=== PATIENT | male | born 1940 | race Caucasian/White ===

== ENCOUNTER 2017-05-18 15:48 | Inpatient (IN) | payer OTHER, MEDICARE ==
[2017-05-18] VITALS (7 sets, daily range): BP systolic 126–168; BP diastolic 62–78; PULSE 85–96; RESP 16–27; TEMP 96.8–97.7; O2SAT 91–94
[~2017-05-18] VITALS: Ht 177.8 cm; Wt 116.7 kg
[~2017-05-18 15:48] MED LIST: HYDR-2768 PO; IBUP600T26 PO; METO25 PO; ZOCO40TA PO
[2017-05-18] MEDS ORDERED: IOHEXOL 350 MG/ML 10 ML VIAL (for RAD DIAG) IVCONTRAST ONE (15:49)
--- NOTE | 2017-05-18 15:58 | PD ---
Physical Exam Time Seen by Provider: 15:56 Narrative 76[facility] M [facility]. C/o left sided chest pain and SOB that stared last night and worse today. Trav yepez hx. HX of HTN. and COPD. Patient seen in triage. VS reviewed. Awaiting bed placement. Data Data Last Documented VS Vital Signs Date Time Temp Pulse Resp B/P (MAP) Pulse Ox O2 Delivery O2 Flow Rate FiO2 05/18/17 15:52 97.7 88 17 133/76 (95) 93 MDM Supervised Visit with NENO: Eli Benson May 18, 2017 15:58
[2017-05-18] MEDS ORDERED: SODIUM CHLORIDE 0.9% FLUSH 10 ML FLUSH IVF PRN (16:00)
--- NOTE | 2017-05-18 16:22 | RADRPT ---
EXAM DATE/TIME: 05/18/2017 16:10 [facility] COMPARISON: KNEE RIGHT LTD (1 OR 2 VWS), November 18, 2015, 14:08. INDICATIONS : Chest pain, anterior upper left. Denies injury MEDICAL HISTORY : Chronic obstructive pulmonary disease. Hypertension SURGICAL HISTORY : None. ENCOUNTER: Initial ACUITY: 2 days PAIN SCORE: 9/10 LOCATION: Left chest FINDINGS: The heart is normal in size. There are advanced COPD changes. There is a large emphysematous bleb in the right upper lobe. There is a 9 mm calcified granuloma the left lung base. The osseous structures demonstrate degenerative changes but are otherwise intact. CONCLUSION: 1. Advanced COPD changes. Daryl Magaña MD on May 18, 2017 at 16:20 Board Certified Radiologist. This report was verified electronically.
[2017-05-18] MEDS ORDERED: SIMV20TA PO (16:59)
[2017-05-18] MEDS ORDERED: METO25TA3 PO (16:59)
[2017-05-18] MEDS ORDERED: HYDR25TA5 PO (16:59)
[2017-05-18] MEDS ORDERED: IPRAAER INH (17:01)
[2017-05-18 17:15] LABS: AUTOMATED NEUTROPHIL # 7.3 TH/MM3 (1.8-7.7); BASOPHIL # 0.1 TH/MM3 (0-0.2); BASOPHIL % 0.9 % (0.0-2.0); EOSINOPHIL # 0.2 TH/MM3 (0-0.4); EOSINOPHIL % 1.7 % (0.0-4.0); HEMO FLAGS DIFF FINAL; LYMPH % 13.4 % (9.0-44.0); LYMPHOCYTE # 1.3 TH/MM3 (1.0-4.8); MEAN CORPUSCULAR HEMOGLOBIN 30.6 PG (27.0-34.0); MONO % 11.2 % (0.0-8.0); NEUT % 72.8 % (16.0-70.0); PLATELET COUNT 218 TH/MM3 (150-450); RED BLOOD COUNT 5.22 MIL/MM3 (4.50-5.90); RED CELL DISTRIBUTION WIDTH 15.3 % (11.6-17.2)
[2017-05-18 17:20] LABS: APTT (PATIENT) 30.2 SEC (24.3-30.1); PROTHROMBIN TIME - PATIENT 10.8 SEC (9.8-11.6)
[2017-05-18 17:28] LABS: ANION GAP 3 MEQ/L (5-15); BICARBONATE 31.1 MEQ/L (21.0-32.0); BLOOD UREA NITROGEN 14 MG/DL (7-18); CHLORIDE 103 MEQ/L (98-107); GLOMERULAR FILTRATION RATE 68 ML/MIN (>89); MAGNESIUM 2.3 MG/DL (1.5-2.5); POTASSIUM 3.9 MEQ/L (3.5-5.1); SODIUM (NA) 137 MEQ/L (136-145)
[2017-05-18] MEDS ORDERED: ASPIRIN 81 MG CHEW TAB CHEW ONE (17:30)
[2017-05-18] MEDS ORDERED: methylPREDNISolone SOD SUCC 125 MG/2 ML VIAL IV PUSH ONE (17:30)
[2017-05-18] MEDS: RESP: ALBUTEROL 2.5 MG/IPRATROPIUM 0.5 MG NEB (SCH) INH (17:42)
[2017-05-18 17:47] LABS: CREATINE KINASE 59 U/L (39-308)
--- NOTE | 2017-05-18 18:15 | PD ---
HPI Chief Complaint: Chest Pain Time Seen by Provider: 16:52 Travel History International Travel<30 days: No Contact w/Intl Traveler<30days: No Traveled to known affect area: No History of Present Illness HPI This is a 76-year-old male with a history of COPD who presents to the emergency department with 1 day of left-sided chest discomfort, intermittent, worse with deep breaths, stabbing, moderate severity. He says he has never had pain like that before. He denies a productive cough, fevers or chills. He has no history of heart problems. He is not on oxygen at home. PFSH Past Medical History Arthritis: No Asthma: No Autoimmune Disease: No Blood Disorders: No Heart Rhythm Problems: No Cancer: No Cardiovascular Problems: No High Cholesterol: Yes Chemotherapy: No Chest Pain: No Congestive Heart Failure: No COPD: Yes Cerebrovascular Accident: No Diminished Hearing: No Endocrine: No GERD: No Glaucoma: No Genitourinary: No Headaches: No Hepatitis: No Hiatal Hernia: No Hypertension: Yes Immune Disorder: No Kidney Stones: No Musculoskeletal: No Neurologic: No Psychiatric: No Reproductive: No Respiratory: Yes (COPD) Migraines: No Myocardial Infarction: No Radiation Therapy: No Renal Failure: No Seizures: No Sickle Cell Disease: No Sleep Apnea: No Ulcer: No Influenza Vaccination: No Past Surgical History Abdominal Surgery: Yes (appendicitis 1957) AICD: No Appendectomy: Yes (1957) Arteriovenous Shunt: No Cardiac Surgery: No Cholecystectomy: No Ear Surgery: No Endocrine Surgery: No Eye Surgery: No Genitourinary Surgery: No Gynecologic Surgery: No Insulin Pump: No Joint Replacement: No Oral Surgery: No Pacemaker: No Thoracic Surgery: No Other Surgery: Yes (appendicitis 1957) Social History Alcohol Use: No Tobacco Use: No Substance Use: No Allergies-Medications (Allergen,Severity, Reaction): Coded Allergies: No Known Allergies (Verified , 05/18/17) Reported Meds & Prescriptions Reported Meds & Active Scripts Active Reported Combivent Respimat Inh (Ipratropium-Albuterol Inh) 20-100 Group Home/Act Aero 2 Puff INH QID PRN Metoprolol Tartrate 25 Mg Tab 25 Mg PO HS Hydrochlorothiazide 25 Mg Tab 25 Mg PO EVERY OTHER DAY Simvastatin 20 Mg Tab 10 Mg PO HS Review of Systems Except as stated in HPI: all other systems reviewed are Neg Physical Exam Narrative GENERAL: Obese, no acute distress SKIN: Focused skin assessment warm and dry. HEAD: Atraumatic. Normocephalic. EYES: Pupils equal and round. No injection or drainage. ENT: Moist mucous membranes NECK: Trachea midline. CARDIOVASCULAR: Regular rate and rhythm. No murmur appreciated. RESPIRATORY: Diminished air movement bilaterally, tachypnea, per slit breathing , speaking full sentences GASTROINTESTINAL: Abdomen soft, non-tender, nondistended. MUSCULOSKELETAL: No obvious deformities. NEUROLOGICAL: Awake and alert. No obvious cranial nerve deficits. Moving all extremities. PSYCHIATRIC: Appropriate mood and affect; insight and judgment normal. Data Data Last Documented VS Vital Signs Date Time Temp Pulse Resp B/P (MAP) Pulse Ox O2 Delivery O2 Flow Rate FiO2 05/18/17 16:55 91 Nasal Cannula 2.00 05/18/17 16:55 87 27 168/78 (108) 05/18/17 15:52 97.7 Orders Orders Electrocardiogram (05/18/17 15:58) Basic Metabolic Panel (Bmp) (05/18/17 15:58) B-Type Natriuretic Peptide (05/18/17 15:58) Ckmb (Isoenzyme) Profile (05/18/17 15:58) Complete Blood Count With Diff (05/18/17 15:58) Magnesium (Mg) (05/18/17 15:58) Prothrombin Time / Inr (Pt) (05/18/17 15:58) Act Partial Throm Time (Ptt) (05/18/17 15:58) Troponin I (05/18/17 15:58) Chest, Single Ap (05/18/17 15:58) Ecg Monitoring (05/18/17 15:58) Iv Access Insert/Monitor (05/18/17 15:58) Oximetry (05/18/17 15:58) Oxygen Administration (05/18/17 15:58) Sodium Chloride 0.9% Flush (Ns Flush) (05/18/17 16:00) Ct Pulmonary Angiogram (05/18/17 ) Methylprednisolone So Succ Inj (Solumedr (05/18/17 17:30) Albuterol-Ipratropium Neb (Duoneb Neb) (05/18/17 17:30) Aspirin Chew (Aspirin Chew) (05/18/17 17:30) Iohexol 350 Inj (Omnipaque 350 Inj) (05/18/17 15:49) Labs Laboratory Tests Test 05/18/17 16:45 White Blood Count 10.0 TH/MM3 Red Blood Count 5.22 MIL/MM3 Hemoglobin 16.0 GM/DL Hematocrit 47.0 % Mean Corpuscular Volume 90.0 FL Mean Corpuscular Hemoglobin 30.6 PG Mean Corpuscular Hemoglobin Concent 34.0 % Red Cell Distribution Width 15.3 % Platelet Count 218 TH/MM3 Mean Platelet Volume 8.9 FL Neutrophils (%) (Auto) 72.8 % Lymphocytes (%) (Auto) 13.4 % Monocytes (%) (Auto) 11.2 % Eosinophils (%) (Auto) 1.7 % Basophils (%) (Auto) 0.9 % Neutrophils # (Auto) 7.3 TH/MM3 Lymphocytes # (Auto) 1.3 TH/MM3 Monocytes # (Auto) 1.1 TH/MM3 Eosinophils # (Auto) 0.2 TH/MM3 Basophils # (Auto) 0.1 TH/MM3 CBC Comment DIFF FINAL Differential Comment Prothrombin Time 10.8 SEC Prothromb Time International Ratio 1.0 RATIO Activated Partial Thromboplast Time 30.2 SEC Blood Urea Nitrogen 14 MG/DL Creatinine 1.06 MG/DL Random Glucose 110 MG/DL Calcium Level 9.0 MG/DL Magnesium Level 2.3 MG/DL Sodium Level 137 MEQ/L Potassium Level 3.9 MEQ/L Chloride Level 103 MEQ/L Carbon Dioxide Level 31.1 MEQ/L Anion Gap 3 MEQ/L Estimat Glomerular Filtration Rate 68 ML/MIN Total Creatine Kinase 59 U/L Troponin I LESS THAN 0.02 NG/ML B-Type Natriuretic Peptide 70 PG/ML MDM Medical Decision Making Medical Screen Exam Complete: Yes Emergency Medical Condition: Yes Interpretation(s) EKG: Atrial fibrillation No leukocytosis Electrolytes are reassuring Troponin is normal BNP is 70 Coags are normal Last 24 hours Impressions Chest X-Ray 05/18/17 1558 Signed Impressions: Service Date/Time: April 16:10 - CONCLUSION: 1. Advanced COPD changes. Daryl Magaña MD CT Angiography 05/18/17 0000 Signed Impressions: Service Date/Time: April 18:05 - CONCLUSION: 1. Examination quality is degraded by severe respiratory motion artifact. However , there are filling defects identified within the left upper lobe and right middle lobe pulmonary arteries characteristic of PE. 2. Severe emphysema with trace left pleural effusion and left lower lobe atelectasis versus consolidation. 3. There are bilateral calcified pleural plaques indicative of prior asbestos exposure. Dario Mendez MD Differential Diagnosis Pulmonary embolism, pleural effusion, pneumonia, COPD exacerbation Narrative Course This is a 76-year-old male who presents to the emergency department with left- sided chest discomfort shortness of breath. He has a history of COPD. He was placed on a monitor and an IV was established. Labs demonstrate a reassuring BMP and troponin. CT pulmonary angiogram demonstrates filling defects in the left upper lobe and right middle lobe. The left upper lobe would be consistent with the patient's symptoms. I do suspect his symptoms are related to pulmonary emboli. Patient will be admitted on anticoagulation. Diagnosis Primary Impression: Pulmonary embolism Qualified Codes: I26.99 - Other pulmonary embolism without acute cor pulmonale Admitting Information Admitting Physician Requests: Admit Annemarie Sykes MD May 18, 2017 18:15
--- NOTE | 2017-05-18 18:27 | RADRPT ---
EXAM DATE/TIME: 05/18/2017 18:05 [facility] COMPARISON: No previous studies available for comparison. INDICATIONS : Shortness of breath and left sided chest pain. IV CONTRAST: 75 cc Omnipaque 350 (iohexol) IV RADIATION DOSE: 23.25 CTDIvol (mGy) MEDICAL HISTORY : Chronic obstructive pulmonary disease. Hypertension. SURGICAL HISTORY : None. ENCOUNTER: Initial ACUITY: 1 day PAIN SCALE: 4/10 LOCATION: Left chest TECHNIQUE: Volumetric scanning of the chest was performed using a pulmonary embolism protocol MIP images were re constructed. Using automated exposure control and adjustment of the mA and/or kV according to patien t size, radiation dose was kept as low as reasonably achievable to obtain optimal diagnostic quality images. DICOM format image data is available electronically for review and comparison. Follow-up recommendations for detected pulmonary nodules are based at a minimum on nodule size and pa tient risk factors according to Fleischner Society Guidelines. FINDINGS: Examination quality is degraded by respiratory motion artifact. PULMONARY ARTERIES: There is a filling defect within the right middle lobe pulmonary artery and within a left upper lobe pulmonary artery. LUNGS: There is atelectasis at the lung bases bilaterally with mild consolidation versus atelectasis in the left lower lobe. No pneumothorax is present. There is severe centrilobular and paraseptal emphysema i n the upper lobes. There is a calcified granuloma in the left lower lobe. PLEURAE: There is a small left pleural effusion. There are calcified pleural plaques bilaterally. MEDIASTINUM: Heart and great vessels demonstrate no acute finding. There is coronary artery calcification atherosc lerotic disease of the aorta. MUSCULOSKELETAL: There are degenerative changes are present in the thoracic spine. No acute osseous abnormality is vis ualized. MISCELLANEOUS: The visualized upper abdominal organs demonstrate no acute abnormality. CONCLUSION: 1. Examination quality is degraded by severe respiratory motion artifact. However, there are filling defects identified within the left upper lobe and right middle lobe pulmonary arteries characteristic of PE. 2. Severe emphysema with trace left pleural effusion and left lower lobe atelectasis versus consolida tion. 3. There are bilateral calcified pleural plaques indicative of prior asbestos exposure. Dario Mendez MD on May 18, 2017 at 18:21 Board Certified Radiologist. This report was verified electronically.
[2017-05-18] MEDS ORDERED: ENOXAPARIN SODIUM 150 MG/ML SYRINGE SQ ONE (18:45)
[2017-05-18] MEDS ORDERED: SODIUM CHLORIDE 0.9% FLUSH 10 ML FLUSH IV FLUSH PRN (20:00)
[2017-05-18] MEDS ORDERED: NALOXONE HCL 0.4 MG/ML AMP IV PRN (20:00)
--- NOTE | 2017-05-18 20:54 | HHI.HP ---
[facility] - Dr. Ugalde Admission Diagnosis pulmonary embolism Diagnoses: (1) Pulmonary embolism Chief Complaint: Chest pain Travel History International Travel<30 Days: No Contact w/Intl Traveler <30 Da: No Traveled to Known Affected Are: No History of Present Illness Written by La Leavitt, acting as scribe for Dr. Yang on 05/18/17 at 20:48. Chest pain started yesterday accompanied by diaphoresis; [facility]. Pain worse with deep inspiration. Accompanied by shortness of breath. Extended car travel in March 22 but no more recent travel. No recent surgery. Reports using a cane for ambulation. Denies overly sedentary lifestyle. Denies fever, nausea, vomiting. He reports cough with sputum production over past few days. Denies hematochezia, hematuria, or dysuria. Had a one-time dark stool, looked black 3 days ago. He reports a history of low platelets resolved 7-9 years ago once aspirin d/c'd. Denies dizziness or syncope Has fell 6 months ago - last fall 2 - 3 weeks ago - feet got "tangled up in a rope". - Also sees Dr. Guajardo for PCP - for [employer] supplement. . Review of Systems Except as stated in HPI: all other systems reviewed are Neg Past Family Social History Past Medical History COPD Hypertension Hyperlipidemia Denies gastric ulcers, DM, CAD, CHF, irregular heart rhythms including a fib, ADELIA, not on home oxygen, liver problems, kidney problems, DVT, PE, CVA, seizures , thyroid problems, or cancers. . Past Surgical History Appendectomy . Reported Medications Reported Meds & Active Scripts Active Reported Combivent Respimat Inh (Ipratropium-Albuterol Inh) 20-100 Intermediate/Act Aero 2 Puff INH QID PRN Metoprolol Tartrate 25 Mg Tab 25 Mg PO HS Hydrochlorothiazide 25 Mg Tab 25 Mg PO EVERY OTHER DAY Simvastatin 20 Mg Tab 10 Mg PO HS . Allergies: Coded Allergies: No Known Allergies (Verified , 05/18/17) Active Ordered Medications Current Medications Sodium Chloride (NS Flush) 2 ml UNSCH PRN IVF FLUSH AFTER USING IV ACCESS; Start 05/18/17 at 16:00 Methylprednisolone Sodium Succinate (SoluMEDROL INJ) 125 mg ONCE ONCE IV PUSH Last administered on 05/18/17 17:47; Start 05/18/17 at 17:30; Stop 05/18/17 at 17:31; Status DC Albuterol/ Ipratropium (Duoneb Neb) 1 ampule Q15M INH Last administered on 05/18 17:42; Start 05/18/17 at 17:30; Stop 05/18/17 at 18:01; Status DC Aspirin (Aspirin Chew) 162 mg ONCE ONCE CHEW Last administered on 05/18/17 17 :48; Start 05/18/17 at 17:30; Stop 05/18/17 at 17:31; Status DC Iohexol (Omnipaque 350 Inj) 75 ml STK-MED ONCE IVCONTRAST Last administered on 05/18/17 15:49; Start 05/18/17 at 15:49; Stop 05/18/17 at 18:08; Status DC Enoxaparin Sodium (Lovenox Inj) 130 mg ONCE ONCE SQ Last administered on 18:44; Start 05/18/17 at 18:45; Stop 05/18/17 at 18:46; Status DC Sodium Chloride (NS Flush) 2 ml UNSCH PRN IV FLUSH FLUSH AFTER USING IV ACCESS ; Start 05/18/17 at 20:00; Status UNV Sodium Chloride (NS Flush) 2 ml BID IV FLUSH ; Start 05/18/17 at 21:00; Status UNV Naloxone HCl (Narcan Inj) 0.4 mg UNSCH PRN IV SEE LABEL COMMENTS; Start at 20:00; Status UNV Enoxaparin Sodium (Lovenox Inj) 125 mg Q12H SQ ; Start 05/19/17 at 09:00; Status UNV Albuterol/ Ipratropium (Duoneb Neb) 1 ampule Q6HR NEB NEB ; Start 05/18/17 at 22:00; Status UNV Albuterol/ Ipratropium (Duoneb Neb) 1 ampule Q2HR NEB PRN NEB wheezing; Start 05/18/17 at 20:00; Status UNV Methylprednisolone Sodium Succinate (SoluMEDROL INJ) 40 mg Q6HR IV PUSH ; Start 05/19/17 at 00:00; Status UNV Pantoprazole Sodium (Protonix) 40 mg DAILY PO ; Start 05/19/17 at 09:00; Status UNV . Family History Mother with breast cancer, lived until age 98 y/o . Social History Tobacco: quit smoking 25 years ago Alcohol: denies Illicit Drugs: denies . Physical Exam Vital Signs Vital Signs Date Time Temp Pulse Resp B/P (MAP) Pulse Ox O2 Delivery O2 Flow Rate FiO2 05/18/17 19:51 91 22 126/65 (85) 91 3.00 05/18/17 19:49 Room Air 05/18/17 19:49 Room Air 05/18/17 18:45 96 16 146/65 (92) 91 Nasal Cannula 2.50 05/18/17 16:55 91 Nasal Cannula 2.00 05/18/17 16:55 87 27 168/78 (108) 94 Nasal Cannula 2.00 05/18/17 15:52 97.7 88 17 133/76 (95) 93 Physical Exam GENERAL: This is an obese male patient, in no apparent distress. SKIN: No rashes, ecchymoses or lesions. Diaphoretic. HEAD: Atraumatic. Normocephalic. EYES: Pupils equal round and reactive. No injection or drainage. ENT: Nose without bleeding, purulent drainage. Patent airway. NECK: Trachea midline. No JVD. CARDIOVASCULAR: Regular rate and rhythm without murmurs, gallops, or rubs. RESPIRATORY: Lung sounds diminished. Breath sounds equal bilaterally. No wheezes, rales, or rhonchi. GASTROINTESTINAL: Abdomen obese, soft, non-tender, nondistended. No guarding. MUSCULOSKELETAL: Extremities without clubbing, cyanosis, or edema. No calf tenderness. NEUROLOGICAL: Awake and alert. Motor and sensory grossly within normal limits. Normal speech. . Laboratory Laboratory Tests Test 05/18/17 16:45 White Blood Count 10.0 Red Blood Count 5.22 Hemoglobin 16.0 Hematocrit 47.0 Mean Corpuscular Volume 90.0 Mean Corpuscular Hemoglobin 30.6 Mean Corpuscular Hemoglobin Concent 34.0 Red Cell Distribution Width 15.3 Platelet Count 218 Mean Platelet Volume 8.9 Neutrophils (%) (Auto) 72.8 Lymphocytes (%) (Auto) 13.4 Monocytes (%) (Auto) 11.2 Eosinophils (%) (Auto) 1.7 Basophils (%) (Auto) 0.9 Neutrophils # (Auto) 7.3 Lymphocytes # (Auto) 1.3 Monocytes # (Auto) 1.1 Eosinophils # (Auto) 0.2 Basophils # (Auto) 0.1 CBC Comment DIFF FINAL Differential Comment Prothrombin Time 10.8 Prothromb Time International Ratio 1.0 Activated Partial Thromboplast Time 30.2 Blood Urea Nitrogen 14 Creatinine 1.06 Random Glucose 110 Calcium Level 9.0 Magnesium Level 2.3 Sodium Level 137 Potassium Level 3.9 Chloride Level 103 Carbon Dioxide Level 31.1 Anion Gap 3 Estimat Glomerular Filtration Rate 68 Total Creatine Kinase 59 Troponin I LESS THAN 0.02 B-Type Natriuretic Peptide 70 Result Diagram: 05/18/17 1645 05/18/17 1645 Imaging Last Impressions Chest X-Ray 05/18/17 1558 Signed Impressions: Service Date/Time: April 16:10 - CONCLUSION: 1. Advanced COPD changes. Daryl Magaña MD CT Angiography 05/18/17 0000 Signed Impressions: Service Date/Time: April 18:05 - CONCLUSION: 1. Examination quality is degraded by severe respiratory motion artifact. However , there are filling defects identified within the left upper lobe and right middle lobe pulmonary arteries characteristic of PE. 2. Severe emphysema with trace left pleural effusion and left lower lobe atelectasis versus consolidation. 3. There are bilateral calcified pleural plaques indicative of prior asbestos exposure. Dario Mendez MD . Caprini VTE Risk Assessment Caprini VTE Risk Assessment: Mod/High Risk (score >= 2) Caprini Risk Assessment Model Point Value = 1 Point Value = 2 Point Value = 3 Point Value = 5 Age 41-60 Minor surgery BMI > 25 kg/m2 Swollen legs Varicose veins or History of unexplained or recurrent spontaneous Oral contraceptives or hormone replacement Sepsis (< 1 month) Serious lung disease, including pneumonia (< 1 month) Abnormal pulmonary function Acute myocardial infarction Congestive heart failure (< 1 month) History of inflammatory bowel disease Medical patient at bed rest Age 61-74 Arthroscopic surgery Major open surgery (> 45 min) Laparoscopic surgery (> 45 min) Malignancy Confined to bed (> 72 hours) Immobilizing plaster cast Central venous access Age >= 75 History of VTE Family history of VTE Factor V Leiden Prothrombin [id number] Lupus anticoagulant Anticardiolipin antibodies Elevated serum homocysteine Heparin-induced thrombocytopenia Other congenital or acquired thrombophilia Stroke (< 1 month) Elective arthroplasty Hip, pelvis, or leg fracture Acute spinal cord injury (< 1 month) Prophylaxis Regimen Total Risk Factor Score Risk Level Prophylaxis Regimen 0-1 Low Early ambulation 2 Moderate Order ONE of the following: *Sequential Compression Device (SCD) *Heparin 5000 units SQ BID 3-4 Higher Order ONE of the following medications: *Heparin 5000 units SQ TID *Enoxaparin/Lovenox 40 mg SQ daily (WT < 150 kg, CrCl > 30 mL/min) *Enoxaparin/Lovenox 30 mg SQ daily (WT < 150 kg, CrCl > 10-29 mL/min) *Enoxaparin/Lovenox 30 mg SQ BID (WT < 150 kg, CrCl > 30 mL/min) AND/OR *Sequential Compression Device (SCD) 5 or more Highest Order ONE of the following medications: *Heparin 5000 units SQ TID (Preferred with Epidurals) *Enoxaparin/Lovenox 40 mg SQ daily (WT < 150 kg, CrCl > 30 mL/min) *Enoxaparin/Lovenox 30 mg SQ daily (WT < 150 kg, CrCl > 10-29 mL/min) *Enoxaparin/Lovenox 30 mg SQ BID (WT < 150 kg, CrCl > 30 mL/min) AND *Sequential Compression Device (SCD) Assessment and Plan Problem List: (1) COPD (chronic obstructive pulmonary disease) ICD Code: J44.9 - Chronic obstructive pulmonary disease, unspecified (2) Pulmonary embolism ICD Code: I26.99 - Other pulmonary embolism without acute cor pulmonale Status: Acute Assessment and Plan Bilateral PE - Lovenox 125 mg subq q12h - discussed anticoagulation options with the patient - pros vs cons - supplemental oxygen titrated to maintain oxygen saturation > 92%. - will check bilateral lower extremity ultrasound to r/o DVT Severe COPD with productive cough- diaphoretic, ct showing possible consolidations- probable pneumonia - Duonebulizers q6h ATC and q2h PRN wheezing - Solumedrol 40 mg q6h IV - Levaquin 750 mg IV qday Chest Pain - serial EKG and cardiac enzymes to r/o ACS - Heart healthy diet - continuous cardiac telemetry to monitor for arrhythmias - monitor vital signs q4h History of thrombocytopenia on aspirin - platelets 218,00 on admission - recheck CBC and follow results - monitor platelet trends This note was transcribed by adolfo [La Leavitt]. I, Dr. Kelly Yang personally performed the history, physical exam, and medical decision making; and confirmed the accuracy of the information in the transcribed note. Authenticated by Dr. Kelly Yang on 05/18/17 at 20:48. Discussed Condition With ER physician, patient, respiratory therapist, and patient's . Physician Certification 2 Midnight Certification Type: Admission for Inpatient Services Order for Inpatient Services The services are ordered in accordance with Medicare regulations or non- Medicare payer requirements, as applicable. In the case of services not specified as inpatient-only, they are appropriately provided as inpatient services in accordance with the 2-midnight benchmark. Estimated LOS (days): 3 days is the estimated time the patient will need to remain in the hospital, assuming treatment plan goals are met and no additional complications. Post-Hospital Plan: Home Problem Qualifiers (1) Pulmonary embolism: Qualified Codes: I26.99 - Other pulmonary embolism without acute cor pulmonale La Leavitt May 18, 2017 20:54 Kelly Yang MD May 18, 2017 22:08
[2017-05-18] MEDS: RESP: ALBUTEROL 2.5 MG/IPRATROPIUM 0.5 MG NEB (SCH) NEB (21:27)
[2017-05-18] MEDS: SODIUM CHLORIDE 0.9% FLUSH 10 ML FLUSH IV FLUSH SCH (22:37)
[2017-05-18] MEDS: LEVOFLOXACIN 750 MG PREMIX INJ 150 ML IV SCH (22:37)
--- NOTE | 2017-05-18 23:14 | RADRPT ---
EXAM DATE/TIME: 05/18/2017 22:06 [facility] COMPARISON: No previous studies available for comparison. INDICATIONS : Bilateral leg swelling. MEDICAL HISTORY : Hypercholesterolemia. Hypertension. Right eye cataracts. COPD. Dyspnea. Wheezing. SURGICAL HISTORY : Appendectomy. ENCOUNTER: Initial ACUITY: 1 day PAIN SCORE: 4/10 LOCATION: Bilateral legs. TECHNIQUE: Venous ultrasound of the left and right leg was performed from the inguinal ligament to the proximal calf. Real-time, color Doppler and spectral tracing, compression and augmentation techniques were us ed. FINDINGS: RIGHT LEG: There is normal compressibility of the deep venous system from the inguinal region to the proximal ca lf. No echogenic clot is seen in the lumen of the common femoral, femoral, popliteal, and posterior tibial veins. There is a normal response of the venous system to proximal and distal augmentation an d respiration. LEFT LEG: There is normal compressibility of the deep venous system from the inguinal region to the proximal ca lf. No echogenic clot is seen in the lumen of the common femoral, femoral, popliteal, and posterior tibial veins. There is a normal response of the venous system to proximal and distal augmentation an d respiration. CONCLUSION: Normal examination. Willi Robison MD on May 18, 2017 at 23:12 Board Certified Radiologist. This report was verified electronically.
[2017-05-18 23:34] LABS: CREATINE KINASE 48 U/L (39-308)
[2017-05-19] VITALS (10 sets, daily range): BP systolic 119–147; BP diastolic 48–69; PULSE 81–107; RESP 18–21; TEMP 96–97; O2SAT 90–92
[2017-05-19] MEDS: methylPREDNISolone SOD SUCC 40 MG/1 ML VIAL IV PUSH SCH ×5 (00:34→23:12)
[2017-05-19] MEDS: RESP: ALBUTEROL 2.5 MG/IPRATROPIUM 0.5 MG NEB (SCH) NEB ×4 (04:47→21:45)
[2017-05-19 07:17] LABS: AUTOMATED NEUTROPHIL # 8.4 TH/MM3 (1.8-7.7); BASOPHIL % 0.2 % (0.0-2.0); HEMATOCRIT 45.9 % (39.0-51.0); HEMO FLAGS DIFF FINAL; LYMPHOCYTE # 0.8 TH/MM3 (1.0-4.8); MEAN CELL VOLUME 89.7 FL (80.0-100.0); MEAN CORPUSCULAR HEMOGLOBIN 30.8 PG (27.0-34.0); MEAN CORPUSCULAR HGB CONC 34.3 % (32.0-36.0); MONO % 1.9 % (0.0-8.0); NEUT % 89.9 % (16.0-70.0); PLATELET COUNT 216 TH/MM3 (150-450); RED BLOOD COUNT 5.12 MIL/MM3 (4.50-5.90); RED CELL DISTRIBUTION WIDTH 15.3 % (11.6-17.2); WHITE BLOOD COUNT 9.4 TH/MM3 (4.0-11.0)
[2017-05-19 07:38] LABS: ANION GAP 12 MEQ/L (5-15); AST (GOT) 11 U/L (15-37); BICARBONATE 23.5 MEQ/L (21.0-32.0); BLOOD UREA NITROGEN 15 MG/DL (7-18); CHLORIDE 101 MEQ/L (98-107); GLOMERULAR FILTRATION RATE 67 ML/MIN (>89); POTASSIUM 3.5 MEQ/L (3.5-5.1); SODIUM (NA) 136 MEQ/L (136-145)
[2017-05-19 07:43] LABS: ALKALINE PHOSPHATASE 88 U/L (45-117); ALT (GPT) 12 U/L (12-78); TOTAL BILIRUBIN ADULT 0.6 MG/DL (0.2-1.0)
[2017-05-19 07:44] LABS: CREATINE KINASE 80 U/L (39-308)
[2017-05-19] MEDS ORDERED: ENOXAPARIN SODIUM 120 MG/0.8 ML SYRINGE SQ SCH (09:00)
[2017-05-19] MEDS: SODIUM CHLORIDE 0.9% FLUSH 10 ML FLUSH IV FLUSH SCH ×2 (10:19→19:32)
[2017-05-19] MEDS: PANTOPRAZOLE SOD 40 MG DELAYED RELEASE TAB PO SCH (10:19)
--- NOTE | 2017-05-19 10:55 | HHI.PR ---
Subjective Remarks easily gets short of breath history of chronic smoking - COPD- not 02 requiring Objective Vitals Vital Signs Date Time Temp Pulse Resp B/P (MAP) Pulse Ox O2 Delivery O2 Flow Rate FiO2 05/19/17 10:11 92 Nasal Cannula 4.00 05/19/17 07:57 96.7 84 18 139/69 (92) 90 05/19/17 06:35 96.9 81 21 135/69 (91) 91 05/19/17 04:51 90 Nasal Cannula 4.00 05/19/17 00:40 96.9 85 19 132/63 (86) 92 05/18/17 22:38 85 05/18/17 22:38 92 Nasal Cannula 4.00 05/18/17 21:50 96.8 96 19 128/62 (84) 92 05/18/17 21:29 91 Nasal Cannula 3.00 05/18/17 19:51 91 22 126/65 (85) 91 3.00 05/18/17 19:49 Room Air 05/18/17 19:49 Room Air 05/18/17 18:45 96 16 146/65 (92) 91 Nasal Cannula 2.50 05/18/17 16:55 91 Nasal Cannula 2.00 05/18/17 16:55 87 27 168/78 (108) 94 Nasal Cannula 2.00 05/18/17 15:52 97.7 88 17 133/76 (95) 93 I/O 05/18/17 05/18/17 05/18/17 05/19/17 05/19/17 05/19/17 07:00 15:00 23:00 07:00 15:00 23:00 Intake Total 390 ml Balance 390 ml Intake Oral 240 ml IV Total 150 ml # Voids 1 # Bowel Movements 0 Result Diagram: 05/19/17 0642 05/19/17 0642 Imaging Last Impressions Chest X-Ray 05/18/17 1558 Signed Impressions: Service Date/Time: April 16:10 - CONCLUSION: 1. Advanced COPD changes. Daryl Magaña MD Lower Extremity Ultrasound 05/18/17 0000 Signed Impressions: Service Date/Time: April 22:06 - CONCLUSION: Normal examination. Willi Robison MD CT Angiography 05/18/17 0000 Signed Impressions: Service Date/Time: April 18:05 - CONCLUSION: 1. Examination quality is degraded by severe respiratory motion artifact. However , there are filling defects identified within the left upper lobe and right middle lobe pulmonary arteries characteristic of PE. 2. Severe emphysema with trace left pleural effusion and left lower lobe atelectasis versus consolidation. 3. There are bilateral calcified pleural plaques indicative of prior asbestos exposure. Dario Mendez MD Objective Remarks awake and alert, SOB with minimal exertion lungs- no rales or wheezes regular rhythm abdomen- globularly soft, nontender extremities no edema A/P Problem List: (1) COPD (chronic obstructive pulmonary disease) ICD Code: J44.9 - Chronic obstructive pulmonary disease, unspecified (2) Pulmonary embolism ICD Code: I26.99 - Other pulmonary embolism without acute cor pulmonale Status: Acute Assessment and Plan Bilateral PE - change to Eliquis 10 mg po bid x 7 days then 5 mg po bid- we can ask CM to assist Acute respiratory failure due to PE likely with underlying COPD Possible PNA -get PFTs - continue on MDIs, duonebs, IV steroids - get walk test- OP 02 candidate - continue on Levaquin - consult Pulmonary Chest Pain - serial EKG and cardiac enzymes to r/o ACS - Heart healthy diet - continuous cardiac telemetry to monitor for arrhythmias - monitor vital signs q4h History of thrombocytopenia on aspirin - platelets 218,00 on admission - recheck CBC and follow results - monitor platelet trends CM consult- assist with Eliquis Problem Qualifiers (1) Pulmonary embolism: Qualified Codes: I26.99 - Other pulmonary embolism without acute cor pulmonale Radha Miller MD May 19, 2017 10:55
--- NOTE | 2017-05-19 11:34 | EKG ---
Date Performed: 05/18/2017 Time Performed: 16:40:42 PTAGE: 76 years EKG: Probably Sinus rhythm with PACs NONSPECIFIC ST & T-WAVE ABNORMALITY Baseline artifact limits accuracy of the interpretatio n ABNORMAL RHYTHM ECG PREVIOUS TRACING : 03/09/2007 06.47 DOCTOR: Tera Carrasquillo Interpretating Date/Time 05/19/2017 11:33:00
--- NOTE | 2017-05-19 11:34 | EKG ---
Date Performed: 05/18/2017 Time Performed: 22:15:00 PTAGE: 76 years EKG: Probably Sinus rhythm with PACs MODERATE INTRAVENTRICULAR CONDUCTION DELAY NONSPECIFIC ST & T-WAVE ABNORMALITY Baseline ar tifact limits accuracy of the interpretation ABNORMAL RHYTHM ECG PREVIOUS TRACING : 05/18/2017 16.40 DOCTOR: Tera Carrasquillo Interpretating Date/Time 05/19/2017 11:33:48
[2017-05-19] MEDS: APIXABAN 5 MG TABLET PO SCH (19:32)
[2017-05-19] MEDS: LEVOFLOXACIN 750 MG PREMIX INJ 150 ML IV SCH (21:00)
--- NOTE | 2017-05-19 21:07 | MB ---
cc: KIRSTEN WOO DATE OF CONSULTATION 05/19/[address] Miller REASON FOR CONSULTATION Pulmonary embolism and COPD. HISTORY OF PRESENT ILLNESS Mr. Weldon is a pleasant 76-year-old male with history of COPD, hypertension. He follows at the [facility] with Dr. Viola Ugalde. He developed chest pain, pleuritic in nature and he called [facility], advised to come to the hospital. He had a CT of the chest done which shows that he has pulmonary embolism. He also has pleural plaques, severe emphysematous changes in the lung. He was initially started on Lovenox, now he is taking Eliquis. He has mild shortness of breath with exertion. No fever, __. No night sweats. PAST MEDICAL HISTORY Significant history of COPD, history of cardiac arrhythmia, hypertension. MEDICATIONS He is currently takin. Eliquis 10 milligrams twice a day. 2. Protonix 40 milligrams a day. 3. Solu-Medrol 40 milligrams q. 6 hours. 4. Albuterol/Atrovent nebulizer treatment. 5. Levaquin 750 milligrams a day. ALLERGIES NO KNOWN DRUG ALLERGIES. SOCIAL HISTORY for 36-year. He history of smoking which he quit 25 years ago. He worked for [employer]. FAMILY HISTORY He has no children. REVIEW OF SYSTEMS Normally he is up and around, active. No seizure, stroke or epilepsy. No DVT or pulmonary embolism. PHYSICAL EXAMINATION GENERAL: Reveals a well-nourished male mild short of breath, not in any acute distress. VITAL SIGNS: His blood pressure is 119/50, heart rate 92, respiration 18, temperature 96.9. HEENT: On examination pupils are equal, round and reactive to light. Oral mucosa, nasal mucosa normal. NECK: Supple. JVP not raised. CHEST: Air entry equal bilaterally. He has few rhonchi. CHEST: S1-S2 normal. ABDOMEN: Benign. EXTREMITIES: No edema. IMPRESSION 1. Pulmonary embolism. 2. COPD. 3. Hypertension. 4. Pleural plaques indicative of exposure to asbestos. PLAN Discussed with the patient. We will give him aerosol treatment, IV Solu-Medrol. Check his pulmonary function study. He is on Eliquis 10 milligrams twice a day for 1 week, then 5 milligrams twice a day. I discussed with him side effects of anticoagulation including risk of severe bleeding, intracranial bleeding and which he understands well and wants to proceed with it. He will need at least 6 months of anticoagulation. Further treatment will depend on the course in the hospital. Thank you Dr. Miller for this consultation. MD TRISH Bill/MICHI /6:12 PM /8:34 PM
[2017-05-20] VITALS (10 sets, daily range): BP systolic 124–136; BP diastolic 54–66; PULSE 83–93; RESP 16–19; TEMP 96.3–97.5; O2SAT 91–93
[2017-05-20] MEDS: RESP: ALBUTEROL 2.5 MG/IPRATROPIUM 0.5 MG NEB (SCH) NEB ×4 (04:00→21:10)
[2017-05-20] MEDS: methylPREDNISolone SOD SUCC 40 MG/1 ML VIAL IV PUSH SCH ×3 (05:14→22:29)
[2017-05-20] MEDS: PANTOPRAZOLE SOD 40 MG DELAYED RELEASE TAB PO SCH (07:21)
[2017-05-20] MEDS: SODIUM CHLORIDE 0.9% FLUSH 10 ML FLUSH IV FLUSH SCH ×2 (07:22→20:11)
[2017-05-20] MEDS: APIXABAN 5 MG TABLET PO SCH ×2 (07:22→20:09)
--- NOTE | 2017-05-20 09:35 | HHI.PR ---
Subjective Remarks no acute shortness of breath overnight encourage to up and ambulate around room- check sats Objective Vitals Vital Signs Date Time Temp Pulse Resp B/P (MAP) Pulse Ox O2 Delivery O2 Flow Rate FiO2 05/20/17 08:00 96.3 86 16 136/60 (85) 91 05/20/17 06:37 92 Nasal Cannula 4.00 05/20/17 04:00 97.0 91 19 128/63 (84) 92 05/20/17 00:00 97.2 93 18 130/62 (84) 92 05/19/17 21:45 92 Nasal Cannula 4.00 05/19/17 19:29 107 05/19/17 19:29 92 Nasal Cannula 4.00 Humidified 05/19/17 19:00 96.0 91 19 124/48 (73) 92 05/19/17 16:00 96.9 92 18 119/50 (73) 90 05/19/17 12:00 97.0 100 18 147/66 (93) 90 05/19/17 10:11 92 Nasal Cannula 4.00 I/O 05/19/17 05/19/17 05/19/17 05/20/17 05/20/17 05/20/17 07:00 15:00 23:00 07:00 15:00 23:00 Intake Total 390 ml 720 ml 630 ml 480 ml Balance 390 ml 720 ml 630 ml 480 ml Intake Oral 240 ml 720 ml 480 ml 480 ml IV Total 150 ml 150 ml # Voids 1 3 2 2 # Bowel Movements 0 0 0 0 Result Diagram: 05/19/17 0642 05/19/17 0642 Imaging Last Impressions Chest X-Ray 05/18/17 1558 Signed Impressions: Service Date/Time: April 16:10 - CONCLUSION: 1. Advanced COPD changes. Daryl Magaña MD Lower Extremity Ultrasound 05/18/17 0000 Signed Impressions: Service Date/Time: April 22:06 - CONCLUSION: Normal examination. Willi Robison MD CT Angiography 05/18/17 0000 Signed Impressions: Service Date/Time: April 18:05 - CONCLUSION: 1. Examination quality is degraded by severe respiratory motion artifact. However , there are filling defects identified within the left upper lobe and right middle lobe pulmonary arteries characteristic of PE. 2. Severe emphysema with trace left pleural effusion and left lower lobe atelectasis versus consolidation. 3. There are bilateral calcified pleural plaques indicative of prior asbestos exposure. Dario Mendez MD Objective Remarks awake and alert, no dyspnea at rest lungs- no rales or wheezes regular rhythm abdomen- globularly soft, nontender extremities no edema A/P Problem List: (1) COPD (chronic obstructive pulmonary disease) ICD Code: J44.9 - Chronic obstructive pulmonary disease, unspecified (2) Pulmonary embolism ICD Code: I26.99 - Other pulmonary embolism without acute cor pulmonale Status: Acute Assessment and Plan Bilateral PE - change to Eliquis 10 mg po bid x 7 days then 5 mg po bid- we can ask CM to assist- coupon given for 1 month trial Acute respiratory failure due to PE likely with underlying COPD- heavy smoker in the apst Possible PNA -get PFTs - continue on MDIs, duonebs, IV steroids- decrease to q8 - get walk test- OP 02 candidate - continue on Levaquin - appreciate Dr. Mclaughlin seeing patient Chest Pain- resolved- likely secondary to PE - serial EKG and cardiac enzymes - negative - Heart healthy diet - continuous cardiac telemetry to monitor for arrhythmias History of thrombocytopenia on aspirin - platelets 218,00 on admission - CBC today CM consult- assist with Eliquis- coupon given Increase acitity and monitor sats home 02 if qualifies Problem Qualifiers (1) Pulmonary embolism: Qualified Codes: I26.99 - Other pulmonary embolism without acute cor pulmonale Radha Miller MD May 20, 2017 09:34
[2017-05-20 12:49] LABS: HEMATOCRIT 45.7 % (39.0-51.0); MEAN CELL VOLUME 89.8 FL (80.0-100.0); MEAN CORPUSCULAR HEMOGLOBIN 29.8 PG (27.0-34.0); MEAN CORPUSCULAR HGB CONC 33.2 % (32.0-36.0); PLATELET COUNT 247 TH/MM3 (150-450); RED BLOOD COUNT 5.09 MIL/MM3 (4.50-5.90); RED CELL DISTRIBUTION WIDTH 15.1 % (11.6-17.2); REVIEW FLAG FINAL; WHITE BLOOD COUNT 13.9 TH/MM3 (4.0-11.0)
[2017-05-20 13:12] LABS: BICARBONATE 24.3 MEQ/L (21.0-32.0); POTASSIUM 3.3 MEQ/L (3.5-5.1)
--- NOTE | 2017-05-20 18:29 | HHI.PR ---
Subjective Remarks 76 YOWM with COPD PE Breathing better No CP Wheezing improved Objective Vital Signs Vital Signs Date Time Temp Pulse Resp B/P (MAP) Pulse Ox O2 Delivery O2 Flow Rate FiO2 05/20/17 12:00 96.6 92 17 127/58 (81) 91 05/20/17 10:05 92 Nasal Cannula 5.00 05/20/17 08:00 96.3 86 16 136/60 (85) 91 05/20/17 06:37 92 Nasal Cannula 4.00 05/20/17 04:00 97.0 91 19 128/63 (84) 92 05/20/17 00:00 97.2 93 18 130/62 (84) 92 05/19/17 21:45 92 Nasal Cannula 4.00 05/19/17 19:29 107 05/19/17 19:29 92 Nasal Cannula 4.00 Humidified 05/19/17 19:00 96.0 91 19 124/48 (73) 92 I/O 05/19/17 05/19/17 05/19/17 05/20/17 05/20/17 05/20/17 07:00 15:00 23:00 07:00 15:00 23:00 Intake Total 390 ml 720 ml 630 ml 480 ml 600 ml Output Total 600 ml Balance 390 ml 720 ml 630 ml 480 ml 0 ml Intake Oral 240 ml 720 ml 480 ml 480 ml 600 ml IV Total 150 ml 150 ml Output Urine Total 600 ml # Voids 1 3 2 2 # Bowel Movements 0 0 0 0 0 Result Diagram: 05/20/17 1152 05/20/17 1152 Objective Remarks GENERAL: WBWN WM,NAD SKIN: Warm and dry. HEAD: Normocephalic. EYES: No scleral icterus. No injection or drainage. NECK: Supple, trachea midline. No JVD or lymphadenopathy. CARDIOVASCULAR: Regular rate and rhythm without murmurs, gallops, or rubs. RESPIRATORY: Breath sounds equal bilaterally. No accessory muscle use. GASTROINTESTINAL: Abdomen soft, non-tender, nondistended. MUSCULOSKELETAL: No cyanosis, or edema. BACK: Nontender without obvious deformity. No CVA tenderness. A/P Assessment and Plan Pulm Embolism COPD HTN Pleural Plaques PLAN: Cont Eliquis Supplement 02 IV Solumedrol Aerosol nebs OOB and ambulate. Janak Mclaughlin MD May 20, 2017 18:29
--- NOTE | 2017-05-20 18:58 | EKG ---
Date Performed: 05/19/2017 Time Performed: 05:05:12 PTAGE: 76 years EKG: Sinus rhythm . Extensive ST-T changes are nonspecific Borderline ECG PREVIOUS TRACING : 05/18/2017 22.15 Compared to prior tracing no significant change DOCTOR: David Lock Interpretating Date/Time 05/20/2017 18:57:01
[2017-05-20] MEDS: LEVOFLOXACIN 750 MG PREMIX INJ 150 ML IV SCH (22:28)
[2017-05-21] VITALS (9 sets, daily range): BP systolic 121–130; BP diastolic 58–66; PULSE 73–86; RESP 16–21; TEMP 96–96.6; O2SAT 90–97
[2017-05-21] MEDS: RESP: ALBUTEROL 2.5 MG/IPRATROPIUM 0.5 MG NEB (SCH) NEB ×4 (04:00→21:03)
[2017-05-21] MEDS: methylPREDNISolone SOD SUCC 40 MG/1 ML VIAL IV PUSH SCH ×2 (05:58→18:30)
[2017-05-21] MEDS: APIXABAN 5 MG TABLET PO SCH ×2 (07:40→20:30)
[2017-05-21] MEDS: PANTOPRAZOLE SOD 40 MG DELAYED RELEASE TAB PO SCH (07:40)
[2017-05-21] MEDS: SODIUM CHLORIDE 0.9% FLUSH 10 ML FLUSH IV FLUSH SCH ×2 (07:41→20:31)
--- NOTE | 2017-05-21 09:00 | HHI.PR ---
Subjective Remarks feeling better states he was able to go and walk to the bathroom - with no shortness of breath - slow pace Objective Vitals Vital Signs Date Time Temp Pulse Resp B/P (MAP) Pulse Ox O2 Delivery O2 Flow Rate FiO2 05/21/17 04:00 96.4 73 16 128/66 (86) 97 05/21/17 00:15 Nasal Cannula 5.00 Humidified 05/21/17 00:00 96.6 86 17 130/65 (86) 92 05/20/17 21:10 92 Nasal Cannula 5.00 05/20/17 20:27 90 05/20/17 19:00 97.5 83 18 124/54 (77) 93 05/20/17 16:00 96.6 92 18 134/66 (88) 92 05/20/17 12:00 96.6 92 17 127/58 (81) 91 05/20/17 10:05 92 Nasal Cannula 5.00 I/O 05/20/17 05/20/17 05/20/17 05/21/17 05/21/17 05/21/17 07:00 15:00 23:00 07:00 15:00 23:00 Intake Total 480 ml 600 ml 480 ml 250 ml Output Total 600 ml Balance 480 ml 0 ml 480 ml 250 ml Intake Oral 480 ml 600 ml 480 ml 250 ml Output Urine Total 600 ml # Voids 2 2 1 # Bowel Movements 0 0 0 0 Result Diagram: 05/20/17 1152 05/20/17 1152 Imaging Last Impressions Chest X-Ray 05/18/17 1558 Signed Impressions: Service Date/Time: April 16:10 - CONCLUSION: 1. Advanced COPD changes. Daryl Magaña MD Lower Extremity Ultrasound 05/18/17 0000 Signed Impressions: Service Date/Time: April 22:06 - CONCLUSION: Normal examination. Willi Robison MD CT Angiography 05/18/17 0000 Signed Impressions: Service Date/Time: April 18:05 - CONCLUSION: 1. Examination quality is degraded by severe respiratory motion artifact. However , there are filling defects identified within the left upper lobe and right middle lobe pulmonary arteries characteristic of PE. 2. Severe emphysema with trace left pleural effusion and left lower lobe atelectasis versus consolidation. 3. There are bilateral calcified pleural plaques indicative of prior asbestos exposure. Dario Mendez MD Objective Remarks awake and alert, no dyspnea at rest lungs- no rales or wheezes regular rhythm abdomen- globularly soft, nontender extremities no edema A/P Problem List: (1) COPD (chronic obstructive pulmonary disease) ICD Code: J44.9 - Chronic obstructive pulmonary disease, unspecified (2) Pulmonary embolism ICD Code: I26.99 - Other pulmonary embolism without acute cor pulmonale Status: Acute Assessment and Plan Bilateral PE - changed to Eliquis 10 mg po bid x 7 days till 05/26 then 5 mg po bid- we can ask CM to assist- coupon given for 1 month trial the [facility] Acute respiratory failure due to PE likely with underlying COPD- IMproved clinically Possible PNA -get PFTs. continue 02 NC - continue on MDMartínez, oli, IV steroids- decrease to to q 12 - get walk test- OP 02 candidate. needs to be repeated prior to DC has to be done within 24 hours prior to DC . failed walk test 05/20 - continue on Levaquin- change to po - appreciate Dr. Mclaughlin seeing patient - CM will assist if needs home 02 Chest Pain- resolved- likely secondary to PE - serial EKG and cardiac enzymes - negative - Heart healthy diet - continuous cardiac telemetry to monitor for arrhythmias History of thrombocytopenia on aspirin - platelets 218,00 on admission - repeat CBC good 05/20 CM consult- assist with Eliquis- coupon given Increase activity and monitor sats home 02 if qualifies DC home if breathing continues to improve hopefully tomorrow Problem Qualifiers (1) COPD (chronic obstructive pulmonary disease): Qualified Codes: J44.9 - Chronic obstructive pulmonary disease, unspecified (2) Pulmonary embolism: Qualified Codes: I26.99 - Other pulmonary embolism without acute cor pulmonale Radha Miller MD May 21, 2017 09:00
[2017-05-21] MEDS ORDERED: OXYGENDME NAS.CANULA (09:08)
--- NOTE | 2017-05-21 15:52 | HHI.PR ---
Subjective Remarks 76 YOWM with COPD PE Breathing better No CP Wheezing improved On Supplemental 02 3 LNC Objective Vital Signs Vital Signs Date Time Temp Pulse Resp B/P (MAP) Pulse Ox O2 Delivery O2 Flow Rate FiO2 05/21/17 09:32 90 Nasal Cannula 4.00 05/21/17 08:00 96.0 73 19 127/62 (83) 92 05/21/17 04:00 96.4 73 16 128/66 (86) 97 05/21/17 00:15 Nasal Cannula 5.00 Humidified 05/21/17 00:00 96.6 86 17 130/65 (86) 92 05/20/17 21:10 92 Nasal Cannula 5.00 05/20/17 20:27 90 05/20/17 19:00 97.5 83 18 124/54 (77) 93 05/20/17 16:00 96.6 92 18 134/66 (88) 92 I/O 05/20/17 05/20/17 05/20/17 05/21/17 05/21/17 05/21/17 06:59 14:59 22:59 06:59 14:59 22:59 Intake Total 480 ml 600 ml 480 ml 250 ml Output Total 600 ml Balance 480 ml 0 ml 480 ml 250 ml Intake Oral 480 ml 600 ml 480 ml 250 ml Output Urine Total 600 ml # Voids 2 2 1 # Bowel Movements 0 0 0 0 Result Diagram: 05/20/17 1152 05/20/17 1152 Objective Remarks GENERAL: WBWN WM,NAD SKIN: Warm and dry. HEAD: Normocephalic. EYES: No scleral icterus. No injection or drainage. NECK: Supple, trachea midline. No JVD or lymphadenopathy. CARDIOVASCULAR: Regular rate and rhythm without murmurs, gallops, or rubs. RESPIRATORY: Breath sounds equal bilaterally. No accessory muscle use. GASTROINTESTINAL: Abdomen soft, non-tender, nondistended. MUSCULOSKELETAL: No cyanosis, or edema. BACK: Nontender without obvious deformity. No CVA tenderness. A/P Assessment and Plan Pulm Embolism COPD HTN Pleural Plaques PLAN: Cont Eliquis Supplement 02 IV Solumedrol Aerosol nebs OOB and ambulate. Wean 02 to keep sat >90% Janak Mclaughlin MD May 21, 2017 15:52
[2017-05-21] MEDS: LEVOFLOXACIN 750 MG TAB PO SCH (21:33)
[2017-05-22] VITALS (9 sets, daily range): BP systolic 115–140; BP diastolic 55–70; PULSE 70–81; RESP 18–20; TEMP 96.2–97.1; O2SAT 89–98
[2017-05-22] MEDS: RESP: ALBUTEROL 2.5 MG/IPRATROPIUM 0.5 MG NEB (SCH) NEB ×4 (04:02→20:18)
[2017-05-22] MEDS: methylPREDNISolone SOD SUCC 40 MG/1 ML VIAL IV PUSH SCH ×2 (09:26→21:32)
[2017-05-22] MEDS: PANTOPRAZOLE SOD 40 MG DELAYED RELEASE TAB PO SCH (09:26)
[2017-05-22] MEDS: APIXABAN 5 MG TABLET PO SCH ×2 (09:26→21:33)
[2017-05-22] MEDS: SODIUM CHLORIDE 0.9% FLUSH 10 ML FLUSH IV FLUSH SCH ×2 (09:27→21:33)
--- NOTE | 2017-05-22 14:14 | HHI.PR ---
Subjective Remarks No significant improvement in breathing. Patient is not yet ambulatory. She is remaining oxygen-dependent so far. He does not feel stable enough to return to home yet. Objective Vital Signs Date Time Temp Pulse Resp B/P (MAP) Pulse Ox O2 Delivery O2 Flow Rate FiO2 05/22/17 12:00 96.2 81 18 131/59 (83) 91 05/22/17 09:27 90 Humidified 5.00 05/22/17 09:00 89 Nasal Cannula 5.00 05/22/17 08:09 70 05/22/17 08:00 97.0 76 18 140/70 (93) 90 05/22/17 04:25 96.2 77 20 121/64 (83) 98 05/22/17 00:29 96.4 75 19 115/55 (75) 91 05/21/17 23:36 Nasal Cannula 5.00 Humidified 05/21/17 20:09 75 05/21/17 19:42 96.3 76 19 123/58 (79) 91 05/21/17 18:08 95 Nasal Cannula 5.00 05/21/17 16:00 96.2 75 19 125/62 (83) 92 I/O 05/21/17 05/21/17 05/21/17 05/22/17 05/22/17 05/22/17 07:00 15:00 23:00 07:00 15:00 23:00 Intake Total 250 ml 480 ml 480 ml 360 ml Output Total 300 ml Balance 250 ml 480 ml 480 ml 60 ml Intake Oral 250 ml 480 ml 480 ml 360 ml Output Urine Total 300 ml # Voids 1 2 4 1 # Bowel Movements 0 1 0 0 Result Diagram: 05/20/17 1152 05/20/17 1152 Objective Remarks GENERAL: NAD, A&Ox3 HEAD: Normocephalic. NECK: Supple, trachea midline. No lymphadenopathy. EYES: No scleral icterus. No injection or drainage. CARDIOVASCULAR: Regular rate and rhythm without murmurs, gallops, or rubs. RESPIRATORY: Breath sounds equal bilaterally. No accessory muscle use. GASTROINTESTINAL: Abdomen soft, non-tender, nondistended. MUSCULOSKELETAL: No cyanosis, or edema. SKIN: Warm and dry. NEURO: No focal neurological deficitis. A/P Problem List: (1) COPD (chronic obstructive pulmonary disease) ICD Code: J44.9 - Chronic obstructive pulmonary disease, unspecified (2) PE,COPD (3) Pulmonary embolism ICD Code: I26.99 - Other pulmonary embolism without acute cor pulmonale Status: Acute Assessment and Plan Assessment and Plan 76-year-old male admitted secondary to acute pulmonary embolism and hypoxia Bilateral PE Acute respiratory failure Hypoxia History of COPD Possible pneumonia Unable to wean from oxygen as far Exertional tolerance is not yet present Continue Eliquis COPD is not exacerbated Continue as needed albuterol, DuoNeb's scheduled, IV steroids. Continue Levaquin Chest Pain Secondary to PE Continue heart healthy diet Continue telemetry History of thrombocytopenia Follow CBC DVT prophylaxis Eliquis Discharge planning Plan for discharge to home once patient is functional She may need oxygen at discharge Problem Qualifiers (1) COPD (chronic obstructive pulmonary disease): Qualified Codes: J44.9 - Chronic obstructive pulmonary disease, unspecified (2) Pulmonary embolism: Qualified Codes: I26.99 - Other pulmonary embolism without acute cor pulmonale Daryl Elena MD May 22, 2017 14:14
--- NOTE | 2017-05-22 21:23 | HHI.PR ---
Subjective Remarks 76 YOWM with COPD PE Breathing better No CP Wheezing improved On Supplemental 02 3 LNC Feels weak Objective Vital Signs Vital Signs Date Time Temp Pulse Resp B/P (MAP) Pulse Ox O2 Delivery O2 Flow Rate FiO2 05/22/17 20:18 92 Nasal Cannula 5.00 05/22/17 16:00 97.1 80 18 119/59 (79) 91 05/22/17 12:00 96.2 81 18 131/59 (83) 91 05/22/17 09:27 90 Humidified 5.00 05/22/17 09:00 89 Nasal Cannula 5.00 05/22/17 08:09 70 05/22/17 08:00 97.0 76 18 140/70 (93) 90 05/22/17 04:25 96.2 77 20 121/64 (83) 98 05/22/17 00:29 96.4 75 19 115/55 (75) 91 05/21/17 23:36 Nasal Cannula 5.00 Humidified I/O 05/21/17 05/21/17 05/21/17 05/22/17 05/22/17 05/22/17 07:00 15:00 23:00 07:00 15:00 23:00 Intake Total 250 ml 480 ml 480 ml 360 ml 360 ml Output Total 300 ml Balance 250 ml 480 ml 480 ml 60 ml 360 ml Intake Oral 250 ml 480 ml 480 ml 360 ml 360 ml Output Urine Total 300 ml # Voids 1 2 4 1 2 # Bowel Movements 0 1 0 0 1 Result Diagram: 05/20/17 1152 05/20/17 1152 Objective Remarks GENERAL: WBWN WM,NAD SKIN: Warm and dry. HEAD: Normocephalic. EYES: No scleral icterus. No injection or drainage. NECK: Supple, trachea midline. No JVD or lymphadenopathy. CARDIOVASCULAR: Regular rate and rhythm without murmurs, gallops, or rubs. RESPIRATORY: Breath sounds equal bilaterally. No accessory muscle use. GASTROINTESTINAL: Abdomen soft, non-tender, nondistended. MUSCULOSKELETAL: No cyanosis, or edema. BACK: Nontender without obvious deformity. No CVA tenderness. A/P Assessment and Plan Pulm Embolism COPD HTN Pleural Plaques PLAN: Cont Eliquis Supplement 02 IV Solumedrol Aerosol nebs OOB and ambulate. Wean 02 to keep sat >90% DC Plans for home Janak Mclaughlin MD May 22, 2017 21:23
[2017-05-22] MEDS: LEVOFLOXACIN 750 MG TAB PO SCH (21:32)
[2017-05-23] VITALS (9 sets, daily range): BP systolic 113–127; BP diastolic 56–85; PULSE 63–78; RESP 18–19; TEMP 96.1–97.2; O2SAT 92–97
[2017-05-23 08:55] LABS: BASOPHIL # 0.1 TH/MM3 (0-0.2); BASOPHIL % 0.5 % (0.0-2.0); HEMATOCRIT 46.4 % (39.0-51.0); LYMPH % 8.2 % (9.0-44.0); MEAN CELL VOLUME 89.4 FL (80.0-100.0); MEAN CORPUSCULAR HEMOGLOBIN 30.5 PG (27.0-34.0); MEAN CORPUSCULAR HGB CONC 34.1 % (32.0-36.0); MONO % 8.9 % (0.0-8.0); NEUT % 82.4 % (16.0-70.0); PLATELET COUNT 260 TH/MM3 (150-450); RED BLOOD COUNT 5.19 MIL/MM3 (4.50-5.90); WHITE BLOOD COUNT 12.2 TH/MM3 (4.0-11.0)
[2017-05-23 09:06] LABS: ALT (GPT) 17 U/L (12-78); ANION GAP 8 MEQ/L (5-15); AST (GOT) 13 U/L (15-37); BICARBONATE 25.7 MEQ/L (21.0-32.0); BLOOD UREA NITROGEN 21 MG/DL (7-18); CHLORIDE 104 MEQ/L (98-107); GLOMERULAR FILTRATION RATE 80 ML/MIN (>89); POTASSIUM 4.1 MEQ/L (3.5-5.1); SODIUM (NA) 138 MEQ/L (136-145)
[2017-05-23 09:07] LABS: HEMO FLAGS AUTO DIFF
[2017-05-23 09:09] LABS: ALKALINE PHOSPHATASE 72 U/L (45-117); TOTAL BILIRUBIN ADULT 0.4 MG/DL (0.2-1.0)
[2017-05-23] MEDS: SODIUM CHLORIDE 0.9% FLUSH 10 ML FLUSH IV FLUSH SCH ×2 (09:24→21:24)
[2017-05-23] MEDS: methylPREDNISolone SOD SUCC 40 MG/1 ML VIAL IV PUSH SCH ×2 (09:25→21:24)
[2017-05-23] MEDS: PANTOPRAZOLE SOD 40 MG DELAYED RELEASE TAB PO SCH (09:25)
[2017-05-23] MEDS: APIXABAN 5 MG TABLET PO SCH ×2 (09:25→21:25)
[2017-05-23 10:41] LABS: BANDS 1 % (0-6); NEUTROPHIL # MANUAL DIFF 10.1 TH/MM3 (1.8-7.7); PLATELET ESTIMATE SMEAR NORMAL (NORMAL); PLATELET MORPHOLOGY NORMAL (NORMAL); POLYS (SEG NEUTROPHILS) 82 % (16-70); SCAN/DIFF FINAL DIFF MANUAL; WBC DIFF SAMPLE 100
--- NOTE | 2017-05-23 15:11 | HHI.PR ---
Subjective Remarks Patient is still having exertional dyspnea. At his baseline he is requiring 5 L of oxygen per minute to maintain saturations of approximately 92%. No new complaints from the patient. Objective Vital Signs Date Time Temp Pulse Resp B/P (MAP) Pulse Ox O2 Delivery O2 Flow Rate FiO2 05/23/17 12:00 96.1 73 18 113/61 (78) 92 05/23/17 11:47 92 Nasal Cannula 5.00 05/23/17 09:25 Humidified 5.00 05/23/17 08:00 96.5 64 18 115/62 (79) 93 05/23/17 04:40 97.2 72 18 127/61 (83) 94 05/23/17 00:30 96.6 75 18 116/63 (80) 95 05/22/17 21:38 95 Nasal Cannula 5.00 05/22/17 20:25 97.1 77 18 124/68 (86) 95 05/22/17 20:18 92 Nasal Cannula 5.00 05/22/17 16:00 97.1 80 18 119/59 (79) 91 I/O 05/22/17 05/22/17 05/22/17 05/23/17 05/23/17 05/23/17 07:00 15:00 23:00 07:00 15:00 23:00 Intake Total 360 ml 360 ml 240 ml 240 ml Output Total 300 ml Balance 60 ml 360 ml 240 ml 240 ml Intake Oral 360 ml 360 ml 240 ml 240 ml Output Urine Total 300 ml # Voids 1 2 2 2 # Bowel Movements 0 1 1 1 Result Diagram: 05/23/1781605/23/17 08 Objective Remarks GENERAL: NAD, A&Ox3 HEAD: Normocephalic. NECK: Supple, trachea midline. No lymphadenopathy. EYES: No scleral icterus. No injection or drainage. CARDIOVASCULAR: Regular rate and rhythm without murmurs, gallops, or rubs. RESPIRATORY: Breath sounds equal bilaterally. No accessory muscle use. GASTROINTESTINAL: Abdomen soft, non-tender, nondistended. MUSCULOSKELETAL: No cyanosis, or edema. SKIN: Warm and dry. NEURO: No focal neurological deficitis. A/P Problem List: (1) COPD (chronic obstructive pulmonary disease) ICD Code: J44.9 - Chronic obstructive pulmonary disease, unspecified (2) PE,COPD (3) Pulmonary embolism ICD Code: I26.99 - Other pulmonary embolism without acute cor pulmonale Status: Acute Assessment and Plan Assessment and Plan 76-year-old male admitted secondary to acute pulmonary embolism and hypoxia. Continue to monitor oxygen status. Patient will need improvement in oxygen saturations prior to weaning oxygen and will need a weaned an option to a lower rate prior to consideration for discharge. He may be discharged on oxygen for his return home. He will also need better exertional tolerance prior to consideration for discharge. Bilateral PE Acute respiratory failure Hypoxia History of COPD Possible pneumonia Unable to wean from oxygen as far Exertional tolerance is not yet present Continue Eliquis COPD is not exacerbated Continue as needed albuterol, DuoNeb's scheduled, IV steroids. Continue Levaquin Chest Pain Secondary to PE Continue heart healthy diet Continue telemetry History of thrombocytopenia Follow CBC DVT prophylaxis Eliquis Discharge planning Plan for discharge to home once patient is functional She may need oxygen at discharge Problem Qualifiers (1) COPD (chronic obstructive pulmonary disease): Qualified Codes: J44.9 - Chronic obstructive pulmonary disease, unspecified (2) Pulmonary embolism: Qualified Codes: I26.99 - Other pulmonary embolism without acute cor pulmonale Daryl Elena MD May 23, 2017 15:11
--- NOTE | 2017-05-23 20:13 | HHI.PR ---
Subjective Remarks 76 YOWM with COPD PE Breathing better No CP Wheezing improved On Supplemental 02 3 LNC Objective Vital Signs Vital Signs Date Time Temp Pulse Resp B/P (MAP) Pulse Ox O2 Delivery O2 Flow Rate FiO2 05/23/17 19:44 93 Nasal Cannula 5.00 05/23/17 16:00 96.1 78 18 124/85 (98) 93 05/23/17 12:00 96.1 73 18 113/61 (78) 92 05/23/17 11:47 92 Nasal Cannula 5.00 05/23/17 09:25 Humidified 5.00 05/23/17 08:00 63 05/23/17 08:00 96.5 64 18 115/62 (79) 93 05/23/17 04:40 97.2 72 18 127/61 (83) 94 05/23/17 00:30 96.6 75 18 116/63 (80) 95 05/22/17 21:38 95 Nasal Cannula 5.00 05/22/17 20:25 97.1 77 18 124/68 (86) 95 05/22/17 20:18 92 Nasal Cannula 5.00 I/O 05/22/17 05/22/17 05/22/17 05/23/17 05/23/17 05/23/17 07:00 15:00 23:00 07:00 15:00 23:00 Intake Total 360 ml 360 ml 240 ml 240 ml 960 ml Output Total 300 ml Balance 60 ml 360 ml 240 ml 240 ml 960 ml Intake Oral 360 ml 360 ml 240 ml 240 ml 960 ml Output Urine Total 300 ml # Voids 1 2 2 2 3 # Bowel Movements 0 1 1 1 0 Result Diagram: 05/23/1781605/23/17816 Objective Remarks GENERAL: WBWN WM,NAD SKIN: Warm and dry. HEAD: Normocephalic. EYES: No scleral icterus. No injection or drainage. NECK: Supple, trachea midline. No JVD or lymphadenopathy. CARDIOVASCULAR: Regular rate and rhythm without murmurs, gallops, or rubs. RESPIRATORY: Breath sounds equal bilaterally. No accessory muscle use. GASTROINTESTINAL: Abdomen soft, non-tender, nondistended. MUSCULOSKELETAL: No cyanosis, or edema. BACK: Nontender without obvious deformity. No CVA tenderness. A/P Assessment and Plan Pulm Embolism COPD HTN Pleural Plaques PLAN: Cont Eliquis Supplement 02 IV Solumedrol Aerosol nebs OOB and ambulate. Wean 02 to keep sat >90% Janak Mclaughlin MD May 23, 2017 20:13
[2017-05-23] MEDS: LEVOFLOXACIN 750 MG TAB PO SCH (21:25)
[2017-05-23] MEDS: RESP: ALBUTEROL 2.5 MG/IPRATROPIUM 0.5 MG NEB (PRN) NEB (22:13)
[2017-05-24] VITALS (8 sets, daily range): BP systolic 98–149; BP diastolic 50–70; PULSE 66–95; RESP 18–20; TEMP 95.6–97.2; O2SAT 90–95
[2017-05-24 05:05] LABS: MEAN CELL VOLUME 89.8 FL (80.0-100.0); MEAN CORPUSCULAR HEMOGLOBIN 30.4 PG (27.0-34.0); MEAN CORPUSCULAR HGB CONC 33.9 % (32.0-36.0); PLATELET COUNT 247 TH/MM3 (150-450); RED BLOOD COUNT 5.34 MIL/MM3 (4.50-5.90); RED CELL DISTRIBUTION WIDTH 15.3 % (11.6-17.2); REVIEW FLAG FINAL; WHITE BLOOD COUNT 14.5 TH/MM3 (4.0-11.0)
[2017-05-24 05:17] LABS: BICARBONATE 25.5 MEQ/L (21.0-32.0); POTASSIUM 3.9 MEQ/L (3.5-5.1)
[2017-05-24] MEDS: PANTOPRAZOLE SOD 40 MG DELAYED RELEASE TAB PO SCH (08:52)
[2017-05-24] MEDS: methylPREDNISolone SOD SUCC 40 MG/1 ML VIAL IV PUSH SCH (08:52)
[2017-05-24] MEDS: SODIUM CHLORIDE 0.9% FLUSH 10 ML FLUSH IV FLUSH SCH ×2 (08:53→21:04)
[2017-05-24] MEDS: APIXABAN 5 MG TABLET PO SCH ×2 (08:53→21:04)
--- NOTE | 2017-05-24 12:42 | HHI.PR ---
Subjective Remarks Follow up for COPD, PE. Patient is currently sitting in his chair, doing well on 5 L of O2 via NC. Denies any chest pain, fever, chills. He is able to ambulate in the room - from bed/chair to the bathroom. Objective Vitals Vital Signs Date Time Temp Pulse Resp B/P (MAP) Pulse Ox O2 Delivery O2 Flow Rate FiO2 05/24/17 08:00 95.8 66 20 119/65 (83) 92 05/24/17 03:54 96.4 71 18 149/70 (96) 93 05/24/17 00:23 96.8 74 19 116/59 (78) 92 05/23/17 22:14 92 Nasal Cannula 5.00 05/23/17 21:29 Nasal Cannula 5.00 05/23/17 19:44 93 Nasal Cannula 5.00 05/23/17 19:37 96.4 69 19 119/56 (77) 97 05/23/17 16:00 96.1 78 18 124/85 (98) 93 I/O 05/23/17 05/23/17 05/23/17 05/24/17 05/24/17 05/24/17 07:00 15:00 23:00 07:00 15:00 23:00 Intake Total 240 ml 960 ml 480 ml 480 ml Balance 240 ml 960 ml 480 ml 480 ml Intake Oral 240 ml 960 ml 480 ml 480 ml # Voids 2 3 2 1 # Bowel Movements 1 0 0 1 Result Diagram: 05/24/17 0415 05/24/17 0415 Imaging Last Impressions Chest X-Ray 05/18/17 1558 Signed Impressions: Service Date/Time: April 16:10 - CONCLUSION: 1. Advanced COPD changes. Daryl Magaña MD Lower Extremity Ultrasound 05/18/17 0000 Signed Impressions: Service Date/Time: April 22:06 - CONCLUSION: Normal examination. Willi Robison MD CT Angiography 05/18/17 0000 Signed Impressions: Service Date/Time: April 18:05 - CONCLUSION: 1. Examination quality is degraded by severe respiratory motion artifact. However , there are filling defects identified within the left upper lobe and right middle lobe pulmonary arteries characteristic of PE. 2. Severe emphysema with trace left pleural effusion and left lower lobe atelectasis versus consolidation. 3. There are bilateral calcified pleural plaques indicative of prior asbestos exposure. Dario Mendez MD Objective Remarks GENERAL: Alert, NAD. SKIN: Warm and dry. HEAD: Normocephalic. EYES: No scleral icterus. No injection or drainage. NECK: Supple, trachea midline. No JVD or lymphadenopathy. CARDIOVASCULAR: Regular rate and rhythm without murmurs, gallops, or rubs. RESPIRATORY: Moderate air entry. No appreciable wheezing, crackles noted. GASTROINTESTINAL: Abdomen soft, non-tender, nondistended. MUSCULOSKELETAL: No cyanosis, or edema. BACK: Nontender without obvious deformity. No CVA tenderness. Procedures None. A/P Problem List: (1) COPD (chronic obstructive pulmonary disease) ICD Code: J44.9 - Chronic obstructive pulmonary disease, unspecified (2) Pulmonary embolism ICD Code: I26.99 - Other pulmonary embolism without acute cor pulmonale Status: Acute Assessment and Plan 76-year-old male admitted secondary to acute pulmonary embolism and hypoxia. [facility]. His pain was worse with deep inspiration. Work up indicated bilateral PE. Bilateral PE Acute respiratory failure Hypoxia COPD Probable Left lower lobe pneumonia Discussed with RN - we will try to wean O2 down to 2-3 L. Currently on 5L. Continue Apixaban 10mg BID X 7 days then 5mg BID. Continue as needed albuterol, DuoNeb's scheduled. D/C IV steroids, start Prednisone 20mg BID X 3 days. Continue Levaquin 750mg Qday. Start Incentive spirometry. GERD Continue Protonix 40mg Qday. Full code. Apixaban. Problem Qualifiers (1) COPD (chronic obstructive pulmonary disease): Qualified Codes: J44.9 - Chronic obstructive pulmonary disease, unspecified (2) Pulmonary embolism: Qualified Codes: I26.99 - Other pulmonary embolism without acute cor pulmonale Fernando Krause DO May 24, 2017 12:42
--- NOTE | 2017-05-24 19:31 | HHI.PR ---
Subjective Remarks 76 YOWM with COPD PE Breathing better No CP Wheezing improved On Supplemental 02 3 LNC Up in chair, feels comfortable Objective Vital Signs Vital Signs Date Time Temp Pulse Resp B/P (MAP) Pulse Ox O2 Delivery O2 Flow Rate FiO2 05/24/17 16:00 96.6 79 20 120/69 (86) 92 05/24/17 12:00 96.6 78 20 98/50 (66) 91 05/24/17 08:00 95.8 66 20 119/65 (83) 92 05/24/17 03:54 96.4 71 18 149/70 (96) 93 05/24/17 00:23 96.8 74 19 116/59 (78) 92 05/23/17 22:14 92 Nasal Cannula 5.00 05/23/17 21:29 Nasal Cannula 5.00 05/23/17 19:44 93 Nasal Cannula 5.00 05/23/17 19:37 96.4 69 19 119/56 (77) 97 I/O 05/23/17 05/23/17 05/23/17 05/24/17 05/24/17 05/24/17 07:00 15:00 23:00 07:00 15:00 23:00 Intake Total 240 ml 960 ml 480 ml 480 ml 960 ml Balance 240 ml 960 ml 480 ml 480 ml 960 ml Intake Oral 240 ml 960 ml 480 ml 480 ml 960 ml # Voids 2 3 2 1 2 # Bowel Movements 1 0 0 1 0 Result Diagram: 05/24/17 0415 05/24/17 0415 Objective Remarks GENERAL: WBWN WM,NAD SKIN: Warm and dry. HEAD: Normocephalic. EYES: No scleral icterus. No injection or drainage. NECK: Supple, trachea midline. No JVD or lymphadenopathy. CARDIOVASCULAR: Regular rate and rhythm without murmurs, gallops, or rubs. RESPIRATORY: Breath sounds equal bilaterally. No accessory muscle use. GASTROINTESTINAL: Abdomen soft, non-tender, nondistended. MUSCULOSKELETAL: No cyanosis, or edema. BACK: Nontender without obvious deformity. No CVA tenderness. A/P Assessment and Plan Pulm Embolism COPD HTN Pleural Plaques PLAN: Cont Eliquis Supplement 02 PO steroids Aerosol nebs OOB and ambulate. Wean 02 to keep sat >90% DW pt and his Janak Mclaughlin MD May 24, 2017 19:31
[2017-05-24] MEDS ORDERED: predniSONE 20 MG TAB PO SCH (21:00)
[2017-05-24] MEDS: LEVOFLOXACIN 750 MG TAB PO SCH (21:04)
[2017-05-24] MEDS: predniSONE 10 MG TAB PO SCH (21:04)
[2017-05-24] MEDS ORDERED: BISACODYL EC 5 MG TABEC PO ONE (21:45)
[2017-05-24] MEDS: RESP: ALBUTEROL 2.5 MG/IPRATROPIUM 0.5 MG NEB (PRN) NEB (23:30)
[2017-05-25] VITALS (7 sets, daily range): BP systolic 130–149; BP diastolic 61–73; PULSE 93–108; RESP 16–30; TEMP 96.4–98.4; O2SAT 91–94
[2017-05-25] MEDS: SODIUM CHLORIDE 0.9% FLUSH 10 ML FLUSH IV FLUSH SCH ×2 (09:00→21:16)
--- NOTE | 2017-05-25 09:10 | RSPPFT ---
DATE OF PROCEDURE: 05/24/17 COMMENTS: Spirometry shows FVC of 2.3 at 59% of predicted, FEV1 of 1.3 at 42%, FEV1/FVC ratio is decreased. Flow is decreased at FEF 25, FEF 50, FEF 75 and FEF 25-75. There is no response after bronchodilator treatment. Flow volume loop indicates an obstructive pattern. IMPRESSION: 1. Moderately severe obstructive lung disease. 2. No response after bronchodilator treatment.
[2017-05-25] MEDS: APIXABAN 5 MG TABLET PO SCH ×2 (09:23→21:12)
[2017-05-25] MEDS: predniSONE 10 MG TAB PO SCH ×2 (09:23→21:12)
[2017-05-25] MEDS: PANTOPRAZOLE SOD 40 MG DELAYED RELEASE TAB PO SCH (09:23)
[2017-05-25] MEDS ORDERED: BISACODYL 10 MG SUPP RECTAL PRN (10:30)
[2017-05-25] MEDS ORDERED: LACTULOSE SYRUP 20 GM/30 ML CUP PO PRN (10:30)
[2017-05-25] MEDS ORDERED: NALOXONE HCL 0.4 MG/ML AMP IV PRN (10:30)
[2017-05-25] MEDS ORDERED: SENNOSIDES 8.6 MG TAB PO PRN (10:30)
[2017-05-25] MEDS ORDERED: MAGNESIUM HYDROXIDE SUSP 30 ML CUP PO PRN (10:30)
--- NOTE | 2017-05-25 11:53 | RADRPT ---
EXAM DATE/TIME: 05/25/2017 11:14 [facility] COMPARISON: No previous studies available for comparison. INDICATIONS : Abdomen pain, constipation. MEDICAL HISTORY : Hypertension. Chronic obstructive pulmonary disease. SURGICAL HISTORY : Appendectomy. ENCOUNTER: Subsequent ACUITY: 1 week PAIN SCORE: 8/10 LOCATION: Bilateral abdomen FINDINGS: Multiple supine views of the abdomen show a gas distended colon without gross dilatation. Gas is seen to the level of the sigmoid colon. No dilated loops of large or small bowel. Stomach is partially ga s filled. Elevation right hemidiaphragm. Lung bases are otherwise clear with exception of a calcified granuloma on the left. No organomegaly. 2 degenerative lumbar spine. CONCLUSION: Mildly gas distended colon. Otherwise, unremarkable exam. Anirudh Em Jr., MD on May 25, 2017 at 11:46 Board Certified Radiologist. This report was verified electronically.
--- NOTE | 2017-05-25 13:43 | HHI.PR ---
Subjective Remarks Follow up for COPD, PE. Patient feels bloated today. Reports some abdominal pain. He is not passing gas and has not had any good bowel movement. No fever or chills. Objective Vitals Vital Signs Date Time Temp Pulse Resp B/P (MAP) Pulse Ox O2 Delivery O2 Flow Rate FiO2 05/25/17 12:35 92 Nasal Cannula 5.00 05/25/17 12:00 96.6 102 25 145/69 (94) 93 05/25/17 08:00 96.6 93 25 132/66 (88) 94 05/25/17 03:25 96.4 99 20 134/66 (88) 91 05/24/17 23:35 92 Nasal Cannula 5.00 05/24/17 23:09 97.2 95 20 141/61 (87) 90 05/24/17 21:12 Nasal Cannula 3.00 05/24/17 20:05 95.6 69 19 138/68 (91) 95 05/24/17 16:00 96.6 79 20 120/69 (86) 92 I/O 05/24/17 05/24/17 05/24/17 05/25/17 05/25/17 05/25/17 07:00 15:00 23:00 07:00 15:00 23:00 Intake Total 480 ml 960 ml 720 ml 720 ml Balance 480 ml 960 ml 720 ml 720 ml Intake Oral 480 ml 960 ml 720 ml 720 ml # Voids 1 2 3 3 # Bowel Movements 1 0 0 0 Result Diagram: 05/24/17 0415 05/24/17 0415 Imaging Last Impressions Abdomen X-Ray 05/25/17 0000 Signed Impressions: Service Date/Time: April 11:14 - CONCLUSION: Mildly gas distended colon. Otherwise, unremarkable exam. Anirudh Em Jr., MD Chest X-Ray 05/18/17 5248 Signed Impressions: Service Date/Time: April 16:10 - CONCLUSION: 1. Advanced COPD changes. Daryl Magaña MD Lower Extremity Ultrasound 05/18/17 0000 Signed Impressions: Service Date/Time: April 22:06 - CONCLUSION: Normal examination. Willi Robison MD CT Angiography 05/18/17 0000 Signed Impressions: Service Date/Time: April 18:05 - CONCLUSION: 1. Examination quality is degraded by severe respiratory motion artifact. However , there are filling defects identified within the left upper lobe and right middle lobe pulmonary arteries characteristic of PE. 2. Severe emphysema with trace left pleural effusion and left lower lobe atelectasis versus consolidation. 3. There are bilateral calcified pleural plaques indicative of prior asbestos exposure. Dario Mendez MD Objective Remarks GENERAL: Alert, NAD. SKIN: Warm and dry. HEAD: Normocephalic. EYES: No scleral icterus. No injection or drainage. NECK: Supple, trachea midline. No JVD or lymphadenopathy. CARDIOVASCULAR: Regular rate and rhythm without murmurs, gallops, or rubs. RESPIRATORY: Moderate air entry. No appreciable wheezing, crackles noted. GASTROINTESTINAL: Abdomen somewhat distended, hypoactive bowel sound. MUSCULOSKELETAL: No cyanosis, or edema. BACK: Nontender without obvious deformity. No CVA tenderness. Procedures None. A/P Problem List: (1) COPD (chronic obstructive pulmonary disease) ICD Code: J44.9 - Chronic obstructive pulmonary disease, unspecified (2) Pulmonary embolism ICD Code: I26.99 - Other pulmonary embolism without acute cor pulmonale Status: Acute Assessment and Plan 76-year-old male admitted secondary to acute pulmonary embolism and hypoxia. [facility]. His pain was worse with deep inspiration. Work up indicated bilateral PE. Bilateral PE Acute respiratory failure Hypoxia COPD Probable Left lower lobe pneumonia Discussed with RN - we will try to wean O2 down to 2-3 L. Currently on 5L. Continue Apixaban 10mg BID X 7 days then 5mg BID. Continue as needed albuterol, DuoNeb's scheduled. D/C IV steroids, start Prednisone 20mg BID X 3 days. Continue Levaquin 750mg Qday. Continue Incentive spirometry. GERD Continue Protonix 40mg Qday. Constipation - Discussed with RN. We'll provide various laxatives for bowel movement. - Bowel movement will likely help with patient's respiratory status as well. Full code. Apixaban. Problem Qualifiers (1) COPD (chronic obstructive pulmonary disease): Qualified Codes: J44.9 - Chronic obstructive pulmonary disease, unspecified (2) Pulmonary embolism: Qualified Codes: I26.99 - Other pulmonary embolism without acute cor pulmonale Fernando Krause DO May 25, 2017 13:43
--- NOTE | 2017-05-25 18:55 | HHI.PR ---
Subjective Remarks 76 YOWM with COPD PE Breathing better No CP Wheezing improved On Supplemental 02 3 LNC Has constipation, abd discomfort Objective Vital Signs Vital Signs Date Time Temp Pulse Resp B/P (MAP) Pulse Ox O2 Delivery O2 Flow Rate FiO2 05/25/17 16:00 97.1 108 30 130/61 (84) 92 05/25/17 12:35 92 Nasal Cannula 5.00 05/25/17 12:00 96.6 102 25 145/69 (94) 93 05/25/17 08:00 96.6 93 25 132/66 (88) 94 05/25/17 03:25 96.4 99 20 134/66 (88) 91 05/24/17 23:35 92 Nasal Cannula 5.00 05/24/17 23:09 97.2 95 20 141/61 (87) 90 05/24/17 21:12 Nasal Cannula 3.00 05/24/17 20:05 95.6 69 19 138/68 (91) 95 I/O 05/24/17 05/24/17 05/24/17 05/25/17 05/25/17 05/25/17 06:59 14:59 22:59 06:59 14:59 22:59 Intake Total 480 ml 960 ml 720 ml 720 ml 650 ml Balance 480 ml 960 ml 720 ml 720 ml 650 ml Intake Oral 480 ml 960 ml 720 ml 720 ml 650 ml # Voids 1 2 3 3 2 # Bowel Movements 1 0 0 0 0 Result Diagram: 05/24/175 05/24/17414 Objective Remarks GENERAL: WBWN WM,NAD SKIN: Warm and dry. HEAD: Normocephalic. EYES: No scleral icterus. No injection or drainage. NECK: Supple, trachea midline. No JVD or lymphadenopathy. CARDIOVASCULAR: Regular rate and rhythm without murmurs, gallops, or rubs. RESPIRATORY: Breath sounds equal bilaterally. No accessory muscle use. GASTROINTESTINAL: Abdomen soft, non-tender, nondistended. MUSCULOSKELETAL: No cyanosis, or edema. BACK: Nontender without obvious deformity. No CVA tenderness. A/P Assessment and Plan Pulm Embolism COPD HTN Pleural Plaques PLAN: Cont Eliquis Supplement 02 PO steroids Aerosol nebs Wean 02 to keep sat >90% DW pt and his LissetteJanak Rosas MD May 25, 2017 18:55
[2017-05-25] MEDS: LEVOFLOXACIN 750 MG TAB PO SCH (21:12)
[2017-05-25] MEDS: DOCUSATE SODIUM 50 MG/SENNA 8.6 MG TAB PO SCH (21:12)
[2017-05-25] MEDS: RESP: ALBUTEROL 2.5 MG/IPRATROPIUM 0.5 MG NEB (PRN) NEB (21:16)
[2017-05-26] VITALS (7 sets, daily range): BP systolic 116–155; BP diastolic 67–93; PULSE 82–101; RESP 16–18; TEMP 96.6–97.8; O2SAT 90–91
[2017-05-26] MEDS: predniSONE 10 MG TAB PO SCH ×2 (08:30→21:28)
[2017-05-26] MEDS: DOCUSATE SODIUM 50 MG/SENNA 8.6 MG TAB PO SCH ×2 (08:30→21:00)
[2017-05-26] MEDS: APIXABAN 5 MG TABLET PO SCH ×2 (08:30→21:29)
[2017-05-26] MEDS: PANTOPRAZOLE SOD 40 MG DELAYED RELEASE TAB PO SCH (08:30)
--- NOTE | 2017-05-26 12:10 | HHI.PR ---
Subjective Remarks Written by Bruna Hale, acting as scribe for Dr. Mead on 05/26/17 at 12:10. Objective Vitals Vital Signs Date Time Temp Pulse Resp B/P (MAP) Pulse Ox O2 Delivery O2 Flow Rate FiO2 05/26/17 08:00 96.7 82 18 116/73 (87) 90 05/26/17 07:15 Nasal Cannula 6.00 05/26/17 04:00 97.5 87 16 132/68 (89) 91 05/26/17 00:00 97.8 101 17 155/88 (110) 91 05/25/17 21:20 Nasal Cannula 6.00 Humidified 05/25/17 21:18 91 Nasal Cannula 6.00 05/25/17 20:00 98.4 100 16 149/73 (98) 91 05/25/17 16:00 97.1 108 30 130/61 (84) 92 05/25/17 12:35 92 Nasal Cannula 5.00 I/O 05/25/17 05/25/17 05/25/17 05/26/17 05/26/17 05/26/17 06:59 14:59 22:59 06:59 14:59 22:59 Intake Total 720 ml 650 ml 600 ml 480 ml Balance 720 ml 650 ml 600 ml 480 ml Intake Oral 720 ml 650 ml 600 ml 480 ml # Voids 3 2 1 1 # Bowel Movements 0 0 Result Diagram: 05/24/1741405/24/17414 Procedures None. A/P Problem List: (1) COPD (chronic obstructive pulmonary disease) ICD Code: J44.9 - Chronic obstructive pulmonary disease, unspecified (2) Pulmonary embolism ICD Code: I26.99 - Other pulmonary embolism without acute cor pulmonale Status: Acute Problem Qualifiers (1) COPD (chronic obstructive pulmonary disease): Qualified Codes: J44.9 - Chronic obstructive pulmonary disease, unspecified (2) Pulmonary embolism: Qualified Codes: I26.99 - Other pulmonary embolism without acute cor pulmonale Bruna Hale May 26, 2017 12:10
[2017-05-26] MEDS ORDERED: SOD PHOSPHATE/SOD BIPHOSPHATE (ADULT) ENEMA 133ML RECTAL ONE (12:15)
--- NOTE | 2017-05-26 12:37 | HHI.PR ---
Subjective Remarks Patient resting in bed, stated he hasn't had any bowel movement since 2 days, no gas, he is on 6 L of nasal cannula oxygen with oxygenation of 90 Patient have an episode of nausea and vomiting, I discussed with the nurse. No fever or chills, no significant chest pain Objective Vitals Vital Signs Date Time Temp Pulse Resp B/P (MAP) Pulse Ox O2 Delivery O2 Flow Rate FiO2 05/26/17 08:00 96.7 82 18 116/73 (87) 90 05/26/17 07:15 Nasal Cannula 6.00 05/26/17 04:00 97.5 87 16 132/68 (89) 91 05/26/17 00:00 97.8 101 17 155/88 (110) 91 05/25/17 21:20 Nasal Cannula 6.00 Humidified 05/25/17 21:18 91 Nasal Cannula 6.00 05/25/17 20:00 98.4 100 16 149/73 (98) 91 05/25/17 16:00 97.1 108 30 130/61 (84) 92 05/25/17 12:35 92 Nasal Cannula 5.00 I/O 05/25/17 05/25/17 05/25/17 05/26/17 05/26/17 05/26/17 07:00 15:00 23:00 07:00 15:00 23:00 Intake Total 720 ml 650 ml 600 ml 480 ml Balance 720 ml 650 ml 600 ml 480 ml Intake Oral 720 ml 650 ml 600 ml 480 ml # Voids 3 2 1 1 # Bowel Movements 0 0 Result Diagram: 05/24/17 0415 05/24/17 0415 Objective Remarks - GENERAL: This is a well-nourished, well-developed patient, in no apparent distress. SKIN: No rashes, warm and dry HEAD: Atraumatic. Normocephalic. EYES: Pupils equal round and reactive. Extraocular motions intact. No scleral icterus. ENT: Nose without bleeding, or drainage, Airway patent. NECK: Trachea midline. Supple CARDIOVASCULAR: Regular rate and rhythm without murmurs, gallops, or rubs. RESPIRATORY: Bibasilar crackles. GASTROINTESTINAL: Abdomen soft, slightly tender and distended. Positive bowel sounds, tympanic to percussion MUSCULOSKELETAL: Extremities without clubbing, cyanosis, or edema. Pedal pulses appreciated NEUROLOGICAL: Awake and alert. Moves all extremity. Normal speech.no focal neurological deficit Procedures None. A/P Problem List: (1) COPD (chronic obstructive pulmonary disease) ICD Code: J44.9 - Chronic obstructive pulmonary disease, unspecified (2) Pulmonary embolism ICD Code: I26.99 - Other pulmonary embolism without acute cor pulmonale Status: Acute Assessment and Plan 76-year-old male admitted secondary to acute pulmonary embolism and hypoxia. [facility]. His pain was worse with deep inspiration. Work up indicated bilateral PE. Bilateral PE, Acute hypoxic respiratory failure still on 6 L nasal cannula, possibly worsening due to abdominal distention COPD Probable Left lower lobe pneumonia Still on 6 L nasal cannula Apixaban 10mg BID X 7 days then 5mg BID. as needed albuterol, DuoNeb's scheduled. D/C IV steroids, start Prednisone tapering Continue Levaquin 750mg Qday. Continue Incentive spirometry. Severe constipation with abdominal distention, Abdominal x-ray showing multiple gas distention bowel Concern diaphragm positive pressure in the chest, will do CT abdomen rule out ileus versus bowel obstruction, if positive will insert NG tube We'll give lactulose and GoLYTELY GERD Continue Protonix 40mg Qday. D/W our [employer] who discussed with Dr. martínez, he think this is related to the abdominal distention, will follow closely Problem Qualifiers (1) COPD (chronic obstructive pulmonary disease): Qualified Codes: J44.9 - Chronic obstructive pulmonary disease, unspecified (2) Pulmonary embolism: Qualified Codes: I26.99 - Other pulmonary embolism without acute cor pulmonale Nilda Mead MD May 26, 2017 12:37
[2017-05-26] MEDS ORDERED: DIATRIZOATE MEGLUM/DIATRIZOATE SOD 9 ML CUP PO ONE (13:00)
[2017-05-26] MEDS ORDERED: LACTULOSE SYRUP 20 GM/30 ML CUP PO ONE (13:00)
--- NOTE | 2017-05-26 17:42 | RADRPT ---
EXAM DATE/TIME: 05/26/2017 17:15 [facility] COMPARISON: CT PULMONARY ANGIOGRAM, May 18, 2017, 18:05. INDICATIONS : Evaluate for ileus, abdominal distention. ORAL CONTRAST: No oral contrast ingested. RADIATION DOSE: 21.92 CTDIvol (mGy) MEDICAL HISTORY : Cardiovascular disease. Hypertension. SURGICAL HISTORY : Appendectomy. ENCOUNTER: Initial ACUITY: 2 days PAIN SCALE: 4/10 LOCATION: abdomen TECHNIQUE: Volumetric scanning of the abdomen and pelvis was performed. Using automated exposure control and ad justment of the mA and/or kV according to patient size, radiation dose was kept as low as reasonably achievable to obtain optimal diagnostic quality images. DICOM format image data is available electro nically for review and comparison. FINDINGS: Minimal parenchymal changes are present in the right base. Small pleural calcification is evident. There is trace ascites and free intraperitoneal air scattered throughout the abdomen more prominent i n the upper abdomen in the lower abdomen. I do not see diverticular disease in the pelvis. I do not see air in the pelvis. The liver and spleen are unremarkable Pancreas, adrenals and kidneys are unremarkable Pelvic contents are unremarkable Review of bone windows reveals only degenerative changes. CONCLUSION: Free intraperitoneal air probably from an upper abdominal source. Generalized ileus. Bryson Magaña MD FACR on May 26, 2017 at 17:37 Board Certified Radiologist. This report was verified electronically.
[2017-05-26] MEDS: LACTULOSE SYRUP 20 GM/30 ML CUP PO SCH ×2 (18:00→21:29)
--- NOTE | 2017-05-26 18:14 | HHI.PR ---
Subjective Remarks 76 YOWM with COPD PE Breathing better No CP Wheezing improved On Supplemental 02 3 LNC Has constipation, abd discomfort Breathing better Objective Vital Signs Vital Signs Date Time Temp Pulse Resp B/P (MAP) Pulse Ox O2 Delivery O2 Flow Rate FiO2 05/26/17 12:30 91 Nasal Cannula 6.00 05/26/17 12:00 96.6 91 18 124/67 (86) 90 05/26/17 08:00 96.7 82 18 116/73 (87) 90 05/26/17 07:15 Nasal Cannula 6.00 05/26/17 04:00 97.5 87 16 132/68 (89) 91 05/26/17 00:00 97.8 101 17 155/88 (110) 91 05/25/17 21:20 Nasal Cannula 6.00 Humidified 05/25/17 21:18 91 Nasal Cannula 6.00 05/25/17 20:00 98.4 100 16 149/73 (98) 91 I/O 05/25/17 05/25/17 05/25/17 05/26/17 05/26/17 05/26/17 07:00 15:00 23:00 07:00 15:00 23:00 Intake Total 720 ml 650 ml 600 ml 480 ml Balance 720 ml 650 ml 600 ml 480 ml Intake Oral 720 ml 650 ml 600 ml 480 ml # Voids 3 2 1 1 # Bowel Movements 0 0 Result Diagram: 05/24/1741405/24/17414 Objective Remarks GENERAL: WBWN WM,NAD SKIN: Warm and dry. HEAD: Normocephalic. EYES: No scleral icterus. No injection or drainage. NECK: Supple, trachea midline. No JVD or lymphadenopathy. CARDIOVASCULAR: Regular rate and rhythm without murmurs, gallops, or rubs. RESPIRATORY: Breath sounds equal bilaterally. No accessory muscle use. GASTROINTESTINAL: Abdomen soft, non-tender, nondistended. MUSCULOSKELETAL: No cyanosis, or edema. BACK: Nontender without obvious deformity. No CVA tenderness. A/P Assessment and Plan Pulm Embolism COPD HTN Pleural Plaques PLAN: Cont Eliquis Supplement 02 PO steroids Aerosol nebs Wean 02 to keep sat >90% DW pt and his Fleet enema Available prn over weekend. Janak Mclaughlin MD May 26, 2017 18:14
[2017-05-26] MEDS: SODIUM CHLORIDE 0.9% FLUSH 10 ML FLUSH IV FLUSH SCH (21:00)
[2017-05-26] MEDS: LEVOFLOXACIN 750 MG TAB PO SCH (21:28)
[2017-05-27] VITALS (9 sets, daily range): BP systolic 92–144; BP diastolic 64–90; PULSE 91–144; RESP 16–22; TEMP 96–97.9; O2SAT 90–95
[2017-05-27 07:24] LABS: AUTOMATED NEUTROPHIL # 18.2 TH/MM3 (1.8-7.7); BASOPHIL # 0.1 TH/MM3 (0-0.2); BASOPHIL % 0.6 % (0.0-2.0); EOSINOPHIL % 0.1 % (0.0-4.0); HEMATOCRIT 53.6 % (39.0-51.0); LYMPHOCYTE # 0.8 TH/MM3 (1.0-4.8); MEAN CELL VOLUME 90.5 FL (80.0-100.0); MEAN CORPUSCULAR HEMOGLOBIN 29.7 PG (27.0-34.0); MEAN CORPUSCULAR HGB CONC 32.8 % (32.0-36.0); MONO % 5.9 % (0.0-8.0); NEUT % 89.4 % (16.0-70.0); PLATELET COUNT 302 TH/MM3 (150-450); RED BLOOD COUNT 5.92 MIL/MM3 (4.50-5.90); RED CELL DISTRIBUTION WIDTH 15.2 % (11.6-17.2); WHITE BLOOD COUNT 20.4 TH/MM3 (4.0-11.0)
[2017-05-27 07:29] LABS: HEMO FLAGS AUTO DIFF
[2017-05-27 07:51] LABS: BICARBONATE 24.6 MEQ/L (21.0-32.0); POTASSIUM 4.2 MEQ/L (3.5-5.1)
[2017-05-27] MEDS: DOCUSATE SODIUM 50 MG/SENNA 8.6 MG TAB PO SCH ×2 (09:00→10:00)
[2017-05-27] MEDS: LACTULOSE SYRUP 20 GM/30 ML CUP PO SCH ×2 (09:00→10:01)
[2017-05-27 09:18] LABS: BANDS 11 % (0-6); METAMYELOCYTES 1 % (0-1); NEUTROPHIL # MANUAL DIFF 18.2 TH/MM3 (1.8-7.7); PLATELET ESTIMATE SMEAR NORMAL (NORMAL); PLATELET MORPHOLOGY NORMAL (NORMAL); POLYS (SEG NEUTROPHILS) 77 % (16-70); SCAN/DIFF FINAL DIFF MANUAL; WBC DIFF SAMPLE 100
[2017-05-27] MEDS: APIXABAN 5 MG TABLET PO SCH ×2 (09:58→10:01)
[2017-05-27] MEDS: predniSONE 10 MG TAB PO SCH ×2 (09:58→10:00)
[2017-05-27] MEDS: SODIUM CHLORIDE 0.9% FLUSH 10 ML FLUSH IV FLUSH SCH ×2 (10:00→20:57)
[2017-05-27] MEDS: PANTOPRAZOLE SOD 40 MG DELAYED RELEASE TAB PO SCH (10:01)
--- NOTE | 2017-05-27 10:53 | HHI.PR ---
Subjective Remarks Patient feeling very uncomfortable, no flatus or stool NG tube placed last night with profuse suctioning dark material No fever or chills however he has a leukocytosis of 20 K I ordered stat lactic acid LDH and cold stat consult for surgery and discussed with Dr. Pemberton Objective Vitals Vital Signs Date Time Temp Pulse Resp B/P (MAP) Pulse Ox O2 Delivery O2 Flow Rate FiO2 05/27/17 08:00 96.0 120 19 133/90 (104) 91 05/27/17 06:03 92 Nasal Cannula 6.00 05/27/17 04:00 97.8 91 16 144/67 (92) 91 05/27/17 00:00 97.9 101 20 109/70 (83) 90 05/26/17 20:00 97.3 100 16 138/93 (108) 90 05/26/17 16:00 97.1 94 18 139/79 (99) 90 05/26/17 12:30 91 Nasal Cannula 6.00 05/26/17 12:00 96.6 91 18 124/67 (86) 90 I/O 05/26/17 05/26/17 05/26/17 05/27/17 05/27/17 05/27/17 07:00 15:00 23:00 07:00 15:00 23:00 Intake Total 480 ml 1320 ml 0 ml Output Total 1350 ml Balance 480 ml 1320 ml -1350 ml Intake Oral 480 ml 1320 ml 0 ml Gastric Drainage Total 1350 ml # Voids 1 3 1 # Bowel Movements 0 Result Diagram: 05/27/1762105/27/17621 Objective Remarks - GENERAL: This is a well-nourished, well-developed patient, in no apparent distress. SKIN: No rashes, warm and dry HEAD: Atraumatic. Normocephalic. EYES: Pupils equal round and reactive. Extraocular motions intact. No scleral icterus. ENT: Nose without bleeding, or drainage, Airway patent. NECK: Trachea midline. Supple CARDIOVASCULAR: Regular rate and rhythm without murmurs, gallops, or rubs. RESPIRATORY: Bibasilar crackles. GASTROINTESTINAL: Abdomen soft, slightly tender and significantly distended. Very faint bowel sounds, tympanic to percussion MUSCULOSKELETAL: Extremities without clubbing, cyanosis, or edema. Pedal pulses appreciated NEUROLOGICAL: Awake and alert. Moves all extremity. Normal speech.no focal neurological deficit Procedures None. A/P Problem List: (1) COPD (chronic obstructive pulmonary disease) ICD Code: J44.9 - Chronic obstructive pulmonary disease, unspecified (2) Pulmonary embolism ICD Code: I26.99 - Other pulmonary embolism without acute cor pulmonale Status: Acute Assessment and Plan 05/27: Came to see the patient, CT abdomen from yesterday showed free air in the abdomen with ileus, resolved has been being called in, discussed with the nurse , I examined the patient is awake alert,heisuncomfortable denied any gas or stool passage from the rectum, NG tube has been placed yesterday with suctioning dark material, I urgently place stat call for surgery and I talked to Dr. Pemberton, explained the case, he thought it could be due to COPD as it 's mentioned in literature, however we still have the ileus. Will keep patient totally nothing by mouth, no enema, will check lactic acid, LDH, CBC showed leukocytosis of 20,000, will transfer patient to ICU 76-year-old male admitted secondary to acute pulmonary embolism and hypoxia. [facility]. His pain was worse with deep inspiration. Work up indicated bilateral PE. Bilateral PE, Acute hypoxic respiratory failure still on 6 L nasal cannula, possibly worsening due to abdominal distention COPD Probable Left lower lobe pneumonia Still on 6 L nasal cannula Apixaban 10mg BID X 7 days then 5mg BID. as needed albuterol, DuoNeb's scheduled. D/C IV steroids, start Prednisone tapering Continue Levaquin 750mg Qday. Continue Incentive spirometry. Severe constipation with abdominal distention, Abdominal x-ray showing multiple gas distention bowel Concern diaphragm positive pressure in the chest, will do CT abdomen rule out ileus versus bowel obstruction, if positive will insert NG tube We'll give lactulose and GoLYTELY GERD Continue Protonix 40mg Qday. D/W our THERAPY SITE COORDINATOR who discussed with Dr. martínez, he think this is related to the abdominal distention, will follow closely Problem Qualifiers (1) COPD (chronic obstructive pulmonary disease): Qualified Codes: J44.9 - Chronic obstructive pulmonary disease, unspecified (2) Pulmonary embolism: Qualified Codes: I26.99 - Other pulmonary embolism without acute cor pulmonale Nilda Mead MD May 27, 2017 10:52
[2017-05-27] MEDS ORDERED: PROPOFOL 200 MG/20 ML AMP IV ONE (12:00)
[2017-05-27] MEDS ORDERED: ePHEDrine/NS 25 MG/5 ML SYR IV ONE (12:00)
[2017-05-27] MEDS ORDERED: LACTATED RINGER S IV ONE (12:00)
[2017-05-27] MEDS ORDERED: PHENYLEPH/NS 1000 MCG/10 ML SYR IV ONE (12:00)
[2017-05-27 13:10] LABS: APTT (PATIENT) 41.5 SEC (24.3-30.1); INTERNATIONAL NORMALIZED RATIO 1.3 RATIO; PROTHROMBIN TIME - PATIENT 14.3 SEC (9.8-11.6)
[2017-05-27] MEDS ORDERED: THROMBIN (TOPICAL) 5,000 UNIT VIAL ONE (13:23)
[2017-05-27] MEDS ORDERED: BUPIVACAINE/EPINEPHRINE 0.5% 50 ML VIAL ONE (13:23)
[2017-05-27] MEDS ORDERED: GELFOAM SIZE 100 ONE (13:23)
[2017-05-27] MEDS ORDERED: HEPARIN SODIUM - IV 10,000 UNITS/10 ML VIAL ONE (13:24)
[2017-05-27] MEDS ORDERED: SODIUM CHLORID 0.9% 500 ML IV PRN (13:45)
[2017-05-27] MEDS ORDERED: LACTATED RINGER'S 1000 ML IV PRN (13:45)
[2017-05-27] MEDS ORDERED: INSULIN HUMAN REGULAR 1,000 UNITS/10 ML VIAL SQ PRN (13:45)
[2017-05-27] MEDS ORDERED: POVIDONE IODINE 5% (ANTISEPSIS KIT) 4 APPLICATIONS EACH NARE PRN (13:45)
[2017-05-27] MEDS ORDERED: CHLORHEXIDINE GLUCONATE 2 % 1 PACK (2 CLOTHS) TOPICAL PRN (13:45)
[2017-05-27] MEDS ORDERED: METOPROLOL TARTRATE 25 MG TAB PO PRN (13:45)
--- NOTE | 2017-05-27 13:51 | PD.CONS ---
[facility] Service Critical Care Medicine Consult Requested By General Surgery Reason for Consult Critical Care Management Primary Care Physician [facility] History of Present Illness 76 y/o man with severe emphysema and non-exacerbated COPD has developed right side abdominal pain and free peritoneal air following several days of constipation. His abdomen is distended and tender with few bowel sounds. Work of breathing is markedly increased and CT chest demonstrates severe bullous emphysema including hyperexpansion RUL with compression RML and RLL. By history patient can only climb 4 steps without resting. Not on home O2. Very short of breath after walking flat for over 30 feet. I will discuss postoperative pulmonary management with Dr. Mclaughlin. Review of Systems Endocrine: DENIES: Heat/cold intolerance, Polydipsia, Polyuria, Polyphagia Eyes: DENIES: Blurred vision, Diplopia, Eye inflammation, Eye pain, Vision loss , Photosensitivity, Double Vision Cardiovascular: COMPLAINS OF: Dyspnea on Exertion, Lower Extremity Edema, Orthopnea Gastrointestinal: COMPLAINS OF: Abdominal pain, Constipation Past Family Social History Allergies: Uncoded Allergies: CHICKEN (Adverse Reaction, Severe, Nausea/Vomiting, 05/27/17) Past Medical History Past Medical History COPD Hypertension Hyperlipidemia Denies gastric ulcers, DM, CAD, CHF, irregular heart rhythms including a fib, ADELIA, not on home oxygen, liver problems, kidney problems, DVT, PE, CVA, seizures , thyroid problems, or cancers. . Past Surgical History Appendectomy . Reported Medications Reported Meds & Active Scripts Active Reported Combivent Respimat Inh (Ipratropium-Albuterol Inh) 20-100 Senior Care/Act Aero 2 Puff INH QID PRN Metoprolol Tartrate 25 Mg Tab 25 Mg PO HS Hydrochlorothiazide 25 Mg Tab 25 Mg PO EVERY OTHER DAY Simvastatin 20 Mg Tab 10 Mg PO HS . Allergies: Coded Allergies: No Known Allergies (Verified , 05/18/17) Active Ordered Medications Current Medications Sodium Chloride (NS Flush) 2 ml UNSCH PRN IVF FLUSH AFTER USING IV ACCESS; Start 05/18/17 at 16:00 Methylprednisolone Sodium Succinate (SoluMEDROL INJ) 125 mg ONCE ONCE IV PUSH Last administered on 05/18/17t 17:47; Start 05/18/17 at 17:30; Stop 05/18/17 at 17:31; Status DC Albuterol/ Ipratropium (Duoneb Neb) 1 ampule Q15M INH Last administered on 05/18 17:42; Start 05/18/17 at 17:30; Stop 05/18/17 at 18:01; Status DC Aspirin (Aspirin Chew) 162 mg ONCE ONCE CHEW Last administered on 05/18/17 17 :48; Start 05/18/17 at 17:30; Stop 05/18/17 at 17:31; Status DC Iohexol (Omnipaque 350 Inj) 75 ml STK-MED ONCE IVCONTRAST Last administered on 05/18/17 15:49; Start 05/18/17 at 15:49; Stop 05/18/17 at 18:08; Status DC Enoxaparin Sodium (Lovenox Inj) 130 mg ONCE ONCE SQ Last administered on 18:44; Start 05/18/17 at 18:45; Stop 05/18/17 at 18:46; Status DC Sodium Chloride (NS Flush) 2 ml UNSCH PRN IV FLUSH FLUSH AFTER USING IV ACCESS ; Start 05/18/17 at 20:00; Status UNV Sodium Chloride (NS Flush) 2 ml BID IV FLUSH ; Start 05/18/17 at 21:00; Status UNV Naloxone HCl (Narcan Inj) 0.4 mg UNSCH PRN IV SEE LABEL COMMENTS; Start at 20:00; Status UNV Enoxaparin Sodium (Lovenox Inj) 125 mg Q12H SQ ; Start 05/19/17 at 09:00; Status UNV Albuterol/ Ipratropium (Duoneb Neb) 1 ampule Q6HR NEB NEB ; Start 05/18/17 at 22:00; Status UNV Albuterol/ Ipratropium (Duoneb Neb) 1 ampule Q2HR NEB PRN NEB wheezing; Start 05/18/17 at 20:00; Status UNV Methylprednisolone Sodium Succinate (SoluMEDROL INJ) 40 mg Q6HR IV PUSH ; Start 05/19/17 at 00:00; Status UNV Pantoprazole Sodium (Protonix) 40 mg DAILY PO ; Start 05/19/17 at 09:00; Status UNV Physical Exam Vital Signs Vital Signs Date Time Temp Pulse Resp B/P (MAP) Pulse Ox O2 Delivery O2 Flow Rate FiO2 05/27/17 10:31 Nasal Cannula 6.00 Humidified 05/27/17 08:00 96.0 120 19 133/90 (104) 91 05/27/17 06:03 92 Nasal Cannula 6.00 05/27/17 04:00 97.8 91 16 144/67 (92) 91 05/27/17 00:00 97.9 101 20 109/70 (83) 90 05/26/17 20:00 97.3 100 16 138/93 (108) 90 05/26/17 16:00 97.1 94 18 139/79 (99) 90 Physical Exam P 122, BP 136/82, R 34 labored, T 96.0 Sats Head: Normal, blue nose. Neck: Supple, airway widely patent. Lungs: Distant tones, no wheezes or crackles. Labored and tachypneic. Heart: NL S1S2, no m,r. No JVD. RRR. Abdomen: Distended, quite tender right side with peritoneal irritation. Few bowel sounds. Extremities: Tepid, trace edema feet. Stasis changes above ankles. Neuro: O X 3, anxious, alert, cooperative. Moves 4 limbs to command. Laboratory Laboratory Tests Test 05/27/17 06:22 05/27/17 12:46 White Blood Count 20.4 Red Blood Count 5.92 Hemoglobin 17.6 Hematocrit 53.6 Mean Corpuscular Volume 90.5 Mean Corpuscular Hemoglobin 29.7 Mean Corpuscular Hemoglobin Concent 32.8 Red Cell Distribution Width 15.2 Platelet Count 302 Mean Platelet Volume 8.8 Neutrophils (%) (Auto) 89.4 Lymphocytes (%) (Auto) 4.0 Monocytes (%) (Auto) 5.9 Eosinophils (%) (Auto) 0.1 Basophils (%) (Auto) 0.6 Neutrophils # (Auto) 18.2 Lymphocytes # (Auto) 0.8 Monocytes # (Auto) 1.2 Eosinophils # (Auto) 0.0 Basophils # (Auto) 0.1 CBC Comment AUTO DIFF Differential Total Cells Counted 100 Neutrophils % (Manual) 77 Band Neutrophils % 11 Lymphocytes % 4 Monocytes % 7 Neutrophils # (Manual) 18.2 Metamyelocytes 1 Differential Comment FINAL DIFF MANUAL Atypical Lymphocytes Platelet Estimate NORMAL Platelet Morphology Comment NORMAL Red Cell Morphology Comment NORMAL Blood Urea Nitrogen 34 Creatinine 1.22 Random Glucose 188 Calcium Level 9.0 Sodium Level 132 Potassium Level 4.2 Chloride Level 94 Carbon Dioxide Level 24.6 Anion Gap 13 Estimat Glomerular Filtration Rate 58 Prothrombin Time 14.3 Prothromb Time International Ratio 1.3 Activated Partial Thromboplast Time 41.5 Lactic Acid Level 2.2 Lactate Dehydrogenase 218 Result Diagram: 05/27/1762105/27/17621 Assessment and Plan Assessment and Plan Assessment: 1. Hypoxemic Respiratory Failure. 2. Severe bullous emphysema (COPD, not exacerbated) FEV1 1.30, FVC 2.34, minimal response to dilators 3. Mild dehydration. 4. LATOSHA. 5. Perforated hollow viscous organ and sepsis. 6. Chronic steroid use (Prednisone 10 mg BID) 7. Recent Pulmonary Embolism (THEO and RML) Plan: 1. NC O2. 2. Leave intubated after OR -> ISC. 3. Convert to IV H2 filemon. 4. LR bolus. 5. Convert to iv steroids. 6. Hold anticoagulation. 7. To OR for laparotomy. 8. NG to LIS. 9. SSI for euglycemia. 10. Bronchodilators. 11. PIP/DARYL coverage. Overall impression: Critically ill elderly man with severe emphysema and respiratory failure exacerbated by sepsis, abdominal distention, and mild dehydration. Will require ISC admission after surgery. I anticipate protracted pulmonary problems. Critical care 40 mins Chip Chavez MD May 27, 2017 13:51
[2017-05-27] MEDS ORDERED: PIPERACIL-TAZO 4.5 GM PREMIX 100 ML IV SCH ×2 (14:00→15:15)
[2017-05-27] MEDS ORDERED: LACTATED RINGER'S 1000 ML INJ 1,000 ML IV ONE ×2 (14:00→20:00)
[2017-05-27 14:37] LABS: BLOOD GAS BASE EXCESS -1.7 mmol/L (-2-2); BLOOD GAS CARBOXYHEMOGLOBIN 1.4 % (0-4); BLOOD GAS HCO3 23 mmol/L (22-26); BLOOD GAS METHEMOGLOBIN 1.2 % (0-2); BLOOD GAS O2 HGB SATURATION 95 % (90-100); BLOOD GAS OXYGEN CONTENT 21.3 Vol % (12.0-20.0); BLOOD GAS PCO2 39 mmHg (38-42); BLOOD GAS PO2 113 mmHg (61-120); BLOOD GAS TOTAL HGB 15.9 G/DL (12.0-16.0); CRITICAL VALUE NO; DRAW SITE ART LINE; FIO2 50 %; OXYGEN DEVICE VENTILATOR; STAT YES; TEMP CORR TO 98.6
[2017-05-27] MEDS ORDERED: ALBUMIN HUMAN 25% 12.5 GM/50 ML BAGP IV ONE (15:03)
[2017-05-27] MEDS ORDERED: metroNIDAZOLE 500 MG INJ 100 ML IV ONE (15:38)
[2017-05-27] MEDS ORDERED: METOPROLOL TARTRATE 5 MG/5 ML VIAL IV PUSH SCH (17:00)
[2017-05-27] MEDS: METOPROLOL TARTRATE 25 MG TAB PO SCH ×2 (17:15→20:57)
[2017-05-27] MEDS: PROPOFOL 1000 MG/100 ML INJ 100 ML IV PRN ×2 (17:25→21:07)
--- NOTE | 2017-05-27 17:36 | MB ---
cc: KEMAL FERNANDEZ MD DATE OF CONSULTATION 05/27/[address] Mead REASON FOR CONSULTATION Abdominal pain and free air on recent CAT scan. HISTORY OF PRESENT ILLNESS The patient is a 76-year-old male who was admitted to [facility] with left-sided chest pain. CT scan demonstrated COPD, bullous emphysema. The patient also has a history of pulmonary embolism on anticoagulation. The patient subsequently was admitted and did develop increasing abdominal pain and worsening shortness of breath. The patient states that he has not had a bowel movement in approximately five days and the pain has been worsening over the last five days. He denies any nausea, vomiting, fevers, chills, night sweats. He has not had a recent colonoscopy. CT scan performed on 05/26/2017 does show free intraperitoneal air probably from an upper abdominal source and generalized ileus. REVIEW OF SYSTEMS The patient is negative except for pertinent positives and negatives mentioned above in history present illness. PAST MEDICAL HISTORY 1. COPD, 2. Hypertension, 3. Hyperlipidemia, 4. Obesity. PAST SURGICAL HISTORY Open appendectomy remotely. ALLERGIES CHICKEN MEDICATIONS At home, 1. Simvastatin. 2. Hydrochlorothiazide. 3. Metoprolol. 4. Albuterol 5. Ipratropium inhalers PHYSICAL EXAMINATION VITAL SIGNS: Heart rate 120, temperature 96.0, blood pressure 133/90, O2 saturation 91% on nasal cannula, respiratory rate is increased to 25-30. GENERAL: The patient is a chronically ill acute male. He does appear acutely ill as well. HEENT: Head is normocephalic, atraumatic. Pupils round, react and accommodate to light. Sclerae is anicteric. Oral cavity is clear. NECK: Supple. No JVD. Breath sounds decreased bilaterally, increased work of breathing. HEART: Tachycardiac. No murmurs. ABDOMEN: Soft, mildly distended with some subjective tenderness and focal peritonitis on the right lower quadrant. No diffuse peritonitis. EXTREMITIES: There is some mild cyanosis of the fingertips and some clubbing. There is no edema. BACK: No CVA tenderness. NEUROLOGIC: The patient is awake, alert, oriented x3. Nonfocal peripheral exam, cranial II-XII grossly intact. LABORATORY FINDINGS White blood cell count 20, hemoglobin is 17.6, INR is 1.3, lactic acid 2.2, creatinine increased at 1.2 up from 0.9. ASSESSMENT/PLAN The patient is a 76-year-old male with obstipation and small amount of free air on his CT scan. CT scan also shows some dilated loops of bowel concerning for perforated GI source. Although it is not uncommon to get some free air with COPD, due to the patient's significant tenderness and abnormal bowel pattern this is most likely from the abdomen. I did recommend emergency surgery. Although the patient has recently received anticoagulation, the risks by delaying operation far exceed the risks of bleeding. At this point in time, I discussed this with the patient and the family and they understand the risk of bleeding, acute anticoagulation and wish to proceed with surgery at the next available operating time for exploratory laparotomy. Thank you very much for this consultation. I will follow along with the patient. MD PELON Ochoa/ /2:18 PM /5:12 PM
[2017-05-27] MEDS ORDERED: MIDAZOLAM HCL 2 MG/2 ML VIAL ONE (17:45)
--- NOTE | 2017-05-27 17:59 | RADRPT ---
EXAM DATE/TIME: 05/27/2017 17:30 [facility] COMPARISON: CHEST SINGLE AP, May 18, 2017, 16:10. INDICATIONS : ET tube placement. MEDICAL HISTORY : None. SURGICAL HISTORY : None. ENCOUNTER: Subsequent ACUITY: 3 days PAIN SCORE: Non-responsive. LOCATION: Bilateral chest FINDINGS: ET tube and nasogastric tube are in good position. Bibasilar parenchymal changes are evident. There is no pneumothorax. CONCLUSION: ET and nasogastric tube in good position. Bryson Magaña MD FACR on May 27, 2017 at 17:57 Board Certified Radiologist. This report was verified electronically.
[2017-05-27] MEDS: FAMOTIDINE 20 MG/2 ML VIAL IV PUSH SCH (18:14)
[2017-05-27] MEDS: SODIUM CHLOR 0.9% 1000 ML INJ 1,000 ML IV SCH (18:14)
[2017-05-27] MEDS: PIPERACIL-TAZO 3.375 GM PREMIX 50 ML IV SCH ×2 (18:15→23:09)
[2017-05-27] MEDS: CHLORHEXIDINE 0.12% (ORAL KIT) 15 ML CUP MT SCH (20:56)
[2017-05-27] MEDS: methylPREDNISolone SOD SUCC 40 MG/1 ML VIAL IV PUSH SCH (20:57)
[2017-05-27] MEDS: DILTIAZEM INJ 125 MG in SODIUM CHLORIDE 0.9% INJ 100 ML IV PRN (21:08)
[2017-05-27] MEDS: RESP: ALBUTEROL 2.5 MG/IPRATROPIUM 0.5 MG NEB (SCH) NEB (21:44)
[2017-05-28] VITALS (18 sets, daily range): BP systolic 92–108; BP diastolic 52–68; PULSE 92–104; RESP 17–25; TEMP 97.9–100.2; O2SAT 91–95
[2017-05-28] MEDS: SODIUM CHLOR 0.9% 1000 ML INJ 1,000 ML IV SCH ×3 (00:24→21:33)
[2017-05-28] MEDS: FAMOTIDINE 20 MG/2 ML VIAL IV PUSH SCH ×2 (03:47→15:39)
[2017-05-28] MEDS: PROPOFOL 1000 MG/100 ML INJ 100 ML IV PRN ×2 (03:47→18:05)
[2017-05-28 04:51] LABS: BLOOD GAS BASE EXCESS -1.2 mmol/L (-2-2); BLOOD GAS CARBOXYHEMOGLOBIN 1.2 % (0-4); BLOOD GAS HCO3 23 mmol/L (22-26); BLOOD GAS METHEMOGLOBIN 0.8 % (0-2); BLOOD GAS O2 HGB SATURATION 94 % (90-100); BLOOD GAS OXYGEN CONTENT 20.8 Vol % (12.0-20.0); BLOOD GAS PCO2 37 mmHg (38-42); BLOOD GAS PO2 82 mmHg (61-120); BLOOD GAS TOTAL HGB 15.7 G/DL (12.0-16.0); CRITICAL VALUE NO; DRAW SITE ART LINE; FIO2 60 %; OXYGEN DEVICE VENTILATOR; STAT NO; TEMP CORR TO 98.6; VENT SETTINGS PRVC/AC
[2017-05-28] MEDS: RESP: ALBUTEROL 2.5 MG/IPRATROPIUM 0.5 MG NEB (SCH) NEB ×4 (05:09→20:59)
[2017-05-28 05:30] LABS: AUTOMATED NEUTROPHIL # 15.3 TH/MM3 (1.8-7.7); BASOPHIL % 0.1 % (0.0-2.0); HEMATOCRIT 46.1 % (39.0-51.0); HEMO FLAGS DIFF FINAL; LYMPH % 3.9 % (9.0-44.0); LYMPHOCYTE # 0.7 TH/MM3 (1.0-4.8); MEAN CELL VOLUME 90.5 FL (80.0-100.0); MEAN CORPUSCULAR HEMOGLOBIN 30.4 PG (27.0-34.0); MEAN CORPUSCULAR HGB CONC 33.5 % (32.0-36.0); MONO % 7.2 % (0.0-8.0); NEUT % 88.8 % (16.0-70.0); PLATELET COUNT 233 TH/MM3 (150-450); RED BLOOD COUNT 5.09 MIL/MM3 (4.50-5.90); RED CELL DISTRIBUTION WIDTH 15.4 % (11.6-17.2); WHITE BLOOD COUNT 17.2 TH/MM3 (4.0-11.0)
[2017-05-28 06:02] LABS: BICARBONATE 25.8 MEQ/L (21.0-32.0); POTASSIUM 4.5 MEQ/L (3.5-5.1)
[2017-05-28] MEDS: methylPREDNISolone SOD SUCC 40 MG/1 ML VIAL IV PUSH SCH ×2 (06:07→21:05)
[2017-05-28] MEDS: PIPERACIL-TAZO 3.375 GM PREMIX 50 ML IV SCH ×4 (06:07→23:41)
[2017-05-28] MEDS: METOPROLOL TARTRATE 25 MG TAB PO SCH ×4 (06:08→21:23)
[2017-05-28] MEDS: DILTIAZEM INJ 125 MG in SODIUM CHLORIDE 0.9% INJ 100 ML IV PRN ×2 (06:12→20:41)
--- NOTE | 2017-05-28 06:16 | RADRPT ---
EXAM DATE/TIME: 05/28/2017 04:37 [facility] COMPARISON: CHEST SINGLE AP, May 27, 2017, 17:30. INDICATIONS : Shortness of breath. MEDICAL HISTORY : Chronic obstructive pulmonary disease. Hypertension Cardiovascular disease. Hypertension SURGICAL HISTORY : Appendectomy. ENCOUNTER: Subsequent ACUITY: 1 week PAIN SCORE: Non-responsive. LOCATION: Bilateral chest FINDINGS: A single view of the chest demonstrates endotracheal tube in satisfactory position. NG enters stomach . Subsegmental basilar air space disease present. No pneumothorax. CONCLUSION: 1. Subsegmental airspace disease at the lung bases similar to May 2. Endotracheal tube and naso gastric tube in satisfactory position. Farhat Wiley MD on May 28, 2017 at 6:12 Board Certified Radiologist. This report was verified electronically.
[2017-05-28] MEDS: CHLORHEXIDINE 0.12% (ORAL KIT) 15 ML CUP MT SCH ×2 (08:00→21:33)
--- NOTE | 2017-05-28 08:36 | HHI.CCPN ---
Subjective Remarks/Hospital Course 76 y/o man with severe emphysema and non-exacerbated COPD has developed right side abdominal pain and free peritoneal air following several days of constipation. His abdomen is distended and tender with few bowel sounds. Work of breathing is markedly increased and CT chest demonstrates severe bullous emphysema including hyperexpansion RUL with compression RML and RLL. By history patient can only climb 4 steps without resting. Not on home O2. Very short of breath after walking flat for over 30 feet. I will discuss postoperative pulmonary management with Dr. Mclaughlin. 05/28: Acid/base balance acceptable and urine output adequate s/p emergency resection colon yesterday. CXR with clear mcnamara, basilar atelectasis. Bullous disease is extensive. FiO2 60%. Unable to wean from ventilator. Need to restart full anticoagulation as soon a reasonable due to recent acute pulmonary embolism. Objective Vital Signs Date Time Temp Pulse Resp B/P (MAP) Pulse Ox O2 Delivery O2 Flow Rate FiO2 05/28/17 08:04 92 55 05/28/17 07:00 Mechanical Ventilator 05/28/17 06:12 101 102/67 05/28/17 04:00 98.1 25 05/27/17 10:31 6.00 Intake and Output 05/28/17 05/28/17 05/29/17 08:00 16:00 00:00 Intake Total 2493 ml Output Total 791 ml Balance 1702 ml Result Diagram: 05/28/17 0452 05/28/17 0452 Other Results Laboratory Tests Test 05/27/17 14:30 05/28/17 04:35 Blood Gas Puncture Site ART LINE ART LINE Blood Gas Patient Temperature 98.6 98.6 Blood Gas HCO3 23 mmol/L (22-26) 23 mmol/L (22-26) Blood Gas Base Excess -1.7 mmol/L (-2-2) -1.2 mmol/L (-2-2) Blood Gas Oxygen Saturation 95 % (90-100) 94 % (90-100) Arterial Blood pH 7.39 (7.380-7.420) 7.41 (7.380-7.420) Arterial Blood Partial Pressure CO2 39 mmHg (38-42) 37 mmHg (38-42) Arterial Blood Partial Pressure O2 113 mmHg (61-120) 82 mmHg (61-120) Arterial Blood Oxygen Content 21.3 Vol % (12.0-20.0) 20.8 Vol % (12.0-20.0) Arterial Blood Carboxyhemoglobin 1.4 % (0-4) 1.2 % (0-4) Arterial Blood Methemoglobin 1.2 % (0-2) 0.8 % (0-2) Blood Gas Hemoglobin 15.9 G/DL (12.0-16.0) 15.7 G/DL (12.0-16.0) Oxygen Delivery Device VENTILATOR VENTILATOR Blood Gas Inspired Oxygen 50 % 60 % Blood Gas Ventilator Setting PRVC/AC Objective Remarks P89 - 111, BP 102/72, R 18 vent, T 96.0 Sats 92% Head: Normal Neck: Supple, orally intubated. Lungs: Distant tones, light wheezes, no crackles. Heart: NL S1S2, no m,r. No JVD. Irreg Irreg. Abdomen: Moderately distended, ileostomy viable. Few bowel sounds. Extremities: Warm, trace edema feet. Stasis changes above ankles. Neuro: Opens eyes, grasps with hands. Breathes over vent Procedures None. A/P Assessment and Plan Assessment: 1. Hypoxemic Respiratory Failure. 2. Severe bullous emphysema (COPD, not exacerbated) FEV1 1.30, FVC 2.34, minimal response to dilators 3. Mild dehydration. 4. LATOSHA. 5. Perforated hollow viscous organ and sepsis -> colon resected -> ileostomy and mucus fistula to rectal segment. 6. Chronic steroid use (Prednisone 10 mg BID) 7. Recent Pulmonary Embolism (THEO and RML) Plan: 1. PRVC mode. 2. Wean FiO2. 3. IV H2 filemon. 4. Maintenance iv to keep urine > 30/hr 5. Convert to iv steroids. 6. Hold anticoagulation. 7. TFs. 8. NG to LIS. 9. SSI for euglycemia. 10. Bronchodilators. 11. PIP/DARYL coverage. Overall impression: Critically ill elderly man with severe emphysema and respiratory failure exacerbated by sepsis, abdominal distention, and mild dehydration. S/P subtotal colectomy 05/27 for bowel. I anticipate protracted pulmonary problems. Critical care 44 mins Chip Chavez MD May 28, 2017 08:36
[2017-05-28] MEDS: SODIUM CHLORIDE 0.9% FLUSH 10 ML FLUSH IV FLUSH SCH ×2 (09:00→21:00)
[2017-05-28] MEDS ORDERED: AMIODARONE INJ 900 MG in D5W 500 ML (EXCEL BAG) 482 ML IV SCH (10:09)
[2017-05-28] MEDS: fentaNYL DRIP 250 ML IV PRN (10:15)
[2017-05-28] MEDS ORDERED: AMIODARONE INJ 150 MG in DEXTROSE 5% IN WATER 100ML INJ 100 ML IV ONE ×2 (10:15)
[2017-05-28] MEDS ORDERED: PILL SPLITTER OTHER PRN (10:15)
[2017-05-28] MEDS: AMIODARONE INJ 450 MG in D5W (EXCEL BAG) INJ 241 ML IV SCH ×2 (10:53→18:20)
[2017-05-28] MEDS ORDERED: ENOXAPARIN SODIUM 40 MG/0.4 ML SYRINGE SQ SCH (12:00)
[2017-05-28] MEDS ORDERED: GLUCAGON 1 MG/ML VIAL OTHER PRN (13:30)
[2017-05-28] MEDS ORDERED: DEXTROSE 50% IN WATER 50 ML VIAL(D50) IV PRN (13:30)
[2017-05-28] MEDS: METOCLOPRAMIDE HCL SYRUP 10 MG/10 ML UDC PO SCH ×2 (14:36→21:05)
[2017-05-28] MEDS: INSULIN ASPART SUPPLEMENTAL SCALE SQ SCH ×2 (14:39→19:30)
--- NOTE | 2017-05-28 16:17 | HHI.PR ---
Subjective Subjective Notes intubated sedated, Cardizem gtt for a fib, tf at 15cc Objective Vitals/I&O Vital Signs Date Time Temp Pulse Resp B/P (MAP) Pulse Ox O2 Delivery O2 Flow Rate FiO2 05/28/17 16:04 91 60 05/28/17 14:00 93 05/28/17 12:36 113/55 05/28/17 12:00 99.3 19 05/28/17 07:00 Mechanical Ventilator 05/27/17 10:31 6.00 Labs Laboratory Tests Test 05/27/17 18:19 05/28/17 04:35 05/28/17 04:52 Lactic Acid Level 1.7 Blood Gas Puncture Site ART LINE Blood Gas Patient Temperature 98.6 Blood Gas HCO3 23 Blood Gas Base Excess -1.2 Blood Gas Oxygen Saturation 94 Arterial Blood pH 7.41 Arterial Blood Partial Pressure CO2 37 Arterial Blood Partial Pressure O2 82 Arterial Blood Oxygen Content 20.8 Arterial Blood Carboxyhemoglobin 1.2 Arterial Blood Methemoglobin 0.8 Blood Gas Hemoglobin 15.7 Oxygen Delivery Device VENTILATOR Blood Gas Ventilator Setting PRVC/AC Blood Gas Inspired Oxygen 60 White Blood Count 17.2 Red Blood Count 5.09 Hemoglobin 15.4 Hematocrit 46.1 Mean Corpuscular Volume 90.5 Mean Corpuscular Hemoglobin 30.4 Mean Corpuscular Hemoglobin Concent 33.5 Red Cell Distribution Width 15.4 Platelet Count 233 Mean Platelet Volume 9.1 Neutrophils (%) (Auto) 88.8 Lymphocytes (%) (Auto) 3.9 Monocytes (%) (Auto) 7.2 Eosinophils (%) (Auto) 0.0 Basophils (%) (Auto) 0.1 Neutrophils # (Auto) 15.3 Lymphocytes # (Auto) 0.7 Monocytes # (Auto) 1.2 Eosinophils # (Auto) 0.0 Basophils # (Auto) 0.0 CBC Comment DIFF FINAL Differential Comment Blood Urea Nitrogen 38 Creatinine 1.27 Random Glucose 194 Calcium Level 7.6 Sodium Level 140 Potassium Level 4.5 Chloride Level 106 Carbon Dioxide Level 25.8 Anion Gap 8 Estimat Glomerular Filtration Rate 55 Abdomen: Other (incision with dressing c/d/i, wilfred x2 serousang, mucus fistula pain viable, ileostomy dark pink ) A/P Assessment and Plan POD 1 Ex lap right hemicolectomy with end ileostomy mucus fistula for perf/ ischemia- continue to observe for evidence of further ischemia B PE copd PLAN Vent mgnt per ISC tf at 15 titrated very slowly ok for ppx dose of anticoagulant hold tx dose for now ostomy care Roland Turner MD May 28, 2017 16:17
[2017-05-28] MEDS: METOPROLOL TARTRATE 5 MG/5 ML VIAL IV PUSH PRN (20:08)
[2017-05-29] VITALS (17 sets, daily range): BP systolic 107–128; BP diastolic 56–61; PULSE 86–108; RESP 12–25; TEMP 97.7–99.4; O2SAT 90–94
[2017-05-29] MEDS: INSULIN ASPART SUPPLEMENTAL SCALE SQ SCH ×4 (02:08→19:30)
[2017-05-29] MEDS: fentaNYL DRIP 250 ML IV PRN ×2 (02:34→18:54)
[2017-05-29] MEDS: FAMOTIDINE 20 MG/2 ML VIAL IV PUSH SCH ×2 (03:35→16:42)
[2017-05-29 04:06] LABS: BLOOD GAS BASE EXCESS 1.1 mmol/L (-2-2); BLOOD GAS CARBOXYHEMOGLOBIN 1.2 % (0-4); BLOOD GAS HCO3 25 mmol/L (22-26); BLOOD GAS METHEMOGLOBIN 0.9 % (0-2); BLOOD GAS O2 HGB SATURATION 94 % (90-100); BLOOD GAS OXYGEN CONTENT 16.9 Vol % (12.0-20.0); BLOOD GAS PCO2 41 mmHg (38-42); BLOOD GAS PO2 80 mmHg (61-120); BLOOD GAS TOTAL HGB 12.8 G/DL (12.0-16.0); CRITICAL VALUE NO; DRAW SITE ALINE; FIO2 55 %; OXYGEN DEVICE VENTILATOR; STAT NO; TEMP CORR TO 98.6; ULNAR PULSE PRESENT
[2017-05-29] MEDS: RESP: ALBUTEROL 2.5 MG/IPRATROPIUM 0.5 MG NEB (SCH) NEB ×4 (04:37→19:49)
[2017-05-29] MEDS: METOPROLOL TARTRATE 5 MG/5 ML VIAL IV PUSH PRN (05:32)
[2017-05-29] MEDS: METOCLOPRAMIDE HCL SYRUP 10 MG/10 ML UDC PO SCH ×3 (05:33→23:01)
[2017-05-29 05:37] LABS: AUTOMATED NEUTROPHIL # 14.6 TH/MM3 (1.8-7.7); BASOPHIL % 0.1 % (0.0-2.0); HEMATOCRIT 37.7 % (39.0-51.0); HEMO FLAGS DIFF FINAL; LYMPH % 3.8 % (9.0-44.0); LYMPHOCYTE # 0.6 TH/MM3 (1.0-4.8); MEAN CELL VOLUME 90.9 FL (80.0-100.0); MEAN CORPUSCULAR HEMOGLOBIN 30.3 PG (27.0-34.0); MEAN CORPUSCULAR HGB CONC 33.3 % (32.0-36.0); MONO % 6.8 % (0.0-8.0); NEUT % 89.3 % (16.0-70.0); PLATELET COUNT 180 TH/MM3 (150-450); RED BLOOD COUNT 4.15 MIL/MM3 (4.50-5.90); RED CELL DISTRIBUTION WIDTH 15.6 % (11.6-17.2); WHITE BLOOD COUNT 16.3 TH/MM3 (4.0-11.0)
[2017-05-29 06:02] LABS: BICARBONATE 26.7 MEQ/L (21.0-32.0); POTASSIUM 4.3 MEQ/L (3.5-5.1)
[2017-05-29] MEDS: PIPERACIL-TAZO 3.375 GM PREMIX 50 ML IV SCH ×4 (06:37→23:38)
[2017-05-29] MEDS: METOPROLOL TARTRATE 25 MG TAB PO SCH ×2 (06:38→23:17)
[2017-05-29] MEDS: SODIUM CHLOR 0.9% 1000 ML INJ 1,000 ML IV SCH ×2 (08:00→18:54)
[2017-05-29] MEDS: CHLORHEXIDINE 0.12% (ORAL KIT) 15 ML CUP MT SCH ×2 (08:00→20:00)
[2017-05-29] MEDS: SODIUM CHLORIDE 0.9% FLUSH 10 ML FLUSH IV FLUSH SCH ×2 (08:52→21:00)
[2017-05-29] MEDS: methylPREDNISolone SOD SUCC 40 MG/1 ML VIAL IV PUSH SCH ×2 (08:52→21:56)
--- NOTE | 2017-05-29 09:35 | HHI.CCPN ---
Subjective Remarks/Hospital Course 76 y/o man with severe emphysema and non-exacerbated COPD has developed right side abdominal pain and free peritoneal air following several days of constipation. His abdomen is distended and tender with few bowel sounds. Work of breathing is markedly increased and CT chest demonstrates severe bullous emphysema including hyperexpansion RUL with compression RML and RLL. By history patient can only climb 4 steps without resting. Not on home O2. Very short of breath after walking flat for over 30 feet. I will discuss postoperative pulmonary management with Dr. Mclaughlin. 05/28: Acid/base balance acceptable and urine output adequate s/p emergency resection colon yesterday. CXR with clear mcnamara, basilar atelectasis. Bullous disease is extensive. FiO2 60%. Unable to wean from ventilator. Need to restart full anticoagulation as soon a reasonable due to recent acute pulmonary embolism. 05/29: Continued poor oxygen diffusion consistent with severe COPD. Renal function improved. Objective Vital Signs Date Time Temp Pulse Resp B/P (MAP) Pulse Ox O2 Delivery O2 Flow Rate FiO2 05/29/17 08:32 93 55 05/29/17 06:00 86 05/29/17 04:00 97.7 116/56 (76) 05/28/17 20:00 17 05/28/17 19:00 Mechanical Ventilator 05/27/17 10:31 6.00 Intake and Output 05/29/17 05/29/17 05/30/17 08:00 16:00 00:00 Intake Total 3399 ml Output Total 710 ml Balance 2689 ml Result Diagram: 05/29/17 0513 05/29/17 0513 Other Results Laboratory Tests Test 05/29/17 04:00 Blood Gas Puncture Site OMAR Blood Gas Patient Temperature 98.6 Blood Gas HCO3 25 mmol/L (22-26) Blood Gas Base Excess 1.1 mmol/L (-2-2) Blood Gas Oxygen Saturation 94 % (90-100) Arterial Blood pH 7.41 (7.380-7.420) Arterial Blood Partial Pressure CO2 41 mmHg (38-42) Arterial Blood Partial Pressure O2 80 mmHg (61-120) Arterial Blood Oxygen Content 16.9 Vol % (12.0-20.0) Arterial Blood Carboxyhemoglobin 1.2 % (0-4) Arterial Blood Methemoglobin 0.9 % (0-2) Blood Gas Hemoglobin 12.8 G/DL (12.0-16.0) Oxygen Delivery Device VENTILATOR Blood Gas Ventilator Setting PRVC16/550/+5/1.0 Blood Gas Inspired Oxygen 55 % Objective Remarks P 88, BP 122/74, R 20 vent, T 97.0 Sats 91% Head: Normal Neck: Supple, orally intubated. Lungs: Distant tones, light wheezes, no crackles. Good masha air entry. Heart: NL S1S2, no m,r. No JVD. Irreg Irreg. Abdomen: Moderately distended, ileostomy viable. Few bowel sounds. Minimal tenderness. Extremities: Warm, trace edema feet. Stasis changes above ankles. Neuro: Opens eyes, grasps with hands. Breathes over vent. Follows commands. Procedures None. A/P Assessment and Plan Assessment: 1. Hypoxemic Respiratory Failure. 2. Severe bullous emphysema (COPD, not exacerbated) FEV1 1.30, FVC 2.34, minimal response to dilators 3. Mild dehydration. 4. LATOSHA. 5. Perforated hollow viscous organ and sepsis -> colon resected -> ileostomy and mucus fistula to rectal segment. 6. Chronic steroid use (Prednisone 10 mg BID) 7. Recent Pulmonary Embolism (THEO and RML) Plan: 1. PRVC mode. 2. Wean FiO2. 3. IV H2 filemon. 4. Maintenance iv to keep urine > 30/hr 5. Convert to iv steroids. 6. Hold full anticoagulation. Start DVT px. Start full heparin gtt without bolus per surgery service 05/29 7. TFs. 8. NG to LIS. 9. SSI for euglycemia. 10. Bronchodilators. 11. PIP/DARYL coverage. Overall impression: Critically ill elderly man with severe emphysema and respiratory failure exacerbated by sepsis, abdominal distention. S/P subtotal colectomy 05/27 for colon. I anticipate protracted pulmonary problems. Critical care 38 mins Chip Chavez MD May 29, 2017 09:35
--- NOTE | 2017-05-29 10:12 | HHI.PR ---
Subjective Subjective Notes Intubated Answering yes and no questions appropriately Objective Vitals/I&O Vital Signs Date Time Temp Pulse Resp B/P (MAP) Pulse Ox O2 Delivery O2 Flow Rate FiO2 05/29/17 08:32 93 55 05/29/17 06:00 86 05/29/17 04:00 97.7 116/56 (76) 05/28/17 20:00 17 05/28/17 19:00 Mechanical Ventilator 05/27/17 10:31 6.00 Labs Laboratory Tests Test 05/29/17 04:00 05/29/17 05:13 Blood Gas Puncture Site OMAR Blood Gas Patient Temperature 98.6 Blood Gas HCO3 25 Blood Gas Base Excess 1.1 Blood Gas Oxygen Saturation 94 Arterial Blood pH 7.41 Arterial Blood Partial Pressure CO2 41 Arterial Blood Partial Pressure O2 80 Arterial Blood Oxygen Content 16.9 Arterial Blood Carboxyhemoglobin 1.2 Arterial Blood Methemoglobin 0.9 Blood Gas Hemoglobin 12.8 Oxygen Delivery Device VENTILATOR Blood Gas Ventilator Setting PRVC16/550/+5/1.0 Blood Gas Inspired Oxygen 55 White Blood Count 16.3 Red Blood Count 4.15 Hemoglobin 12.6 Hematocrit 37.7 Mean Corpuscular Volume 90.9 Mean Corpuscular Hemoglobin 30.3 Mean Corpuscular Hemoglobin Concent 33.3 Red Cell Distribution Width 15.6 Platelet Count 180 Mean Platelet Volume 9.1 Neutrophils (%) (Auto) 89.3 Lymphocytes (%) (Auto) 3.8 Monocytes (%) (Auto) 6.8 Eosinophils (%) (Auto) 0.0 Basophils (%) (Auto) 0.1 Neutrophils # (Auto) 14.6 Lymphocytes # (Auto) 0.6 Monocytes # (Auto) 1.1 Eosinophils # (Auto) 0.0 Basophils # (Auto) 0.0 CBC Comment DIFF FINAL Differential Comment Blood Urea Nitrogen 33 Creatinine 1.04 Random Glucose 187 Calcium Level 7.9 Sodium Level 141 Potassium Level 4.3 Chloride Level 107 Carbon Dioxide Level 26.7 Anion Gap 7 Estimat Glomerular Filtration Rate 70 Cardiovascular: Regular Lungs: Clear Abdomen: Other (midline incision packed with wet to dry dressings; MF; ileostomy with pink stoma--no output ), Post-op tenderness Extremities: Other (minimal generalized edema ) A/P Assessment and Plan 76 year old mlae POD2 ex lap; RIGHT hemicolectomy with end ileostomy and mucus fistula for ischemia -Vent per CCM -Okay to start heparin gtt for full anticoagulation---discussed with Dr. Chavez -Continue trickle feeds via NGT -Continue ELOISA management -Discussed with at bedside Attending Note - Dr. Galindo Dressings dry Ileostomy dark; mucous fistula pink and viable Discussed with Dr. Drummond; full anticoagulation OK at this point for his PE as Hb is 12.6 The exam, history, and the medical decision-making described in the above note were completed with the assistance of the mid-level provider. I reviewed and agree with the findings presented. I attest that I had a [id number] encounter with the patient on the same day, and personally performed and documented my assessment and findings in the medical record. Jessie Velázquez May 29, 2017 10:12 Balaji Galindo MD May 29, 2017 15:35
[2017-05-29] MEDS ORDERED: HEPARIN SODIUM - IV 10,000 UNITS/10 ML VIAL IV ONE (10:15)
[2017-05-29 11:25] LABS: APTT (PATIENT) 42.7 SEC (24.3-30.1)
[2017-05-29] MEDS: HEPARIN-D5W 25,000 U/250 ML 250 ML IV PRN ×2 (12:35→20:55)
[2017-05-29] MEDS: DILTIAZEM INJ 125 MG in SODIUM CHLORIDE 0.9% INJ 100 ML IV PRN (16:16)
[2017-05-29] MEDS: PROPOFOL 1000 MG/100 ML INJ 100 ML IV PRN (16:19)
[2017-05-29] MEDS: AMIODARONE INJ 450 MG in D5W (EXCEL BAG) INJ 241 ML IV SCH ×2 (16:19→20:26)
--- NOTE | 2017-05-29 17:57 | HHI.PR ---
Subjective Remarks 76 YOWM with COPD PE Weekend events noted had emergent resection of colon On Vent,ACV,Fi02 50% Sedated with Fentanyl and Versed Opens eyes and responds Objective Vital Signs Vital Signs Date Time Temp Pulse Resp B/P (MAP) Pulse Ox O2 Delivery O2 Flow Rate FiO2 05/29/17 17:28 91 50 05/29/17 16:16 103 130/63 05/29/17 16:00 108 05/29/17 16:00 50 05/29/17 16:00 99.4 108 12 126/60 (82) 90 05/29/17 14:00 99 05/29/17 12:09 91 50 05/29/17 12:00 55 05/29/17 12:00 101 05/29/17 12:00 98.1 98 14 112/56 (74) 92 05/29/17 10:00 96 05/29/17 08:32 93 55 05/29/17 08:00 88 05/29/17 08:00 60 05/29/17 08:00 98.1 92 107/59 (75) 05/29/17 07:00 90 Mechanical Ventilator 60 05/29/17 06:00 86 05/29/17 04:37 94 60 05/29/17 04:00 97.7 104 116/56 (76) 05/29/17 04:00 103 05/29/17 04:00 60 05/29/17 02:00 101 05/29/17 00:00 101 05/29/17 00:00 60 05/29/17 00:00 97.7 98 112/57 (75) 05/28/17 22:00 102 05/28/17 20:59 94 60 05/28/17 20:41 101 111/60 05/28/17 20:00 97.9 94 17 102/56 (71) 94 05/28/17 20:00 98 05/28/17 20:00 60 05/28/17 19:00 94 Mechanical Ventilator 60 05/28/17 18:21 88 116/58 05/28/17 18:20 87 116/58 05/28/17 18:19 87 116/58 05/28/17 18:00 98 I/O 05/28/17 05/28/17 05/28/17 05/29/17 05/29/17 05/29/17 07:00 15:00 23:00 07:00 15:00 23:00 Intake Total 2493 ml 1150 ml 525 ml 3399 ml Output Total 791 ml 815 ml 710 ml Balance 1702 ml 1150 ml -290 ml 2689 ml IV Total 2373 ml 1150 ml 352 ml 2656 ml Tube Feeding 73 ml 743 ml Other 120 ml 100 ml Output Urine Total 425 ml 625 ml 650 ml Stool Total 0 ml 15 ml Gastric Drainage Total 75 ml 75 ml Drainage Total 291 ml 100 ml 60 ml Result Diagram: 05/29/1751205/29/17512 Objective Remarks GENERAL: WBWN WM,NAD SKIN: Warm and dry. HEAD: Normocephalic. EYES: No scleral icterus. No injection or drainage. NECK: Supple, trachea midline. No JVD or lymphadenopathy. CARDIOVASCULAR: Regular rate and rhythm without murmurs, gallops, or rubs. RESPIRATORY: Breath sounds equal bilaterally. No accessory muscle use. GASTROINTESTINAL: Abdomen soft, non-tender, nondistended. MUSCULOSKELETAL: No cyanosis, or edema. BACK: Nontender without obvious deformity. No CVA tenderness. A/P Assessment and Plan VDRF S/P Emergent resection of Colon Pulm Embolism COPD HTN Pleural Plaques PLAN: Vent Support Sedation with Fentanyl and Diprivan IV Heparin Wean 02 to keep sat >90% DW his Wean vent as tolerated Janak Mclaughlin MD May 29, 2017 17:57
[2017-05-29 19:41] LABS: APTT (PATIENT) 102.7 SEC (24.3-30.1)
[2017-05-29 23:16] LABS: APTT (PATIENT) 42.9 SEC (24.3-30.1)
[2017-05-30] VITALS (18 sets, daily range): BP systolic 123–137; BP diastolic 46–62; PULSE 72–100; RESP 15–28; TEMP 97.8–99; O2SAT 88–97
[2017-05-30] MEDS: INSULIN ASPART SUPPLEMENTAL SCALE SQ SCH ×4 (01:30→18:30)
[2017-05-30] MEDS: SODIUM CHLOR 0.9% 1000 ML INJ 1,000 ML IV SCH (02:00)
[2017-05-30] MEDS: RESP: ALBUTEROL 2.5 MG/IPRATROPIUM 0.5 MG NEB (SCH) NEB ×4 (02:47→21:13)
[2017-05-30 03:31] LABS: APTT (PATIENT) 42.9 SEC (24.3-30.1)
[2017-05-30] MEDS: FAMOTIDINE 20 MG/2 ML VIAL IV PUSH SCH ×2 (05:17→16:20)
[2017-05-30 05:27] LABS: AUTOMATED NEUTROPHIL # 16.3 TH/MM3 (1.8-7.7); BASOPHIL % 0.1 % (0.0-2.0); HEMATOCRIT 33.8 % (39.0-51.0); HEMO FLAGS DIFF FINAL; LYMPH % 2.4 % (9.0-44.0); LYMPHOCYTE # 0.5 TH/MM3 (1.0-4.8); MEAN CELL VOLUME 91.1 FL (80.0-100.0); MEAN CORPUSCULAR HGB CONC 32.9 % (32.0-36.0); MONO % 9.7 % (0.0-8.0); NEUT % 87.8 % (16.0-70.0); PLATELET COUNT 183 TH/MM3 (150-450); RED BLOOD COUNT 3.71 MIL/MM3 (4.50-5.90); RED CELL DISTRIBUTION WIDTH 15.2 % (11.6-17.2); WHITE BLOOD COUNT 18.6 TH/MM3 (4.0-11.0)
[2017-05-30 05:38] LABS: APTT (PATIENT) 59.7 SEC (24.3-30.1); BICARBONATE 27.9 MEQ/L (21.0-32.0); MAGNESIUM 2.8 MG/DL (1.5-2.5); POTASSIUM 4.3 MEQ/L (3.5-5.1)
[2017-05-30] MEDS: PIPERACIL-TAZO 3.375 GM PREMIX 50 ML IV SCH ×3 (05:48→18:43)
[2017-05-30] MEDS: DILTIAZEM INJ 125 MG in SODIUM CHLORIDE 0.9% INJ 100 ML IV PRN (05:48)
[2017-05-30] MEDS: METOPROLOL TARTRATE 25 MG TAB PO SCH ×3 (05:49→22:00)
[2017-05-30] MEDS: METOCLOPRAMIDE HCL SYRUP 10 MG/10 ML UDC PO SCH (05:49)
--- NOTE | 2017-05-30 06:19 | RADRPT ---
EXAM DATE/TIME: 05/30/2017 04:27 [facility] COMPARISON: CHEST SINGLE AP, May 28, 2017, 4:37. INDICATIONS : Short of breath. MEDICAL HISTORY : Chronic obstructive pulmonary disease. Hypertension Cardiovascular SURGICAL HISTORY : Appendectomy. ENCOUNTER: Subsequent ACUITY: 2 weeks PAIN SCORE: 0/10 LOCATION: Bilateral chest FINDINGS: Stable ETT and suctioned type NGT with tip coursing beyond the GE junction obscured from the image. T he redemonstration of bibasilar airspace disease, right greater then left. Cardiomediastinal contours are stable. Remainder of the exam is unchanged. CONCLUSION: 1. Stable bibasilar, right greater than left, airspace consolidation. 2. No significant interval change. Jacoby Cordero MD on May 30, 2017 at 6:15 Board Certified Radiologist. This report was verified electronically.
[2017-05-30] MEDS: HEPARIN-D5W 25,000 U/250 ML 250 ML IV PRN (07:38)
--- NOTE | 2017-05-30 07:49 | HHI.CCPN ---
Subjective Remarks/Hospital Course 76 y/o man with severe emphysema and non-exacerbated COPD has developed right side abdominal pain and free peritoneal air following several days of constipation. His abdomen is distended and tender with few bowel sounds. Work of breathing is markedly increased and CT chest demonstrates severe bullous emphysema including hyperexpansion RUL with compression RML and RLL. By history patient can only climb 4 steps without resting. Not on home O2. Very short of breath after walking flat for over 30 feet. I will discuss postoperative pulmonary management with Dr. Mclaughlin. 05/28: Acid/base balance acceptable and urine output adequate s/p emergency resection colon yesterday. CXR with clear mcnamara, basilar atelectasis. Bullous disease is extensive. FiO2 60%. Unable to wean from ventilator. Need to restart full anticoagulation as soon a reasonable due to recent acute pulmonary embolism. 05/29: Continued poor oxygen diffusion consistent with severe COPD. Renal function improved. 05/30: Ileus with NG output 1,400 overnight. Stop TFs and keep to suction. Try reglan. Abdominal distention still hampering diaphragmatic excursions. Severe emphysema. Objective Vital Signs Date Time Temp Pulse Resp B/P (MAP) Pulse Ox O2 Delivery O2 Flow Rate FiO2 05/30/17 06:00 94 05/30/17 05:48 130/63 05/30/17 04:00 99.0 25 93 05/30/17 04:00 50 05/29/17 19:00 Mechanical Ventilator 05/27/17 10:31 6.00 Intake and Output 05/30/17 05/30/17 05/31/17 08:00 16:00 00:00 Intake Total 1987 ml Output Total 2430.0 ml Balance -443.0 ml Result Diagram: 05/30/17 0510 05/30/17 0510 Objective Remarks Sats 94% on 55% FiO2 Head: Normal Neck: Supple, orally intubated. Lungs: Distant tones, light wheezes, no crackles. Good masha air entry. Decreased sounds bases. Heart: NL S1S2, no m,r. No JVD. Irreg Irreg. Abdomen: Moderately distended, ileostomy viable. Few bowel sounds. Minimal tenderness. Extremities: Warm, trace edema feet. Stasis changes above ankles. Neuro: Opens eyes, grasps with hands. Breathes over vent. Follows commands. Very alert. Procedures None. A/P Assessment and Plan Assessment: 1. Hypoxemic Respiratory Failure. 2. Severe bullous emphysema (COPD, not exacerbated) FEV1 1.30, FVC 2.34, minimal response to dilators 3. Mild dehydration. 4. LATOSHA. 5. Perforated hollow viscous organ and sepsis -> colon resected -> ileostomy and mucus fistula to rectal segment. 6. Chronic steroid use (Prednisone 10 mg BID) 7. Recent Pulmonary Embolism (THEO and RML) 8. Ileus. Plan: 1. PRVC mode. 2. Wean FiO2. 3. IV H2 filemon. 4. Maintenance iv to keep urine > 30/hr 5. Convert to iv steroids. 6. Hold full anticoagulation. Start DVT px. Start full heparin gtt without bolus per surgery service 05/29 7. TFs. 8. NG to LIS. 9. SSI for euglycemia. 10. Bronchodilators. 11. PIP/DARYL coverage. 12. Hold TFs. Overall impression: Critically ill elderly man with severe emphysema and respiratory failure exacerbated by sepsis and abdominal distention. S/P subtotal colectomy 05/27 for colon and much improvement since surgery. I anticipate protracted pulmonary problems until ileus resolves. Chip Chavez MD May 30, 2017 07:49
--- NOTE | 2017-05-30 07:57 | MP ---
cc: KEMAL FERNANDEZ DATE OF SURGERY 05/27/2017 PREOPERATIVE DIAGNOSIS Free air and peritonitis. POSTOPERATIVE DIAGNOSIS Right colonic cecal ischemia and multiple perforations sites with feculent contamination and peritonitis throughout the abdomen. ANESTHESIA General. ATTENDING SURGEON MD [place] [employer] Staff. PROCEDURES 1. Exploratory laparotomy. 2. Open extended right hemicolectomy with end-ileostomy and mucous fistula. 3. Abdominal washout. BLOOD LOSS 400 cc. FINDINGS Gross perforation of the right colon with ischemia. Stomach and small bowel from ligament of Treitz to the distal ileum and left colon appeared perfused and viable. INDICATIONS FOR PROCEDURE The patient is a 76-year-old male admitted for COPD and pulmonary embolism who developed increasing abdominal pain and distension. CT scan shows free air and fluid and General Surgery was consulted STAT. The patient was evaluated, found to have peritonitis and free air on CT scan. Discussed with the patient about risks, benefits, alternatives, surgery of exploratory laparotomy, possible bowel resection, possible ostomy and he agreed to undergo the procedure. The risk of significant bleeding was discussed as the patient was recently on anticoagulation. PROCEDURE The patient was taken to the operating, placed in supine position, placed under general endotracheal anesthesia. The patient's abdomen was shaved, prepped and draped in sterile fashion. Time-out was performed. A midline incision made from below the xiphoid to below the umbilicus with the 15 blade scalpel. Bovie electrocautery was used to dissect the subcutaneous tissue and open the midline fascia for the full length of the incision. We were greeted with feculent contamination. We were able to use the suction pool sucker and bring the right colon to our field where there were multiple areas of perforation. We placed clamps on these as well as silk sutures to limit the contamination. We were then able to were irrigated out this area and remove all gross contamination. We then changed gown and gloves. We then turned our attention towards resection. There was clearly a necrotic and ischemic, distended cecum. The ischemia extended up to the hepatic flexure. The small bowel was distended but viable and left colon up to the transverse colon. The transverse colon was viable, although this seemed to have mildly low flow blood state as the patient was in shock on pressors. The GI 75 blue load was used to take the transverse colon in the left upper quadrant and the distal ileum. We used the Impact devices to take down the mesentery and the omentum from the distal to proximal approach from the transverse and take down the hepatic flexure. We did clamp and tie the ileocolic vessels. We then passed the specimen off for permanent processing. We then again irrigated out the abdomen with several liters of sterile saline until all suctioning was clear. We had minimal bleeding, although there was some oozing, more than usual because of the patient's recent anticoagulation. We placed a 19-Nigerian, round Waylon drain in the pelvis and a second 19-Nigerian round Waylon drain through a separate stab incision up into the right upper quadrant and in the right pericolic gutter where the patients ischemic right colon was. We then felt at this point in time that the low-flow state and the patient being in shock, any anastomosis was contraindicated. We placed an end-ileostomy in the right lower quadrant and then a mucous fistula from the distal transverse colon in the left upper quadrant. We closed the midline with a #1 looped PDS suture. We did not closed the skin. We placed a gauze packing dressing. We matured the ostomy and placed ostomy appliances. At this point in time the patient was maintained intubated and sent back to the Intensive Care Unit in critical condition. The patient remained in critical condition and underwent ongoing fluid resuscitation and critical care management by the anesthesia team throughout the case. I was present and prepped for the entire procedure. No apparent complications. MD PELON Ochoa/CHELA /4:56 PM /7:27 AM
[2017-05-30] MEDS: CHLORHEXIDINE 0.12% (ORAL KIT) 15 ML CUP MT SCH ×2 (08:00→20:00)
[2017-05-30] MEDS: methylPREDNISolone SOD SUCC 40 MG/1 ML VIAL IV PUSH SCH ×2 (08:30→22:24)
[2017-05-30] MEDS: SODIUM CHLORIDE 0.9% FLUSH 10 ML FLUSH IV FLUSH SCH ×2 (09:00→21:00)
--- NOTE | 2017-05-30 10:36 | HHI.PR ---
Subjective Subjective Notes Intubated Answering yes and no questions Objective Vitals/I&O Vital Signs Date Time Temp Pulse Resp B/P (MAP) Pulse Ox O2 Delivery O2 Flow Rate FiO2 05/30/17 08:35 50 05/30/17 08:34 95 05/30/17 08:00 80 05/30/17 07:00 Mechanical Ventilator 05/30/17 05:48 130/63 05/30/17 04:00 99.0 25 05/27/17 10:31 6.00 Labs Laboratory Tests Test 05/29/17 10:45 05/29/17 17:01 05/29/17 22:55 05/30/17 03:10 Activated Partial Thromboplast Time 42.7 102.7 42.9 42.9 Test 05/30/17 05:10 White Blood Count 18.6 Red Blood Count 3.71 Hemoglobin 11.1 Hematocrit 33.8 Mean Corpuscular Volume 91.1 Mean Corpuscular Hemoglobin 30.0 Mean Corpuscular Hemoglobin Concent 32.9 Red Cell Distribution Width 15.2 Platelet Count 183 Mean Platelet Volume 8.4 Neutrophils (%) (Auto) 87.8 Lymphocytes (%) (Auto) 2.4 Monocytes (%) (Auto) 9.7 Eosinophils (%) (Auto) 0.0 Basophils (%) (Auto) 0.1 Neutrophils # (Auto) 16.3 Lymphocytes # (Auto) 0.5 Monocytes # (Auto) 1.8 Eosinophils # (Auto) 0.0 Basophils # (Auto) 0.0 CBC Comment DIFF FINAL Differential Comment Activated Partial Thromboplast Time 59.7 Blood Urea Nitrogen 27 Creatinine 0.87 Random Glucose 187 Calcium Level 7.7 Magnesium Level 2.8 Sodium Level 143 Potassium Level 4.3 Chloride Level 109 Carbon Dioxide Level 27.9 Anion Gap 6 Estimat Glomerular Filtration Rate 86 Cardiovascular: Regular Lungs: Clear Abdomen: Other (midline incision: wet to dry dressing removed--wound clean without drainage; Wound Vac applied; ELOISA x2 with serous fluid; Mucous fistula in place; ileostomy with pink stoma---no output ) Extremities: Other (moderate generalized ) A/P Assessment and Plan 76 year old mlae POD3 ex lap; RIGHT hemicolectomy with end ileostomy and mucus fistula for ischemia -Vent per CCM -Continue heparin gtt -NGT to LIWS -Continue ELOISA management -Wound Vac to midline incision -Discussed with at bedside Attending Statement The exam, history, and the medical decision-making described in the above note were completed with the assistance of the mid-level provider. I reviewed and agree with the findings presented. I attest that I had a [id number] encounter with the patient on the same day, and personally performed and documented my assessment and findings in the medical record. Abdominal exam: stable postop, no peritonitis on exam, ostomy viable but teodoraky Jessie Velázquez May 30, 2017 10:36 Leon Pemberton MD Jun 27, 2017 23:09
[2017-05-30] MEDS: fentaNYL DRIP 250 ML IV PRN (11:10)
[2017-05-30] MEDS: PROPOFOL 1000 MG/100 ML INJ 100 ML IV PRN (11:10)
[2017-05-30] MEDS: METOCLOPRAMIDE HCL 10 MG/2 ML VIAL IV PUSH SCH ×2 (11:36→16:20)
--- NOTE | 2017-05-30 11:36 | PD.WCN.NOT ---
Wound Consult Description: Consult for Wound Vac Management/application per VENESSA Velázquez Communicated with: VENESSA Velázquez RN Recommendation: Change Wound VAC to midline abdomen Monday with wound VAC settings @ 125mmHg low continuous suction Additional Information: Patient seen on [address] with YAZAN Roger and VENESSA Velázquez at bedside for wound VAC application earlier this morning Neg Pressure Wound Therapy Wound Location Wound Location: Midline Abdomen Wound Description Length: 24cm Width: 6.7cm Depth: 3.7cm Wound bed appearance: 100% adipose Minimal serosang drainage Open wound margins Periwound appearance: Other (Eccymosis) Settings Suction: 125 mmHg, Continuous Intensity: Low Other Information: Windowpaned, Mushroomed Foam type: Black Number of pieces: other (2 pieces black granufoam used in wound bed. 1 piece of black graufoam used for trac pad placement. 3 pieces foam used in all.) Ostomy Type: Colostomy, Other (Colostomy to left upper abdomen. Right sided mucus fistula. ) Additional information Left sided colostomy is visualized through pouch and noted to be edematous, red , round, moist, with pink clear liquid in pouch that was closed by RN. Right sided mucus fistula was noted with brown effluent in pouch. Francine Mcadams [facility] May 30, 2017 11:36
[2017-05-30 19:43] LABS: APTT (PATIENT) 80.5 SEC (24.3-30.1)
--- NOTE | 2017-05-30 19:47 | HHI.PR ---
Subjective Remarks 76 YOWM with COPD PE Weekend events noted had emergent resection of colon On Vent,ACV,Fi02 50% Sedated with Fentanyl and Versed Opens eyes and responds Still requiring high Fi02 Objective Vital Signs Vital Signs Date Time Temp Pulse Resp B/P (MAP) Pulse Ox O2 Delivery O2 Flow Rate FiO2 05/30/17 18:00 77 05/30/17 16:00 98.1 82 24 137/47 (77) 89 05/30/17 16:00 82 05/30/17 15:35 90 Venturi Mask 6.00 50 05/30/17 14:00 76 05/30/17 12:00 98.7 74 24 128/46 (73) 95 05/30/17 12:00 78 05/30/17 11:30 89 Venturi Mask 50 05/30/17 10:00 86 05/30/17 08:35 50 05/30/17 08:34 95 50 05/30/17 08:29 94 50 05/30/17 08:00 80 05/30/17 08:00 97.8 90 18 124/54 (77) 95 05/30/17 08:00 50 05/30/17 07:00 92 Mechanical Ventilator 50 05/30/17 06:00 94 05/30/17 05:48 92 130/63 05/30/17 04:00 99.0 100 25 136/60 (85) 93 05/30/17 04:00 100 05/30/17 04:00 50 05/30/17 03:45 97 50 05/30/17 02:00 97 05/30/17 00:05 97 50 05/30/17 00:00 98 05/30/17 00:00 98.9 98 15 130/62 (84) 97 05/30/17 00:00 50 05/29/17 22:00 102 05/29/17 20:26 99 125/53 05/29/17 20:00 100 05/29/17 20:00 98.8 100 25 128/61 (83) 93 05/29/17 20:00 50 05/29/17 19:49 93 50 I/O 05/29/17 05/29/17 05/29/17 05/30/17 05/30/17 05/30/17 07:00 15:00 23:00 07:00 15:00 23:00 Intake Total 3399 ml 2129 ml 1987 ml 1541 ml Output Total 710 ml 830 ml 3330.0 ml 1140 ml Balance 2689 ml 1299 ml -1343.0 ml 401 ml IV Total 2656 ml 1753 ml 1887 ml 1541 ml Tube Feeding 743 ml 376 ml 100 ml Output Urine Total 650 ml 750 ml 600 ml 625 ml Stool Total 25 ml Gastric Drainage Total 1300 ml 400 ml Tube Feeding Residual Discard 1350.0 ml Drainage Total 60 ml 80 ml 80 ml 90 ml Result Diagram: 05/30/1750905/30/17509 Objective Remarks GENERAL: WBWN WM,NAD SKIN: Warm and dry. HEAD: Normocephalic. EYES: No scleral icterus. No injection or drainage. NECK: Supple, trachea midline. No JVD or lymphadenopathy. CARDIOVASCULAR: Regular rate and rhythm without murmurs, gallops, or rubs. RESPIRATORY: Breath sounds equal bilaterally. No accessory muscle use. GASTROINTESTINAL: Abdomen soft, non-tender, nondistended. MUSCULOSKELETAL: No cyanosis, or edema. BACK: Nontender without obvious deformity. No CVA tenderness. A/P Assessment and Plan VDRF S/P Emergent resection of Colon Pulm Embolism COPD HTN Pleural Plaques PLAN: Vent Support Sedation with Fentanyl and Diprivan IV Heparin Wean 02 to keep sat >90% Wean vent as tolerated Janak Mclaughlin MD May 30, 2017 19:47
[2017-05-31] VITALS (14 sets, daily range): BP systolic 114–144; BP diastolic 43–59; PULSE 62–82; RESP 20–26; TEMP 98–98.7; O2SAT 87–94
[2017-05-31] MEDS: SODIUM CHLOR 0.9% 1000 ML INJ 1,000 ML IV SCH (01:05)
[2017-05-31] MEDS: PIPERACIL-TAZO 3.375 GM PREMIX 50 ML IV SCH ×4 (01:05→20:59)
[2017-05-31] MEDS: METOCLOPRAMIDE HCL 10 MG/2 ML VIAL IV PUSH SCH ×3 (01:05→17:04)
[2017-05-31] MEDS: INSULIN ASPART SUPPLEMENTAL SCALE SQ SCH ×4 (01:23→17:19)
[2017-05-31 02:28] LABS: APTT (PATIENT) 57.6 SEC (24.3-30.1)
[2017-05-31] MEDS: RESP: ALBUTEROL 2.5 MG/IPRATROPIUM 0.5 MG NEB (SCH) NEB ×4 (03:31→20:56)
[2017-05-31 04:40] LABS: BLOOD GAS BASE EXCESS 1.9 mmol/L (-2-2); BLOOD GAS CARBOXYHEMOGLOBIN 1.4 % (0-4); BLOOD GAS HCO3 25 mmol/L (22-26); BLOOD GAS METHEMOGLOBIN 0.9 % (0-2); BLOOD GAS O2 HGB SATURATION 87 % (90-100); BLOOD GAS OXYGEN CONTENT 12.4 Vol % (12.0-20.0); BLOOD GAS PCO2 34 mmHg (38-42); BLOOD GAS PO2 54 mmHg (61-120); BLOOD GAS TOTAL HGB 10.1 G/DL (12.0-16.0); TEMP CORR TO 98.6
[2017-05-31 04:41] LABS: CRITICAL VALUE YES; DRAW SITE ART LINE; FIO2 50 %; LITER FLOW 6 L/M; OXYGEN DEVICE VENTI MASK; STAT NO
[2017-05-31] MEDS: FAMOTIDINE 20 MG/2 ML VIAL IV PUSH SCH ×2 (04:49→17:04)
[2017-05-31] MEDS: DILTIAZEM INJ 125 MG in SODIUM CHLORIDE 0.9% INJ 100 ML IV PRN ×2 (04:54→18:07)
[2017-05-31 05:10] LABS: HEMATOCRIT 29.6 % (39.0-51.0); MEAN CELL VOLUME 90.3 FL (80.0-100.0); MEAN CORPUSCULAR HEMOGLOBIN 29.7 PG (27.0-34.0); MEAN CORPUSCULAR HGB CONC 32.9 % (32.0-36.0); PLATELET COUNT 169 TH/MM3 (150-450); RED BLOOD COUNT 3.27 MIL/MM3 (4.50-5.90); RED CELL DISTRIBUTION WIDTH 15.3 % (11.6-17.2); WHITE BLOOD COUNT 13.4 TH/MM3 (4.0-11.0)
[2017-05-31 05:33] LABS: BICARBONATE 27.9 MEQ/L (21.0-32.0); POTASSIUM 3.7 MEQ/L (3.5-5.1)
[2017-05-31 05:37] LABS: HEMO FLAGS AUTO DIFF
[2017-05-31] MEDS: METOPROLOL TARTRATE 25 MG TAB PO SCH ×3 (06:00→22:00)
[2017-05-31] MEDS: CHLORHEXIDINE 0.12% (ORAL KIT) 15 ML CUP MT SCH ×2 (08:00→20:00)
[2017-05-31 08:17] LABS: BANDS 1 % (0-6); METAMYELOCYTES 1 % (0-1); MYELOCYTES 1 % (0-0); NEUTROPHIL # MANUAL DIFF 11.9 TH/MM3 (1.8-7.7); PLASMA CELLS 3 % (0-0); POLYS (SEG NEUTROPHILS) 86 % (16-70); WBC DIFF SAMPLE 100
[2017-05-31 08:19] LABS: PLATELET ESTIMATE SMEAR NORMAL (NORMAL); PLATELET MORPHOLOGY NORMAL (NORMAL); SCAN/DIFF FINAL DIFF MANUAL
[2017-05-31 08:56] LABS: APTT (PATIENT) 63.9 SEC (24.3-30.1)
[2017-05-31] MEDS: SODIUM CHLORIDE 0.9% FLUSH 10 ML FLUSH IV FLUSH SCH ×2 (09:00→21:00)
[2017-05-31] MEDS: methylPREDNISolone SOD SUCC 40 MG/1 ML VIAL IV PUSH SCH ×2 (09:11→21:09)
--- NOTE | 2017-05-31 11:47 | PD.WCN.NOT ---
Wound Consult Description: Midline Abdomen Communicated with: YAZAN Fernández ARNP Recommendation: Change Wound VAC to midline abdomen as ordered with wound VAC settings @ 125mmHg low continuous suction Additional Information: YAZAN Fernández called to notify clean up helper banquet of a blockage alarm. Patient seen on [address] for wound VAC assessment. Neg Pressure Wound Therapy Wound Location Wound Location: Midline Abdomen Wound Description Length: 24cm Width: 6.7cm Depth: 3.7cm Wound bed appearance: 100% adipose Minimal sanguinous drainage Open wound margins Settings Suction: 125 mmHg, Continuous Intensity: Low Other Information: Windowpaned, Mushroomed Foam type: Black Number of pieces: 2 Additonal Information Wound Vac removed for blockage alarm. Clot noted to black sponge that was obstructing the machine and causing it to alarm and not function properly. 2 pieces black granufoam removed from wound along with the trac pad and mushroomed black piece of granufoam (all 3 pieces removed). Wound cleansed with NS and gauze. Periwound was skin prepped using Cavilon prior to window paning with Vac drape to protect intact skin. 2 pieces black granufoam cut in a cinnamon roll fashion were placed into wound bed and secure with Vac drape. Sensi trac pad was placed mid section of wound and secured to lower abdomen. Machine turned on with settings currently @ 125mmHg low continuous suction and functioning properly without leaks when leaving patients room. Ostomy Type: Colostomy, Other (Colostomy to left upper abdomen. Right sided mucus fistula. ) Francine Mcadams [facility] May 31, 2017 11:47
--- NOTE | 2017-05-31 12:14 | HHI.CCPN ---
Subjective Remarks/Hospital Course 76 y/o man with severe emphysema and non-exacerbated COPD has developed right side abdominal pain and free peritoneal air following several days of constipation. His abdomen is distended and tender with few bowel sounds. Work of breathing is markedly increased and CT chest demonstrates severe bullous emphysema including hyperexpansion RUL with compression RML and RLL. By history patient can only climb 4 steps without resting. Not on home O2. Very short of breath after walking flat for over 30 feet. I will discuss postoperative pulmonary management with Dr. Mclaughlin. 05/28: Acid/base balance acceptable and urine output adequate s/p emergency resection colon yesterday. CXR with clear mcnamara, basilar atelectasis. Bullous disease is extensive. FiO2 60%. Unable to wean from ventilator. Need to restart full anticoagulation as soon a reasonable due to recent acute pulmonary embolism. 05/29: Continued poor oxygen diffusion consistent with severe COPD. Renal function improved. 05/30: Ileus with NG output 1,400 overnight. Stop TFs and keep to suction. Try reglan. Abdominal distention still hampering diaphragmatic excursions. Severe emphysema. SUBJECTIVE: 05/31: Afebrile. Currently on Venturi mask 6 L. 700 cc from NG tube overnight. Awake and interactive. Desaturates when sleeps. Objective Vital Signs Date Time Temp Pulse Resp B/P (MAP) Pulse Ox O2 Delivery O2 Flow Rate FiO2 05/31/17 08:33 88 Venturi Mask 6.00 50 05/31/17 06:00 65 05/31/17 04:54 132/56 05/31/17 04:00 98.0 24 Intake and Output 05/31/17 05/31/17 06/01/17 08:00 16:00 00:00 Intake Total 1544 ml Output Total 950 ml Balance 594 ml Result Diagram: 05/31/17 0500 05/31/17 0500 Imaging Last Impressions Chest X-Ray 05/30/17 0400 Signed Impressions: Service Date/Time: Tuesday, May 30, 2017 04:27 - CONCLUSION: 1. Stable bibasilar, right greater than left, airspace consolidation. 2. No significant interval change. Jacoby Cordero MD Abdomen/Pelvis CT 05/26/17 0000 Signed Impressions: Service Date/Time: Friday, May 26, 2017 17:15 - CONCLUSION: Free intraperitoneal air probably from an upper abdominal source. Generalized ileus. Bryson Magaña MD FACR Abdomen X-Ray 05/25/17 0000 Signed Impressions: Service Date/Time: April 11:14 - CONCLUSION: Mildly gas distended colon. Otherwise, unremarkable exam. Anirudh Em Jr., MD Lower Extremity Ultrasound 05/18/17 Signed Impressions: Service Date/Time: April 22:06 - CONCLUSION: Normal examination. Willi Robison MD CT Angiography 05/18/17 Signed Impressions: Service Date/Time: , May 18, 2017 18:05 - CONCLUSION: 1. Examination quality is degraded by severe respiratory motion artifact. However , there are filling defects identified within the left upper lobe and right middle lobe pulmonary arteries characteristic of PE. 2. Severe emphysema with trace left pleural effusion and left lower lobe atelectasis versus consolidation. 3. There are bilateral calcified pleural plaques indicative of prior asbestos exposure. Dario Mendez MD Objective Remarks GENERAL: 76-year-old male, currently on Venturi mask in no acute distress SKIN: Warm and dry. Well perfused HEAD: Atraumatic. Normocephalic. EYES: Pupils equal and round about 2 mm bilaterally and reactive. No scleral icterus. No injection or drainage. ENT: No nasal bleeding or discharge. Mucous membranes pink and moist. Oropharynx without erythema or exudates NECK: Trachea midline. No JVD. CARDIOVASCULAR: IRR. S1, S2 no S4 without murmur RESPIRATORY: Diminished breath sounds throughout. Diminished at bases bilaterally. Positive end expiratory wheezes. GASTROINTESTINAL: Abdomen distended, ileostomy viable pink mucosa. Wound VAC clean dry and intact. Brown stool drainage. Bilateral lower quadrant JPs with serous drainage. Hypoactive bowel sounds. MUSCULOSKELETAL: Extremities with chronic venous stasis NEUROLOGICAL: Awake and alert. No obvious cranial nerve deficits. Motor grossly within normal limits. Five out of 5 muscle strength in the arms and legs. Normal speech. Procedures None. A/P Assessment and Plan Neuro/Psych: Fentanyl 100 every 2 hours. Pain management. Acetaminophen for fever CV: A. fib with RVR Dyslipidemia Hypertension Currently on amiodarone drip at 0.5 mg/m along with diltiazem at 10 mg an hour for heart rate manage less than 100 Follow-up on electrolytes/TSH today Routine 2-D echocardiogram ordered. No previous history of atrial fibrillation Continue metoprolol 12.5 mg every 8 hours/on 25 mg at night at home. On simvastatin 10 mill grams daily at home. This is currently in hold. Resume when clinically indicated Resp: Acute on chronic hypoxemic respiratory failure Left upper lobe/middle lobe pulmonary embolism End-stage severe emphysema - FEV1 1.30, FVC 2.34, minimal response to dilators PFTs Currently on Venturi mask 6 L to maintain saturations greater than equal to 88% Albuterol/ipratropium aerosols every 6 hours with albuterol hours is every 2 hours. Dyspnea Add a cappella and he CPAP to albuterol/ipratropium aerosols every 6 hours Currently on heparin drip at 800 units an hour CTPA - left upper lobe/right middle lobe PE. Severe in-stent disc changes. Left lower lobe atelectasis. 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 hollow viscus Ileus Currently on famotidine 20 mg IV twice a day On metoclopramide 10 mg IV every 8 hours Remains nothing by mouth 700 cc output past 24 hours : Dubose catheter to maintain accurate I's and O's in a critically ill patient Endo: Chronic prednisone use Hyperglycemia of critical illness Currently on methylprednisolone 40 mEq IV twice a day Sliding scale insulin Accu-Cheks every 6 hours to maintain euglycemia/low regimen Novulog Renal: Acute kidney injury - resolved Change normal saline to LR to 100 cc an hour Monitor urine output - 1225 past 24 hours Accurate I's and O's Heme: Leukocytosis Normocytic anemia History thrombocytopenia currently normal Monitor CBC daily. Follow trends Continue heparin drip for PE see above ID: Monitor for infection Previously on piperacillin/tazobactam. Currently discontinued FEN: Hypernatremia Hypopotassemia Adjust IV fluids. Currently on LR Potassium chloride 30 mEq IV 1. Recheck in AM. MSK: PT evaluate and treat 30 minutes critical care time Rashel Ibarra MD May 31, 2017 12:14
[2017-05-31] MEDS: LACTATED RINGER'S 1000 ML INJ 1,000 ML IV SCH ×2 (13:00→23:00)
[2017-05-31 13:25] LABS: MAGNESIUM 2.7 MG/DL (1.5-2.5)
--- NOTE | 2017-05-31 14:03 | HHI.PR ---
Subjective Subjective Notes Resting in bed Extubated YAZAN Fernández at bedside Objective Vitals/I&O Vital Signs Date Time Temp Pulse Resp B/P (MAP) Pulse Ox O2 Delivery O2 Flow Rate FiO2 05/31/17 08:33 88 Venturi Mask 6.00 50 05/31/17 06:00 65 05/31/17 04:54 132/56 05/31/17 04:00 98.0 24 Labs Laboratory Tests Test 05/30/17 19:00 05/31/17 02:10 05/31/17 04:20 05/31/17 05:00 Activated Partial Thromboplast Time 80.5 57.6 Blood Gas Puncture Site ART LINE Blood Gas Patient Temperature 98.6 Blood Gas HCO3 25 Blood Gas Base Excess 1.9 Blood Gas Oxygen Saturation 87 Arterial Blood pH 7.48 Arterial Blood Partial Pressure CO2 34 Arterial Blood Partial Pressure O2 54 Arterial Blood Oxygen Content 12.4 Arterial Blood Carboxyhemoglobin 1.4 Arterial Blood Methemoglobin 0.9 Blood Gas Hemoglobin 10.1 Oxygen Delivery Device VENTI MASK Blood Gas Liter Flow 6 Blood Gas Inspired Oxygen 50 White Blood Count 13.4 Red Blood Count 3.27 Hemoglobin 9.7 Hematocrit 29.6 Mean Corpuscular Volume 90.3 Mean Corpuscular Hemoglobin 29.7 Mean Corpuscular Hemoglobin Concent 32.9 Red Cell Distribution Width 15.3 Platelet Count 169 Mean Platelet Volume 8.3 CBC Comment AUTO DIFF Differential Total Cells Counted 100 Neutrophils % (Manual) 86 Band Neutrophils % 1 Lymphocytes % 2 Monocytes % 6 Neutrophils # (Manual) 11.9 Metamyelocytes 1 Myelocytes 1 Differential Comment FINAL DIFF MANUAL Plasma Cells 3 Platelet Estimate NORMAL Platelet Morphology Comment NORMAL Red Cell Morphology Comment NORMAL Blood Urea Nitrogen 25 Creatinine 0.73 Random Glucose 180 Calcium Level 7.5 Sodium Level 146 Potassium Level 3.7 Chloride Level 111 Carbon Dioxide Level 27.9 Anion Gap 7 Estimat Glomerular Filtration Rate 105 Phosphorus Level 1.8 Magnesium Level 2.7 Thyroid Stimulating Hormone 3rd Gen 1.560 Test 05/31/17 08:00 Activated Partial Thromboplast Time 63.9 Cardiovascular: Regular Lungs: Clear Abdomen: Other (Wound vac in place with bloody drainage; ileostomy in place with thin output; abdomen distended but minimally tender ) Extremities: Other (moderate generalized edema ) A/P Assessment and Plan 76 year old mlae POD4 ex lap; RIGHT hemicolectomy with end ileostomy and mucus fistula for ischemia -On Ventimask -Continue heparin gtt -NGT to LIWS -Continue ELOISA management -Wound Vac to midline incision -Discussed with YAZAN Fernández ---she is going to contact YAZAN Escamilla with Wound Team about alarming Wound Vac Attending Statement The exam, history, and the medical decision-making described in the above note were completed with the assistance of the mid-level provider. I reviewed and agree with the findings presented. I attest that I had a [id number] encounter with the patient on the same day, and personally performed and documented my assessment and findings in the medical record. Abdominal exam: stable, ostomy pink/viable, non-distended Jessie Velázquez May 31, 2017 14:03 Leon Pemberton MD Jun 27, 2017 23:16
[2017-05-31] MEDS: POTASSIUM CHLOR 10 MEQ PREMIX 100 ML IV SCH ×4 (15:27→18:08)
--- NOTE | 2017-05-31 17:43 | HHI.PR ---
Subjective Remarks 76 YOWM with COPD PE Weekend events noted had emergent resection of colon Extubated On PRB C/O sorenesss in belly takes Ice chips Objective Vital Signs Vital Signs Date Time Temp Pulse Resp B/P (MAP) Pulse Ox O2 Delivery O2 Flow Rate FiO2 05/31/17 08:33 88 Venturi Mask 6.00 50 05/31/17 06:00 65 05/31/17 04:54 68 132/56 05/31/17 04:00 98.0 65 24 129/43 (71) 88 05/31/17 04:00 65 05/31/17 02:00 64 05/31/17 00:00 70 05/31/17 00:00 98.1 82 26 114/56 (75) 87 05/30/17 22:00 72 05/30/17 21:14 88 Venturi Mask 6.00 50 05/30/17 20:00 78 05/30/17 20:00 98.3 78 28 123/59 (80) 88 05/30/17 19:00 88 Venturi Mask 50 05/30/17 18:00 77 I/O 05/30/17 05/30/17 05/30/17 05/31/17 05/31/17 05/31/17 07:00 15:00 23:00 07:00 15:00 23:00 Intake Total 1987 ml 1541 ml 1544 ml 1000 ml Output Total 3330.0 ml 1140 ml 950 ml Balance -1343.0 ml 401 ml 594 ml 1000 ml IV Total 1887 ml 1541 ml 1544 ml 1000 ml Tube Feeding 100 ml Output Urine Total 600 ml 625 ml 600 ml Stool Total 25 ml Gastric Drainage Total 1300 ml 400 ml 300 ml Tube Feeding Residual Discard 1350.0 ml Drainage Total 80 ml 90 ml 50 ml Result Diagram: 05/31/17 0500 05/31/17 0500 Objective Remarks GENERAL: WBWN WM,NAD SKIN: Warm and dry. HEAD: Normocephalic. EYES: No scleral icterus. No injection or drainage. NECK: Supple, trachea midline. No JVD or lymphadenopathy. CARDIOVASCULAR: Regular rate and rhythm without murmurs, gallops, or rubs. RESPIRATORY: Breath sounds equal bilaterally. No accessory muscle use. GASTROINTESTINAL: Abdomen soft, non-tender, nondistended. MUSCULOSKELETAL: No cyanosis, or edema. BACK: Nontender without obvious deformity. No CVA tenderness. A/P Assessment and Plan VDRF S/P Emergent resection of Colon Pulm Embolism COPD HTN Pleural Plaques PLAN: Supplement 02 with PRB Wean 02 to keep sat >92% IV Heparin DW pt and his at BS Janak Mclaughlin MD May 31, 2017 17:43
[2017-05-31] MEDS: AMIODARONE INJ 450 MG in D5W (EXCEL BAG) INJ 241 ML IV SCH (23:24)
[2017-06-01] VITALS (15 sets, daily range): BP systolic 121–153; BP diastolic 55–67; PULSE 58–71; RESP 25–28; TEMP 96.6–98.3; O2SAT 88–97
[2017-06-01] MEDS: PIPERACIL-TAZO 3.375 GM PREMIX 50 ML IV SCH ×4 (00:51→21:07)
[2017-06-01] MEDS: METOCLOPRAMIDE HCL 10 MG/2 ML VIAL IV PUSH SCH ×3 (00:51→16:15)
[2017-06-01] MEDS: HEPARIN-D5W 25,000 U/250 ML 250 ML IV PRN ×2 (00:53→22:28)
[2017-06-01] MEDS: INSULIN ASPART SUPPLEMENTAL SCALE SQ SCH ×4 (00:53→19:30)
[2017-06-01] MEDS: RESP: ALBUTEROL 2.5 MG/IPRATROPIUM 0.5 MG NEB (SCH) NEB ×4 (01:32→20:46)
[2017-06-01] MEDS: AMIODARONE INJ 450 MG in D5W (EXCEL BAG) INJ 241 ML IV SCH ×3 (04:27→19:29)
[2017-06-01] MEDS: FAMOTIDINE 20 MG/2 ML VIAL IV PUSH SCH ×2 (04:43→16:15)
[2017-06-01 05:55] LABS: BASOPHIL % 0.1 % (0.0-2.0); LYMPH % 4.5 % (9.0-44.0); LYMPHOCYTE # 0.5 TH/MM3 (1.0-4.8); MEAN CELL VOLUME 90.8 FL (80.0-100.0); MEAN CORPUSCULAR HEMOGLOBIN 31.3 PG (27.0-34.0); MEAN CORPUSCULAR HGB CONC 34.5 % (32.0-36.0); MONO % 7.9 % (0.0-8.0); NEUT % 87.5 % (16.0-70.0); PLATELET COUNT 165 TH/MM3 (150-450); RED CELL DISTRIBUTION WIDTH 15.4 % (11.6-17.2); WHITE BLOOD COUNT 10.3 TH/MM3 (4.0-11.0)
[2017-06-01 06:00] LABS: HEMO FLAGS AUTO DIFF
[2017-06-01] MEDS: METOPROLOL TARTRATE 25 MG TAB PO SCH ×3 (06:00→21:07)
[2017-06-01 06:02] LABS: APTT (PATIENT) 56.2 SEC (24.3-30.1)
[2017-06-01 06:19] LABS: ALT (GPT) 20 U/L (12-78); ANION GAP 7 MEQ/L (5-15); AST (GOT) 36 U/L (15-37); BICARBONATE 26.2 MEQ/L (21.0-32.0); BLOOD UREA NITROGEN 21 MG/DL (7-18); CHLORIDE 111 MEQ/L (98-107); GLOMERULAR FILTRATION RATE 98 ML/MIN (>89); MAGNESIUM 2.7 MG/DL (1.5-2.5); POTASSIUM 3.9 MEQ/L (3.5-5.1); SODIUM (NA) 144 MEQ/L (136-145)
[2017-06-01 06:24] LABS: ALKALINE PHOSPHATASE 66 U/L (45-117); TOTAL BILIRUBIN ADULT 1.5 MG/DL (0.2-1.0)
[2017-06-01 06:36] LABS: CREATINE KINASE 60 U/L (39-308)
[2017-06-01] MEDS: LACTATED RINGER'S 1000 ML INJ 1,000 ML IV SCH ×2 (09:00→18:49)
[2017-06-01] MEDS: POTASSIUM CHLOR 10 MEQ PREMIX 100 ML IV SCH (09:00)
[2017-06-01] MEDS: methylPREDNISolone SOD SUCC 40 MG/1 ML VIAL IV PUSH SCH ×2 (09:35→21:07)
[2017-06-01] MEDS: CHLORHEXIDINE 0.12% (ORAL KIT) 15 ML CUP MT SCH ×2 (09:37→20:00)
[2017-06-01] MEDS: SODIUM CHLORIDE 0.9% FLUSH 10 ML FLUSH IV FLUSH SCH ×2 (09:48→21:00)
[2017-06-01 10:10] LABS: BANDS 3 % (0-6)
[2017-06-01 10:11] LABS: METAMYELOCYTES 6 % (0-1); MYELOCYTES 1 % (0-0); NEUTROPHIL # MANUAL DIFF 9.6 TH/MM3 (1.8-7.7); PLASMA CELLS 1 % (0-0); POLYS (SEG NEUTROPHILS) 83 % (16-70)
[2017-06-01 10:13] LABS: PLATELET ESTIMATE SMEAR NORMAL (NORMAL); PLATELET MORPHOLOGY NORMAL (NORMAL)
[2017-06-01 10:14] LABS: SCAN/DIFF FINAL DIFF MANUAL
--- NOTE | 2017-06-01 10:52 | HHI.PR ---
Subjective Subjective Notes Resting in bed Feeling a little hungry No issues overnight Objective Vitals/I&O Vital Signs Date Time Temp Pulse Resp B/P (MAP) Pulse Ox O2 Delivery O2 Flow Rate FiO2 06/01/17 09:08 97 Partial Rebreather 10.00 06/01/17 06:00 58 06/01/17 04:27 158/57 06/01/17 04:00 98.3 28 05/31/17 20:56 50 Labs Laboratory Tests Test 06/01/17 05:32 White Blood Count 10.3 Red Blood Count 3.20 Hemoglobin 10.0 Hematocrit 29.0 Mean Corpuscular Volume 90.8 Mean Corpuscular Hemoglobin 31.3 Mean Corpuscular Hemoglobin Concent 34.5 Red Cell Distribution Width 15.4 Platelet Count 165 Mean Platelet Volume 8.9 Neutrophils (%) (Auto) 87.5 Lymphocytes (%) (Auto) 4.5 Monocytes (%) (Auto) 7.9 Eosinophils (%) (Auto) 0.0 Basophils (%) (Auto) 0.1 Neutrophils # (Auto) 9.0 Lymphocytes # (Auto) 0.5 Monocytes # (Auto) 0.8 Eosinophils # (Auto) 0.0 Basophils # (Auto) 0.0 CBC Comment AUTO DIFF Neutrophils % (Manual) 83 Band Neutrophils % 3 Lymphocytes % 2 Monocytes % 4 Neutrophils # (Manual) 9.6 Metamyelocytes 6 Myelocytes 1 Differential Comment FINAL DIFF MANUAL Plasma Cells 1 Platelet Estimate NORMAL Platelet Morphology Comment NORMAL Red Cell Morphology Comment NORMAL Activated Partial Thromboplast Time 56.2 Blood Urea Nitrogen 21 Creatinine 0.77 Random Glucose 186 Total Protein 4.9 Albumin 1.5 Calcium Level 7.5 Phosphorus Level 2.5 Magnesium Level 2.7 Alkaline Phosphatase 66 Aspartate Amino Transf (AST/SGOT) 36 Alanine Aminotransferase (ALT/SGPT) 20 Total Bilirubin 1.5 Sodium Level 144 Potassium Level 3.9 Chloride Level 111 Carbon Dioxide Level 26.2 Anion Gap 7 Estimat Glomerular Filtration Rate 98 Total Creatine Kinase 60 Troponin I LESS THAN 0.02 Cardiovascular: Regular Lungs: Clear Abdomen: Other (Wound vac in place with good seal; bloody drainage; ELOISA with SS drainage; ileostomy in place with thin SS drainage; abdomen tender non distedned ) Extremities: Other (moderate generalized edema ) A/P Assessment and Plan 76 year old mlae POD5 ex lap; RIGHT hemicolectomy with end ileostomy and mucus fistula for ischemia -On Ventimask -Continue heparin gtt -Monitor Hmg ---10.0 today -Clamp NGT; connect to LIWS if n/v occur - Ice chips okay -PT -Continue ELOISA management -Wound Vac to midline incision --plan for change tomorrow -Discussed with YAZAN Damon Attending Statement The exam, history, and the medical decision-making described in the above note were completed with the assistance of the mid-level provider. I reviewed and agree with the findings presented. I attest that I had a [id number] encounter with the patient on the same day, and personally performed and documented my assessment and findings in the medical record. Abdominal exam: stable, non-tender, incision c/d/i continue supportive care/respiratory support Jessie Velázquez Jun 01, 2017 10:52 Leon Pemberton MD Jun 27, 2017 23:20
--- NOTE | 2017-06-01 11:51 | ECHRPT ---
Indication: a fib flutter CONCLUSIONS Normal left ventricular size. Wall thickness is normal. The left ventricular systolic function is normal with an estimated ejection fraction in the range of 60-65%. There is mild tricuspid valve regurgitation. BP: 129 / 43 HR: 65 Rhythm: Sinus MEASUREMENTS (Male / Female) Normal Values Technical Quality:Fair 2D ECHO LV Diastolic Diameter PLAX 4.8 cm 4.2 - 5.9 / 3.9 - 5.3 cm LV Systolic Diameter PLAX 3.4 cm IVS Diastolic Thickness 1.2 cm 0.6 - 1.0 / 0.6 - 0.9 cm LVPW Diastolic Thickness 0.8 cm 0.6 - 1.0 / 0.6 - 0.9 cm LV Relative Wall Thickness 0.4 LA Systolic Diameter LX 3.8 cm 3.0 - 4.0 / 2.7 - 3.8 cm DOPPLER Mitral E Point Velocity 110.0 cm/s Mitral A Point Velocity 71.1 cm/s Mitral E to A Ratio 1.5 TR Peak Velocity 305.0 cm/s TR Peak Gradient 37.2 mmHg FINDINGS LEFT VENTRICLE Normal left ventricular size. Wall thickness is normal. The left ventricular systolic function is normal with an estimated ejection fraction in the range of 60-65%. No obvious wall motion abnormalities but study is suboptimal. RIGHT VENTRICLE Normal right ventricular size and systolic function. LEFT ATRIUM The left atrial size is normal. RIGHT ATRIUM The right atrial size is normal. ATRIAL SEPTUM Normal atrial septal thickness without atrial level shunting by limited color doppler interrogation. AORTA The aortic root and proximal ascending aorta are normal in size on limited imaging. MITRAL VALVE Structurally normal mitral valve. No mitral valve stenosis or regurgitation. AORTIC VALVE Trileaflet aortic valve. No aortic valve stenosis or regurgitation. TRICUSPID VALVE There is mild tricuspid valve regurgitation. PULMONARY VALVE The pulmonary valve is not well visualized. VESSELS The inferior vena cava is normal in size. PERICARDIUM No pericardial effusion. Yfn Card MD (Electronically Signed) Final Date:01 June 2017 11:51
--- NOTE | 2017-06-01 13:23 | HHI.CCPN ---
Subjective Remarks/Hospital Course 76 y/o man with severe emphysema and non-exacerbated COPD has developed right side abdominal pain and free peritoneal air following several days of constipation. His abdomen is distended and tender with few bowel sounds. Work of breathing is markedly increased and CT chest demonstrates severe bullous emphysema including hyperexpansion RUL with compression RML and RLL. By history patient can only climb 4 steps without resting. Not on home O2. Very short of breath after walking flat for over 30 feet. I will discuss postoperative pulmonary management with Dr. Mclaughlin. 05/28: Acid/base balance acceptable and urine output adequate s/p emergency resection colon yesterday. CXR with clear mcnamara, basilar atelectasis. Bullous disease is extensive. FiO2 60%. Unable to wean from ventilator. Need to restart full anticoagulation as soon a reasonable due to recent acute pulmonary embolism. 05/29: Continued poor oxygen diffusion consistent with severe COPD. Renal function improved. 05/30: Ileus with NG output 1,400 overnight. Stop TFs and keep to suction. Try reglan. Abdominal distention still hampering diaphragmatic excursions. Severe emphysema. 05/31: Afebrile. Currently on Venturi mask 6 L. 700 cc from NG tube overnight. Awake and interactive. Desaturates when sleeps. SUBJECTIVE: 06/01: Afebrile. Currently on a Venturi mask 50% 6 L. Saturations around 80%. Interactive. Receiving ice chips when necessary. Requesting diet. Objective Vital Signs Date Time Temp Pulse Resp B/P (MAP) Pulse Ox O2 Delivery O2 Flow Rate FiO2 06/01/17 09:08 97 Partial Rebreather 10.00 06/01/17 06:00 58 06/01/17 04:27 158/57 06/01/17 04:00 98.3 28 05/31/17 20:56 50 Intake and Output 06/01/17 06/01/17 06/01/17 07:59 15:59 23:59 Intake Total 1586 ml Output Total 1225 ml Balance 361 ml Result Diagram: 06/01/17 0532 06/01/17 0532 Imaging Last Impressions Chest X-Ray 05/30/17 0400 Signed Impressions: Service Date/Time: Tuesday, May 30, 2017 04:27 - CONCLUSION: 1. Stable bibasilar, right greater than left, airspace consolidation. 2. No significant interval change. Jacoby Cordero MD Abdomen/Pelvis CT 05/26/17 0000 Signed Impressions: Service Date/Time: Friday, May 26, 2017 17:15 - CONCLUSION: Free intraperitoneal air probably from an upper abdominal source. Generalized ileus. Bryson Magaña MD FACR Abdomen X-Ray 05/25/17 0000 Signed Impressions: Service Date/Time: April 11:14 - CONCLUSION: Mildly gas distended colon. Otherwise, unremarkable exam. Anirudh Em Jr., MD Lower Extremity Ultrasound 05/18/17 0000 Signed Impressions: Service Date/Time: , May 18, 2017 22:06 - CONCLUSION: Normal examination. Willi Robison MD CT Angiography 05/18/17 0000 Signed Impressions: Service Date/Time: , May 18, 2017 18:05 - CONCLUSION: 1. Examination quality is degraded by severe respiratory motion artifact. However , there are filling defects identified within the left upper lobe and right middle lobe pulmonary arteries characteristic of PE. 2. Severe emphysema with trace left pleural effusion and left lower lobe atelectasis versus consolidation. 3. There are bilateral calcified pleural plaques indicative of prior asbestos exposure. Dario Mendez MD Objective Remarks GENERAL: 76-year-old male, currently on Venturi mask in no acute distress SKIN: Warm and dry. Well perfused HEAD: Atraumatic. Normocephalic. EYES: Pupils equal and round about 2 mm bilaterally and reactive. No scleral icterus. No injection or drainage. ENT: No nasal bleeding or discharge. Mucous membranes pink and moist. Oropharynx without erythema or exudates NECK: Trachea midline. No JVD. CARDIOVASCULAR: IRR. S1, S2 no S4 without murmur RESPIRATORY: Diminished breath sounds throughout. Diminished at bases bilaterally. Positive end expiratory wheezes. GASTROINTESTINAL: Abdomen distended, ileostomy viable pink mucosa. Wound VAC clean dry and intact. Brown stool drainage. Bilateral lower quadrant JPs with serous drainage. Left 125 cc sang, right 200 cc sang. Wound VAC 50. Hypoactive bowel sounds. MUSCULOSKELETAL: Extremities with chronic venous stasis NEUROLOGICAL: Awake and alert. No obvious cranial nerve deficits. Motor grossly within normal limits. Five out of 5 muscle strength in the arms and legs. Normal speech. Procedures None. A/P Assessment and Plan Neuro/Psych: Fentanyl 100 every 2 hours. Pain management. Acetaminophen/Ofirmev 1000 mg IV every 8 hours for fever CV: A. fib with RVR Dyslipidemia Hypertension Currently on amiodarone drip at 0.5 mg/m along with diltiazem at 5 mg an hour for heart rate manage less than 100 Follow-up on electrolytes/TSH today Routine 2-D echocardiogram ordered. Completed 9/7 AM. No previous history of atrial fibrillation Continue metoprolol 12.5 mg every 8 hours/on 25 mg at night at home. On simvastatin 10 mill grams daily at home. This is currently in hold. Resume when clinically indicated Resp: Acute on chronic hypoxemic respiratory failure Left upper lobe/middle lobe pulmonary embolism End-stage severe emphysema - FEV1 1.30, FVC 2.34, minimal response to dilators PFTs Currently on Venturi mask 6 L to maintain saturations greater than equal to 88% Albuterol/ipratropium aerosols every 6 hours with albuterol hours is every 2 hours. Dyspnea Continue a cappella and he CPAP to albuterol/ipratropium aerosols every 6 hours Continue pulmonary dose methylprednisolone 40 mg IV twice a day CTPA - left upper lobe/right middle lobe PE. Severe emphysematous changes. Left lower lobe atelectasis. 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 hollow viscus Ileus Currently on famotidine 20 mg IV twice a day On metoclopramide 10 mg IV every 8 hours Remains nothing by mouth ice chips only 425 cc output past 24 hours : Dubose catheter to maintain accurate I's and O's in a critically ill patient Endo: Chronic prednisone use Hyperglycemia of critical illness Currently on methylprednisolone 40 milligrams IV twice a day/pulmonary dose Sliding scale insulin Accu-Cheks every 6 hours to maintain euglycemia/low regimen Novulog Renal: Acute kidney injury - resolved Change normal saline to LR to 100 cc an hour Monitor urine output - 1225 past 24 hours Accurate I's and O's Heme: Normocytic anemia History thrombocytopenia currently normal Monitor CBC daily. Follow trends Continue heparin drip for PE Currently on heparin drip at 900 units an hour ID: Monitor for infection Previously on piperacillin/tazobactam. FEN: Hypernatremia - resolved Adjust IV fluids. Currently on LR MSK: PT evaluate and treat Level II follow-up Rashel Ibarra MD Jun 01, 2017 13:23
--- NOTE | 2017-06-01 13:23 | RADRPT ---
EXAM DATE/TIME: 06/01/2017 12:36 [facility] COMPARISON: CT PULMONARY ANGIOGRAM, May 18, 2017, 18:05. CHEST SINGLE AP, May 30, 2017, 4:27. INDICATIONS : Short of breath. MEDICAL HISTORY : Chronic obstructive pulmonary disease. Cardiovascular disease. Hypertension. SURGICAL HISTORY : None. ENCOUNTER: Initial ACUITY: 2 weeks PAIN SCORE: 0/10 LOCATION: Bilateral chest FINDINGS: Bibasilar patchiness is noted consistent with atelectasis and/or pneumonia. Clinical correlation is recommended. A nasogastric tube has its tip below diaphragm. The heart is stable. Diffuse emphysem atous changes are again noted bilaterally. CONCLUSION: 1. Bibasilar patchiness consistent atelectasis and/or pneumonia. Clinical correlation is recommende d. 2. Diffuse emphysematous changes bilaterally. Al Diop MD on June 01, 2017 at 13:17 Board Certified Radiologist. This report was verified electronically.
[2017-06-01] MEDS ORDERED: ACETAMINOPHEN 1000 MG/100 ML VIAL IV PRN (14:00)
--- NOTE | 2017-06-01 16:42 | HHI.PR ---
Subjective Remarks 76 YOWM with COPD PE Weekend events noted had emergent resection of colon Extubated Weaned to VM C/O sorenesss in belly Objective Vital Signs Vital Signs Date Time Temp Pulse Resp B/P (MAP) Pulse Ox O2 Delivery O2 Flow Rate FiO2 06/01/17 14:00 63 06/01/17 14:00 65 153/57 06/01/17 12:00 97.0 63 27 143/55 (84) 90 06/01/17 12:00 63 06/01/17 10:00 68 06/01/17 09:08 97 Partial Rebreather 10.00 06/01/17 08:00 58 06/01/17 08:00 96.6 58 25 140/55 (83) 94 Automatic Cuff 06/01/17 07:00 94 Venturi Mask 50 06/01/17 06:00 58 06/01/17 04:27 67 158/57 06/01/17 04:00 71 06/01/17 04:00 98.3 71 28 144/57 (86) 93 06/01/17 02:32 92 Partial Rebreather 10.00 06/01/17 02:00 68 06/01/17 00:00 70 06/01/17 00:00 98.3 70 28 138/56 (83) 88 05/31/17 23:24 70 137/51 05/31/17 22:00 65 05/31/17 20:56 88 Venturi Mask 7.00 50 05/31/17 20:00 65 05/31/17 20:00 98.1 62 20 138/55 (82) 87 05/31/17 19:00 88 Venturi Mask 50 05/31/17 18:08 70 140/70 05/31/17 18:07 64 139/62 05/31/17 18:00 72 I/O 05/31/17 05/31/17 05/31/17 06/01/17 06/01/17 06/01/17 06:59 14:59 22:59 06:59 14:59 22:59 Intake Total 1544 ml 1050 ml 1890 ml 1586 ml Output Total 950 ml 1035 ml 1225 ml Balance 594 ml 1050 ml 855 ml 361 ml IV Total 1544 ml 1050 ml 1890 ml 1586 ml Output Urine Total 600 ml 450 ml 850 ml Stool Total 25 ml 115 ml Gastric Drainage Total 300 ml 300 ml 125 ml Drainage Total 50 ml 260 ml 135 ml Result Diagram: 06/01/1753106/01/17531 Objective Remarks GENERAL: WBWN WM,NAD SKIN: Warm and dry. HEAD: Normocephalic. EYES: No scleral icterus. No injection or drainage. NECK: Supple, trachea midline. No JVD or lymphadenopathy. CARDIOVASCULAR: Regular rate and rhythm without murmurs, gallops, or rubs. RESPIRATORY: Breath sounds equal bilaterally. No accessory muscle use. GASTROINTESTINAL: Abdomen soft, non-tender, nondistended. MUSCULOSKELETAL: No cyanosis, or edema. BACK: Nontender without obvious deformity. No CVA tenderness. A/P Assessment and Plan VDRF S/P Emergent resection of Colon Pulm Embolism COPD HTN Pleural Plaques PLAN: Supplement 02 with PRB Wean 02 to keep sat >92% IV Heparin DW pt and his at NGT to suction Janak Mclaughlin MD Jun 01, 2017 16:42
[2017-06-01] MEDS: CLINIMIX E 4.25/5 2000 mL- >42 mls/hr IV SCH ×3 (21:07)
[2017-06-01] MEDS: FAT EMULSION 20% INJ 250 ML (@10 mls/hr) IV SCH (21:07)
[2017-06-02] VITALS (14 sets, daily range): BP systolic 123–151; BP diastolic 59–70; PULSE 58–118; RESP 22–28; TEMP 97.6–98.1; O2SAT 89–92
[2017-06-02] MEDS: METOCLOPRAMIDE HCL 10 MG/2 ML VIAL IV PUSH SCH ×4 (01:16→23:31)
[2017-06-02] MEDS: PIPERACIL-TAZO 3.375 GM PREMIX 50 ML IV SCH ×5 (01:17→23:31)
[2017-06-02] MEDS: INSULIN ASPART SUPPLEMENTAL SCALE SQ SCH ×4 (01:26→21:22)
[2017-06-02] MEDS: RESP: ALBUTEROL 2.5 MG/IPRATROPIUM 0.5 MG NEB (SCH) NEB ×4 (02:45→21:55)
[2017-06-02] MEDS: AMIODARONE INJ 450 MG in D5W (EXCEL BAG) INJ 241 ML IV SCH (03:00)
[2017-06-02] MEDS: FAMOTIDINE 20 MG/2 ML VIAL IV PUSH SCH ×2 (04:00→16:31)
[2017-06-02] MEDS: LACTATED RINGER'S 1000 ML INJ 1,000 ML IV SCH (05:00)
[2017-06-02 05:18] LABS: AUTOMATED NEUTROPHIL # 10.4 TH/MM3 (1.8-7.7); BASOPHIL % 0.3 % (0.0-2.0); HEMATOCRIT 31.7 % (39.0-51.0); LYMPH % 4.6 % (9.0-44.0); LYMPHOCYTE # 0.5 TH/MM3 (1.0-4.8); MEAN CORPUSCULAR HEMOGLOBIN 29.4 PG (27.0-34.0); MEAN CORPUSCULAR HGB CONC 32.3 % (32.0-36.0); MONO % 4.6 % (0.0-8.0); NEUT % 90.5 % (16.0-70.0); PLATELET COUNT 196 TH/MM3 (150-450); RED BLOOD COUNT 3.49 MIL/MM3 (4.50-5.90); RED CELL DISTRIBUTION WIDTH 15.3 % (11.6-17.2); WHITE BLOOD COUNT 11.5 TH/MM3 (4.0-11.0)
--- NOTE | 2017-06-02 05:23 | RADRPT ---
EXAM DATE/TIME: 06/02/2017 03:43 [facility] COMPARISON: CHEST SINGLE AP, June 01, 2017, 12:36. INDICATIONS : Evaluate for pulmonary embolism MEDICAL HISTORY : Chronic obstructive pulmonary disease. Cardiovascular disease. SURGICAL HISTORY : None. ENCOUNTER: Subsequent ACUITY: 3 weeks PAIN SCORE: Non-responsive. LOCATION: Bilateral chest FINDINGS: Interval removal of nasogastric catheter. Low lung volumes with patchy bilateral lower lobe airspace disease and interstitial opacities. Cardiac silhouette is enlarged with a slight indistinct central p ulmonary vasculature. Remainder of the exam is unchanged. CONCLUSION: 1. Cardiomegaly with slight positive fluid balance. 2. Stable patchy bilateral lower lobe airspace disease. 3. No significant interval change. Jacoby Cordero MD on June 02, 2017 at 5:20 Board Certified Radiologist. This report was verified electronically.
[2017-06-02 05:24] LABS: HEMO FLAGS AUTO DIFF
[2017-06-02 05:38] LABS: BICARBONATE 25.6 MEQ/L (21.0-32.0); CALCIUM-PROTEIN CORRECTED 8.6 MG/DL (8.5-10.1); MAGNESIUM 2.4 MG/DL (1.5-2.5); POTASSIUM 4.1 MEQ/L (3.5-5.1); TOTAL BILIRUBIN ADULT 1.5 MG/DL (0.2-1.0)
[2017-06-02] MEDS: METOPROLOL TARTRATE 25 MG TAB PO SCH ×3 (06:00→21:21)
[2017-06-02] MEDS: CHLORHEXIDINE 0.12% (ORAL KIT) 15 ML CUP MT SCH ×2 (08:00→20:09)
[2017-06-02 08:06] LABS: BANDS 1 % (0-6); MYELOCYTES 3 % (0-0); POLYS (SEG NEUTROPHILS) 92 % (16-70); SCAN/DIFF FINAL DIFF MANUAL; WBC DIFF SAMPLE 100
[2017-06-02] MEDS: SODIUM CHLORIDE 0.9% FLUSH 10 ML FLUSH IV FLUSH SCH ×2 (08:20→20:09)
[2017-06-02] MEDS: methylPREDNISolone SOD SUCC 40 MG/1 ML VIAL IV PUSH SCH (08:35)
[2017-06-02] MEDS ORDERED: FUROSEMIDE 40 MG/4 ML VIAL IV PUSH ONE (08:45)
--- NOTE | 2017-06-02 08:46 | HHI.CCPN ---
Subjective Remarks/Hospital Course 76 y/o man with severe emphysema and non-exacerbated COPD has developed right side abdominal pain and free peritoneal air following several days of constipation. His abdomen is distended and tender with few bowel sounds. Work of breathing is markedly increased and CT chest demonstrates severe bullous emphysema including hyperexpansion RUL with compression RML and RLL. By history patient can only climb 4 steps without resting. Not on home O2. Very short of breath after walking flat for over 30 feet. I will discuss postoperative pulmonary management with Dr. Mclaughlin. 05/28: Acid/base balance acceptable and urine output adequate s/p emergency resection colon yesterday. CXR with clear mcnamara, basilar atelectasis. Bullous disease is extensive. FiO2 60%. Unable to wean from ventilator. Need to restart full anticoagulation as soon a reasonable due to recent acute pulmonary embolism. 05/29: Continued poor oxygen diffusion consistent with severe COPD. Renal function improved. 05/30: Ileus with NG output 1,400 overnight. Stop TFs and keep to suction. Try reglan. Abdominal distention still hampering diaphragmatic excursions. Severe emphysema. 05/31: Afebrile. Currently on Venturi mask 6 L. 700 cc from NG tube overnight. Awake and interactive. Desaturates when sleeps. SUBJECTIVE: 06/01: Afebrile. Currently on a Venturi mask 50% 6 L. Saturations around 80%. Interactive. Receiving ice chips when necessary. Requesting diet. 06/02: NSR with occ PACs, bradycardia. Crackles bases. Stoma marginal. Objective Vital Signs Date Time Temp Pulse Resp B/P (MAP) Pulse Ox O2 Delivery O2 Flow Rate FiO2 06/02/17 06:00 62 06/02/17 04:00 97.6 28 140/66 (90) 90 06/01/17 20:45 Venturi Mask 6.00 50 Intake and Output 06/02/17 06/02/17 06/03/17 08:00 16:00 00:00 Intake Total 3022 ml Output Total 1025 ml Balance 1997 ml Result Diagram: 06/02/17 0435 06/02/17 0435 Imaging Last Impressions Chest X-Ray 05/30/17 0400 Signed Impressions: Service Date/Time: Tuesday, May 30, 2017 04:27 - CONCLUSION: 1. Stable bibasilar, right greater than left, airspace consolidation. 2. No significant interval change. Jacoby Cordero MD Abdomen/Pelvis CT 05/26/17 0000 Signed Impressions: Service Date/Time: Friday, May 26, 2017 17:15 - CONCLUSION: Free intraperitoneal air probably from an upper abdominal source. Generalized ileus. Bryson Magaña MD FACR Abdomen X-Ray 05/25/17 Signed Impressions: Service Date/Time: April 11:14 - CONCLUSION: Mildly gas distended colon. Otherwise, unremarkable exam. Anirudh Em Jr., MD Lower Extremity Ultrasound 05/18/17 Signed Impressions: Service Date/Time: April 22:06 - CONCLUSION: Normal examination. Willi Robison MD CT Angiography 05/18/17 0000 Signed Impressions: Service Date/Time: , May 18, 2017 18:05 - CONCLUSION: 1. Examination quality is degraded by severe respiratory motion artifact. However , there are filling defects identified within the left upper lobe and right middle lobe pulmonary arteries characteristic of PE. 2. Severe emphysema with trace left pleural effusion and left lower lobe atelectasis versus consolidation. 3. There are bilateral calcified pleural plaques indicative of prior asbestos exposure. Dario Mendez MD Objective Remarks GENERAL: 76-year-old male, currently on Venturi mask in no acute distress SKIN: Warm and dry. Well perfused HEAD: Atraumatic. Normocephalic. EYES: Pupils equal and round about 2 mm bilaterally and reactive. No scleral icterus. No injection or drainage. ENT: No nasal bleeding or discharge. Mucous membranes pink and moist. Oropharynx without erythema or exudates NECK: Trachea midline. No JVD. CARDIOVASCULAR: IRR. S1, S2 no S4 without murmur RESPIRATORY: Diminished breath sounds throughout. Diminished at bases bilaterally. Positive end expiratory wheezes and crackles. GASTROINTESTINAL: Abdomen distended, ileostomy marginal mucosa. Mucus fistula pink. Wound VAC clean dry and intact. Brown stool drainage. Bilateral lower quadrant JPs with serous drainage. Left 125 cc sang, right 200 cc sang. Wound VAC 50. Hypoactive bowel sounds. MUSCULOSKELETAL: Extremities with chronic venous stasis NEUROLOGICAL: Awake and alert. No obvious cranial nerve deficits. Motor grossly within normal limits. Five out of 5 muscle strength in the arms and legs. Normal speech. Procedures None. A/P Assessment and Plan Neuro/Psych: Fentanyl 100 every 2 hours. Pain management. Acetaminophen/Ofirmev 1000 mg IV every 8 hours for fever CV: A. fib with RVR Dyslipidemia Hypertension Currently on amiodarone drip at 0.5 mg/m along with diltiazem at 5 mg an hour for heart rate manage less than 100 Follow-up on electrolytes/TSH today Routine 2-D echocardiogram ordered. Completed 06/01 AM. No previous history of atrial fibrillation Continue metoprolol 12.5 mg every 8 hours/on 25 mg at night at home. On simvastatin 10 mill grams daily at home. This is currently in hold. Resume when clinically indicated Resp: Acute on chronic hypoxemic respiratory failure Left upper lobe/middle lobe pulmonary embolism End-stage severe emphysema - FEV1 1.30, FVC 2.34, minimal response to dilators PFTs Currently on Venturi mask 6 L to maintain saturations greater than equal to 88% Albuterol/ipratropium aerosols every 6 hours with albuterol hours is every 2 hours. Dyspnea Continue a cappella and he CPAP to albuterol/ipratropium aerosols every 6 hours Continue pulmonary dose methylprednisolone 40 mg IV twice a day CTPA - left upper lobe/right middle lobe PE. Severe emphysematous changes. Left lower lobe atelectasis. 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 hollow viscus Ileus Currently on famotidine 20 mg IV twice a day On metoclopramide 10 mg IV every 8 hours Remains nothing by mouth ice chips only 425 cc output past 24 hours : Dubose catheter to maintain accurate I's and O's in a critically ill patient Endo: Chronic prednisone use Hyperglycemia of critical illness Currently on methylprednisolone 40 milligrams IV twice a day/pulmonary dose Sliding scale insulin Accu-Cheks every 6 hours to maintain euglycemia/low regimen Novulog Renal: Acute kidney injury - resolved Change normal saline to LR to 100 cc an hour Monitor urine output - 1225 past 24 hours Accurate I's and O's Heme: Normocytic anemia History thrombocytopenia currently normal Monitor CBC daily. Follow trends Continue heparin drip for PE Currently on heparin drip at 900 units an hour ID: Monitor for infection Previously on piperacillin/tazobactam. FEN: Hypernatremia - resolved Adjust IV fluids. Currently on LR MSK: PT evaluate and treat Level II follow-up Chip Chavez MD Jun 02, 2017 08:46
--- NOTE | 2017-06-02 10:37 | HHI.PR ---
Subjective Remarks 76 YOWM with COPD PE Weekend events noted had emergent resection of colon Extubated Weaned to VM Started liquids Objective Vital Signs Vital Signs Date Time Temp Pulse Resp B/P (MAP) Pulse Ox O2 Delivery O2 Flow Rate FiO2 06/02/17 09:04 91 Venturi Mask 6.00 50 06/02/17 07:00 91 Venturi Mask 50 06/02/17 06:00 62 06/02/17 04:00 97.6 64 28 140/66 (90) 90 06/02/17 04:00 64 06/02/17 03:00 63 145/65 06/02/17 02:00 69 06/02/17 00:00 97.9 58 25 123/70 (87) 89 06/02/17 00:00 58 06/01/17 22:00 66 06/01/17 20:45 92 Venturi Mask 6.00 50 06/01/17 20:00 64 06/01/17 20:00 97.4 64 28 153/67 (95) 92 06/01/17 19:29 66 156/65 06/01/17 19:00 91 Venturi Mask 50 06/01/17 18:00 61 06/01/17 16:00 97.3 59 25 121/57 (78) 93 06/01/17 16:00 59 06/01/17 14:00 63 06/01/17 14:00 65 153/57 06/01/17 12:00 97.0 63 27 143/55 (84) 90 06/01/17 12:00 63 I/O 06/01/17 06/01/17 06/01/17 06/02/17 06/02/17 06/02/17 06:59 14:59 22:59 06:59 14:59 22:59 Intake Total 1612 ml 236 ml 900 ml 3022 ml Output Total 1225 ml 1095 ml 1025 ml Balance 387 ml 236 ml -195 ml 1997 ml IV Total 1612 ml 236 ml 900 ml 3022 ml Output Urine Total 850 ml 750 ml 725 ml Stool Total 115 ml 30 ml 100 ml Gastric Drainage Total 125 ml 120 ml Drainage Total 135 ml 195 ml 200 ml Result Diagram: 06/02/1743406/02/17434 Objective Remarks GENERAL: WBWN WM,NAD SKIN: Warm and dry. HEAD: Normocephalic. EYES: No scleral icterus. No injection or drainage. NECK: Supple, trachea midline. No JVD or lymphadenopathy. CARDIOVASCULAR: Regular rate and rhythm without murmurs, gallops, or rubs. RESPIRATORY: Breath sounds equal bilaterally. No accessory muscle use. GASTROINTESTINAL: Abdomen soft, non-tender, nondistended. MUSCULOSKELETAL: No cyanosis, or edema. BACK: Nontender without obvious deformity. No CVA tenderness. A/P Assessment and Plan VDRF S/P Emergent resection of Colon Pulm Embolism COPD HTN Pleural Plaques PLAN: Supplement 02 with PRB Wean 02 to keep sat >92% IV Heparin DW pt and his at BS covering for me. Janak Mclaughlin MD Jun 02, 2017 10:37
--- NOTE | 2017-06-02 10:40 | HHI.PR ---
Subjective Subjective Notes Resting in bed Tolerating clears Glad NGT out Objective Vitals/I&O Vital Signs Date Time Temp Pulse Resp B/P (MAP) Pulse Ox O2 Delivery O2 Flow Rate FiO2 06/02/17 10:00 63 06/02/17 09:04 91 Venturi Mask 6.00 50 06/02/17 04:00 97.6 28 140/66 (90) Labs Laboratory Tests Test 06/02/17 04:35 06/02/17 06:20 White Blood Count 11.5 Red Blood Count 3.49 Hemoglobin 10.3 Hematocrit 31.7 Mean Corpuscular Volume 91.0 Mean Corpuscular Hemoglobin 29.4 Mean Corpuscular Hemoglobin Concent 32.3 Red Cell Distribution Width 15.3 Platelet Count 196 Mean Platelet Volume 8.3 Neutrophils (%) (Auto) 90.5 Lymphocytes (%) (Auto) 4.6 Monocytes (%) (Auto) 4.6 Eosinophils (%) (Auto) 0.0 Basophils (%) (Auto) 0.3 Neutrophils # (Auto) 10.4 Lymphocytes # (Auto) 0.5 Monocytes # (Auto) 0.5 Eosinophils # (Auto) 0.0 Basophils # (Auto) 0.0 CBC Comment AUTO DIFF Differential Total Cells Counted 100 Neutrophils % (Manual) 92 Band Neutrophils % 1 Lymphocytes % 2 Monocytes % 2 Neutrophils # (Manual) 11.0 Myelocytes 3 Differential Comment FINAL DIFF MANUAL Blood Urea Nitrogen 22 Creatinine 0.77 Random Glucose 237 Total Protein 5.0 Albumin 1.6 Calcium Level 7.4 Phosphorus Level 2.6 Magnesium Level 2.4 Alkaline Phosphatase 60 Aspartate Amino Transf (AST/SGOT) 55 Alanine Aminotransferase (ALT/SGPT) 39 Total Bilirubin 1.5 Sodium Level 140 Potassium Level 4.1 Chloride Level 106 Carbon Dioxide Level 25.6 Anion Gap 8 Estimat Glomerular Filtration Rate 98 Protein Corrected Calcium 8.6 Activated Partial Thromboplast Time 52.0 Cardiovascular: Regular Lungs: Clear Abdomen: Other (midline incsision with Wound Vac with good seal--bloody drainage; colstomy with pink stoma---SS drainage; MF dark ) Extremities: Other (moderate generalized edema ) A/P Assessment and Plan 76 year old male POD6 ex lap; 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 I reviewed and agree with the findings presented. I attest that I had a [id number] encounter with the patient on the same day, and personally performed and documented my assessment and findings in the medical record. Abdominal exam: stable, non-tender work with PT, will likely need rehab Jessie Velázquez Jun 02, 2017 10:40 Leon Pemberton MD Jun 27, 2017 23:24
[2017-06-02] MEDS: METOPROLOL TARTRATE 5 MG/5 ML VIAL IV PUSH PRN ×2 (12:05→16:32)
--- NOTE | 2017-06-02 14:25 | PD.WCN.NOT ---
Wound Consult Description: Consult placed for Vac change to midline abdomen Consult for ileostomy and mucus fistula Communicated with: YAZAN Devries Patient Recommendation: Change Wound VAC to midline abdomen as ordered Monday with wound VAC settings @ 125mmHg low continuous suction Additional Information: Patient seen on 3 for wound vac change to midline abdomen and ostomy assessment Neg Pressure Wound Therapy Wound Location Wound Location: Midline Abdomen Wound Description Wound bed appearance: 100% adipose Minimal sanguinous drainage Open wound margins Periwound appearance: Unremarkable Settings Suction: 125 mmHg, Continuous Intensity: Low Other Information: Windowpaned, Mushroomed Foam type: Black Number of pieces: 2 (2 pieces used in total, one in wound bed and 1 for mushroomed sensitrac pad placement) Ostomy Type: Ileostomy (right lower quadrant), Other (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 Fistula is oval, red/pink, edematous, moist, functioning with lumen noted at 6 o'clock and yellow/brown liquid effluent noted in pouch that is intact without leaks. Appliance ordered in size 2 3/4" for mucus fistula (left side abdomen). Stoma visualized on lower right abdomen, per Dr Pemberton notes, is an ileostomy presenting as oval, black, and measuring 2.5cm x 3.5cm with clear pink /yellow liquid and mucus noted to pouch. Appliance ordered in size 1 3/4" for ileostomy (right side abdomen). Physicians are aware of the appearance of the ileostomy. Francine Mcadams [facility] Jun 02, 2017 14:25
[2017-06-02] MEDS: HEPARIN-D5W 25,000 U/250 ML 250 ML IV PRN (14:27)
[2017-06-02] MEDS: CLINIMIX E 4.25/5 2000 mL- >42 mls/hr IV SCH ×3 (16:32)
[2017-06-02 18:27] LABS: BICARBONATE 27.2 MEQ/L (21.0-32.0); POTASSIUM 3.8 MEQ/L (3.5-5.1)
[2017-06-02] MEDS: FAT EMULSION 20% INJ 250 ML (@10 mls/hr) IV SCH (20:09)
[2017-06-03] VITALS (14 sets, daily range): BP systolic 106–144; BP diastolic 59–72; PULSE 66–126; RESP 22–38; TEMP 98.1–99.8; O2SAT 90–95
[2017-06-03] MEDS: METOPROLOL TARTRATE 5 MG/5 ML VIAL IV PUSH PRN (01:00)
[2017-06-03] MEDS: INSULIN ASPART SUPPLEMENTAL SCALE SQ SCH ×4 (01:00→19:30)
[2017-06-03] MEDS: FAMOTIDINE 20 MG/2 ML VIAL IV PUSH SCH ×2 (03:05→17:20)
[2017-06-03] MEDS: RESP: ALBUTEROL 2.5 MG/IPRATROPIUM 0.5 MG NEB (SCH) NEB ×4 (03:59→20:26)
[2017-06-03 05:25] LABS: AUTOMATED NEUTROPHIL # 14.8 TH/MM3 (1.8-7.7); BASOPHIL % 0.2 % (0.0-2.0); EOSINOPHIL % 0.3 % (0.0-4.0); HEMATOCRIT 38.7 % (39.0-51.0); LYMPHOCYTE # 1.2 TH/MM3 (1.0-4.8); MEAN CELL VOLUME 90.6 FL (80.0-100.0); MEAN CORPUSCULAR HEMOGLOBIN 30.1 PG (27.0-34.0); MEAN CORPUSCULAR HGB CONC 33.3 % (32.0-36.0); MONO % 3.3 % (0.0-8.0); NEUT % 89.2 % (16.0-70.0); PLATELET COUNT 213 TH/MM3 (150-450); RED BLOOD COUNT 4.28 MIL/MM3 (4.50-5.90); RED CELL DISTRIBUTION WIDTH 15.1 % (11.6-17.2); WHITE BLOOD COUNT 16.6 TH/MM3 (4.0-11.0)
[2017-06-03 05:34] LABS: HEMO FLAGS AUTO DIFF
[2017-06-03 05:45] LABS: APTT (PATIENT) 47.4 SEC (24.3-30.1)
[2017-06-03 05:51] LABS: BICARBONATE 27.5 MEQ/L (21.0-32.0); POTASSIUM 3.5 MEQ/L (3.5-5.1)
[2017-06-03] MEDS: METOPROLOL TARTRATE 25 MG TAB PO SCH ×3 (05:53→22:57)
[2017-06-03] MEDS: PIPERACIL-TAZO 3.375 GM PREMIX 50 ML IV SCH ×4 (05:54→23:24)
[2017-06-03] MEDS: HEPARIN-D5W 25,000 U/250 ML 250 ML IV PRN (07:05)
[2017-06-03] MEDS: CHLORHEXIDINE 0.12% (ORAL KIT) 15 ML CUP MT SCH ×2 (08:00→19:45)
[2017-06-03] MEDS: METOCLOPRAMIDE HCL 10 MG/2 ML VIAL IV PUSH SCH ×3 (08:32→23:23)
[2017-06-03] MEDS: SODIUM CHLORIDE 0.9% FLUSH 10 ML FLUSH IV FLUSH SCH ×2 (08:33→20:00)
[2017-06-03 08:43] LABS: BANDS 12 % (0-6); METAMYELOCYTES 3 % (0-1); MYELOCYTES 4 % (0-0); NEUTROPHIL # MANUAL DIFF 13.3 TH/MM3 (1.8-7.7); POLYS (SEG NEUTROPHILS) 61 % (16-70); WBC DIFF SAMPLE 100
[2017-06-03 08:44] LABS: PLATELET ESTIMATE SMEAR NORMAL (NORMAL); PLATELET MORPHOLOGY NORMAL (NORMAL); SCAN/DIFF FINAL DIFF MANUAL
--- NOTE | 2017-06-03 10:14 | HHI.PR ---
Subjective Subjective Notes doing well, watching TV, RN reports small emesis after meds and when then turned him for bath, patient denies nausea Objective Vitals/I&O Vital Signs Date Time Temp Pulse Resp B/P (MAP) Pulse Ox O2 Delivery O2 Flow Rate FiO2 06/03/17 09:49 91 Venturi Mask 6.00 50 06/03/17 06:00 87 06/03/17 04:00 98.1 38 141/65 (90) Arterial Line Labs Laboratory Tests Test 06/02/17 17:53 06/03/17 04:43 Blood Urea Nitrogen 23 23 Creatinine 0.73 0.75 Random Glucose 231 139 Calcium Level 7.5 8.0 Sodium Level 136 137 Potassium Level 3.8 3.5 Chloride Level 100 101 Carbon Dioxide Level 27.2 27.5 Anion Gap 9 9 Estimat Glomerular Filtration Rate 105 102 White Blood Count 16.6 Red Blood Count 4.28 Hemoglobin 12.9 Hematocrit 38.7 Mean Corpuscular Volume 90.6 Mean Corpuscular Hemoglobin 30.1 Mean Corpuscular Hemoglobin Concent 33.3 Red Cell Distribution Width 15.1 Platelet Count 213 Mean Platelet Volume 8.4 Neutrophils (%) (Auto) 89.2 Lymphocytes (%) (Auto) 7.0 Monocytes (%) (Auto) 3.3 Eosinophils (%) (Auto) 0.3 Basophils (%) (Auto) 0.2 Neutrophils # (Auto) 14.8 Lymphocytes # (Auto) 1.2 Monocytes # (Auto) 0.5 Eosinophils # (Auto) 0.0 Basophils # (Auto) 0.0 CBC Comment AUTO DIFF Differential Total Cells Counted 100 Neutrophils % (Manual) 61 Band Neutrophils % 12 Lymphocytes % 10 Monocytes % 10 Neutrophils # (Manual) 13.3 Metamyelocytes 3 Myelocytes 4 Differential Comment FINAL DIFF MANUAL Platelet Estimate NORMAL Platelet Morphology Comment NORMAL Activated Partial Thromboplast Time 47.4 Abdomen: Non-distended, Post-op tenderness, BS normal Narrative Exam ostomy viable with liquid output, mucous fistula dark, Wound Wound : Wound Location: Abdomen Dressing: VAC A/P Assessment and Plan POD7 exp lap, ileostomy, mucous fistula, PE WBC still rising, abdomen looks ok hold on advancing diet with emesis this am pulm toilet, diuresis Jaime Daniels MD Jun 03, 2017 10:14
--- NOTE | 2017-06-03 11:00 | HHI.CCPN ---
Subjective Remarks/Hospital Course 76 y/o man with severe emphysema and non-exacerbated COPD has developed right side abdominal pain and free peritoneal air following several days of constipation. His abdomen is distended and tender with few bowel sounds. Work of breathing is markedly increased and CT chest demonstrates severe bullous emphysema including hyperexpansion RUL with compression RML and RLL. By history patient can only climb 4 steps without resting. Not on home O2. Very short of breath after walking flat for over 30 feet. I will discuss postoperative pulmonary management with Dr. Mclaughlin. 05/28: Acid/base balance acceptable and urine output adequate s/p emergency resection colon yesterday. CXR with clear mcnamara, basilar atelectasis. Bullous disease is extensive. FiO2 60%. Unable to wean from ventilator. Need to restart full anticoagulation as soon a reasonable due to recent acute pulmonary embolism. 05/29: Continued poor oxygen diffusion consistent with severe COPD. Renal function improved. 05/30: Ileus with NG output 1,400 overnight. Stop TFs and keep to suction. Try reglan. Abdominal distention still hampering diaphragmatic excursions. Severe emphysema. 05/31: Afebrile. Currently on Venturi mask 6 L. 700 cc from NG tube overnight. Awake and interactive. Desaturates when sleeps. SUBJECTIVE: 06/01: Afebrile. Currently on a Venturi mask 50% 6 L. Saturations around 80%. Interactive. Receiving ice chips when necessary. Requesting diet. 06/02: NSR with occ PACs, bradycardia. Crackles bases. Stoma marginal. 06/03: Worsening SOB, labored. Mucus fistula fine, ileostomy marginal. WBC elevated. Vomited X 1. Objective Vital Signs Date Time Temp Pulse Resp B/P (MAP) Pulse Ox O2 Delivery O2 Flow Rate FiO2 06/03/17 10:00 83 06/03/17 09:49 91 Venturi Mask 6.00 50 06/03/17 04:00 98.1 38 141/65 (90) Arterial Line Intake and Output 06/03/17 06/03/17 06/03/17 07:59 15:59 23:59 Intake Total 1992 ml Output Total 2370 ml Balance -378 ml Result Diagram: 06/03/1744206/03/17442 Imaging Last Impressions Chest X-Ray 05/30/17 040 Signed Impressions: Service Date/Time: Tuesday, May 30, 2017 04:27 - CONCLUSION: 1. Stable bibasilar, right greater than left, airspace consolidation. 2. No significant interval change. Jacoby Cordero MD Abdomen/Pelvis CT 05/26/17 0000 Signed Impressions: Service Date/Time: Friday, May 26, 2017 17:15 - CONCLUSION: Free intraperitoneal air probably from an upper abdominal source. Generalized ileus. Bryson Magaña MD FACR Abdomen X-Ray 05/25/17 Signed Impressions: Service Date/Time: April 11:14 - CONCLUSION: Mildly gas distended colon. Otherwise, unremarkable exam. Anirudh Em Jr., MD Lower Extremity Ultrasound 05/18/17 Signed Impressions: Service Date/Time: , May 18, 2017 22:06 - CONCLUSION: Normal examination. Willi Robison MD CT Angiography 05/18/17 Signed Impressions: Service Date/Time: April 18:05 - CONCLUSION: 1. Examination quality is degraded by severe respiratory motion artifact. However , there are filling defects identified within the left upper lobe and right middle lobe pulmonary arteries characteristic of PE. 2. Severe emphysema with trace left pleural effusion and left lower lobe atelectasis versus consolidation. 3. There are bilateral calcified pleural plaques indicative of prior asbestos exposure. Dario Mendez MD Objective Remarks GENERAL: 76-year-old male, currently on Venturi mask in no acute distress SKIN: Warm and dry. Well perfused HEAD: Atraumatic. Normocephalic. EYES: Pupils equal and round about 2 mm bilaterally and reactive. No scleral icterus. No injection or drainage. ENT: No nasal bleeding or discharge. Mucous membranes pink and moist. Oropharynx without erythema or exudates NECK: Trachea midline. No JVD. CARDIOVASCULAR: IRR. Max 130s, mostly NSR S1, S2 no S4 without murmur RESPIRATORY: Diminished breath sounds throughout. Tachypnea, labored pattern. Diminished at bases bilaterally. Positive end expiratory wheezes and crackles. GASTROINTESTINAL: Abdomen distended, ileostomy marginal mucosa. Mucus fistula pink. Wound VAC clean dry and intact. Brown stool drainage. Bilateral lower quadrant JPs with serous drainage. Active bowel sounds. MUSCULOSKELETAL: Extremities with chronic venous stasis, 2+ edema. NEUROLOGICAL: Awake and alert. No obvious cranial nerve deficits. Motor grossly within normal limits. Five out of 5 muscle strength in the arms and legs. Normal speech. Procedures None. A/P Assessment and Plan Neuro/Psych: Fentanyl 100 every 2 hours. Pain management. Acetaminophen/Ofirmev 1000 mg IV every 8 hours for fever CV: A. fib with RVR Dyslipidemia Hypertension Currently on amiodarone drip at 0.5 mg/m along with diltiazem at 5 mg an hour for heart rate manage less than 100 Follow-up on electrolytes/TSH today Routine 2-D echocardiogram ordered. Completed 9 AM. No previous history of atrial fibrillation Continue metoprolol 12.5 mg every 8 hours/on 25 mg at night at home. On simvastatin 10 mill grams daily at home. This is currently in hold. Resume when clinically indicated Resp: Acute on chronic hypoxemic respiratory failure Left upper lobe/middle lobe pulmonary embolism End-stage severe emphysema - FEV1 1.30, FVC 2.34, minimal response to dilators PFTs Currently on Venturi mask 6 L to maintain saturations greater than equal to 88% Albuterol/ipratropium aerosols every 6 hours with albuterol hours is every 2 hours. Dyspnea Continue a cappella and he CPAP to albuterol/ipratropium aerosols every 6 hours Continue pulmonary dose methylprednisolone 40 mg IV twice a day CTPA - left upper lobe/right middle lobe PE. Severe emphysematous changes. Left lower lobe atelectasis. 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 hollow viscus Ileus Currently on famotidine 20 mg IV twice a day On metoclopramide 10 mg IV every 8 hours Remains nothing by mouth ice chips only 425 cc output past 24 hours : Dubose catheter to maintain accurate I's and O's in a critically ill patient Endo: Chronic prednisone use Hyperglycemia of critical illness Currently on methylprednisolone 40 milligrams IV twice a day/pulmonary dose Sliding scale insulin Accu-Cheks every 6 hours to maintain euglycemia/low regimen Novulog Renal: Acute kidney injury - resolved Change normal saline to LR to 100 cc an hour Monitor urine output - 1225 past 24 hours Accurate I's and O's Heme: Normocytic anemia History thrombocytopenia currently normal Monitor CBC daily. Follow trends Continue heparin drip for PE Currently on heparin drip at 900 units an hour ID: Monitor for infection Previously on piperacillin/tazobactam. FEN: Hypernatremia - resolved Adjust IV fluids off, maintain TPN MSK: PT evaluate and treat Overall impression: Pulmonary function marginal as chronic problem. Chip Chavez MD Jun 03, 2017 11:00
--- NOTE | 2017-06-03 11:40 | RADRPT ---
EXAM DATE/TIME: 06/03/2017 11:04 [facility] COMPARISON: CHEST SINGLE AP, June 02, 2017, 3:43. INDICATIONS : Shortness of breath. MEDICAL HISTORY : Chronic obstructive pulmonary disease. Cardiovascular disease. SURGICAL HISTORY : None. ENCOUNTER: Subsequent ACUITY: 3 weeks PAIN SCORE: 0/10 LOCATION: Bilateral chest FINDINGS: Portable AP view of the chest demonstrates a normal-sized cardiac silhouette. There is mild bibasilar opacity, stable from the prior study. No pneumothorax is visualized. Multiple lines overlie the adina ent. CONCLUSION: Stable chest x-ray with bibasilar airspace opacity. Dario Mendez MD on June 03, 2017 at 11:38 Board Certified Radiologist. This report was verified electronically.
[2017-06-03] MEDS: POTASSIUM CHLOR 20 MEQ PREMIX 100 ML IV SCH ×2 (12:28→17:30)
[2017-06-03] MEDS: FUROSEMIDE 40 MG/4 ML VIAL IV PUSH SCH (12:29)
[2017-06-03] MEDS: CLINIMIX E 4.25/5 2000 mL- >42 mls/hr IV SCH ×3 (13:54)
--- NOTE | 2017-06-03 15:37 | HHI.PR ---
Subjective Remarks ALERT NO DISTRESS Objective Vital Signs Date Time Temp Pulse Resp B/P (MAP) Pulse Ox O2 Delivery O2 Flow Rate FiO2 06/03/17 14:00 90 06/03/17 12:00 93 06/03/17 12:00 99.3 96 24 121/65 (83) 90 06/03/17 10:00 83 06/03/17 09:49 91 Venturi Mask 6.00 50 06/03/17 08:00 99.3 78 24 128/59 (82) 90 06/03/17 08:00 98 06/03/17 07:00 93 Venturi Mask 50 06/03/17 06:00 87 06/03/17 04:00 78 06/03/17 04:00 98.1 78 38 141/65 (90) 92 Arterial Line 06/03/17 02:00 66 06/03/17 00:00 98.1 126 25 144/72 (96) 91 06/03/17 00:00 126 06/02/17 22:00 110 06/02/17 21:55 92 Venturi Mask 6.00 50 06/02/17 20:00 98.1 104 26 127/59 (81) 92 06/02/17 20:00 104 06/02/17 19:00 92 Venturi Mask 50 06/02/17 18:00 98 06/02/17 16:00 108 06/02/17 16:00 98.1 118 22 149/63 (91) 91 I/O 06/02/17 06/02/17 06/02/17 06/03/17 06/03/17 06/03/17 07:00 15:00 23:00 07:00 15:00 23:00 Intake Total 3022 ml 1471 ml 1992 ml Output Total 1025 ml 5195 ml 2370 ml Balance 1997 ml -3724 ml -378 ml Intake Oral 550 ml IV Total 3022 ml 1471 ml 229 ml TPN/PPN 1103 ml Lipid 110 ml Output Urine Total 725 ml 5050 ml 1800 ml Stool Total 100 ml 275 ml Drainage Total 200 ml 145 ml 295 ml Result Diagram: 06/03/1744206/03/17442 Objective Remarks Laboratory Tests Test 06/01/17 05:32 06/02/17 04:35 06/02/17 06:20 9/8/17 17:53 Red Blood Count 3.20 MIL/MM3 (4.50-5.90) 3.49 MIL/MM3 (4.50-5.90) Hemoglobin 10.0 GM/DL (13.0-17.0) 10.3 GM/DL (13.0-17.0) Hematocrit 29.0 % (39.0-51.0) 31.7 % (39.0-51.0) Neutrophils (%) (Auto) 87.5 % (16.0-70.0) 90.5 % (16.0-70.0) Lymphocytes (%) (Auto) 4.5 % (9.0-44.0) 4.6 % (9.0-44.0) Neutrophils # (Auto) 9.0 TH/MM3 (1.8-7.7) 10.4 TH/MM3 (1.8-7.7) Lymphocytes # (Auto) 0.5 TH/MM3 (1.0-4.8) 0.5 TH/MM3 (1.0-4.8) Neutrophils % (Manual) 83 % (16-70) 92 % (16-70) Lymphocytes % 2 % (9-44) 2 % (9-44) Neutrophils # (Manual) 9.6 TH/MM3 (1.8-7.7) 11.0 TH/MM3 (1.8-7.7) Metamyelocytes 6 % (0-1) Myelocytes 1 % (0-0) 3 % (0-0) Plasma Cells 1 % (0-0) Activated Partial Thromboplast Time 56.2 SEC (24.3-30.1) 52.0 SEC (24.3-30.1) Blood Urea Nitrogen 21 MG/DL (7-18) 22 MG/DL (7-18) 23 MG/DL (7-18) Random Glucose 186 MG/DL (74-106) 237 MG/DL (74-106) 231 MG/DL (74-106) Total Protein 4.9 GM/DL (6.4-8.2) 5.0 GM/DL (6.4-8.2) Albumin 1.5 GM/DL (3.4-5.0) 1.6 GM/DL (3.4-5.0) Calcium Level 7.5 MG/DL (8.5-10.1) 7.4 MG/DL (8.5-10.1) 7.5 MG/DL (8.5-10.1) Magnesium Level 2.7 MG/DL (1.5-2.5) Total Bilirubin 1.5 MG/DL (0.2-1.0) 1.5 MG/DL (0.2-1.0) Chloride Level 111 MEQ/L (98-107) Troponin I LESS THAN 0.02 NG/ML White Blood Count 11.5 TH/MM3 (4.0-11.0) Aspartate Amino Transf (AST/SGOT) 55 U/L (15-37) Test 06/03/17 04:43 White Blood Count 16.6 TH/MM3 (4.0-11.0) Red Blood Count 4.28 MIL/MM3 (4.50-5.90) Hemoglobin 12.9 GM/DL (13.0-17.0) Hematocrit 38.7 % (39.0-51.0) Neutrophils (%) (Auto) 89.2 % (16.0-70.0) Lymphocytes (%) (Auto) 7.0 % (9.0-44.0) Neutrophils # (Auto) 14.8 TH/MM3 (1.8-7.7) Band Neutrophils % 12 % (0-6) Monocytes % 10 % (0-8) Neutrophils # (Manual) 13.3 TH/MM3 (1.8-7.7) Metamyelocytes 3 % (0-1) Myelocytes 4 % (0-0) Activated Partial Thromboplast Time 47.4 SEC (24.3-30.1) Blood Urea Nitrogen 23 MG/DL (7-18) Random Glucose 139 MG/DL (74-106) Calcium Level 8.0 MG/DL (8.5-10.1) Medications and IVs GENERAL: SKIN: Warm and dry. HEAD: Atraumatic. Normocephalic. EYES: Pupils equal and round. No scleral icterus. No injection or drainage. ENT: No nasal bleeding or discharge. Mucous membranes pink and moist. NECK: Trachea midline. No JVD. CARDIOVASCULAR: Regular rate and rhythm. RESPIRATORY: No accessory muscle use. Clear to auscultation. Breath sounds equal bilaterally. GASTROINTESTINAL: Abdomen soft, non-tender, nondistended. Hepatic and splenic margins not palpable. MUSCULOSKELETAL: Extremities without clubbing, cyanosis, or edema. No obvious deformities. NEUROLOGICAL: Awake and alert. No obvious cranial nerve deficits. Motor grossly within normal limits. Five out of 5 muscle strength in the arms and legs. Normal speech. PSYCHIATRIC: Appropriate mood and affect; insight and judgment normal. Assessment and Plan Assessment and Plan RESPIRATORY FAILURE COPD PE PLAN O2 NEEDED BRONCHODILATOR THERAPY INCREASE TELLY Lakhani,Kar Dash MD Jun 03, 2017 15:37
[2017-06-03] MEDS: FAT EMULSION 20% INJ 250 ML (@10 mls/hr) IV SCH (19:59)
[2017-06-04] VITALS (15 sets, daily range): BP systolic 105–120; BP diastolic 56–62; PULSE 76–136; RESP 24–29; TEMP 98.3–99.4; O2SAT 90–96
[2017-06-04] MEDS: INSULIN ASPART SUPPLEMENTAL SCALE SQ SCH ×4 (01:30→20:25)
[2017-06-04] MEDS: FAMOTIDINE 20 MG/2 ML VIAL IV PUSH SCH ×2 (04:06→17:23)
[2017-06-04] MEDS: METOPROLOL TARTRATE 5 MG/5 ML VIAL IV PUSH PRN (04:09)
[2017-06-04 04:54] LABS: AUTOMATED NEUTROPHIL # 14.1 TH/MM3 (1.8-7.7); BASOPHIL % 0.2 % (0.0-2.0); EOSINOPHIL # 0.2 TH/MM3 (0-0.4); EOSINOPHIL % 1.1 % (0.0-4.0); HEMATOCRIT 36.9 % (39.0-51.0); LYMPH % 5.5 % (9.0-44.0); LYMPHOCYTE # 0.9 TH/MM3 (1.0-4.8); MEAN CELL VOLUME 90.1 FL (80.0-100.0); MEAN CORPUSCULAR HEMOGLOBIN 29.7 PG (27.0-34.0); MONO % 3.3 % (0.0-8.0); NEUT % 89.9 % (16.0-70.0); PLATELET COUNT 184 TH/MM3 (150-450); RED CELL DISTRIBUTION WIDTH 15.3 % (11.6-17.2); WHITE BLOOD COUNT 15.7 TH/MM3 (4.0-11.0)
[2017-06-04 05:09] LABS: HEMO FLAGS AUTO DIFF
[2017-06-04 05:13] LABS: BICARBONATE 27.1 MEQ/L (21.0-32.0); POTASSIUM 3.7 MEQ/L (3.5-5.1)
[2017-06-04 05:40] LABS: BANDS 4 % (0-6); EOSINOPHILS 2 % (0-4); METAMYELOCYTES 1 % (0-1); MYELOCYTES 1 % (0-0); NEUTROPHIL # MANUAL DIFF 14.3 TH/MM3 (1.8-7.7); POLYS (SEG NEUTROPHILS) 85 % (16-70); WBC DIFF SAMPLE 100
[2017-06-04 05:41] LABS: TOXIC VACUOLATION PRESENT (NONE SEEN)
[2017-06-04 05:42] LABS: PLATELET ESTIMATE SMEAR NORMAL (NORMAL); PLATELET MORPHOLOGY NORMAL (NORMAL); SCAN/DIFF FINAL DIFF MANUAL
[2017-06-04] MEDS: PIPERACIL-TAZO 3.375 GM PREMIX 50 ML IV SCH ×3 (05:59→17:21)
[2017-06-04] MEDS: METOPROLOL TARTRATE 25 MG TAB PO SCH ×3 (05:59→22:09)
[2017-06-04] MEDS: RESP: ALBUTEROL 2.5 MG/IPRATROPIUM 0.5 MG NEB (SCH) NEB ×4 (06:37→15:43)
--- NOTE | 2017-06-04 07:46 | HHI.CCPN ---
Subjective Remarks/Hospital Course 76 y/o man with severe emphysema and non-exacerbated COPD has developed right side abdominal pain and free peritoneal air following several days of constipation. His abdomen is distended and tender with few bowel sounds. Work of breathing is markedly increased and CT chest demonstrates severe bullous emphysema including hyperexpansion RUL with compression RML and RLL. By history patient can only climb 4 steps without resting. Not on home O2. Very short of breath after walking flat for over 30 feet. I will discuss postoperative pulmonary management with Dr. Mclaughlin. 05/28: Acid/base balance acceptable and urine output adequate s/p emergency resection colon yesterday. CXR with clear mcnamara, basilar atelectasis. Bullous disease is extensive. FiO2 60%. Unable to wean from ventilator. Need to restart full anticoagulation as soon a reasonable due to recent acute pulmonary embolism. 05/29: Continued poor oxygen diffusion consistent with severe COPD. Renal function improved. 05/30: Ileus with NG output 1,400 overnight. Stop TFs and keep to suction. Try reglan. Abdominal distention still hampering diaphragmatic excursions. Severe emphysema. 05/31: Afebrile. Currently on Venturi mask 6 L. 700 cc from NG tube overnight. Awake and interactive. Desaturates when sleeps. SUBJECTIVE: 06/01: Afebrile. Currently on a Venturi mask 50% 6 L. Saturations around 80%. Interactive. Receiving ice chips when necessary. Requesting diet. 06/02: NSR with occ PACs, bradycardia. Crackles bases. Stoma marginal. 06/03: Worsening SOB, labored. Mucus fistula fine, ileostomy marginal. WBC elevated. Vomited X 1. 06/04: Improved SOB after diuresis. Paroxysmal a-fib continues to be problematic. Heparinized for PE, a-fib. Lytes acceptable. Objective Vital Signs Date Time Temp Pulse Resp B/P (MAP) Pulse Ox O2 Delivery O2 Flow Rate FiO2 06/04/17 06:00 118 06/04/17 04:00 99.4 24 119/58 (78) 92 06/03/17 20:27 Nasal Cannula 5.00 06/03/17 09:49 50 Intake and Output 06/04/17 06/04/17 06/05/17 08:00 16:00 00:00 Intake Total 752 ml Output Total 1395 ml Balance -643 ml Result Diagram: 06/04/17 0420 06/04/17 0420 Imaging Last Impressions Chest X-Ray 05/30/17 0400 Signed Impressions: Service Date/Time: Tuesday, May 30, 2017 04:27 - CONCLUSION: 1. Stable bibasilar, right greater than left, airspace consolidation. 2. No significant interval change. Jacoby Cordero MD Abdomen/Pelvis CT 05/26/17 0000 Signed Impressions: Service Date/Time: Friday, May 26, 2017 17:15 - CONCLUSION: Free intraperitoneal air probably from an upper abdominal source. Generalized ileus. Bryson Magaña MD FACR Abdomen X-Ray 05/25/17 0000 Signed Impressions: Service Date/Time: April 11:14 - CONCLUSION: Mildly gas distended colon. Otherwise, unremarkable exam. Anirudh Em Jr., MD Lower Extremity Ultrasound 05/18/17 0000 Signed Impressions: Service Date/Time: April 22:06 - CONCLUSION: Normal examination. Willi Robison MD CT Angiography 05/18/17 0000 Signed Impressions: Service Date/Time: April 18:05 - CONCLUSION: 1. Examination quality is degraded by severe respiratory motion artifact. However , there are filling defects identified within the left upper lobe and right middle lobe pulmonary arteries characteristic of PE. 2. Severe emphysema with trace left pleural effusion and left lower lobe atelectasis versus consolidation. 3. There are bilateral calcified pleural plaques indicative of prior asbestos exposure. Dario Mendez MD Objective Remarks GENERAL: 76-year-old male, currently on 6L O2, in no acute distress SKIN: Warm and dry. Well perfused HEAD: Atraumatic. Normocephalic. EYES: Pupils equal and round about 2 mm bilaterally and reactive. No scleral icterus. No injection or drainage. ENT: No nasal bleeding or discharge. Mucous membranes pink and moist. Oropharynx without erythema or exudates NECK: Trachea midline. No JVD. Airway widely patent. CARDIOVASCULAR: IRR. Max 130s, mostly NSR S1, S2 no S4 without murmur RESPIRATORY: Diminished breath sounds throughout. Tachypnea, mildly labored pattern. Diminished at bases bilaterally. GASTROINTESTINAL: Abdomen distended, ileostomy marginal mucosa. Mucus fistula pink. Wound VAC clean dry and intact. Brown stool drainage. Bilateral lower quadrant JPs with serous drainage. Active bowel sounds. MUSCULOSKELETAL: Extremities with chronic venous stasis, 1+ edema. NEUROLOGICAL: Awake and alert. Motor grossly within normal limits. Normal speech. Procedures None. A/P Assessment and Plan Neuro/Psych: Fentanyl 100 every 2 hours prn only. Pain management. Acetaminophen/Ofirmev 1000 mg IV every 8 hours for fever CV: A. fib with RVR Dyslipidemia Hypertension Currently back on amiodarone drip at 01.0 mg/m along with diltiazem at 5 mg an hour for heart rate manage less than 100 Follow-up on electrolytes/TSH today Routine 2-D echocardiogram ordered. Completed 9 AM. No previous history of atrial fibrillation Continue metoprolol 25 mg every 8 hours/on 25 mg at night at home. On simvastatin 10 mill grams daily at home. This is currently in hold. Resume when clinically indicated Resp: Acute on chronic hypoxemic respiratory failure Left upper lobe/middle lobe pulmonary embolism End-stage severe emphysema - FEV1 1.30, FVC 2.34, minimal response to dilators PFTs Currently on Venturi mask 6 L to maintain saturations greater than equal to 88% Albuterol/ipratropium aerosols every 6 hours with albuterol hours is every 2 hours. Dyspnea Continue a cappella and he CPAP to albuterol/ipratropium aerosols every 6 hours D/C pulmonary dose methylprednisolone 40 mg IV twice a day CTPA - left upper lobe/right middle lobe PE. Severe emphysematous changes. Left lower lobe atelectasis. 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 Follow trends Continue heparin drip for PE Currently on heparin drip at 900 units an hour ID: Monitor for infection Previously on piperacillin/tazobactam. FEN: Hypernatremia - resolved Adjust IV fluids off, maintain TPN MSK: PT evaluate and treat Overall impression: Pulmonary function marginal as chronic problem. Will need to add back low dose steroids for bronchospasm. Chip Chavez MD Jun 04, 2017 07:46
[2017-06-04] MEDS ORDERED: AMIODARONE INJ 150 MG in DEXTROSE 5% IN WATER 100ML INJ 100 ML IV ONE ×2 (08:00)
[2017-06-04] MEDS: CHLORHEXIDINE 0.12% (ORAL KIT) 15 ML CUP MT SCH ×2 (08:00→20:00)
[2017-06-04 08:48] LABS: APTT (PATIENT) 44.1 SEC (24.3-30.1)
[2017-06-04] MEDS: SODIUM CHLORIDE 0.9% FLUSH 10 ML FLUSH IV FLUSH SCH ×2 (09:00→20:08)
[2017-06-04] MEDS: CLINIMIX E 4.25/5 2000 mL- >42 mls/hr IV SCH ×3 (09:03)
--- NOTE | 2017-06-04 09:30 | EKG ---
Date Performed: 06/04/2017 Time Performed: 01:42:34 PTAGE: 76 years EKG: Sinus rhythm with PAC(s) Possible inferior infarct - age undetermined Lateral ST-T changes are nonspecific Compar ed to prior tracing no significant change Abnormal ECG PREVIOUS TRACING : 05/19/17 @ 0505 DOCTOR: Galdino Jose Interpretating Date/Time 06/04/2017 09:27:36
[2017-06-04] MEDS: METOCLOPRAMIDE HCL 10 MG/2 ML VIAL IV PUSH SCH ×2 (09:42→17:23)
[2017-06-04] MEDS: FUROSEMIDE 40 MG/4 ML VIAL IV PUSH SCH (09:42)
[2017-06-04] MEDS: POTASSIUM CHLOR 20 MEQ PREMIX 100 ML IV SCH ×2 (09:50→17:20)
[2017-06-04] MEDS: predniSONE 5 MG/5 ML CUP PO SCH ×2 (09:50→20:26)
[2017-06-04] MEDS: AMIODARONE INJ 450 MG in DEXTROSE 5% IN WATE(EXCEL) INJ 241 ML IV SCH ×4 (11:28→17:24)
--- NOTE | 2017-06-04 11:57 | HHI.PR ---
Subjective Subjective Notes DAILY PROGRESS NOTE FOR SURGICAL ATTENDING, DR. FARHAT LE Sitting up in chair off CPAP Objective Vitals/I&O Vital Signs Date Time Temp Pulse Resp B/P (MAP) Pulse Ox O2 Delivery O2 Flow Rate FiO2 06/04/17 11:28 136 111/62 06/04/17 09:20 96 35 06/04/17 08:52 Nasal Cannula 2.00 06/04/17 08:00 98.3 26 Labs Laboratory Tests Test 06/04/17 04:20 06/04/17 07:55 White Blood Count 15.7 Red Blood Count 4.10 Hemoglobin 12.2 Hematocrit 36.9 Mean Corpuscular Volume 90.1 Mean Corpuscular Hemoglobin 29.7 Mean Corpuscular Hemoglobin Concent 33.0 Red Cell Distribution Width 15.3 Platelet Count 184 Mean Platelet Volume 8.6 Neutrophils (%) (Auto) 89.9 Lymphocytes (%) (Auto) 5.5 Monocytes (%) (Auto) 3.3 Eosinophils (%) (Auto) 1.1 Basophils (%) (Auto) 0.2 Neutrophils # (Auto) 14.1 Lymphocytes # (Auto) 0.9 Monocytes # (Auto) 0.5 Eosinophils # (Auto) 0.2 Basophils # (Auto) 0.0 CBC Comment AUTO DIFF Differential Total Cells Counted 100 Neutrophils % (Manual) 85 Band Neutrophils % 4 Lymphocytes % 7 Eosinophils % 2 Neutrophils # (Manual) 14.3 Metamyelocytes 1 Myelocytes 1 Differential Comment FINAL DIFF MANUAL Atypical Lymphocytes Toxic Vacuolation PRESENT Platelet Estimate NORMAL Platelet Morphology Comment NORMAL Blood Urea Nitrogen 24 Creatinine 0.83 Random Glucose 156 Calcium Level 7.7 Sodium Level 135 Potassium Level 3.7 Chloride Level 100 Carbon Dioxide Level 27.1 Anion Gap 8 Estimat Glomerular Filtration Rate 90 Lactic Acid Level 1.1 Activated Partial Thromboplast Time 44.1 Radiology Last Impressions Chest X-Ray 06/03/17 0000 Signed Impressions: Service Date/Time: Saturday, June 03, 2017 11:04 - CONCLUSION: Stable chest x-ray with bibasilar airspace opacity. Dario Mendez MD Abdomen/Pelvis CT 05/26/17 0000 Signed Impressions: Service Date/Time: Friday, May 26, 2017 17:15 - CONCLUSION: Free intraperitoneal air probably from an upper abdominal source. Generalized ileus. Bryson Magaña MD FACR Abdomen X-Ray 05/25/17 0000 Signed Impressions: Service Date/Time: April 11:14 - CONCLUSION: Mildly gas distended colon. Otherwise, unremarkable exam. Anirudh Em Jr., MD Lower Extremity Ultrasound 05/18/17 0000 Signed Impressions: Service Date/Time: April 22:06 - CONCLUSION: Normal examination. Willi Robison MD CT Angiography 05/18/17 0000 Signed Impressions: Service Date/Time: April 18:05 - CONCLUSION: 1. Examination quality is degraded by severe respiratory motion artifact. However , there are filling defects identified within the left upper lobe and right middle lobe pulmonary arteries characteristic of PE. 2. Severe emphysema with trace left pleural effusion and left lower lobe atelectasis versus consolidation. 3. There are bilateral calcified pleural plaques indicative of prior asbestos exposure. Dario Mendez MD Cardiovascular: Irregular Abdomen: Post-op tenderness Narrative Exam Mucous fistula present Ileostomy little dark with output A/P Assessment and Plan 76-year-old gentleman status post right colon resection with ileostomy and mucous fistula Respiratory pulmonary issues Cardiac issues restarted amiodarone Advanced tube feedings Attending Statement NOTE FOR SURGICAL ATTENDING, DR. FARHAT LE I attest that I had a [id number] encounter with the patient on the same day, and personally performed and documented my assessment and findings in the medical record. The following services were provided during this hospital visit: Chart data review, vital sign assessments/reviewing monitor data Review of consultations notes if present. Medication orders/review and/or management Ordering and/or reviewing lab tests Ordering and/or interpreting/reviewing x-rays and/or diagnostic studies Care of the patient and discussion of the patient with the care team Documentation time To help prompt me to consider important information that might be impacting today's encounter and assessment, information from prior notes written by myself or my colleagues may have been "brought forward/copy and pasted" into today's note. Farhat Le MD Jun 04, 2017 11:57
--- NOTE | 2017-06-04 14:08 | HHI.PR ---
Subjective Remarks ALERT NO DISTRESS Objective Vital Signs Date Time Temp Pulse Resp B/P (MAP) Pulse Ox O2 Delivery O2 Flow Rate FiO2 06/04/17 12:00 109 06/04/17 11:28 136 111/62 06/04/17 10:00 121 06/04/17 09:20 96 35 06/04/17 08:52 91 Nasal Cannula 2.00 06/04/17 08:21 150 104/57 06/04/17 08:00 136 06/04/17 08:00 98.3 136 26 105/57 (73) 90 06/04/17 07:00 95 Nasal Cannula 6.00 06/04/17 06:00 118 06/04/17 04:00 122 06/04/17 04:00 99.4 122 24 119/58 (78) 92 06/04/17 02:00 106 06/04/17 00:00 98 06/04/17 00:00 99.1 98 29 120/56 (77) 92 06/03/17 22:00 104 06/03/17 20:27 94 Nasal Cannula 5.00 06/03/17 20:00 107 06/03/17 20:00 99.8 107 23 118/69 (85) 91 06/03/17 19:00 91 Nasal Cannula 6.00 06/03/17 18:00 108 06/03/17 16:00 99.3 106 22 106/59 (75) 91 06/03/17 16:00 106 I/O 06/03/17 06/03/17 06/03/17 06/04/17 06/04/17 06/04/17 06:59 14:59 22:59 06:59 14:59 22:59 Intake Total 2042 ml 50 ml 2473 ml 752 ml 205 ml Output Total 2370 ml 2170 ml 1395 ml Balance -328 ml 50 ml 303 ml -643 ml 205 ml Intake Oral 550 ml 360 ml 240 ml IV Total 279 ml 50 ml 810 ml 512 ml 205 ml TPN/PPN 1103 ml 1184 ml Lipid 110 ml 119 ml Output Urine Total 1800 ml 1750 ml 1100 ml Stool Total 275 ml 150 ml 125 ml Drainage Total 295 ml 270 ml 170 ml Result Diagram: 06/04/17 0420 06/04/17 042 Objective Remarks Laboratory Tests Test 06/01/17 05:32 06/02/17 04:35 06/02/17 06:20 06/02/17 17:53 Red Blood Count 3.20 MIL/MM3 (4.50-5.90) 3.49 MIL/MM3 (4.50-5.90) Hemoglobin 10.0 GM/DL (13.0-17.0) 10.3 GM/DL (13.0-17.0) Hematocrit 29.0 % (39.0-51.0) 31.7 % (39.0-51.0) Neutrophils (%) (Auto) 87.5 % (16.0-70.0) 90.5 % (16.0-70.0) Lymphocytes (%) (Auto) 4.5 % (9.0-44.0) 4.6 % (9.0-44.0) Neutrophils # (Auto) 9.0 TH/MM3 (1.8-7.7) 10.4 TH/MM3 (1.8-7.7) Lymphocytes # (Auto) 0.5 TH/MM3 (1.0-4.8) 0.5 TH/MM3 (1.0-4.8) Neutrophils % (Manual) 83 % (16-70) 92 % (16-70) Lymphocytes % 2 % (9-44) 2 % (9-44) Neutrophils # (Manual) 9.6 TH/MM3 (1.8-7.7) 11.0 TH/MM3 (1.8-7.7) Metamyelocytes 6 % (0-1) Myelocytes 1 % (0-0) 3 % (0-0) Plasma Cells 1 % (0-0) Activated Partial Thromboplast Time 56.2 SEC (24.3-30.1) 52.0 SEC (24.3-30.1) Blood Urea Nitrogen 21 MG/DL (7-18) 22 MG/DL (7-18) 23 MG/DL (7-18) Random Glucose 186 MG/DL (74-106) 237 MG/DL (74-106) 231 MG/DL (74-106) Total Protein 4.9 GM/DL (6.4-8.2) 5.0 GM/DL (6.4-8.2) Albumin 1.5 GM/DL (3.4-5.0) 1.6 GM/DL (3.4-5.0) Calcium Level 7.5 MG/DL (8.5-10.1) 7.4 MG/DL (8.5-10.1) 7.5 MG/DL (8.5-10.1) Magnesium Level 2.7 MG/DL (1.5-2.5) Total Bilirubin 1.5 MG/DL (0.2-1.0) 1.5 MG/DL (0.2-1.0) Chloride Level 111 MEQ/L (98-107) Troponin I LESS THAN 0.02 NG/ML White Blood Count 11.5 TH/MM3 (4.0-11.0) Aspartate Amino Transf (AST/SGOT) 55 U/L (15-37) Test 06/03/17 04:43 White Blood Count 16.6 TH/MM3 (4.0-11.0) Red Blood Count 4.28 MIL/MM3 (4.50-5.90) Hemoglobin 12.9 GM/DL (13.0-17.0) Hematocrit 38.7 % (39.0-51.0) Neutrophils (%) (Auto) 89.2 % (16.0-70.0) Lymphocytes (%) (Auto) 7.0 % (9.0-44.0) Neutrophils # (Auto) 14.8 TH/MM3 (1.8-7.7) Band Neutrophils % 12 % (0-6) Monocytes % 10 % (0-8) Neutrophils # (Manual) 13.3 TH/MM3 (1.8-7.7) Metamyelocytes 3 % (0-1) Myelocytes 4 % (0-0) Activated Partial Thromboplast Time 47.4 SEC (24.3-30.1) Blood Urea Nitrogen 23 MG/DL (7-18) Random Glucose 139 MG/DL (74-106) Calcium Level 8.0 MG/DL (8.5-10.1) Assessment and Plan Assessment and Plan RESPIRATORY FAILURE COPD PE PLAN O2 NEEDED BRONCHODILATOR THERAPY INCREASE ACTIVIYY Discharge Planning Laboratory Tests Test 06/02/17 04:35 06/02/17 06:20 06/02/17 17:53 06/03/17 04:43 White Blood Count 11.5 TH/MM3 (4.0-11.0) 16.6 TH/MM3 (4.0-11.0) Red Blood Count 3.49 MIL/MM3 (4.50-5.90) 4.28 MIL/MM3 (4.50-5.90) Hemoglobin 10.3 GM/DL (13.0-17.0) 12.9 GM/DL (13.0-17.0) Hematocrit 31.7 % (39.0-51.0) 38.7 % (39.0-51.0) Neutrophils (%) (Auto) 90.5 % (16.0-70.0) 89.2 % (16.0-70.0) Lymphocytes (%) (Auto) 4.6 % (9.0-44.0) 7.0 % (9.0-44.0) Neutrophils # (Auto) 10.4 TH/MM3 (1.8-7.7) 14.8 TH/MM3 (1.8-7.7) Lymphocytes # (Auto) 0.5 TH/MM3 (1.0-4.8) Neutrophils % (Manual) 92 % (16-70) Lymphocytes % 2 % (9-44) Neutrophils # (Manual) 11.0 TH/MM3 (1.8-7.7) 13.3 TH/MM3 (1.8-7.7) Myelocytes 3 % (0-0) 4 % (0-0) Blood Urea Nitrogen 22 MG/DL (7-18) 23 MG/DL (7-18) 23 MG/DL (7-18) Random Glucose 237 MG/DL (74-106) 231 MG/DL (74-106) 139 MG/DL (74-106) Total Protein 5.0 GM/DL (6.4-8.2) Albumin 1.6 GM/DL (3.4-5.0) Calcium Level 7.4 MG/DL (8.5-10.1) 7.5 MG/DL (8.5-10.1) 8.0 MG/DL (8.5-10.1) Aspartate Amino Transf (AST/SGOT) 55 U/L (15-37) Total Bilirubin 1.5 MG/DL (0.2-1.0) Activated Partial Thromboplast Time 52.0 SEC (24.3-30.1) 47.4 SEC (24.3-30.1) Band Neutrophils % 12 % (0-6) Monocytes % 10 % (0-8) Metamyelocytes 3 % (0-1) Test 06/04/17 04:20 06/04/17 07:55 White Blood Count 15.7 TH/MM3 (4.0-11.0) Red Blood Count 4.10 MIL/MM3 (4.50-5.90) Hemoglobin 12.2 GM/DL (13.0-17.0) Hematocrit 36.9 % (39.0-51.0) Neutrophils (%) (Auto) 89.9 % (16.0-70.0) Lymphocytes (%) (Auto) 5.5 % (9.0-44.0) Neutrophils # (Auto) 14.1 TH/MM3 (1.8-7.7) Lymphocytes # (Auto) 0.9 TH/MM3 (1.0-4.8) Neutrophils % (Manual) 85 % (16-70) Lymphocytes % 7 % (9-44) Neutrophils # (Manual) 14.3 TH/MM3 (1.8-7.7) Myelocytes 1 % (0-0) Toxic Vacuolation PRESENT (NONE SEEN) Blood Urea Nitrogen 24 MG/DL (7-18) Random Glucose 156 MG/DL (74-106) Calcium Level 7.7 MG/DL (8.5-10.1) Sodium Level 135 MEQ/L (136-145) Activated Partial Thromboplast Time 44.1 SEC (24.3-30.1) Physician Attestation GENERAL: SKIN: Warm and dry. HEAD: Atraumatic. Normocephalic. EYES: Pupils equal and round. No scleral icterus. No injection or drainage. ENT: No nasal bleeding or discharge. Mucous membranes pink and moist. NECK: Trachea midline. No JVD. CARDIOVASCULAR: Regular rate and rhythm. RESPIRATORY: No accessory muscle use. Clear to auscultation. Breath sounds equal bilaterally. GASTROINTESTINAL: Abdomen soft, non-tender, nondistended. Hepatic and splenic margins not palpable. MUSCULOSKELETAL: Extremities without clubbing, cyanosis, or edema. No obvious deformities. NEUROLOGICAL: Awake and alert. No obvious cranial nerve deficits. Motor grossly within normal limits. Five out of 5 muscle strength in the arms and legs. Normal speech. PSYCHIATRIC: Appropriate mood and affect; insight and judgment normal. Kar Lakhani MD Jun 04, 2017 14:08
[2017-06-04] MEDS ORDERED: MIDAZOLAM HCL 5 MG/ML VIAL (1 ML) IM ONE (14:45)
--- NOTE | 2017-06-04 15:39 | PD.PROCEDR ---
Procedure Note Procedure DX: Ischemic Bowel OP: Insertion Left Subclavian Vein Central Line ([id number]) Procedure: Time out. Left chest prepped and draped. Patient unable to lie flat. With HOB up 10 degrees the left subclavian vein was cannulated with a thin walled needle and wire advanced. Catheter was passed over wire to 19 cm. Lumens aspirated and flushed. Dressing applied. CXR ordered, will review. Chip Chavez MD Jun 04, 2017 15:39
--- NOTE | 2017-06-04 16:17 | RADRPT ---
EXAM DATE/TIME: 06/04/2017 15:44 [facility] COMPARISON: CHEST SINGLE AP, June 03, 2017, 11:04. INDICATIONS : Verify central line placement. MEDICAL HISTORY : Chronic obstructive pulmonary disease. Cardiovascular disease. SURGICAL HISTORY : None. ENCOUNTER: Subsequent ACUITY: 3 weeks PAIN SCORE: 0/10 LOCATION: Bilateral chest FINDINGS: A left subclavian central line has been inserted. Left lung remains well aerated without evidence of pneumothorax. There is clearing basilar airspace disease. Heart and mediastinal structures are stable . CONCLUSION: 1. Satisfactory placement of left subclavian central venous catheter. 2. No evidence pneumothorax. 3. Clearing basilar airspace disease. Philip Gardner MD on June 04, 2017 at 16:14 Board Certified Radiologist. This report was verified electronically.
[2017-06-04] MEDS: FAT EMULSION 20% INJ 250 ML (@10 mls/hr) IV SCH (17:21)
[2017-06-04 17:33] LABS: BICARBONATE 28.8 MEQ/L (21.0-32.0); MAGNESIUM 2.4 MG/DL (1.5-2.5); POTASSIUM 3.9 MEQ/L (3.5-5.1)
[2017-06-04] MEDS: RESP: ALBUTEROL 2.5 MG/IPRATROPIUM 0.5 MG NEB (PRN) NEB (21:47)
[2017-06-05] VITALS (14 sets, daily range): BP systolic 123–134; BP diastolic 58–62; PULSE 68–87; RESP 27–30; TEMP 98–99.2; O2SAT 91–96
[2017-06-05] MEDS: PIPERACIL-TAZO 3.375 GM PREMIX 50 ML IV SCH ×5 (00:05→23:18)
[2017-06-05] MEDS: METOCLOPRAMIDE HCL 10 MG/2 ML VIAL IV PUSH SCH ×4 (00:06→23:18)
[2017-06-05] MEDS: INSULIN ASPART SUPPLEMENTAL SCALE SQ SCH ×4 (01:30→19:30)
[2017-06-05] MEDS: FAMOTIDINE 20 MG/2 ML VIAL IV PUSH SCH ×2 (05:10→16:40)
[2017-06-05] MEDS: CLINIMIX E 4.25/5 2000 mL- >42 mls/hr IV SCH ×3 (05:10)
[2017-06-05] MEDS: METOPROLOL TARTRATE 25 MG TAB PO SCH ×3 (06:00→22:57)
[2017-06-05] MEDS: HEPARIN-D5W 25,000 U/250 ML 250 ML IV PRN (06:16)
[2017-06-05 06:30] LABS: BICARBONATE 25.2 MEQ/L (21.0-32.0); MAGNESIUM 2.5 MG/DL (1.5-2.5); POTASSIUM 3.9 MEQ/L (3.5-5.1)
[2017-06-05] MEDS: CHLORHEXIDINE 0.12% (ORAL KIT) 15 ML CUP MT SCH ×2 (08:00→19:23)
[2017-06-05] MEDS: AMIODARONE INJ 450 MG in DEXTROSE 5% IN WATE(EXCEL) INJ 241 ML IV SCH ×8 (08:04→23:18)
[2017-06-05] MEDS: FUROSEMIDE 40 MG/4 ML VIAL IV PUSH SCH (08:11)
[2017-06-05] MEDS: predniSONE 5 MG/5 ML CUP PO SCH ×3 (08:12→20:06)
[2017-06-05] MEDS: SODIUM CHLORIDE 0.9% FLUSH 10 ML FLUSH IV FLUSH SCH ×2 (08:12→20:47)
--- NOTE | 2017-06-05 12:06 | HHI.CCPN ---
Subjective Remarks/Hospital Course 76 y/o man with severe emphysema and non-exacerbated COPD has developed right side abdominal pain and free peritoneal air following several days of constipation. His abdomen is distended and tender with few bowel sounds. Work of breathing is markedly increased and CT chest demonstrates severe bullous emphysema including hyperexpansion RUL with compression RML and RLL. By history patient can only climb 4 steps without resting. Not on home O2. Very short of breath after walking flat for over 30 feet. I will discuss postoperative pulmonary management with Dr. Mclaughlin. 05/28: Acid/base balance acceptable and urine output adequate s/p emergency resection colon yesterday. CXR with clear mcnamara, basilar atelectasis. Bullous disease is extensive. FiO2 60%. Unable to wean from ventilator. Need to restart full anticoagulation as soon a reasonable due to recent acute pulmonary embolism. 05/29: Continued poor oxygen diffusion consistent with severe COPD. Renal function improved. 05/30: Ileus with NG output 1,400 overnight. Stop TFs and keep to suction. Try reglan. Abdominal distention still hampering diaphragmatic excursions. Severe emphysema. 05/31: Afebrile. Currently on Venturi mask 6 L. 700 cc from NG tube overnight. Awake and interactive. Desaturates when sleeps. SUBJECTIVE: 06/01: Afebrile. Currently on a Venturi mask 50% 6 L. Saturations around 80%. Interactive. Receiving ice chips when necessary. Requesting diet. 06/02: NSR with occ PACs, bradycardia. Crackles bases. Stoma marginal. 06/03: Worsening SOB, labored. Mucus fistula fine, ileostomy marginal. WBC elevated. Vomited X 1. 06/04: Improved SOB after diuresis. Paroxysmal a-fib continues to be problematic. Heparinized for PE, a-fib. Lytes acceptable. 06/05: He feels better today. Breathing less labored and down to nasal cannula. Objective Vital Signs Date Time Temp Pulse Resp B/P (MAP) Pulse Ox O2 Delivery O2 Flow Rate FiO2 06/05/17 09:37 91 Nasal Cannula 3.00 06/05/17 08:05 72 124/61 06/05/17 04:00 98.3 29 06/04/17 09:20 35 Intake and Output 06/05/17 06/05/17 06/06/17 08:00 16:00 00:00 Intake Total 1851 ml Output Total 1850 ml Balance 1 ml Result Diagram: 06/04/17 0420 06/05/17 0445 Imaging Last Impressions Chest X-Ray 05/30/17 0400 Signed Impressions: Service Date/Time: Tuesday, May 30, 2017 04:27 - CONCLUSION: 1. Stable bibasilar, right greater than left, airspace consolidation. 2. No significant interval change. Jacoby Cordero MD Abdomen/Pelvis CT 05/26/17 0000 Signed Impressions: Service Date/Time: Friday, May 26, 2017 17:15 - CONCLUSION: Free intraperitoneal air probably from an upper abdominal source. Generalized ileus. Bryson Magaña MD FACR Abdomen X-Ray 05/25/17 0000 Signed Impressions: Service Date/Time: April 11:14 - CONCLUSION: Mildly gas distended colon. Otherwise, unremarkable exam. Anirudh Em Jr., MD Lower Extremity Ultrasound 05/18/17 0000 Signed Impressions: Service Date/Time: April 22:06 - CONCLUSION: Normal examination. Willi Robison MD CT Angiography 05/18/17 0000 Signed Impressions: Service Date/Time: April 18:05 - CONCLUSION: 1. Examination quality is degraded by severe respiratory motion artifact. However , there are filling defects identified within the left upper lobe and right middle lobe pulmonary arteries characteristic of PE. 2. Severe emphysema with trace left pleural effusion and left lower lobe atelectasis versus consolidation. 3. There are bilateral calcified pleural plaques indicative of prior asbestos exposure. Dario Mendez MD Objective Remarks GENERAL: 76-year-old male, currently on 3L O2, in no acute distress SKIN: Warm and dry. Well perfused HEAD: Atraumatic. Normocephalic. EYES: Pupils equal and round about 2 mm bilaterally and reactive. ENT: No nasal bleeding or discharge. Mucous membranes pink and moist. Oropharynx without erythema or exudates NECK: Trachea midline. Airway widely patent. CARDIOVASCULAR: RRR, NSR S1, S2 no S4 without murmur RESPIRATORY: Mildly labored, good air entry.Diminished at bases bilaterally. GASTROINTESTINAL: Abdomen distended, ileostomy marginal mucosa. Mucus fistula pink. Wound VAC clean dry and intact. Brown stool drainage. Bilateral lower quadrant JPs with serous drainage. Active bowel sounds. MUSCULOSKELETAL: Extremities with chronic venous stasis, 1+ edema. NEUROLOGICAL: Awake and alert. Motor grossly within normal limits. Normal speech. Procedures None. A/P Assessment and Plan Neuro/Psych: Fentanyl 100 every 2 hours prn only. Pain management. Acetaminophen/Ofirmev 1000 mg IV every 8 hours for fever CV: A. fib with RVR Dyslipidemia Hypertension Currently back on amiodarone drip at 01.0 mg/m along with diltiazem at 5 mg an hour for heart rate manage less than 100 Follow-up on electrolytes/TSH today Routine 2-D echocardiogram ordered. Completed 9/ AM. No previous history of atrial fibrillation Continue metoprolol 25 mg every 8 hours/on 25 mg at night at home. On simvastatin 10 mill grams daily at home. This is currently in hold. Resume when clinically indicated Resp: Acute on chronic hypoxemic respiratory failure Left upper lobe/middle lobe pulmonary embolism End-stage severe emphysema - FEV1 1.30, FVC 2.34, minimal response to dilators PFTs Currently on Venturi mask 6 L to maintain saturations greater than equal to 88% Albuterol/ipratropium aerosols every 6 hours with albuterol hours is every 2 hours. Dyspnea Continue a cappella and he CPAP to albuterol/ipratropium aerosols every 6 hours D/C pulmonary dose methylprednisolone 40 mg IV twice a day CTPA - left upper lobe/right middle lobe PE. Severe emphysematous changes. Left lower lobe atelectasis. 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 Follow trends Continue heparin drip for PE Currently on heparin drip at 900 units an hour ID: Monitor for infection Previously on piperacillin/tazobactam. FEN: Hypernatremia - resolved Adjust IV fluids off, maintain TPN MSK: PT evaluate and treat Overall impression: Pulmonary function marginal as chronic problem. Will need to add back low dose steroids for bronchospasm. cONVERT TO LOVENOX. Chip Chavez MD Jun 05, 2017 12:06
[2017-06-05] MEDS: ENOXAPARIN SODIUM 120 MG/0.8 ML SYRINGE SQ SCH (14:28)
[2017-06-05 17:19] LABS: BICARBONATE 28.1 MEQ/L (21.0-32.0); MAGNESIUM 2.4 MG/DL (1.5-2.5); POTASSIUM 3.7 MEQ/L (3.5-5.1)
--- NOTE | 2017-06-05 19:07 | HHI.PR ---
Subjective Remarks ALERT NO DISTRESS Objective Vital Signs Date Time Temp Pulse Resp B/P (MAP) Pulse Ox O2 Delivery O2 Flow Rate FiO2 06/05/17 18:00 78 06/05/17 16:00 98.2 80 30 129/61 (83) 96 06/05/17 16:00 80 06/05/17 14:00 78 06/05/17 13:50 71 123/58 06/05/17 12:00 98.9 80 28 123/58 (79) 92 06/05/17 12:00 80 06/05/17 10:00 73 06/05/17 09:37 91 Nasal Cannula 3.00 06/05/17 08:05 72 124/61 06/05/17 08:04 69 133/60 06/05/17 08:00 76 06/05/17 08:00 98.7 87 30 133/60 (84) 93 06/05/17 07:00 95 Nasal Cannula 3.00 06/05/17 06:00 72 06/05/17 04:00 68 06/05/17 04:00 98.3 68 29 123/60 (81) 93 06/05/17 02:00 78 06/05/17 00:00 98.0 80 27 124/60 (81) 92 06/05/17 00:00 80 06/04/17 22:00 76 06/04/17 21:49 92 Nasal Cannula 3.00 06/04/17 20:00 100 06/04/17 20:00 98.9 100 28 118/62 (80) 91 I/O 06/04/17 06/04/17 06/04/17 06/05/17 06/05/17 06/05/17 07:00 15:00 23:00 07:00 15:00 23:00 Intake Total 752 ml 205 ml 2732 ml 1851 ml 2083 ml Output Total 1395 ml 2740 ml 1850 ml 3390 ml Balance -643 ml 205 ml -8 ml 1 ml -1307 ml Intake Oral 240 ml 180 ml 120 ml 240 ml IV Total 512 ml 205 ml 1361 ml 544 ml 520 ml TPN/PPN 1078 ml 1078 ml 1203 ml Lipid 113 ml 109 ml 120 ml Output Urine Total 1100 ml 2500 ml 1700 ml 3200 ml Stool Total 125 ml 75 ml 75 ml 100 ml Drainage Total 170 ml 165 ml 75 ml 90 ml Result Diagram: 06/04/17 0420 06/05/17 1615 Objective Remarks Laboratory Tests Test 06/01/17 05:32 06/02/17 04:35 06/02/17 06:20 06/02/17 17:53 Red Blood Count 3.20 MIL/MM3 (4.50-5.90) 3.49 MIL/MM3 (4.50-5.90) Hemoglobin 10.0 GM/DL (13.0-17.0) 10.3 GM/DL (13.0-17.0) Hematocrit 29.0 % (39.0-51.0) 31.7 % (39.0-51.0) Neutrophils (%) (Auto) 87.5 % (16.0-70.0) 90.5 % (16.0-70.0) Lymphocytes (%) (Auto) 4.5 % (9.0-44.0) 4.6 % (9.0-44.0) Neutrophils # (Auto) 9.0 TH/MM3 (1.8-7.7) 10.4 TH/MM3 (1.8-7.7) Lymphocytes # (Auto) 0.5 TH/MM3 (1.0-4.8) 0.5 TH/MM3 (1.0-4.8) Neutrophils % (Manual) 83 % (16-70) 92 % (16-70) Lymphocytes % 2 % (9-44) 2 % (9-44) Neutrophils # (Manual) 9.6 TH/MM3 (1.8-7.7) 11.0 TH/MM3 (1.8-7.7) Metamyelocytes 6 % (0-1) Myelocytes 1 % (0-0) 3 % (0-0) Plasma Cells 1 % (0-0) Activated Partial Thromboplast Time 56.2 SEC (24.3-30.1) 52.0 SEC (24.3-30.1) Blood Urea Nitrogen 21 MG/DL (7-18) 22 MG/DL (7-18) 23 MG/DL (7-18) Random Glucose 186 MG/DL (74-106) 237 MG/DL (74-106) 231 MG/DL (74-106) Total Protein 4.9 GM/DL (6.4-8.2) 5.0 GM/DL (6.4-8.2) Albumin 1.5 GM/DL (3.4-5.0) 1.6 GM/DL (3.4-5.0) Calcium Level 7.5 MG/DL (8.5-10.1) 7.4 MG/DL (8.5-10.1) 7.5 MG/DL (8.5-10.1) Magnesium Level 2.7 MG/DL (1.5-2.5) Total Bilirubin 1.5 MG/DL (0.2-1.0) 1.5 MG/DL (0.2-1.0) Chloride Level 111 MEQ/L (98-107) Troponin I LESS THAN 0.02 NG/ML White Blood Count 11.5 TH/MM3 (4.0-11.0) Aspartate Amino Transf (AST/SGOT) 55 U/L (15-37) Test 06/03/17 04:43 White Blood Count 16.6 TH/MM3 (4.0-11.0) Red Blood Count 4.28 MIL/MM3 (4.50-5.90) Hemoglobin 12.9 GM/DL (13.0-17.0) Hematocrit 38.7 % (39.0-51.0) Neutrophils (%) (Auto) 89.2 % (16.0-70.0) Lymphocytes (%) (Auto) 7.0 % (9.0-44.0) Neutrophils # (Auto) 14.8 TH/MM3 (1.8-7.7) Band Neutrophils % 12 % (0-6) Monocytes % 10 % (0-8) Neutrophils # (Manual) 13.3 TH/MM3 (1.8-7.7) Metamyelocytes 3 % (0-1) Myelocytes 4 % (0-0) Activated Partial Thromboplast Time 47.4 SEC (24.3-30.1) Blood Urea Nitrogen 23 MG/DL (7-18) Random Glucose 139 MG/DL (74-106) Calcium Level 8.0 MG/DL (8.5-10.1) Assessment and Plan Assessment and Plan RESPIRATORY FAILURE COPD PE PLAN O2 NEEDED BRONCHODILATOR THERAPY INCREASE ACTIVIYY Discharge Planning GENERAL: SKIN: Warm and dry. HEAD: Atraumatic. Normocephalic. EYES: Pupils equal and round. No scleral icterus. No injection or drainage. ENT: No nasal bleeding or discharge. Mucous membranes pink and moist. NECK: Trachea midline. No JVD. CARDIOVASCULAR: Regular rate and rhythm. RESPIRATORY: No accessory muscle use. Clear to auscultation. Breath sounds equal bilaterally. GASTROINTESTINAL: Abdomen soft, non-tender, nondistended. Hepatic and splenic margins not palpable. MUSCULOSKELETAL: Extremities without clubbing, cyanosis, or edema. No obvious deformities. NEUROLOGICAL: Awake and alert. No obvious cranial nerve deficits. Motor grossly within normal limits. Five out of 5 muscle strength in the arms and legs. Normal speech. PSYCHIATRIC: Appropriate mood and affect; insight and judgment normal. Kar Lakhani MD Jun 05, 2017 19:07
--- NOTE | 2017-06-05 19:34 | HHI.PR ---
Subjective Subjective Notes feels better, very hungry Objective Vitals/I&O Vital Signs Date Time Temp Pulse Resp B/P (MAP) Pulse Ox O2 Delivery O2 Flow Rate FiO2 06/05/17 19:00 94 Nasal Cannula 3.00 06/05/17 18:00 78 06/05/17 16:00 98.2 30 129/61 (83) 06/04/17 09:20 35 Labs Laboratory Tests Test 06/05/17 04:45 06/05/17 16:15 Activated Partial Thromboplast Time 48.0 Blood Urea Nitrogen 22 22 Creatinine 0.83 0.88 Random Glucose 175 152 Calcium Level 7.7 7.5 Phosphorus Level 3.5 3.3 Magnesium Level 2.5 2.4 Sodium Level 135 135 Potassium Level 3.9 3.7 Chloride Level 100 99 Carbon Dioxide Level 25.2 28.1 Anion Gap 10 8 Estimat Glomerular Filtration Rate 90 84 Radiology Last Impressions Chest X-Ray 06/03/17 0000 Signed Impressions: Service Date/Time: Saturday, June 03, 2017 11:04 - CONCLUSION: Stable chest x-ray with bibasilar airspace opacity. Dario Mendze MD Abdomen/Pelvis CT 05/26/17 0000 Signed Impressions: Service Date/Time: Friday, May 26, 2017 17:15 - CONCLUSION: Free intraperitoneal air probably from an upper abdominal source. Generalized ileus. Bryson Magaña MD FACR Abdomen X-Ray 05/25/17 0000 Signed Impressions: Service Date/Time: April 11:14 - CONCLUSION: Mildly gas distended colon. Otherwise, unremarkable exam. Anirudh Em Jr., MD Lower Extremity Ultrasound 05/18/17 0000 Signed Impressions: Service Date/Time: April 22:06 - CONCLUSION: Normal examination. Willi Robison MD CT Angiography 05/18/17 0000 Signed Impressions: Service Date/Time: April 18:05 - CONCLUSION: 1. Examination quality is degraded by severe respiratory motion artifact. However , there are filling defects identified within the left upper lobe and right middle lobe pulmonary arteries characteristic of PE. 2. Severe emphysema with trace left pleural effusion and left lower lobe atelectasis versus consolidation. 3. There are bilateral calcified pleural plaques indicative of prior asbestos exposure. Dario Mendez MD Abdomen: Non-distended, Non-tender Narrative Exam ELOISA clear A/P Assessment and Plan 76yo male s/p right colectomy and end ileostomy, stable. tolerating PO, ELOISA minimal output. DC drains, advance diet. Leon Pemberton MD Jun 05, 2017 19:34
[2017-06-05] MEDS: FAT EMULSION 20% INJ 250 ML (@10 mls/hr) IV SCH (20:47)
[2017-06-06] VITALS (14 sets, daily range): BP systolic 111–145; BP diastolic 57–63; PULSE 72–100; RESP 30–32; TEMP 98.1–99.7; O2SAT 95–96
[2017-06-06] MEDS: CLINIMIX E 4.25/5 2000 mL- >42 mls/hr IV SCH ×6 (00:13→19:45)
[2017-06-06] MEDS: INSULIN ASPART SUPPLEMENTAL SCALE SQ SCH ×4 (01:30→19:30)
[2017-06-06] MEDS: ENOXAPARIN SODIUM 120 MG/0.8 ML SYRINGE SQ SCH ×2 (01:32→14:35)
[2017-06-06] MEDS: METOPROLOL TARTRATE 25 MG TAB PO SCH ×3 (05:23→21:44)
[2017-06-06] MEDS: PIPERACIL-TAZO 3.375 GM PREMIX 50 ML IV SCH ×4 (05:23→23:17)
[2017-06-06] MEDS: FAMOTIDINE 20 MG/2 ML VIAL IV PUSH SCH ×2 (05:23→16:18)
[2017-06-06 06:06] LABS: BICARBONATE 26.8 MEQ/L (21.0-32.0); MAGNESIUM 2.2 MG/DL (1.5-2.5); POTASSIUM 3.8 MEQ/L (3.5-5.1)
[2017-06-06] MEDS: CHLORHEXIDINE 0.12% (ORAL KIT) 15 ML CUP MT SCH ×2 (08:00→19:45)
[2017-06-06] MEDS: SODIUM CHLORIDE 0.9% FLUSH 10 ML FLUSH IV FLUSH SCH ×2 (08:48→21:05)
[2017-06-06] MEDS: METOCLOPRAMIDE HCL 10 MG/2 ML VIAL IV PUSH SCH ×3 (08:48→23:18)
[2017-06-06] MEDS: predniSONE 5 MG/5 ML CUP PO SCH ×2 (08:49→21:00)
[2017-06-06] MEDS: FUROSEMIDE 40 MG/4 ML VIAL IV PUSH SCH (08:49)
--- NOTE | 2017-06-06 09:42 | HHI.CCPN ---
Subjective Remarks/Hospital Course 76 y/o man with severe emphysema and non-exacerbated COPD has developed right side abdominal pain and free peritoneal air following several days of constipation. His abdomen is distended and tender with few bowel sounds. Work of breathing is markedly increased and CT chest demonstrates severe bullous emphysema including hyperexpansion RUL with compression RML and RLL. By history patient can only climb 4 steps without resting. Not on home O2. Very short of breath after walking flat for over 30 feet. I will discuss postoperative pulmonary management with Dr. Mclaughlin. 05/28: Acid/base balance acceptable and urine output adequate s/p emergency resection colon yesterday. CXR with clear mcnamara, basilar atelectasis. Bullous disease is extensive. FiO2 60%. Unable to wean from ventilator. Need to restart full anticoagulation as soon a reasonable due to recent acute pulmonary embolism. 05/29: Continued poor oxygen diffusion consistent with severe COPD. Renal function improved. 05/30: Ileus with NG output 1,400 overnight. Stop TFs and keep to suction. Try reglan. Abdominal distention still hampering diaphragmatic excursions. Severe emphysema. 05/31: Afebrile. Currently on Venturi mask 6 L. 700 cc from NG tube overnight. Awake and interactive. Desaturates when sleeps. SUBJECTIVE: 06/01: Afebrile. Currently on a Venturi mask 50% 6 L. Saturations around 80%. Interactive. Receiving ice chips when necessary. Requesting diet. 06/02: NSR with occ PACs, bradycardia. Crackles bases. Stoma marginal. 06/03: Worsening SOB, labored. Mucus fistula fine, ileostomy marginal. WBC elevated. Vomited X 1. 06/04: Improved SOB after diuresis. Paroxysmal a-fib continues to be problematic. Heparinized for PE, a-fib. Lytes acceptable. 06/05: He feels better today. Breathing less labored and down to nasal cannula. 06/06: Breathing more comfortably. Ileostomy output minimal. Objective Vital Signs Date Time Temp Pulse Resp B/P (MAP) Pulse Ox O2 Delivery O2 Flow Rate FiO2 06/06/17 07:00 93 Nasal Cannula 3.00 06/06/17 06:00 82 06/06/17 04:00 98.4 31 111/57 (75) 06/04/17 09:20 35 Intake and Output 06/06/17 06/06/17 06/07/17 08:00 16:00 00:00 Intake Total 1962 ml Output Total 1220 ml Balance 742 ml Result Diagram: 06/04/17 0420 06/06/17 0530 Imaging Last Impressions Chest X-Ray 05/30/17 0400 Signed Impressions: Service Date/Time: Tuesday, May 30, 2017 04:27 - CONCLUSION: 1. Stable bibasilar, right greater than left, airspace consolidation. 2. No significant interval change. Jacoby Cordero MD Abdomen/Pelvis CT 05/26/17 0000 Signed Impressions: Service Date/Time: Friday, May 26, 2017 17:15 - CONCLUSION: Free intraperitoneal air probably from an upper abdominal source. Generalized ileus. Bryson Magaña MD FACR Abdomen X-Ray 05/25/17 0000 Signed Impressions: Service Date/Time: April 11:14 - CONCLUSION: Mildly gas distended colon. Otherwise, unremarkable exam. Anirudh Em Jr., MD Lower Extremity Ultrasound 05/18/17 0000 Signed Impressions: Service Date/Time: April 22:06 - CONCLUSION: Normal examination. Willi Robison MD CT Angiography 05/18/17 0000 Signed Impressions: Service Date/Time: April 18:05 - CONCLUSION: 1. Examination quality is degraded by severe respiratory motion artifact. However , there are filling defects identified within the left upper lobe and right middle lobe pulmonary arteries characteristic of PE. 2. Severe emphysema with trace left pleural effusion and left lower lobe atelectasis versus consolidation. 3. There are bilateral calcified pleural plaques indicative of prior asbestos exposure. Dario Mendez MD Objective Remarks GENERAL: 76-year-old male, currently on 3L O2, in no acute distress SKIN: Warm and dry. Well perfused HEAD: Atraumatic. Normocephalic. EYES: Pupils equal and round about 2 mm bilaterally and reactive. ENT: No nasal bleeding or discharge. Mucous membranes pink and moist. Oropharynx without erythema or exudates NECK: Trachea midline. Airway widely patent. CARDIOVASCULAR: RRR, NSR S1, S2 no S4 without murmur RESPIRATORY: Mildly labored, good air entry.Diminished at bases bilaterally. GASTROINTESTINAL: Abdomen distended, ileostomy marginal mucosa. Mucus fistula pink. Wound VAC clean dry and intact. Active bowel sounds. MUSCULOSKELETAL: Extremities with chronic venous stasis, 1+ edema. NEUROLOGICAL: Awake and alert. Motor grossly within normal limits. Normal speech. Procedures None. A/P Assessment and Plan Neuro/Psych: Fentanyl 100 every 2 hours prn only. Pain management. Acetaminophen/Ofirmev 1000 mg IV every 8 hours for fever CV: A. fib with RVR Dyslipidemia Hypertension Currently back on amiodarone drip at 01.0 mg/m along with diltiazem at 5 mg an hour for heart rate manage less than 100 Follow-up on electrolytes/TSH today Routine 2-D echocardiogram ordered. Completed 9/ AM. No previous history of atrial fibrillation Continue metoprolol 25 mg every 8 hours/on 25 mg at night at home. On simvastatin 10 mill grams daily at home. This is currently in hold. Resume when clinically indicated Resp: Acute on chronic hypoxemic respiratory failure Left upper lobe/middle lobe pulmonary embolism End-stage severe emphysema - FEV1 1.30, FVC 2.34, minimal response to dilators PFTs Currently on Venturi mask 6 L to maintain saturations greater than equal to 88% Albuterol/ipratropium aerosols every 6 hours with albuterol hours is every 2 hours. Dyspnea Continue a cappella and he CPAP to albuterol/ipratropium aerosols every 6 hours D/C pulmonary dose methylprednisolone 40 mg IV twice a day CTPA - left upper lobe/right middle lobe PE. Severe emphysematous changes. Left lower lobe atelectasis. Bilateral pleural plaques Converted to BID lovenox, heparin gtt d/c'd. GI: Status post open lap, right colectomy with end ileostomy secondary to perforation hollow viscus Ileus Currently on famotidine 20 mg IV twice a day On metoclopramide 10 mg IV every 8 hours : Dubose catheter to maintain accurate I's and O's in a critically ill patient Endo: Chronic prednisone use Hyperglycemia of critical illness Sliding scale insulin Accu-Cheks every 6 hours to maintain euglycemia/low regimen Novulog Renal: Acute kidney injury - resolved Change normal saline to LR to 100 cc an hour Monitor urine output - 1225 past 24 hours Accurate I's and O's Heme: Normocytic anemia History thrombocytopenia currently normal Monitor CBC daily. Follow trends Continue heparin drip for PE Currently on heparin drip at 900 units an hour ID: Monitor for infection Previously on piperacillin/tazobactam. FEN: Hypernatremia - resolved Adjust IV fluids off, maintain TPN MSK: PT evaluate and treat Overall impression: Pulmonary function marginal as chronic problem. Add back low dose steroids for bronchospasm. Chip Chavez MD Jun 06, 2017 09:42
--- NOTE | 2017-06-06 11:21 | HHI.PR ---
Subjective Subjective Notes Visiting with friends and family Tolerating small meals Was able to dangle legs out of bed Objective Vitals/I&O Vital Signs Date Time Temp Pulse Resp B/P (MAP) Pulse Ox O2 Delivery O2 Flow Rate FiO2 06/06/17 10:00 74 06/06/17 08:00 98.8 30 128/60 (82) 95 06/06/17 07:00 Nasal Cannula 3.00 06/04/17 09:20 35 Labs Laboratory Tests Test 06/05/17 16:15 06/06/17 05:30 Blood Urea Nitrogen 22 22 Creatinine 0.88 0.82 Random Glucose 152 146 Calcium Level 7.5 7.9 Phosphorus Level 3.3 2.9 Magnesium Level 2.4 2.2 Sodium Level 135 134 Potassium Level 3.7 3.8 Chloride Level 99 100 Carbon Dioxide Level 28.1 26.8 Anion Gap 8 7 Estimat Glomerular Filtration Rate 84 92 Radiology Last Impressions Chest X-Ray 06/03/17 0000 Signed Impressions: Service Date/Time: Saturday, June 03, 2017 11:04 - CONCLUSION: Stable chest x-ray with bibasilar airspace opacity. Dario Mendez MD Abdomen/Pelvis CT 05/26/17 0000 Signed Impressions: Service Date/Time: Friday, May 26, 2017 17:15 - CONCLUSION: Free intraperitoneal air probably from an upper abdominal source. Generalized ileus. Bryson Magaña MD FACR Abdomen X-Ray 05/25/17 0000 Signed Impressions: Service Date/Time: April 11:14 - CONCLUSION: Mildly gas distended colon. Otherwise, unremarkable exam. Anirudh Em Jr., MD Lower Extremity Ultrasound 05/18/17 0000 Signed Impressions: Service Date/Time: April 22:06 - CONCLUSION: Normal examination. Willi Robison MD CT Angiography 05/18/17 0000 Signed Impressions: Service Date/Time: April 18:05 - CONCLUSION: 1. Examination quality is degraded by severe respiratory motion artifact. However , there are filling defects identified within the left upper lobe and right middle lobe pulmonary arteries characteristic of PE. 2. Severe emphysema with trace left pleural effusion and left lower lobe atelectasis versus consolidation. 3. There are bilateral calcified pleural plaques indicative of prior asbestos exposure. Dario Mendez MD Cardiovascular: Regular Lungs: Clear Abdomen: Other (midline incision with Wound Vac in place; ileostomy with minimal thin stool output; MF in place; ELOISA drains removed ) Extremities: Other (minimal generalized edema ) A/P Assessment and Plan 76 year old male POD10 ex lap; RIGHT hemicolectomy with end ileostomy and mucus fistula for ischemia -On NC -Continue subq heparin -Monitor Hmg ---12.2 -Regular diet -Will wean TPN once PO nutrition improved -PT -Continue to monitor WBC -Wound Vac to midline incision --MWF change Attending Statement The exam, history, and the medical decision-making described in the above note were completed with the assistance of the mid-level provider. I reviewed and agree with the findings presented. I attest that I had a [id number] encounter with the patient on the same day, and personally performed and documented my assessment and findings in the medical record. Abdominal exam: stable, non-tender on exam, wound clean/intact Jessie Velázquez Jun 06, 2017 11:21 Leon Pemberton MD Jun 27, 2017 23:30
--- NOTE | 2017-06-06 13:43 | HHI.PR ---
Subjective Remarks 76 YOWM with COPD PE Weekend events noted had emergent resection of colon On NC Mild sob, feels weak appetite poor, on TPN Objective Vital Signs Vital Signs Date Time Temp Pulse Resp B/P (MAP) Pulse Ox O2 Delivery O2 Flow Rate FiO2 06/06/17 12:00 88 06/06/17 10:00 74 06/06/17 08:00 77 06/06/17 08:00 98.8 76 30 128/60 (82) 95 06/06/17 07:00 93 Nasal Cannula 3.00 06/06/17 06:00 82 06/06/17 04:00 76 06/06/17 04:00 98.4 76 31 111/57 (75) 95 06/06/17 02:00 76 06/06/17 00:00 99.0 77 31 128/60 (82) 96 06/06/17 00:00 77 06/05/17 23:18 86 149/65 06/05/17 22:00 82 06/05/17 21:02 96 Nasal Cannula 3.00 06/05/17 20:00 82 06/05/17 20:00 99.2 82 29 134/62 (86) 95 06/05/17 19:00 94 Nasal Cannula 3.00 06/05/17 18:00 78 06/05/17 16:00 98.2 80 30 129/61 (83) 96 06/05/17 16:00 80 06/05/17 14:00 78 06/05/17 13:50 71 123/58 I/O 06/05/17 06/05/17 06/05/17 06/06/17 06/06/17 06/06/17 07:00 15:00 23:00 07:00 15:00 23:00 Intake Total 1851 ml 2083 ml 1962 ml Output Total 1850 ml 3390 ml 1220 ml Balance 1 ml -1307 ml 742 ml Intake Oral 120 ml 240 ml 120 ml IV Total 544 ml 520 ml 475 ml TPN/PPN 1078 ml 1203 ml 1260 ml Lipid 109 ml 120 ml 107 ml Output Urine Total 1700 ml 3200 ml 1100 ml Stool Total 75 ml 100 ml 75 ml Drainage Total 75 ml 90 ml 45 ml Result Diagram: 06/04/17 0420 06/06/17 0530 Objective Remarks GENERAL: WBWN WM,NAD SKIN: Warm and dry. HEAD: Normocephalic. EYES: No scleral icterus. No injection or drainage. NECK: Supple, trachea midline. No JVD or lymphadenopathy. CARDIOVASCULAR: Regular rate and rhythm without murmurs, gallops, or rubs. RESPIRATORY: Breath sounds equal bilaterally. No accessory muscle use. GASTROINTESTINAL: Abdomen soft, non-tender, nondistended. MUSCULOSKELETAL: No cyanosis, or edema. BACK: Nontender without obvious deformity. No CVA tenderness. A/P Assessment and Plan VDRF, s/p extubation. S/P Emergent resection of Colon Pulm Embolism COPD HTN Pleural Plaques PLAN: Wean 02 to keep sat >92% Encourage PO DW pt and his at BS TPN Janak Mclaughlin MD Jun 06, 2017 13:43
[2017-06-06] MEDS: METOPROLOL TARTRATE 5 MG/5 ML VIAL IV PUSH PRN (14:34)
[2017-06-06] MEDS: AMIODARONE INJ 450 MG in DEXTROSE 5% IN WATE(EXCEL) INJ 241 ML IV SCH ×2 (15:36)
--- NOTE | 2017-06-06 17:24 | PD.WCN.NOT ---
Wound Consult Description: Consult placed for Vac change to midline abdomen Consult for ileostomy and mucus fistula Communicated with: VENESSA Velázquez RN Recommendation: Change Wound VAC to midline abdomen as ordered Monday with wound VAC settings @ 125mmHg low continuous suction. Change collection bag to left upper quadrant as needed for mucus fistula using 2 3/4" appliance. Change ileostomy appliance as needed to right lower quadrant using 1 3/4" appliance. Additional Information: Patient seen on [place] for ostomy assessment. Right sided ileostomy has is visualized as dark, oval, moist, lumen noted in center, and functioning with pink tinged yellow liquid and soft yellow effluent noted in pouch. Appliance is intact yet will need to be changed tomorrow. Mucus fistula on upper left abdomen is edematous, red/pink, moist, lumen noted to center, with liquid noted in pouch. Appliance is intact. Patient is sleeping. RN states that patient vomited today and NG tube is recent. Patient will be seen tomorrow for wound VAC change and ileostomy appliance change. Neg Pressure Wound Therapy Wound Location Wound Location: Consult placed for Vac change to midline abdomen Consult for ileostomy and mucus fistula Wound Description Wound bed appearance: 100% adipose Minimal sanguinous drainage Open wound margins Settings Suction: 125 mmHg, Continuous Intensity: Low Other Information: Windowpaned, Mushroomed Foam type: Black Number of pieces: 2 (2 pieces used in total, one in wound bed and 1 for mushroomed sensitrac pad placement) Ostomy Type: Ileostomy (right lower quadrant), Other (Mucus fistula noted to left upper abdomen) Complete: Education materials ([employer] kit left at bedside) Francine Mcadams [facility] Jun 06, 2017 17:24
[2017-06-06] MEDS: FAT EMULSION 20% INJ 250 ML (@10 mls/hr) IV SCH (19:45)
[2017-06-07] VITALS (13 sets, daily range): BP systolic 110–133; BP diastolic 55–62; PULSE 64–86; RESP 29–31; TEMP 97.5–100.1; O2SAT 95–97
[2017-06-07 00:11] LABS: BICARBONATE 28.9 MEQ/L (21.0-32.0); MAGNESIUM 2.3 MG/DL (1.5-2.5); POTASSIUM 3.6 MEQ/L (3.5-5.1)
[2017-06-07] MEDS: INSULIN ASPART SUPPLEMENTAL SCALE SQ SCH ×4 (01:25→21:29)
[2017-06-07] MEDS: ENOXAPARIN SODIUM 120 MG/0.8 ML SYRINGE SQ SCH ×2 (02:48→14:41)
[2017-06-07] MEDS: FAMOTIDINE 20 MG/2 ML VIAL IV PUSH SCH ×2 (03:49→16:01)
[2017-06-07 04:28] LABS: AUTOMATED NEUTROPHIL # 9.5 TH/MM3 (1.8-7.7); BASOPHIL % 0.3 % (0.0-2.0); EOSINOPHIL # 0.2 TH/MM3 (0-0.4); EOSINOPHIL % 1.6 % (0.0-4.0); HEMO FLAGS DIFF FINAL; LYMPH % 5.7 % (9.0-44.0); LYMPHOCYTE # 0.6 TH/MM3 (1.0-4.8); MEAN CELL VOLUME 89.9 FL (80.0-100.0); MEAN CORPUSCULAR HEMOGLOBIN 30.6 PG (27.0-34.0); MEAN CORPUSCULAR HGB CONC 34.1 % (32.0-36.0); MONO % 7.6 % (0.0-8.0); NEUT % 84.8 % (16.0-70.0); PLATELET COUNT 157 TH/MM3 (150-450); RED BLOOD COUNT 3.22 MIL/MM3 (4.50-5.90); RED CELL DISTRIBUTION WIDTH 15.3 % (11.6-17.2); WHITE BLOOD COUNT 11.1 TH/MM3 (4.0-11.0)
[2017-06-07 04:46] LABS: BICARBONATE 28.3 MEQ/L (21.0-32.0); POTASSIUM 3.5 MEQ/L (3.5-5.1)
[2017-06-07 05:11] LABS: CALCIUM-PROTEIN CORRECTED 8.4 MG/DL (8.5-10.1)
[2017-06-07] MEDS: PIPERACIL-TAZO 3.375 GM PREMIX 50 ML IV SCH (05:27)
[2017-06-07] MEDS: METOPROLOL TARTRATE 25 MG TAB PO SCH ×3 (06:00→21:52)
[2017-06-07] MEDS: CHLORHEXIDINE 0.12% (ORAL KIT) 15 ML CUP MT SCH ×2 (08:00→20:00)
[2017-06-07] MEDS: predniSONE 5 MG/5 ML CUP PO SCH ×2 (09:00→21:00)
[2017-06-07] MEDS: AMIODARONE INJ 450 MG in DEXTROSE 5% IN WATE(EXCEL) INJ 241 ML IV SCH ×2 (09:08)
[2017-06-07] MEDS: SODIUM CHLORIDE 0.9% FLUSH 10 ML FLUSH IV FLUSH SCH ×2 (09:09→21:29)
[2017-06-07] MEDS: METOCLOPRAMIDE HCL 10 MG/2 ML VIAL IV PUSH SCH ×2 (09:09→16:01)
[2017-06-07] MEDS: FUROSEMIDE 40 MG/4 ML VIAL IV PUSH SCH (09:09)
--- NOTE | 2017-06-07 09:17 | HHI.CCPN ---
Subjective Remarks/Hospital Course 76 y/o man with severe emphysema and non-exacerbated COPD has developed right side abdominal pain and free peritoneal air following several days of constipation. His abdomen is distended and tender with few bowel sounds. Work of breathing is markedly increased and CT chest demonstrates severe bullous emphysema including hyperexpansion RUL with compression RML and RLL. By history patient can only climb 4 steps without resting. Not on home O2. Very short of breath after walking flat for over 30 feet. I will discuss postoperative pulmonary management with Dr. Mclaughlin. 05/28: Acid/base balance acceptable and urine output adequate s/p emergency resection colon yesterday. CXR with clear mcnamara, basilar atelectasis. Bullous disease is extensive. FiO2 60%. Unable to wean from ventilator. Need to restart full anticoagulation as soon a reasonable due to recent acute pulmonary embolism. 05/29: Continued poor oxygen diffusion consistent with severe COPD. Renal function improved. 05/30: Ileus with NG output 1,400 overnight. Stop TFs and keep to suction. Try reglan. Abdominal distention still hampering diaphragmatic excursions. Severe emphysema. 05/31: Afebrile. Currently on Venturi mask 6 L. 700 cc from NG tube overnight. Awake and interactive. Desaturates when sleeps. SUBJECTIVE: 06/01: Afebrile. Currently on a Venturi mask 50% 6 L. Saturations around 80%. Interactive. Receiving ice chips when necessary. Requesting diet. 06/02: NSR with occ PACs, bradycardia. Crackles bases. Stoma marginal. 06/03: Worsening SOB, labored. Mucus fistula fine, ileostomy marginal. WBC elevated. Vomited X 1. 06/04: Improved SOB after diuresis. Paroxysmal a-fib continues to be problematic. Heparinized for PE, a-fib. Lytes acceptable. 06/05: He feels better today. Breathing less labored and down to nasal cannula. 06/06: Breathing more comfortably. Ileostomy output minimal. 06/07: Starting to mobilize. Fluid balance getting better, continue diuretics. Objective Vital Signs Date Time Temp Pulse Resp B/P (MAP) Pulse Ox O2 Delivery O2 Flow Rate FiO2 06/07/17 06:00 65 06/07/17 04:00 98.3 30 117/58 (77) 95 06/06/17 19:02 Nasal Cannula 3.00 06/04/17 09:20 35 Intake and Output 06/07/17 06/07/17 06/08/17 08:00 16:00 00:00 Intake Total 3565 ml Output Total 1905 ml Balance 1660 ml Result Diagram: 06/07/17 0400 06/07/17 0400 Imaging Last Impressions Chest X-Ray 05/30/17 0400 Signed Impressions: Service Date/Time: Tuesday, May 30, 2017 04:27 - CONCLUSION: 1. Stable bibasilar, right greater than left, airspace consolidation. 2. No significant interval change. Jacoby Cordero MD Abdomen/Pelvis CT 05/26/17 0000 Signed Impressions: Service Date/Time: Friday, May 26, 2017 17:15 - CONCLUSION: Free intraperitoneal air probably from an upper abdominal source. Generalized ileus. Bryson Magaña MD FACR Abdomen X-Ray 05/25/17 0000 Signed Impressions: Service Date/Time: April 11:14 - CONCLUSION: Mildly gas distended colon. Otherwise, unremarkable exam. Anirudh Em Jr., MD Lower Extremity Ultrasound 05/18/17 0000 Signed Impressions: Service Date/Time: April 22:06 - CONCLUSION: Normal examination. Willi Robison MD CT Angiography 05/18/17 0000 Signed Impressions: Service Date/Time: April 18:05 - CONCLUSION: 1. Examination quality is degraded by severe respiratory motion artifact. However , there are filling defects identified within the left upper lobe and right middle lobe pulmonary arteries characteristic of PE. 2. Severe emphysema with trace left pleural effusion and left lower lobe atelectasis versus consolidation. 3. There are bilateral calcified pleural plaques indicative of prior asbestos exposure. Dario Mendez MD Objective Remarks GENERAL: 76-year-old male, currently on 3L O2, in no acute distress SKIN: Warm and dry. Well perfused HEAD: Atraumatic. Normocephalic. EYES: Pupils equal and round about 2 mm bilaterally and reactive. ENT: No nasal bleeding or discharge. Mucous membranes pink and moist. Oropharynx without erythema or exudates NECK: Trachea midline. Airway widely patent. CARDIOVASCULAR: RRR, NSR S1, S2 no S4 without murmur RESPIRATORY: Mildly labored, good air entry.Diminished at bases bilaterally. GASTROINTESTINAL: Abdomen distended, ileostomy marginal mucosa. Mucus fistula pink. Wound VAC clean dry and intact. Active bowel sounds. MUSCULOSKELETAL: Extremities with chronic venous stasis, 1+ edema. NEUROLOGICAL: Awake and alert. Motor grossly within normal limits. Normal speech. Procedures None. A/P Assessment and Plan Neuro/Psych: Fentanyl 100 every 2 hours prn only. Pain management. Acetaminophen/Ofirmev 1000 mg IV every 8 hours for fever CV: A. fib with RVR Dyslipidemia Hypertension Currently back on amiodarone drip at 01.0 mg/m along with diltiazem at 5 mg an hour for heart rate manage less than 100 Follow-up on electrolytes/TSH today Routine 2-D echocardiogram ordered. Completed 9/7 AM. No previous history of atrial fibrillation Continue metoprolol 25 mg every 8 hours/on 25 mg at night at home. On simvastatin 10 mill grams daily at home. This is currently in hold. Resume when clinically indicated Resp: Acute on chronic hypoxemic respiratory failure Left upper lobe/middle lobe pulmonary embolism End-stage severe emphysema - FEV1 1.30, FVC 2.34, minimal response to dilators PFTs Currently on Venturi mask 6 L to maintain saturations greater than equal to 88% Albuterol/ipratropium aerosols every 6 hours with albuterol hours is every 2 hours. Dyspnea Continue a cappella and he CPAP to albuterol/ipratropium aerosols every 6 hours D/C pulmonary dose methylprednisolone 40 mg IV twice a day CTPA - left upper lobe/right middle lobe PE. Severe emphysematous changes. Left lower lobe atelectasis. Bilateral pleural plaques Converted to BID lovenox, heparin gtt d/c'd. GI: Status post open lap, right colectomy with end ileostomy secondary to perforation hollow viscus Ileus Currently on famotidine 20 mg IV twice a day On metoclopramide 10 mg IV every 8 hours : Dubose catheter to maintain accurate I's and O's in a critically ill patient Endo: Chronic prednisone use Hyperglycemia of critical illness Sliding scale insulin Accu-Cheks every 6 hours to maintain euglycemia/low regimen Novulog Renal: Acute kidney injury - resolved Change normal saline to LR to 100 cc an hour Monitor urine output - 1225 past 24 hours Accurate I's and O's Heme: Normocytic anemia History thrombocytopenia currently normal Monitor CBC daily. Follow trends Continue heparin drip for PE Currently on heparin drip at 900 units an hour ID: Monitor for infection Previously on piperacillin/tazobactam. FEN: Hypernatremia - resolved Adjust IV fluids off, maintain TPN MSK: PT evaluate and treat Overall impression: Pulmonary function marginal as chronic problem. Recent pulmonary embolism complicates issue. Improving. Chip Chavez MD Jun 07, 2017 09:17
--- NOTE | 2017-06-07 10:56 | HHI.PR ---
Subjective Subjective Notes Resting in bed Was nausea with emesis yesterday --- NGT inserted and resolution of nausea Objective Vitals/I&O Vital Signs Date Time Temp Pulse Resp B/P (MAP) Pulse Ox O2 Delivery O2 Flow Rate FiO2 06/07/17 09:08 95 Nasal Cannula 3.00 06/07/17 09:08 68 115/58 06/07/17 07:00 35 06/07/17 04:00 98.3 30 Labs Laboratory Tests Test 06/06/17 23:35 06/07/17 04:00 Blood Urea Nitrogen 22 22 Creatinine 0.88 0.78 Random Glucose 143 158 Calcium Level 7.7 7.4 Phosphorus Level 3.0 Magnesium Level 2.3 Sodium Level 134 131 Potassium Level 3.6 3.5 Chloride Level 98 97 Carbon Dioxide Level 28.9 28.3 Anion Gap 7 6 Estimat Glomerular Filtration Rate 84 97 White Blood Count 11.1 Red Blood Count 3.22 Hemoglobin 9.9 Hematocrit 29.0 Mean Corpuscular Volume 89.9 Mean Corpuscular Hemoglobin 30.6 Mean Corpuscular Hemoglobin Concent 34.1 Red Cell Distribution Width 15.3 Platelet Count 157 Mean Platelet Volume 9.5 Neutrophils (%) (Auto) 84.8 Lymphocytes (%) (Auto) 5.7 Monocytes (%) (Auto) 7.6 Eosinophils (%) (Auto) 1.6 Basophils (%) (Auto) 0.3 Neutrophils # (Auto) 9.5 Lymphocytes # (Auto) 0.6 Monocytes # (Auto) 0.8 Eosinophils # (Auto) 0.2 Basophils # (Auto) 0.0 CBC Comment DIFF FINAL Differential Comment Total Protein 5.3 Protein Corrected Calcium 8.4 Prealbumin 15 Radiology Last Impressions Chest X-Ray 06/03/17 0000 Signed Impressions: Service Date/Time: Saturday, June 03, 2017 11:04 - CONCLUSION: Stable chest x-ray with bibasilar airspace opacity. Dario Mendez MD Abdomen/Pelvis CT 05/26/17 0000 Signed Impressions: Service Date/Time: Friday, May 26, 2017 17:15 - CONCLUSION: Free intraperitoneal air probably from an upper abdominal source. Generalized ileus. Bryson Magaña MD FACR Abdomen X-Ray 05/25/17 Signed Impressions: Service Date/Time: April 11:14 - CONCLUSION: Mildly gas distended colon. Otherwise, unremarkable exam. Anirudh Em Jr., MD Lower Extremity Ultrasound 05/18/17 Signed Impressions: Service Date/Time: April 22:06 - CONCLUSION: Normal examination. Willi Robison MD CT Angiography 05/18/17 Signed Impressions: Service Date/Time: , May 18, 2017 18:05 - CONCLUSION: 1. Examination quality is degraded by severe respiratory motion artifact. However , there are filling defects identified within the left upper lobe and right middle lobe pulmonary arteries characteristic of PE. 2. Severe emphysema with trace left pleural effusion and left lower lobe atelectasis versus consolidation. 3. There are bilateral calcified pleural plaques indicative of prior asbestos exposure. Dario Mendez MD Cardiovascular: Regular Lungs: Clear Abdomen: Other (midline incision with Wound Vac in place---good seal; MF pink; ileostomy with dark output---stoma dark ) Extremities: Other (generalized moderate edema ) A/P Assessment and Plan 76 year old male POD11 ex lap; RIGHT hemicolectomy with end ileostomy and mucus fistula for ischemia -Clamp NGT -On NC -Continue subq heparin -Monitor Hmg ---9.9 -Ice chips and sips of water -Will wean TPN once PO nutrition improved -PT -Continue to monitor WBC -Wound Vac to midline incision --Will change today with YAZAN Escamilla from Wound Team Attending Statement The exam, history, and the medical decision-making described in the above note were completed with the assistance of the mid-level provider. I reviewed and agree with the findings presented. I attest that I had a [id number] encounter with the patient on the same day, and personally performed and documented my assessment and findings in the medical record. Abdominal exam: stable postop, ostomy viable with good output continue to improve slowly Jessie Velázquez Jun 07, 2017 10:56 Leon Pemberton MD Jun 27, 2017 23:37
--- NOTE | 2017-06-07 13:08 | PD.WCN.NOT ---
Wound Consult Description: Consult placed for Vac change to midline abdomen Consult for ileostomy and mucus fistula Communicated with: VENESSA Velázquez RN Recommendation: Change Wound VAC to midline abdomen as ordered Monday with wound VAC settings @ 125mmHg low continuous suction. Change collection bag to left upper quadrant as needed for mucus fistula using 2 3/4" appliance. Change ileostomy appliance as needed to right lower quadrant using 1 3/4" appliance. Additional Information: Patient seen on [facility] for wound VAC change per Dr Pemberton Neg Pressure Wound Therapy Wound Location Wound Location: Vac change to midline abdomen Wound Description Length: 21cm Width: 6.3cm Depth: 3.4cm Wound bed appearance: ~50% adipose tissue ~50% granulation tissue Minimal sanguinous drainage Open wound margins Periwound appearance: Other (umbilicus noted with thick yellow exudate with partial thickness skinloss that was cleansed with wound cleanser and calcium alginate applied for absorption) Settings Suction: 125 mmHg, Continuous Intensity: Low Other Information: Windowpaned, Mushroomed Foam type: Black Number of pieces: 2 (2 pieces used in total, one in wound bed and 1 for mushroomed sensitrac pad placement) Additonal Information Black granufoam removed from wound bed on midline abdomen to reveal a moist wound bed with ~50% adipose tissue and ~50% granulation tissue. Wound was cleansed with wound cleanser and gauze. Wound measurements are above. Periwound is noted with the umbilicus having partial thickness skinloss and yellow thick exudate noted that was cleansed with wound cleanser and small cut piece of maxorb II placed into umbilicus prior to covering with VAC drape. Periwound was skin prepped using Cavilon and allowed to air dry before placing VAC drape down in a window pane fashion. Black granufoam was cut in a cinnamon roll fashion and placed into wound bed and secured with VAC drape. Onde small hole was cut in the top of the drape over the foam for mushroomed piece of foam to allow for trac pad placement. Machine turned on with settings @125mmHg low continuous suction. No leaks were noted. Patient tolerated wound VAC dressing well. Ostomy Type: Ileostomy (right lower quadrant), Other (Mucus fistula noted to left upper abdomen) Surgeon: Leon Pemberton MD Complete: Education materials ([employer] kit left at bedside) Educated patient on: Ileostomy on right lower side of abdomen where the dark stoma has dark green liquid out put. Appliance intact Mucus fistula on left upper abdomen is pink, oval, moist, edematous, lumen noted to center and functioning with minimal liquid out put. Appliance intact Francine Mcadams [facility] Jun 07, 2017 13:08
[2017-06-07] MEDS: CLINIMIX E 4.25/5 2000 mL- >42 mls/hr IV SCH ×3 (16:34)
--- NOTE | 2017-06-07 18:09 | HHI.PR ---
Subjective Remarks 76 YOWM with COPD PE Weekend events noted had emergent resection of colon On NC Mild sob, feels weak appetite poor, on TPN On Lovenox Objective Vital Signs Vital Signs Date Time Temp Pulse Resp B/P (MAP) Pulse Ox O2 Delivery O2 Flow Rate FiO2 06/07/17 16:00 76 06/07/17 16:00 98.6 78 29 131/62 (85) 95 06/07/17 14:00 75 06/07/17 12:00 98.7 70 30 118/57 (77) 95 06/07/17 12:00 67 06/07/17 10:00 64 06/07/17 09:08 95 Nasal Cannula 3.00 06/07/17 09:08 68 115/58 06/07/17 08:00 64 06/07/17 08:00 98.2 68 30 125/55 (78) 95 06/07/17 07:00 100 Nasal Cannula 3.00 35 06/07/17 06:00 65 06/07/17 04:00 98.3 64 30 117/58 (77) 95 06/07/17 04:00 64 06/07/17 02:00 66 06/07/17 00:00 70 06/07/17 00:00 97.5 70 31 110/59 (76) 95 06/06/17 22:00 75 06/06/17 20:00 81 06/06/17 20:00 98.7 81 30 135/62 (86) 96 06/06/17 19:02 95 Nasal Cannula 3.00 06/06/17 19:00 95 Nasal Cannula 3.00 I/O 06/06/17 06/06/17 06/06/17 06/07/17 06/07/17 06/07/17 07:00 15:00 23:00 07:00 15:00 23:00 Intake Total 1962 ml 100 ml 1563 ml 3615 ml 35 ml 727 ml Output Total 1220 ml 3420 ml 1905 ml Balance 742 ml 100 ml -1857 ml 1710 ml 35 ml 727 ml Intake Oral 120 ml 25 ml IV Total 475 ml 100 ml 330 ml 2202 ml 35 ml 727 ml TPN/PPN 1260 ml 1098 ml 1283 ml Lipid 107 ml 110 ml 130 ml Output Urine Total 1100 ml 2100 ml 950 ml Stool Total 75 ml 5 ml 225 ml Gastric Drainage Total 600 ml 700 ml Emesis 700 ml Drainage Total 45 ml 15 ml 30 ml Result Diagram: 06/07/1739906/07/17399 Objective Remarks GENERAL: WBWN WM,NAD SKIN: Warm and dry. HEAD: Normocephalic. EYES: No scleral icterus. No injection or drainage. NECK: Supple, trachea midline. No JVD or lymphadenopathy. CARDIOVASCULAR: Regular rate and rhythm without murmurs, gallops, or rubs. RESPIRATORY: Breath sounds equal bilaterally. No accessory muscle use. GASTROINTESTINAL: Abdomen soft, non-tender, nondistended. MUSCULOSKELETAL: No cyanosis, or edema. BACK: Nontender without obvious deformity. No CVA tenderness. A/P Assessment and Plan VDRF, s/p extubation. S/P Emergent resection of Colon Pulm Embolism COPD HTN Pleural Plaques PLAN: Wean 02 to keep sat >92% Encourage PO DW pt and his at BS TPN lovenox 110 mg sq q 12 hrs Janak Mclaughlin MD Jun 07, 2017 18:09
[2017-06-07] MEDS: FAT EMULSION 20% INJ 250 ML (@10 mls/hr) IV SCH (20:49)
[2017-06-08] VITALS (11 sets, daily range): BP systolic 117–126; BP diastolic 56–59; PULSE 68–90; RESP 25–35; TEMP 98–99.1; O2SAT 94–97
[2017-06-08] MEDS: METOCLOPRAMIDE HCL 10 MG/2 ML VIAL IV PUSH SCH ×3 (00:05→16:17)
[2017-06-08] MEDS: INSULIN ASPART SUPPLEMENTAL SCALE SQ SCH ×4 (01:09→18:42)
[2017-06-08] MEDS: ENOXAPARIN SODIUM 120 MG/0.8 ML SYRINGE SQ SCH ×2 (01:11→12:21)
[2017-06-08] MEDS: FAMOTIDINE 20 MG/2 ML VIAL IV PUSH SCH ×2 (03:19→16:17)
[2017-06-08 05:04] LABS: AUTOMATED NEUTROPHIL # 9.8 TH/MM3 (1.8-7.7); BASOPHIL # 0.1 TH/MM3 (0-0.2); BASOPHIL % 0.5 % (0.0-2.0); EOSINOPHIL # 0.1 TH/MM3 (0-0.4); HEMATOCRIT 29.2 % (39.0-51.0); LYMPH % 7.1 % (9.0-44.0); LYMPHOCYTE # 0.8 TH/MM3 (1.0-4.8); MEAN CELL VOLUME 90.1 FL (80.0-100.0); MEAN CORPUSCULAR HEMOGLOBIN 29.7 PG (27.0-34.0); MONO % 8.7 % (0.0-8.0); NEUT % 82.7 % (16.0-70.0); PLATELET COUNT 185 TH/MM3 (150-450); RED BLOOD COUNT 3.24 MIL/MM3 (4.50-5.90); RED CELL DISTRIBUTION WIDTH 15.7 % (11.6-17.2); WHITE BLOOD COUNT 11.9 TH/MM3 (4.0-11.0)
[2017-06-08 05:09] LABS: HEMO FLAGS AUTO DIFF
[2017-06-08 05:19] LABS: BICARBONATE 28.6 MEQ/L (21.0-32.0); POTASSIUM 3.6 MEQ/L (3.5-5.1)
[2017-06-08] MEDS: METOPROLOL TARTRATE 25 MG TAB PO SCH ×3 (07:47→21:29)
[2017-06-08 07:52] LABS: BANDS 2 % (0-6); EOSINOPHILS 2 % (0-4); METAMYELOCYTES 1 % (0-1); NEUTROPHIL # MANUAL DIFF 10.5 TH/MM3 (1.8-7.7); PLATELET ESTIMATE SMEAR NORMAL (NORMAL); PLATELET MORPHOLOGY NORMAL (NORMAL); POLYS (SEG NEUTROPHILS) 85 % (16-70); SCAN/DIFF FINAL DIFF MANUAL; WBC DIFF SAMPLE 100
[2017-06-08] MEDS: CHLORHEXIDINE 0.12% (ORAL KIT) 15 ML CUP MT SCH ×2 (08:00→20:00)
[2017-06-08] MEDS: FUROSEMIDE 40 MG/4 ML VIAL IV PUSH SCH (08:46)
[2017-06-08] MEDS: predniSONE 5 MG/5 ML CUP PO SCH ×3 (08:47→20:25)
[2017-06-08] MEDS: SODIUM CHLORIDE 0.9% FLUSH 10 ML FLUSH IV FLUSH SCH ×2 (08:47→20:26)
--- NOTE | 2017-06-08 11:15 | PD.WCN.NOT ---
Wound Consult Description: Ostomy management Vac change to midline abdomen Communicated with: VENESSA Velázquez, RN Recommendation: Change Wound VAC to midline abdomen as ordered Monday with wound VAC settings @ 125mmHg low continuous suction. Change collection bag to left upper quadrant as needed for mucus fistula using 2 3/4" appliance. Change ileostomy appliance as needed to right lower quadrant using 1 3/4" appliance. Additional Information: Patient seen on for ostomy assessment and wound vac check Neg Pressure Wound Therapy Wound Location Wound Location: Vac change to midline abdomen Wound Description Length: 21cm Width: 6.3cm Depth: 3.4cm Wound bed appearance: ~50% adipose tissue ~50% granulation tissue Minimal sanguinous drainage Open wound margins Settings Suction: 125 mmHg, Continuous Intensity: Low Other Information: Windowpaned, Mushroomed Foam type: Black Number of pieces: 2 (2 pieces used in total, one in wound bed and 1 for mushroomed sensitrac pad placement) Additonal Information Wound VAC appears to be working properly without leaks. Wound Care will follow up with patient and RN tomorrow for wound vac change. Ostomy Type: Ileostomy (right lower quadrant), Other (Mucus fistula noted to left upper abdomen) Surgeon: Leon Pemberton MD Complete: Education materials ([employer] kit left at bedside) Additional information Right lower quadrant "ileostomy" is functioning with dark green liquid effluent noted in pouch that is intact. There is mild odor noted with opening of pouch to release air. Stoma is oval, dark, soft, moist, lumen in center. Left upper abdomen mucus fistula is pink, oval, moist, lumen in center, with pink liquid effluent noted in pouch that is intact. Francine Mcadams [facility] Jun 08, 2017 11:15
--- NOTE | 2017-06-08 11:33 | HHI.CCPN ---
Subjective Remarks/Hospital Course 76 y/o man with severe emphysema and non-exacerbated COPD has developed right side abdominal pain and free peritoneal air following several days of constipation. His abdomen is distended and tender with few bowel sounds. Work of breathing is markedly increased and CT chest demonstrates severe bullous emphysema including hyperexpansion RUL with compression RML and RLL. By history patient can only climb 4 steps without resting. Not on home O2. Very short of breath after walking flat for over 30 feet. I will discuss postoperative pulmonary management with Dr. Mclaughlin. 05/28: Acid/base balance acceptable and urine output adequate s/p emergency resection colon yesterday. CXR with clear mcnamara, basilar atelectasis. Bullous disease is extensive. FiO2 60%. Unable to wean from ventilator. Need to restart full anticoagulation as soon a reasonable due to recent acute pulmonary embolism. 05/29: Continued poor oxygen diffusion consistent with severe COPD. Renal function improved. 05/30: Ileus with NG output 1,400 overnight. Stop TFs and keep to suction. Try reglan. Abdominal distention still hampering diaphragmatic excursions. Severe emphysema. 05/31: Afebrile. Currently on Venturi mask 6 L. 700 cc from NG tube overnight. Awake and interactive. Desaturates when sleeps. SUBJECTIVE: 06/01: Afebrile. Currently on a Venturi mask 50% 6 L. Saturations around 80%. Interactive. Receiving ice chips when necessary. Requesting diet. 06/02: NSR with occ PACs, bradycardia. Crackles bases. Stoma marginal. 06/03: Worsening SOB, labored. Mucus fistula fine, ileostomy marginal. WBC elevated. Vomited X 1. 06/04: Improved SOB after diuresis. Paroxysmal a-fib continues to be problematic. Heparinized for PE, a-fib. Lytes acceptable. 06/05: He feels better today. Breathing less labored and down to nasal cannula. 06/06: Breathing more comfortably. Ileostomy output minimal. 06/07: Starting to mobilize. Fluid balance getting better, continue diuretics. 06/08: Breathing comfortably. Increase mobilization. Objective Vital Signs Date Time Temp Pulse Resp B/P (MAP) Pulse Ox O2 Delivery O2 Flow Rate FiO2 06/08/17 10:00 77 06/08/17 08:00 98.5 25 117/59 (78) 96 06/08/17 08:00 Nasal Cannula 3.00 35 Humidified Intake and Output 06/08/17 06/08/17 06/09/17 08:00 16:00 00:00 Intake Total 1433 ml Output Total 1715 ml Balance -282 ml Result Diagram: 06/08/17 0430 06/08/17 0430 Imaging Last Impressions Chest X-Ray 05/30/17 0400 Signed Impressions: Service Date/Time: Tuesday, May 30, 2017 04:27 - CONCLUSION: 1. Stable bibasilar, right greater than left, airspace consolidation. 2. No significant interval change. Jacoby Cordero MD Abdomen/Pelvis CT 05/26/17 0000 Signed Impressions: Service Date/Time: Friday, May 26, 2017 17:15 - CONCLUSION: Free intraperitoneal air probably from an upper abdominal source. Generalized ileus. Bryson Magaña MD FACR Abdomen X-Ray 05/25/17 0000 Signed Impressions: Service Date/Time: April 11:14 - CONCLUSION: Mildly gas distended colon. Otherwise, unremarkable exam. Anirudh Em Jr., MD Lower Extremity Ultrasound 05/18/17 0000 Signed Impressions: Service Date/Time: April 22:06 - CONCLUSION: Normal examination. Willi Robison MD CT Angiography 05/18/17 0000 Signed Impressions: Service Date/Time: April 18:05 - CONCLUSION: 1. Examination quality is degraded by severe respiratory motion artifact. However , there are filling defects identified within the left upper lobe and right middle lobe pulmonary arteries characteristic of PE. 2. Severe emphysema with trace left pleural effusion and left lower lobe atelectasis versus consolidation. 3. There are bilateral calcified pleural plaques indicative of prior asbestos exposure. Dario Mendez MD Objective Remarks GENERAL: 76-year-old male, currently on 3L O2, in no acute distress SKIN: Warm and dry. Well perfused HEAD: Atraumatic. Normocephalic. EYES: Pupils equal and round about 2 mm bilaterally and reactive. NECK: Trachea midline. Airway widely patent. CARDIOVASCULAR: RRR, NSR S1, S2 no S4 without murmur RESPIRATORY: Clear, good air entry.Diminished at bases bilaterally. GASTROINTESTINAL: Abdomen distended, ileostomy marginal mucosa. Mucus fistula pink. Wound VAC clean dry and intact. Active bowel sounds. MUSCULOSKELETAL: Extremities with chronic venous stasis, 1+ edema. NEUROLOGICAL: Awake and alert. Motor grossly within normal limits. Normal speech. Procedures None. A/P Assessment and Plan Neuro/Psych: Fentanyl 100 every 2 hours prn only. Pain management. Acetaminophen/Ofirmev 1000 mg IV every 8 hours for fever CV: A. fib with RVR Dyslipidemia Hypertension Currently back on amiodarone drip at 01.0 mg/m along with diltiazem at 5 mg an hour for heart rate manage less than 100 Follow-up on electrolytes/TSH today Routine 2-D echocardiogram ordered. Completed 9 AM. No previous history of atrial fibrillation Continue metoprolol 25 mg every 8 hours/on 25 mg at night at home. On simvastatin 10 mill grams daily at home. This is currently in hold. Resume when clinically indicated Resp: Acute on chronic hypoxemic respiratory failure Left upper lobe/middle lobe pulmonary embolism End-stage severe emphysema - FEV1 1.30, FVC 2.34, minimal response to dilators PFTs Currently on Venturi mask 6 L to maintain saturations greater than equal to 88% Albuterol/ipratropium aerosols every 6 hours with albuterol hours is every 2 hours. Dyspnea Continue a cappella and he CPAP to albuterol/ipratropium aerosols every 6 hours D/C pulmonary dose methylprednisolone 40 mg IV twice a day CTPA - left upper lobe/right middle lobe PE. Severe emphysematous changes. Left lower lobe atelectasis. Bilateral pleural plaques Converted to BID lovenox, heparin gtt d/c'd. GI: Status post open lap, right colectomy with end ileostomy secondary to perforation hollow viscus Ileus Currently on famotidine 20 mg IV twice a day On metoclopramide 10 mg IV every 8 hours : Dubose catheter to maintain accurate I's and O's in a critically ill patient Endo: Chronic prednisone use Hyperglycemia of critical illness Sliding scale insulin Accu-Cheks every 6 hours to maintain euglycemia/low regimen Novulog Renal: Acute kidney injury - resolved Change normal saline to LR to 100 cc an hour Monitor urine output - 1225 past 24 hours Accurate I's and O's Heme: Normocytic anemia History thrombocytopenia currently normal Monitor CBC daily. Follow trends Continue heparin drip for PE Currently on heparin drip at 900 units an hour ID: Monitor for infection Previously on piperacillin/tazobactam. FEN: Hypernatremia - resolved Adjust IV fluids off, maintain TPN MSK: PT evaluate and treat Overall impression: Pulmonary function marginal as chronic problem. Recent pulmonary embolism complicates issue. Improving. Chip Chavez MD Jun 08, 2017 11:33
--- NOTE | 2017-06-08 12:00 | HHI.PR ---
Subjective Subjective Notes Resting in bed No issues No nausea/vomiting overnight Objective Vitals/I&O Vital Signs Date Time Temp Pulse Resp B/P (MAP) Pulse Ox O2 Delivery O2 Flow Rate FiO2 06/08/17 10:00 77 06/08/17 08:00 98.5 25 117/59 (78) 96 06/08/17 08:00 Nasal Cannula 3.00 35 Humidified Labs Laboratory Tests Test 06/08/17 04:30 White Blood Count 11.9 Red Blood Count 3.24 Hemoglobin 9.6 Hematocrit 29.2 Mean Corpuscular Volume 90.1 Mean Corpuscular Hemoglobin 29.7 Mean Corpuscular Hemoglobin Concent 33.0 Red Cell Distribution Width 15.7 Platelet Count 185 Mean Platelet Volume 8.8 Neutrophils (%) (Auto) 82.7 Lymphocytes (%) (Auto) 7.1 Monocytes (%) (Auto) 8.7 Eosinophils (%) (Auto) 1.0 Basophils (%) (Auto) 0.5 Neutrophils # (Auto) 9.8 Lymphocytes # (Auto) 0.8 Monocytes # (Auto) 1.0 Eosinophils # (Auto) 0.1 Basophils # (Auto) 0.1 CBC Comment AUTO DIFF Differential Total Cells Counted 100 Neutrophils % (Manual) 85 Band Neutrophils % 2 Lymphocytes % 8 Monocytes % 2 Eosinophils % 2 Neutrophils # (Manual) 10.5 Metamyelocytes 1 Differential Comment FINAL DIFF MANUAL Platelet Estimate NORMAL Platelet Morphology Comment NORMAL Blood Urea Nitrogen 21 Creatinine 0.66 Random Glucose 137 Calcium Level 8.1 Sodium Level 132 Potassium Level 3.6 Chloride Level 96 Carbon Dioxide Level 28.6 Anion Gap 7 Estimat Glomerular Filtration Rate 118 Radiology Last Impressions Chest X-Ray 06/03/17 0000 Signed Impressions: Service Date/Time: Saturday, June 03, 2017 11:04 - CONCLUSION: Stable chest x-ray with bibasilar airspace opacity. Dario Mendez MD Abdomen/Pelvis CT 05/26/17 0000 Signed Impressions: Service Date/Time: Friday, May 26, 2017 17:15 - CONCLUSION: Free intraperitoneal air probably from an upper abdominal source. Generalized ileus. Bryson Magaña MD FACR Abdomen X-Ray 05/25/17 Signed Impressions: Service Date/Time: April 11:14 - CONCLUSION: Mildly gas distended colon. Otherwise, unremarkable exam. Anirudh Em Jr., MD Lower Extremity Ultrasound 05/18/17 Signed Impressions: Service Date/Time: April 22:06 - CONCLUSION: Normal examination. Willi Robison MD CT Angiography 05/18/17 Signed Impressions: Service Date/Time: April 18:05 - CONCLUSION: 1. Examination quality is degraded by severe respiratory motion artifact. However , there are filling defects identified within the left upper lobe and right middle lobe pulmonary arteries characteristic of PE. 2. Severe emphysema with trace left pleural effusion and left lower lobe atelectasis versus consolidation. 3. There are bilateral calcified pleural plaques indicative of prior asbestos exposure. 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 I reviewed and agree with the findings presented. I attest that I had a [id number] encounter with the patient on the same day, and personally performed and documented my assessment and findings in the medical record. Abdominal exam: stable, no acute changes Jessie Velázquez Jun 08, 2017 12:00 Leon Pemberton MD Jun 27, 2017 23:38
[2017-06-08] MEDS: CLINIMIX E 4.25/5 2000 mL- >42 mls/hr IV SCH ×3 (13:31)
--- NOTE | 2017-06-08 14:24 | PD.TRANSFR ---
Transfer Summary Admission Date May 18, 2017 at 19:13 Transfer Date: Jun 09, 2017 Admitting Diagnosis pulmonary embolism Diagnoses: (1) Acute on chronic respiratory failure with hypoxemia Diagnosis: Principal (2) Pulmonary embolism Diagnosis: Principal (3) Ischemic necrosis of large intestine Diagnosis: Principal (4) COPD (chronic obstructive pulmonary disease) Diagnosis: Secondary Transfer Summary/Subjective Transferred from [facility] to [facility] 05/27 for abdominal pain and severe SOB. Required right colectomy same day. Difficulty getting extubated due to severe emphysema. Now off vent for 3 days and breathing comfortably. Sustained pulmonary embolus prior to surgery and is on lovenox bid. Abdominal wound to VAC dressing. Ileostomy right side is dusky and surgery service is aware. Mucus fistula on right is good. On PN because he still vomits frequently, acts like persistent ileus. Objective Vital Signs Date Time Temp Pulse Resp B/P (MAP) Pulse Ox O2 Delivery O2 Flow Rate FiO2 06/08/17 14:00 69 06/08/17 13:04 95 Nasal Cannula 3.00 06/08/17 12:00 98.5 26 120/58 (78) 06/08/17 08:00 35 Intake and Output 06/08/17 06/08/17 06/09/17 08:00 16:00 00:00 Intake Total 1433 ml 2010.2 ml Output Total 1715 ml Balance -282 ml 2010.2 ml Result Diagram: 06/08/17 0430 06/08/17 0430 Imaging Last Impressions Chest X-Ray 05/30/17 0400 Signed Impressions: Service Date/Time: Tuesday, May 30, 2017 04:27 - CONCLUSION: 1. Stable bibasilar, right greater than left, airspace consolidation. 2. No significant interval change. Jacoby Cordero MD Abdomen/Pelvis CT 05/26/17 0000 Signed Impressions: Service Date/Time: Friday, May 26, 2017 17:15 - CONCLUSION: Free intraperitoneal air probably from an upper abdominal source. Generalized ileus. Bryson Magaña MD FACR Abdomen X-Ray 05/25/17 0000 Signed Impressions: Service Date/Time: April 11:14 - CONCLUSION: Mildly gas distended colon. Otherwise, unremarkable exam. Anirudh Em Jr., MD Lower Extremity Ultrasound 05/18/17 0000 Signed Impressions: Service Date/Time: April 22:06 - CONCLUSION: Normal examination. Willi Robison MD CT Angiography 05/18/17 0000 Signed Impressions: Service Date/Time: April 18:05 - CONCLUSION: 1. Examination quality is degraded by severe respiratory motion artifact. However , there are filling defects identified within the left upper lobe and right middle lobe pulmonary arteries characteristic of PE. 2. Severe emphysema with trace left pleural effusion and left lower lobe atelectasis versus consolidation. 3. There are bilateral calcified pleural plaques indicative of prior asbestos exposure. Dario Mendez MD Objective Remarks GENERAL: 76-year-old male, currently on 3L O2, in no acute distress SKIN: Warm and dry. Well perfused HEAD: Atraumatic. Normocephalic. EYES: Pupils equal and round about 2 mm bilaterally and reactive. NECK: Trachea midline. Airway widely patent. CARDIOVASCULAR: RRR, NSR S1, S2 no S4 without murmur RESPIRATORY: Clear, good air entry.Diminished at bases bilaterally. GASTROINTESTINAL: Abdomen distended, ileostomy marginal mucosa. Mucus fistula pink. Wound VAC clean dry and intact. Active bowel sounds. MUSCULOSKELETAL: Extremities with chronic venous stasis, 1+ edema. NEUROLOGICAL: Awake and alert. Motor grossly within normal limits. Normal speech. Procedures None. A/P Assessment and Plan Neuro/Psych: Fentanyl 100 every 2 hours prn only. Pain management. Acetaminophen/Ofirmev 1000 mg IV every 8 hours for fever CV: A. fib with RVR Dyslipidemia Hypertension Currently back on amiodarone drip at 01.0 mg/m along with diltiazem at 5 mg an hour for heart rate manage less than 100 Follow-up on electrolytes/TSH today Routine 2-D echocardiogram ordered. Completed 97 AM. No previous history of atrial fibrillation Continue metoprolol 25 mg every 8 hours/on 25 mg at night at home. On simvastatin 10 mill grams daily at home. This is currently in hold. Resume when clinically indicated Resp: Acute on chronic hypoxemic respiratory failure Left upper lobe/middle lobe pulmonary embolism End-stage severe emphysema - FEV1 1.30, FVC 2.34, minimal response to dilators PFTs Currently on Venturi mask 6 L to maintain saturations greater than equal to 88% Albuterol/ipratropium aerosols every 6 hours with albuterol hours is every 2 hours. Dyspnea Continue a cappella and he CPAP to albuterol/ipratropium aerosols every 6 hours D/C pulmonary dose methylprednisolone 40 mg IV twice a day CTPA - left upper lobe/right middle lobe PE. Severe emphysematous changes. Left lower lobe atelectasis. Bilateral pleural plaques Converted to BID lovenox, heparin gtt d/c'd. GI: Status post open lap, right colectomy with end ileostomy secondary to perforation hollow viscus Ileus Currently on famotidine 20 mg IV twice a day On metoclopramide 10 mg IV every 8 hours : Dubose catheter to maintain accurate I's and O's in a critically ill patient Endo: Chronic prednisone use Hyperglycemia of critical illness Sliding scale insulin Accu-Cheks every 6 hours to maintain euglycemia/low regimen Novulog Renal: Acute kidney injury - resolved Change normal saline to LR to 100 cc an hour Monitor urine output - 1225 past 24 hours Accurate I's and O's Heme: Normocytic anemia History thrombocytopenia currently normal Monitor CBC daily. Follow trends Continue heparin drip for PE Currently on heparin drip at 900 units an hour ID: Monitor for infection Previously on piperacillin/tazobactam. FEN: Hypernatremia - resolved Adjust IV fluids off, maintain TPN MSK: PT evaluate and treat Overall impression: Pulmonary function marginal as chronic problem. Recent pulmonary embolism complicates issue. Improving. Chip Chavez MD Jun 08, 2017 14:24
--- NOTE | 2017-06-08 16:23 | HHI.PR ---
Subjective Remarks 76 YOWM with COPD PE Mild sob, feels weak appetite poor, on TPN On Lovenox Started clear liq NGT clamped Objective Vital Signs Vital Signs Date Time Temp Pulse Resp B/P (MAP) Pulse Ox O2 Delivery O2 Flow Rate FiO2 06/08/17 16:00 68 06/08/17 16:00 98.0 68 26 122/56 (78) 97 06/08/17 14:00 69 06/08/17 13:04 95 Nasal Cannula 3.00 06/08/17 12:00 98.5 90 26 120/58 (78) 96 06/08/17 12:00 90 06/08/17 10:00 77 06/08/17 08:00 98.5 76 25 117/59 (78) 96 06/08/17 08:00 94 Nasal Cannula 3.00 35 Humidified 06/08/17 08:00 69 06/08/17 06:00 77 06/08/17 04:00 84 06/08/17 04:00 98.9 84 35 118/57 (77) 95 06/08/17 02:00 80 06/08/17 00:00 99.1 82 30 121/58 (79) 94 06/08/17 00:00 82 06/07/17 22:00 86 06/07/17 20:00 100.1 83 30 133/60 (84) 97 06/07/17 20:00 83 06/07/17 19:00 97 Nasal Cannula 3.00 06/07/17 18:00 81 I/O 06/07/17 06/07/17 06/07/17 06/08/17 06/08/17 06/08/17 07:00 15:00 23:00 07:00 15:00 23:00 Intake Total 3615 ml 285 ml 1363 ml 1433 ml 2010.2 ml Output Total 1905 ml 2505 ml 1715 ml Balance 1710 ml 285 ml -1142 ml -282 ml 2010.2 ml Intake Oral 50 ml IV Total 2202 ml 285 ml 952 ml 119 ml 2010.2 ml TPN/PPN 1283 ml 125 ml 1196 ml Lipid 130 ml 236 ml 118 ml Output Urine Total 950 ml 1950 ml 850 ml Stool Total 225 ml 350 ml 325 ml Gastric Drainage Total 700 ml 200 ml 500 ml Drainage Total 30 ml 5 ml 40 ml Result Diagram: 06/08/1742906/08/17429 Objective Remarks GENERAL: WBWN WM,NAD SKIN: Warm and dry. HEAD: Normocephalic. EYES: No scleral icterus. No injection or drainage. NECK: Supple, trachea midline. No JVD or lymphadenopathy. CARDIOVASCULAR: Regular rate and rhythm without murmurs, gallops, or rubs. RESPIRATORY: Breath sounds equal bilaterally. No accessory muscle use. GASTROINTESTINAL: Abdomen soft, non-tender, nondistended. MUSCULOSKELETAL: No cyanosis, or edema. BACK: Nontender without obvious deformity. No CVA tenderness. A/P Assessment and Plan VDRF, s/p extubation. S/P Emergent resection of Colon Pulm Embolism COPD HTN Pleural Plaques PLAN: Wean 02 to keep sat >92% Encourage PO TPN Lovenox 110 mg sq q 12 hrs Janak Mclaughlin MD Jun 08, 2017 16:23
[2017-06-08] MEDS: FAT EMULSION 20% INJ 250 ML (@10 mls/hr) IV SCH (20:27)
[2017-06-09] VITALS: BP 117/59; PULSE 64; RESP 33; TEMP 99.1; O2SAT 94
[2017-06-09] MEDS: INSULIN ASPART SUPPLEMENTAL SCALE SQ SCH ×4 (01:30→19:30)
[2017-06-09] MEDS: ENOXAPARIN SODIUM 120 MG/0.8 ML SYRINGE SQ SCH ×2 (02:00→13:48)
[2017-06-09 04:00] VITALS: BP 120/56; PULSE 68; RESP 30; TEMP 98.7; O2SAT 94
[2017-06-09] MEDS: FAMOTIDINE 20 MG/2 ML VIAL IV PUSH SCH ×2 (04:00→15:30)
[2017-06-09] MEDS: METOPROLOL TARTRATE 25 MG TAB PO SCH ×3 (05:57→20:57)
[2017-06-09 08:00] VITALS: BP 119/59; PULSE 64; PULSE 70; RESP 22; TEMP 98.6; O2SAT 96
[2017-06-09] MEDS: CHLORHEXIDINE 0.12% (ORAL KIT) 15 ML CUP MT SCH ×2 (08:00→20:00)
[2017-06-09] MEDS: FUROSEMIDE 40 MG/4 ML VIAL IV PUSH SCH (08:03)
[2017-06-09] MEDS: predniSONE 5 MG/5 ML CUP PO SCH ×2 (08:04→20:57)
[2017-06-09] MEDS: METOCLOPRAMIDE HCL 10 MG/2 ML VIAL IV PUSH SCH ×3 (08:04→15:30)
[2017-06-09] MEDS: SODIUM CHLORIDE 0.9% FLUSH 10 ML FLUSH IV FLUSH SCH ×2 (08:04→21:00)
--- NOTE | 2017-06-09 10:40 | HHI.PR ---
Subjective Subjective Notes No issues overnight Was able to stand today with PT Tolerating clear liquids Objective Vitals/I&O Vital Signs Date Time Temp Pulse Resp B/P (MAP) Pulse Ox O2 Delivery O2 Flow Rate FiO2 06/09/17 08:00 64 06/09/17 08:00 98.6 22 119/59 (79) 96 06/09/17 07:00 Nasal Cannula 3.00 35 Radiology Last Impressions Chest X-Ray 06/03/17 0000 Signed Impressions: Service Date/Time: Saturday, June 03, 2017 11:04 - CONCLUSION: Stable chest x-ray with bibasilar airspace opacity. Dario Mendez MD Abdomen/Pelvis CT 05/26/17 0000 Signed Impressions: Service Date/Time: Friday, May 26, 2017 17:15 - CONCLUSION: Free intraperitoneal air probably from an upper abdominal source. Generalized ileus. Bryson Magaña MD FACR Abdomen X-Ray 05/25/17 0000 Signed Impressions: Service Date/Time: April 11:14 - CONCLUSION: Mildly gas distended colon. Otherwise, unremarkable exam. Anirudh Em Jr., MD Lower Extremity Ultrasound 05/18/17 0000 Signed Impressions: Service Date/Time: April 22:06 - CONCLUSION: Normal examination. Willi Robison MD CT Angiography 05/18/17 0000 Signed Impressions: Service Date/Time: April 18:05 - CONCLUSION: 1. Examination quality is degraded by severe respiratory motion artifact. However , there are filling defects identified within the left upper lobe and right middle lobe pulmonary arteries characteristic of PE. 2. Severe emphysema with trace left pleural effusion and left lower lobe atelectasis versus consolidation. 3. There are bilateral calcified pleural plaques indicative of prior asbestos exposure. Dario Mendez MD Cardiovascular: Regular Lungs: Clear Abdomen: Other (midline incision with Wound Vac in place ---good seal; MF pink with serous drainage; ileostomy--stoma dark with liquid stool ) Extremities: Other (moderate generalized edema ) A/P Assessment and Plan 76 year old male POD13 ex lap; RIGHT hemicolectomy with end ileostomy and mucus fistula for ischemia -DC NGT -Continue clear liquids -On NC -Continue subq heparin -Monitor Hmg -Continue TPN -PT -Continue to monitor WBC -Wound Vac to midline incision Jessie Campo Jun 09, 2017 10:40
[2017-06-09] MEDS: CLINIMIX E 4.25/5 2000 mL- >42 mls/hr IV SCH ×3 (11:08)
[2017-06-09 12:00] VITALS: BP 114/56; PULSE 70; RESP 24; TEMP 98.6; O2SAT 94
--- NOTE | 2017-06-09 14:38 | PD.WCN.NOT ---
Wound Consult Description: ilestomy and mucus fistula appliance change Vac change to midline abdomen Communicated with: YAZAN Rodrigues ARNP Recommendation: Change Wound VAC to midline abdomen as ordered Monday with wound VAC settings @ 125mmHg low continuous suction. Changed collection bag to left upper quadrant mucus fistula using cut to fit 4" appliance. Changed ileostomy appliance to right lower quadrant using 2 3/4" appliance. Additional Information: Patient seen on 3 with VENESSA Merlos Neg Pressure Wound Therapy Wound Location Wound Location: Midline abdomen Wound Description Wound bed appearance: ~50% adipose tissue ~50% granulation tissue Minimal sanguinous drainage Open wound margins Periwound appearance: Unremarkable Settings Suction: 125 mmHg, Continuous Intensity: Low Other Information: Windowpaned, Mushroomed Foam type: Black Number of pieces: 2 (2 pieces used in total, one in wound bed and 1 for mushroomed sensitrac pad placement) Additonal Information Wound VAC dressing to midline abdomen removed from wound bed to reveal red granulation tissue and adipose tissue with minimal serosang drainage noted. Wound was cleansed with wound cleanser and gauze. 1 piece black granufoam used in wound bed and secured with wound VAC drape. Sensitrac pad placed over distal middle portion of wound bed using 1 piece of black granufoam cut in a mushroom shape. Wound vac started and working properly without leaks. Ostomy Type: Ileostomy (right lower quadrant), Other (Mucus fistula noted to left upper abdomen) Surgeon: Leon Pemberton MD Complete: Education materials ([employer] kit left at bedside) Educated patient on: Ilestomy Mucus Fistula Output Taking off appliance Cleansing peristomal skin Measuring stoma for appliance selection Applying new barrier and pouch Closing the end of the pouch to avoid leaks Additional information Right lower quadrant ileostomy is functioning with dark green liquid effluent noted in pouch prior to removal. There is mild odor noted with effluent. Stoma measures 1 3/4 and is oval, dark with sloughing to reveal red, soft, moist, lumen in center. Appliance was changed by machine sign writer today using a 2 3/4" appliance. Left upper abdomen mucus fistula is pink, oval, moist, lumen in center, with dark pink liquid effluent and measuring 2". Appliance was changed today by machine sign writer using a cut to fit 4" wafer. Francine Mcadams [facility] Jun 09, 2017 14:37
[2017-06-09 16:00] VITALS: BP 120/59; PULSE 64; RESP 26; TEMP 99.1; O2SAT 96
--- NOTE | 2017-06-09 16:01 | HHI.PR ---
Subjective Remarks Written by Bruna Hale, acting as scribe for Dr. Mead on 06/09/17 at 15:56. Follow up ischemic bowel, PE, COPD. Patient seen and examined. Lying in bed comfortably in no apparent distress on 3 L NC. Denies any new acute complaints overnight. Abdominal wound vac in place. TPN and lipids continued. Tolerating clear liquids. Denies any recent fever, chills, cough, shortness of breath, abdominal pain, n/v/d, or dysuria. Objective Vitals Vital Signs Date Time Temp Pulse Resp B/P (MAP) Pulse Ox O2 Delivery O2 Flow Rate FiO2 06/09/17 12:00 70 06/09/17 12:00 98.6 70 24 114/56 (75) 94 06/09/17 08:00 64 06/09/17 08:00 98.6 70 22 119/59 (79) 96 06/09/17 07:00 95 Nasal Cannula 3.00 35 06/09/17 04:00 68 06/09/17 04:00 98.7 68 30 120/56 (77) 94 06/09/17 00:00 99.1 64 33 117/59 (78) 94 06/09/17 00:00 64 06/08/17 20:00 99.0 76 28 126/59 (81) 97 06/08/17 20:00 76 06/08/17 19:00 97 Nasal Cannula 3.00 35 06/08/17 16:00 68 06/08/17 16:00 98.0 68 26 122/56 (78) 97 I/O 06/08/17 06/08/17 06/08/17 06/09/17 06/09/17 06/09/17 07:00 15:00 23:00 07:00 15:00 23:00 Intake Total 1433 ml 2010.2 ml 1356 ml 1729 ml 2010.2 ml Output Total 1715 ml 1230 ml 770 ml Balance -282 ml 2010.2 ml 126 ml 959 ml 2010.2 ml Intake Oral 300 ml 300 ml IV Total 119 ml 2010.2 ml 1056 ml 2010.2 ml TPN/PPN 1196 ml 1298 ml Lipid 118 ml 131 ml Output Urine Total 850 ml 950 ml 450 ml Stool Total 325 ml 200 ml 300 ml Gastric Drainage Total 500 ml Drainage Total 40 ml 80 ml 20 ml Result Diagram: 06/08/17 0430 06/08/17 0430 Imaging Last Impressions Chest X-Ray 06/04/17 0000 Signed Impressions: Service Date/Time: Sunday, June 04, 2017 15:44 - CONCLUSION: 1. Satisfactory placement of left subclavian central venous catheter. 2. No evidence pneumothorax. 3. Clearing basilar airspace disease. Philip Gardner MD Abdomen/Pelvis CT 05/26/17 0000 Signed Impressions: Service Date/Time: Friday, May 26, 2017 17:15 - CONCLUSION: Free intraperitoneal air probably from an upper abdominal source. Generalized ileus. Bryson Magaña MD FACR Abdomen X-Ray 05/25/17 0000 Signed Impressions: Service Date/Time: April 11:14 - CONCLUSION: Mildly gas distended colon. Otherwise, unremarkable exam. Anirudh Em Jr., MD Lower Extremity Ultrasound 05/18/17 0000 Signed Impressions: Service Date/Time: , May 18, 2017 22:06 - CONCLUSION: Normal examination. Willi Robison MD CT Angiography 05/18/17 0000 Signed Impressions: Service Date/Time: April 18:05 - CONCLUSION: 1. Examination quality is degraded by severe respiratory motion artifact. However , there are filling defects identified within the left upper lobe and right middle lobe pulmonary arteries characteristic of PE. 2. Severe emphysema with trace left pleural effusion and left lower lobe atelectasis versus consolidation. 3. There are bilateral calcified pleural plaques indicative of prior asbestos exposure. Dario Mendez MD Objective Remarks GENERAL: Well-nourished, well-developed male patient, lying in bed in no apparent distress. Awake and alert, oriented x 3. SKIN: Warm and dry. No rash. Midline abdominal wound vac in place, dressing c/d/ i. HEAD: Normocephalic. EYES: No scleral icterus. No injection or drainage. PERRL. EOM intact. NECK: Supple, trachea midline. No JVD or lymphadenopathy. CARDIOVASCULAR: Regular rate and rhythm without murmurs, gallops, or rubs. RESPIRATORY: Breath sounds equal bilaterally. No accessory muscle use. GASTROINTESTINAL: Abdomen soft, non-tender, nondistended. Hypoactive bowel sounds x 4 q. Left colostomy in place, dressing c/d/i. Right ileostomy to right lower quadrant, c/d/i, bag intact. MUSCULOSKELETAL: No cyanosis, or edema. BACK: Nontender without obvious deformity. No CVA tenderness. Procedures None. A/P Problem List: (1) Acute on chronic respiratory failure with hypoxemia ICD Code: J96.21 - Acute and chronic respiratory failure with hypoxia (2) Pulmonary embolism ICD Code: I26.99 - Other pulmonary embolism without acute cor pulmonale Status: Acute (3) Ischemic necrosis of large intestine ICD Code: K55.049 - Acute infarction of large intestine, extent unspecified (4) COPD (chronic obstructive pulmonary disease) ICD Code: J44.9 - Chronic obstructive pulmonary disease, unspecified Assessment and Plan 76-year-old male admitted secondary to acute pulmonary embolism and hypoxia. [facility] His pain was worse with deep inspiration. Work up indicated bilateral PE. Patient has severe emphysema and non-exacerbated COPD who developed right side abdominal pain and free peritoneal air following several days of constipation. Perforated hollow viscous organ and sepsis -> colon resected -> ileostomy and mucus fistula to rectal segment. Status post open lap, right colectomy with 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 - Currently on famotidine 20 mg IV twice a day - On metoclopramide 10 mg IV every 8 hours - NGT removed. Tolerating clear liquids. On TPN and lipids for now. Continue to monitor. - Midline abdominal wound vac in place. Ileostomy and colostomy in place. A. fib with RVR, improved Dyslipidemia Hypertension, well-controlled now. - Atrial fib RVR resolved, off amiodarone drip. - 2-D ECHO with EF 60-65%. - No previous history of atrial fibrillation. - Continue metoprolol 25 mg PO q8h. - On simvastatin 10mg PO daily at home. Resume when clinically indicated. - Continue Lasix 40 IV daily. Continued positive fluid balance. Will monitor. Acute on chronic hypoxemic respiratory failure, resolving. Left upper lobe/middle lobe pulmonary embolism End-stage severe emphysema - FEV1 1.30, FVC 2.34, minimal response to dilators 05/11 PFTs - Albuterol/ipratropium aerosols every 6 hours with albuterol hours is every 2 hours. Dyspnea - Continue acapella and albuterol/ipratropium aerosols every 6 hours - CTPA - left upper lobe/right middle lobe PE. Severe emphysematous changes. Left lower lobe atelectasis. Bilateral pleural plaques Chronic prednisone use Hyperglycemia - Sliding scale insulin Accu-Cheks every 6 hours to maintain euglycemia/low regimen Novolog. Cover as needed. - Refusing prednisone. Will follow. Normocytic anemia History thrombocytopenia currently normal - Monitor CBC. Currently 9.6. Follow trends. - Previously on heparin drip for PE, off now. Hyponatremia, improving. Order for BMP in am, follow. DVT prophylaxis: SCDs/Lovenox. Attending Statement This note was transcribed by adolfo [Uma]. I, Dr. Nilda Mead personally performed the history, physical exam, and medical decision making; and confirmed the accuracy of the information in the transcribed note. Authenticated by Dr. Nilda Mead on 06/09/17 at 16:01 Problem Qualifiers (1) Pulmonary embolism: Qualified Codes: I26.99 - Other pulmonary embolism without acute cor pulmonale (2) COPD (chronic obstructive pulmonary disease): Qualified Codes: J44.9 - Chronic obstructive pulmonary disease, unspecified Bruna Hale Jun 09, 2017 16:01 Nilda Mead MD Jun 09, 2017 16:01
--- NOTE | 2017-06-09 18:44 | HHI.PR ---
Subjective Remarks 76 YOWM with COPD PE Mild sob, feels weak appetite poor, on TPN On Lovenox Started clear liq NGT removed Objective Vital Signs Vital Signs Date Time Temp Pulse Resp B/P (MAP) Pulse Ox O2 Delivery O2 Flow Rate FiO2 06/09/17 16:00 99.1 64 26 120/59 (79) 96 06/09/17 16:00 64 06/09/17 12:00 70 06/09/17 12:00 98.6 70 24 114/56 (75) 94 06/09/17 08:00 64 06/09/17 08:00 98.6 70 22 119/59 (79) 96 06/09/17 07:00 95 Nasal Cannula 3.00 35 06/09/17 04:00 68 06/09/17 04:00 98.7 68 30 120/56 (77) 94 06/09/17 00:00 99.1 64 33 117/59 (78) 94 06/09/17 00:00 64 06/08/17 20:00 99.0 76 28 126/59 (81) 97 06/08/17 20:00 76 06/08/17 19:00 97 Nasal Cannula 3.00 35 I/O 06/08/17 06/08/17 06/08/17 06/09/17 06/09/17 06/09/17 07:00 15:00 23:00 07:00 15:00 23:00 Intake Total 1433 ml 2010.2 ml 1356 ml 1729 ml 2010.2 ml 1586 ml Output Total 1715 ml 1230 ml 770 ml 1710 ml Balance -282 ml 2010.2 ml 126 ml 959 ml 2010.2 ml -124 ml Intake Oral 300 ml 300 ml 400 ml IV Total 119 ml 2010.2 ml 1056 ml 2010.2 ml 1186 ml TPN/PPN 1196 ml 1298 ml Lipid 118 ml 131 ml Output Urine Total 850 ml 950 ml 450 ml 1450 ml Stool Total 325 ml 200 ml 300 ml 250 ml Gastric Drainage Total 500 ml Drainage Total 40 ml 80 ml 20 ml 10 ml Result Diagram: 06/08/1742906/08/17429 Objective Remarks GENERAL: WBWN WM,NAD SKIN: Warm and dry. HEAD: Normocephalic. EYES: No scleral icterus. No injection or drainage. NECK: Supple, trachea midline. No JVD or lymphadenopathy. CARDIOVASCULAR: Regular rate and rhythm without murmurs, gallops, or rubs. RESPIRATORY: Breath sounds equal bilaterally. No accessory muscle use. GASTROINTESTINAL: Abdomen soft, non-tender, nondistended. MUSCULOSKELETAL: No cyanosis, or edema. BACK: Nontender without obvious deformity. No CVA tenderness. A/P Assessment and Plan VDRF, s/p extubation. S/P Emergent resection of Colon Pulm Embolism COPD HTN Pleural Plaques PLAN: Wean 02 to keep sat >92% Encourage PO TPN Lovenox 110 mg sq q 12 hrs Stable from pulm standpoint to tr to floor Janak Mclaughlin MD Jun 09, 2017 18:44
[2017-06-09 20:00] VITALS: BP 107/52; PULSE 69; PULSE 71; RESP 20; TEMP 98.3; O2SAT 96
[2017-06-09] MEDS: FAT EMULSION 20% INJ 250 ML (@10 mls/hr) IV SCH (20:00)
[2017-06-10] VITALS (7 sets, daily range): BP systolic 99–116; BP diastolic 53–58; PULSE 70–86; RESP 17–20; TEMP 97–98.3; O2SAT 94–98
[2017-06-10] MEDS: METOCLOPRAMIDE HCL 10 MG/2 ML VIAL IV PUSH SCH ×3 (00:05→18:08)
[2017-06-10] MEDS: INSULIN ASPART SUPPLEMENTAL SCALE SQ SCH ×3 (01:30→19:30)
[2017-06-10] MEDS: ENOXAPARIN SODIUM 120 MG/0.8 ML SYRINGE SQ SCH ×2 (02:50→14:25)
[2017-06-10] MEDS: METOPROLOL TARTRATE 25 MG TAB PO SCH ×3 (05:09→21:11)
[2017-06-10] MEDS: FAMOTIDINE 20 MG/2 ML VIAL IV PUSH SCH ×2 (05:09→18:08)
[2017-06-10] MEDS: CLINIMIX E 4.25/5 2000 mL- >42 mls/hr IV SCH ×3 (05:15)
[2017-06-10 06:08] LABS: AUTOMATED NEUTROPHIL # 5.5 TH/MM3 (1.8-7.7); BASOPHIL # 0.1 TH/MM3 (0-0.2); BASOPHIL % 0.9 % (0.0-2.0); EOSINOPHIL # 0.1 TH/MM3 (0-0.4); EOSINOPHIL % 1.9 % (0.0-4.0); LYMPH % 12.6 % (9.0-44.0); LYMPHOCYTE # 0.9 TH/MM3 (1.0-4.8); MEAN CELL VOLUME 89.3 FL (80.0-100.0); MEAN CORPUSCULAR HEMOGLOBIN 31.2 PG (27.0-34.0); MEAN CORPUSCULAR HGB CONC 34.9 % (32.0-36.0); MONO % 9.9 % (0.0-8.0); NEUT % 74.7 % (16.0-70.0); PLATELET COUNT 187 TH/MM3 (150-450); RED CELL DISTRIBUTION WIDTH 15.4 % (11.6-17.2); WHITE BLOOD COUNT 7.4 TH/MM3 (4.0-11.0)
[2017-06-10 06:10] LABS: HEMO FLAGS AUTO DIFF
[2017-06-10 06:31] LABS: POTASSIUM 3.6 MEQ/L (3.5-5.1)
[2017-06-10 07:19] LABS: BANDS 9 % (0-6); CORRECTED NUCLEATED RBC 1 /100 WBC (0-0); EOSINOPHILS 1 % (0-4); METAMYELOCYTES 1 % (0-1); NEUTROPHIL # MANUAL DIFF 5.8 TH/MM3 (1.8-7.7); POLYS (SEG NEUTROPHILS) 69 % (16-70); WBC DIFF SAMPLE 100
[2017-06-10 07:22] LABS: SCAN/DIFF FINAL DIFF MANUAL
[2017-06-10] MEDS: FUROSEMIDE 40 MG/4 ML VIAL IV PUSH SCH (09:28)
[2017-06-10] MEDS: SODIUM CHLORIDE 0.9% FLUSH 10 ML FLUSH IV FLUSH SCH ×2 (09:39→21:11)
--- NOTE | 2017-06-10 10:00 | HHI.PR ---
cc: Jaime Daniels MD Subjective Subjective Notes Resting in bed Tolerated clears Objective Vitals/I&O Vital Signs Date Time Temp Pulse Resp B/P (MAP) Pulse Ox O2 Delivery O2 Flow Rate FiO2 06/10/17 08:00 98.3 72 20 99/56 (70) 94 06/10/17 04:00 Nasal Cannula 2.00 06/09/17 07:00 35 Labs Laboratory Tests Test 06/10/17 05:20 White Blood Count 7.4 Red Blood Count 2.80 Hemoglobin 8.7 Hematocrit 25.0 Mean Corpuscular Volume 89.3 Mean Corpuscular Hemoglobin 31.2 Mean Corpuscular Hemoglobin Concent 34.9 Red Cell Distribution Width 15.4 Platelet Count 187 Mean Platelet Volume 8.7 Neutrophils (%) (Auto) 74.7 Lymphocytes (%) (Auto) 12.6 Monocytes (%) (Auto) 9.9 Eosinophils (%) (Auto) 1.9 Basophils (%) (Auto) 0.9 Neutrophils # (Auto) 5.5 Lymphocytes # (Auto) 0.9 Monocytes # (Auto) 0.7 Eosinophils # (Auto) 0.1 Basophils # (Auto) 0.1 CBC Comment AUTO DIFF Differential Total Cells Counted 100 Neutrophils % (Manual) 69 Band Neutrophils % 9 Lymphocytes % 16 Monocytes % 4 Eosinophils % 1 Neutrophils # (Manual) 5.8 Metamyelocytes 1 Nucleated Red Blood Cells 1 Differential Comment FINAL DIFF MANUAL Atypical Lymphocytes Blood Urea Nitrogen 16 Creatinine 0.65 Random Glucose 115 Calcium Level 7.8 Sodium Level 133 Potassium Level 3.6 Chloride Level 98 Carbon Dioxide Level 28.0 Anion Gap 7 Estimat Glomerular Filtration Rate 120 Radiology Last Impressions Chest X-Ray 06/03/17 0000 Signed Impressions: Service Date/Time: Saturday, June 03, 2017 11:04 - CONCLUSION: Stable chest x-ray with bibasilar airspace opacity. Dario Mendez MD Abdomen/Pelvis CT 05/26/17 0000 Signed Impressions: Service Date/Time: Friday, May 26, 2017 17:15 - CONCLUSION: Free intraperitoneal air probably from an upper abdominal source. Generalized ileus. Bryson Magaña MD FACR Abdomen X-Ray 05/25/17 Signed Impressions: Service Date/Time: April 11:14 - CONCLUSION: Mildly gas distended colon. Otherwise, unremarkable exam. Anirudh Em Jr., MD Lower Extremity Ultrasound 05/18/17 Signed Impressions: Service Date/Time: , May 18, 2017 22:06 - CONCLUSION: Normal examination. Willi Robison MD CT Angiography 05/18/17 Signed Impressions: Service Date/Time: , May 18, 2017 18:05 - CONCLUSION: 1. Examination quality is degraded by severe respiratory motion artifact. However , there are filling defects identified within the left upper lobe and right middle lobe pulmonary arteries characteristic of PE. 2. Severe emphysema with trace left pleural effusion and left lower lobe atelectasis versus consolidation. 3. There are bilateral calcified pleural plaques indicative of prior asbestos exposure. Dario Mendez MD Cardiovascular: Regular Lungs: Clear Abdomen: Other (MF on LEFT; ileostomy stoma dark--- liquid output; wound vac in place; abdomen soft minimally tender ) Extremities: No edema A/P Assessment and Plan 76 year old male [id number] ex lap; RIGHT hemicolectomy with end ileostomy and mucus fistula for ischemia -Advance Full liquids -On NC -Continue subq heparin -Monitor Hmg -Continue TPN -PT -Continue to monitor WBC -Wound Vac to midline incision MWF I CERTIFY AND ATTEST THAT I PERSONALLY EXAMINED THE PATIENT IN THEIR ROOM. MS OTOOLE DOCUMENTED OUR VISIT AND ENTERED ORDERS IN THE EMR UNDER MY DIRECT SUPERVISION. I REVIEWED THE CARE PLAN WITH THE NURSING STAFF, THE PATIENT AND THEIR FAMILY. Jessie Camacho MD, FACS Jun 10, 2017 10:00 Jaime Daniels MD Jun 13, 2017 13:25
--- NOTE | 2017-06-10 13:35 | HHI.PR ---
Subjective Remarks in no acute distress. denies pain, nausea or vomiting. no sob. afebrile. d/w the RN. Objective Vitals Vital Signs Date Time Temp Pulse Resp B/P (MAP) Pulse Ox O2 Delivery O2 Flow Rate FiO2 06/10/17 12:00 97.5 77 20 102/55 (71) 96 06/10/17 08:00 98.3 72 20 99/56 (70) 94 06/10/17 04:00 98.0 70 18 107/55 (72) 95 06/10/17 04:00 Nasal Cannula 2.00 06/10/17 00:00 98.1 71 20 105/58 (74) 95 06/10/17 00:00 Nasal Cannula 2.00 06/09/17 20:00 69 06/09/17 20:00 98.3 71 20 107/52 (70) 96 06/09/17 20:00 Nasal Cannula 2.00 06/09/17 16:00 99.1 64 26 120/59 (79) 96 06/09/17 16:00 64 I/O 06/09/17 06/09/17 06/09/17 06/10/17 06/10/17 06/10/17 07:00 15:00 23:00 07:00 15:00 23:00 Intake Total 1729 ml 2010.2 ml 1586 ml 1219 ml Output Total 770 ml 1710 ml 750 ml Balance 959 ml 2010.2 ml -124 ml 469 ml Intake Oral 300 ml 400 ml IV Total 2010.2 ml 1186 ml 1219 ml TPN/PPN 1298 ml Lipid 131 ml Output Urine Total 450 ml 1450 ml 750 ml Stool Total 300 ml 250 ml Drainage Total 20 ml 10 ml Result Diagram: 06/10/17 0520 06/10/17 0520 Imaging Last Impressions Chest X-Ray 06/04/17 0000 Signed Impressions: Service Date/Time: Sunday, June 04, 2017 15:44 - CONCLUSION: 1. Satisfactory placement of left subclavian central venous catheter. 2. No evidence pneumothorax. 3. Clearing basilar airspace disease. Philip Gardner MD Abdomen/Pelvis CT 05/26/17 0000 Signed Impressions: Service Date/Time: Friday, May 26, 2017 17:15 - CONCLUSION: Free intraperitoneal air probably from an upper abdominal source. Generalized ileus. Bryson Magaña MD FACR Abdomen X-Ray 05/25/17 Signed Impressions: Service Date/Time: April 11:14 - CONCLUSION: Mildly gas distended colon. Otherwise, unremarkable exam. Anirudh Em Jr., MD Lower Extremity Ultrasound 05/18/17 Signed Impressions: Service Date/Time: , May 18, 2017 22:06 - CONCLUSION: Normal examination. Willi Robison MD CT Angiography 05/18/17 Signed Impressions: Service Date/Time: April 18:05 - CONCLUSION: 1. Examination quality is degraded by severe respiratory motion artifact. However , there are filling defects identified within the left upper lobe and right middle lobe pulmonary arteries characteristic of PE. 2. Severe emphysema with trace left pleural effusion and left lower lobe atelectasis versus consolidation. 3. There are bilateral calcified pleural plaques indicative of prior asbestos exposure. Dario Mendez MD Objective Remarks GENERAL: This is a well-nourished, well-developed patient, in no apparent distress. CARDIOVASCULAR: Regular rate and regular rhythm without murmurs, gallops, or rubs. RESPIRATORY: Clear to auscultation. Breath sounds equal bilaterally. No wheezes , rales, or rhonchi. GASTROINTESTINAL: Abdomen soft, non-tender, nondistended. colostomy in place. MUSCULOSKELETAL: Extremities without clubbing, cyanosis, or edema. NEURO: Alert & Oriented x4 to person, place, time, situation. Moves all ext x4 Medications and IVs Current Medications Sodium Chloride (NS Flush) 2 ml UNSCH PRN IVF FLUSH AFTER USING IV ACCESS; Start 05/18/17 at 16:00; Status Cancel Methylprednisolone Sodium Succinate (SoluMEDROL INJ) 125 mg ONCE ONCE IV PUSH Last administered on 05/18/17 17:47; Start 05/18/17 at 17:30; Stop 05/18/17 at 17:31; Status DC Albuterol/ Ipratropium (Duoneb Neb) 1 ampule Q15M INH Last administered on 05/18 17:42; Start 05/18/17 at 17:30; Stop 05/18/17 at 18:01; Status DC Aspirin (Aspirin Chew) 162 mg ONCE ONCE CHEW Last administered on 05/18/17 17 :48; Start 05/18/17 at 17:30; Stop 05/18/17 at 17:31; Status DC Iohexol (Omnipaque 350 Inj) 75 ml STK-MED ONCE IVCONTRAST Last administered on 05/18/17 15:49; Start 05/18/17 at 15:49; Stop 05/18/17 at 18:08; Status DC Enoxaparin Sodium (Lovenox Inj) 130 mg ONCE ONCE SQ Last administered on 18:44; Start 05/18/17 at 18:45; Stop 05/18/17 at 18:46; Status DC Sodium Chloride (NS Flush) 2 ml UNSCH PRN IV FLUSH FLUSH AFTER USING IV ACCESS ; Start 05/18/17 at 20:00 Sodium Chloride (NS Flush) 2 ml BID IV FLUSH Last administered on 06/10/17 09: 39; Start 05/18/17 at 21:00 Naloxone HCl (Narcan Inj) 0.4 mg UNSCH PRN IV SEE LABEL COMMENTS; Start at 20:00; Stop 05/25/17 at 10:31; Status DC Enoxaparin Sodium (Lovenox Inj) 120 mg Q12H SQ Last administered on 05/19/17 10:19; Start 05/19/17 at 09:00; Stop 05/19/17 at 10:39; Status DC Albuterol/ Ipratropium (Duoneb Neb) 1 ampule Q6HR NEB NEB Last administered on 05/22/17 20:18; Start 05/18/17 at 22:00; Stop 05/22/17 at 21:59; Status DC Albuterol/ Ipratropium (Duoneb Neb) 1 ampule Q2HR NEB PRN NEB wheezing Last administered on 06/04/17 21:47; Start 05/18/17 at 20:00 Methylprednisolone Sodium Succinate (SoluMEDROL INJ) 40 mg Q6HR IV PUSH Last administered on 05/20/17 05:14; Start 05/19/17 at 00:00; Stop 05/20/17 at 09:41 ; Status DC Pantoprazole Sodium (Protonix) 40 mg DAILY PO Last administered on 05/27/17 10: 01; Start 05/19/17 at 09:00; Stop 05/27/17 at 13:44; Status DC Levofloxacin/ Dextrose 150 ml @ 100 mls/hr Q24H IV Last administered on 22:28; Start 05/18/17 at 22:00; Stop 05/21/17 at 09:06; Status DC Apixaban (Eliquis) 10 mg BID PO Last administered on 05/26/17 08:30; Start at 21:00; Stop 05/26/17 at 09:01; Status DC Apixaban (Eliquis) 5 mg BID PO Last administered on 05/26/17 21:29; Start at 21:00; Stop 05/27/17 at 13:44; Status DC Methylprednisolone Sodium Succinate (SoluMEDROL INJ) 40 mg Q8HR IV PUSH Last administered on 05/21/17 05:58; Start 05/20/17 at 14:00; Stop 05/21/17 at 09:03 ; Status DC Methylprednisolone Sodium Succinate (SoluMEDROL INJ) 40 mg Q12HR IV PUSH Last administered on 05/24/17 08:52; Start 05/21/17 at 18:00; Stop 05/24/17 at 19:32 ; Status DC Levofloxacin (Levaquin) 750 mg Q24H PO Last administered on 05/26/17 21:28; Start 05/21/17 at 22:00; Stop 05/27/17 at 13:42; Status DC Prednisone (Deltasone) 10 mg BID PO Last administered on 05/26/17 21:28; Start 05/24/17 at 21:00; Stop 05/27/17 at 13:44; Status DC Prednisone (Deltasone) 20 mg BID PO ; Start 05/24/17 at 21:00; Stop 05/24/17 at 21:00; Status DC Bisacodyl (Dulcolax Ec) 5 mg ONCE ONCE PO Last administered on 05/24/17 21:58 ; Start 05/24/17 at 21:45; Stop 05/24/17 at 21:46; Status DC Naloxone HCl (Narcan Inj) 0.4 mg UNSCH PRN IV SEE LABEL COMMENTS; Start at 10:30 Senna/Docusate Sodium (Faith-Colace) 1 tab BID PO Last administered on 05/26/17 21:00; Start 05/25/17 at 21:00; Stop 05/27/17 at 13:44; Status DC Magnesium Hydroxide (Milk Of Magnesia Liq) 30 ml Q12H PRN PO MILD - MODERATE CONSTIPATION; Start 05/25/17 at 10:30 Sennosides (Senokot) 17.2 mg Q12H PRN PO MODERATE - SEVERE CONSTIPATION Last administered on 05/25/17 13:55; Start 05/25/17 at 10:30; Stop 05/27/17 at 13:44 ; Status DC Bisacodyl (Dulcolax Supp) 10 mg DAILY PRN RECTAL SEVERE CONSITIPATION; Start at 10:30; Stop 06/01/17 at 13:26; Status DC Lactulose (Lactulose Liq) 30 ml DAILY PRN PO SEVERE CONSITIPATION Last administered on 05/25/17 13:55; Start 05/25/17 at 10:30; Stop 05/27/17 at 13:44 ; Status DC Sodium Biphosphate/ Sodium Phosphate (Fleets Enema (Adult)) 133 ml ONCE ONCE RECTAL ; Start 05/26/17 at 12:15; Stop 05/26/17 at 12:44; Status DC Lactulose (Lactulose Liq) 30 ml ONCE ONCE PO Last administered on 05/26/17 12: 49; Start 05/26/17 at 13:00; Stop 05/26/17 at 13:01; Status DC Lactulose (Lactulose Liq) 30 ml QID PO Last administered on 05/26/17 21:29; Start 05/26/17 at 18:00; Stop 05/27/17 at 13:44; Status DC Diatrizoate Meglum/ Diatrizoate Sod ( Gastroview Liq) 18 ml ONCE ONCE PO Last administered on 05/26/17 13:00; Start 05/26/17 at 13:00; Stop 05/26/17 at 13: 01; Status DC Bupivacaine HCl/ Epinephrine Bitart (Sensorcaine-Epi 0.5% 50 ml Inj) 50 ml STK- MED ONCE .ROUTE ; Start 05/27/17 at 13:23; Stop 05/27/17 at 13:24; Status DC Thrombin (Thrombin Top Soln) 5,000 units STK-MED ONCE .ROUTE ; Start 05/27/17 at 13:23; Stop 05/27/17 at 13:24; Status DC Gelatin (Gelfoam 100 Top) 1 foam STK-MED ONCE .ROUTE ; Start 05/27/17 at 13:23; Stop 05/27/17 at 13:24; Status DC Heparin Sodium (Porcine) (Heparin Inj) 10,000 units STK-MED ONCE .ROUTE ; Start 05/27/17 at 13:24; Stop 05/27/17 at 13:25; Status DC Piperacillin Sod/ Tazobactam Sod 100 ml @ 200 mls/hr Q8H IV Last administered on 05/27/17 14:45; Start 05/27/17 at 14:00; Stop 05/27/17 at 17:19; Status DC Lactated Ringer's 1,000 ml @ 30 mls/hr Q24H PRN IV SEE LABEL COMMENTS; Start at 13:45; Stop 05/30/17 at 13:44; Status DC Sodium Chloride 500 ml @ 30 mls/hr [id number] PRN IV SEE LABEL COMMENTS; Start 05/27/17 at 13:45; Stop 05/30/17 at 13:44; Status DC Metoprolol Tartrate (Lopressor) 25 mg COATING INSPECTOR PRN PO SEE LABEL COMMENTS; Start 05/27/17 at 13:45; Stop 05/30/17 at 13:44; Status DC Povidone Iodine (Betadine 5% Antisepsis Kit) 1 applic COATING INSPECTOR PRN EACH NARE SEE LABEL COMMENTS; Start 05/27/17 at 13:45; Stop 05/30/17 at 13:44; Status DC Chlorhexidine Gluconate (Chlorhexidine 2% Cloth) 3 pack COATING INSPECTOR PRN TOPICAL SEE LABEL COMMENTS; Start 05/27/17 at 13:45; Stop 05/30/17 at 13:44; Status DC Insulin Human Regular (NovoLIN R INJ) See Protocol Table ... COATING INSPECTOR PRN SQ SEE PROTOCOL TABLE; Start 05/27/17 at 13:45; Stop 05/28/17 at 13:34; Status DC Famotidine (Pepcid Inj) 20 mg Q12H IV PUSH Last administered on 06/10/17 05:09 ; Start 05/27/17 at 16:00 Methylprednisolone Sodium Succinate (SoluMEDROL INJ) 40 mg Q8HR IV PUSH Last administered on 05/28/17 06:07; Start 05/27/17 at 15:00; Stop 05/28/17 at 10:06; Status DC Lactated Ringer's 1,000 ml @ 999 mls/hr BOLUS ONCE IV Last administered on 14:00; Start 05/27/17 at 14:00; Stop 05/27/17 at 15:00; Status DC Sodium Chloride 1,000 ml @ 100 mls/hr Q10H IV Last administered on 05/31/17 01 :05; Start 05/27/17 at 14:00; Stop 05/31/17 at 11:57; Status DC Albumin Human (Albumin 25% Inj) 50 gm STK-MED ONCE IV ; Start 05/27/17 at 15:03; Stop 05/27/17 at 15:04; Status DC Piperacillin Sod/ Tazobactam Sod 100 ml @ 200 mls/hr COATING INSPECTOR IV ; Start at 15:15; Stop 05/30/17 at 15:14; Status DC Metronidazole 100 ml @ As Directed STK-MED ONCE IV ; Start 05/27/17 at 15:38; Stop 05/27/17 at 15:39; Status DC Chlorhexidine Gluconate (Peridex 0.12% Liq) 15 ml BID@08,20 MT Last administered on 06/05/17 08:00; Start 05/27/17 at 20:00 Propofol 100 ml @ 3.663 mls/ hr TITRATE PRN IV SEDATION Last administered on 11:10; Start 05/27/17 at 17:00; Stop 06/01/17 at 13:04; Status DC Fentanyl Citrate (fentaNYL INJ) 100 mcg Q2H PRN IV PUSH Pain, any amount; Start 05/27/17 at 16:45; Stop 06/07/17 at 09:15; Status DC Fentanyl Citrate 250 ml @ 5 mls/hr TITRATE PRN IV SEDATION Last administered on 05/30/17 11:10; Start 05/27/17 at 17:00; Stop 06/01/17 at 13:26; Status DC Diltiazem HCl 125 mg/Sodium Chloride 125 ml @ 5 mls/hr TITRATE PRN IV Tachycardia Last administered on 05/31/17 18:07; Start 05/27/17 at 17:00; Stop at 08:45; Status DC Metoprolol Tartrate (Lopressor Inj) 5 mg Q6H IV PUSH ; Start 05/27/17 at 17:00; Stop 05/27/17 at 17:19; Status DC Piperacillin Sod/ Tazobactam Sod 50 ml @ 100 mls/hr Q6HR IV Last administered on 06/07/17 05:27; Start 05/27/17 at 18:00; Stop 06/07/17 at 09:15; Status DC Metoprolol Tartrate (Lopressor Inj) 5 mg Q6H PRN IV PUSH Pulse > 110 Last administered on 06/06/17 14:34; Start 05/27/17 at 23:00 Metoprolol Tartrate (Lopressor) 25 mg Q8HR PO Last administered on 05/28/17 06: 08; Start 05/27/17 at 17:15; Stop 05/28/17 at 10:06; Status DC Albuterol/ Ipratropium (Duoneb Neb) 1 ampule Q6HR NEB NEB Last administered on 05/31/17 08:32; Start 05/27/17 at 17:15; Stop 05/31/17 at 11:52; Status DC Midazolam HCl (Versed Inj) 2 mg STK-MED ONCE .ROUTE ; Start 05/27/17 at 17:45; Stop 05/27/17 at 17:46; Status DC Fentanyl Citrate (fentaNYL INJ) 200 mcg STK-MED ONCE .ROUTE ; Start 05/27/17 at 17:46; Stop 05/27/17 at 17:47; Status DC Lactated Ringer's 1,000 ml @ 999 mls/hr BOLUS ONCE IV Last administered on 20:00; Start 05/27/17 at 20:00; Stop 05/27/17 at 21:00; Status DC Methylprednisolone Sodium Succinate (SoluMEDROL INJ) 40 mg Q12HR IV PUSH Last administered on 06/02/17 08:35; Start 05/28/17 at 21:00; Stop 06/02/17 at 16:17; Status DC Metoprolol Tartrate (Lopressor) 12.5 mg Q8HR PO Last administered on 06/02/17 13:36; Start 05/28/17 at 14:00; Stop 06/02/17 at 16:17; Status DC Amiodarone HCl 150 mg/Dextrose 103 ml @ 100 mls/hr Q1H2M ONCE IV Last administered on 05/28/17 10:53; Start 05/28/17 at 10:15; Stop 05/28/17 at 11:16; Status DC Amiodarone HCl 900 mg/Dextrose 500 ml @ 33 mls/hr [id number] IV ; Start 05/28/17 at 10:09; Stop 05/28/17 at 10:13; Status DC Enoxaparin Sodium (Lovenox Inj) 40 mg Q24H SQ Last administered on 05/28/17 12: 35; Start 05/28/17 at 12:00; Stop 05/29/17 at 10:03; Status DC Metoclopramide HCl (Reglan Liq) 10 mg Q8HR PO Last administered on 05/30/17 05 :49; Start 05/28/17 at 14:00; Stop 05/30/17 at 07:50; Status DC Miscellaneous (Pill Splitter) 1 ea UNSCH PRN OTHER SEE LABEL COMMENTS; Start at 10:15 Amiodarone HCl 450 mg/Dextrose 250 ml @ 33.33 mls/ hr Q7H31M IV Last administered on 06/02/17 03:00; Start 05/28/17 at 10:15; Stop 06/02/17 at 08:45; Status DC Dextrose (D50w (Vial) Inj) 50 ml UNSCH PRN IV HYPOGLYCEMIA-SEE COMMENTS; Start 05/28/17 at 13:30 Glucagon (Glucagon Inj) 1 mg UNSCH PRN OTHER HYPOGLYCEMIA-SEE COMMENTS; Start 05/28/17 at 13:30 Insulin Aspart (NovoLOG SUPPLEMENTAL SCALE) 1 Q6H SQ Last administered on 21:29; Start 05/28/17 at 13:30 Heparin Sodium (Porcine) (Heparin Inj) 10,000 units ONCE ONCE IV ; Start at 10:15; Stop 05/29/17 at 10:16; Status DC Heparin Sodium/ Dextrose 250 ml @ 22.644 mls/ hr TITRATE PRN IV Coagulation management Last administered on 06/05/17 06:16; Start 05/29/17 at 10:15; Stop at 09:15; Status DC Metoclopramide HCl (Reglan Inj) 10 mg Q8H IV PUSH Last administered on 09:28; Start 05/30/17 at 08:00 Albuterol/ Ipratropium (Duoneb Neb) 1 ampule Q6HR NEB NEB Last administered on 06/04/17 15:43; Start 05/31/17 at 16:00; Stop 06/04/17 at 15:59; Status DC Potassium Chloride 100 ml @ 100 mls/hr Q1H IV Last administered on 05/31/17 18 :08; Start 05/31/17 at 14:00; Stop 05/31/17 at 15:29; Status DC Lactated Ringer's 1,000 ml @ 100 mls/hr Q10H IV Last administered on 06/02/17 05:00; Start 05/31/17 at 13:00; Stop 06/02/17 at 08:45; Status DC Potassium Chloride 100 ml @ 100 mls/hr Q1H IV ; Start 05/31/17 at 16:30; Stop at 18:29; Status DC Acetaminophen (Ofirmev 1000 Mg/ 100 ml Inj) 1,000 mg Q8HR PRN IV FEVER; Start 06/01/17 at 14:00 Multivitamins 10 ml/Folic Acid 1 mg/Amino Acids/ Electrolytes/ Dextrose 2,010.2 ml @ 100 mls/ hr Q20H7M IV Last administered on 06/10/17 05:15; Start at 20:00 Fat Emulsion Intravenous 250 ml @ 10 mls/hr Q24H IV Last administered on 20:00; Start 06/01/17 at 20:00 Furosemide (Lasix Inj) 60 mg ONCE ONCE IV PUSH Last administered on 06/02/17 09:43; Start 06/02/17 at 08:45; Stop 06/02/17 at 08:47; Status DC Metoprolol Tartrate (Lopressor) 25 mg Q8HR PO Last administered on 06/09/17 20 :57; Start 06/02/17 at 22:00 Furosemide (Lasix Inj) 40 mg DAILY IV PUSH Last administered on 06/10/17 09:28 ; Start 06/03/17 at 11:00 Potassium Chloride 100 ml @ 50 mls/hr Q2H IV Last administered on 06/03/17 17: 30; Start 06/03/17 at 11:30; Stop 06/03/17 at 15:29; Status DC Amiodarone HCl 150 mg/Dextrose 103 ml @ 100 mls/hr Q1H2M ONCE IV Last administered on 06/04/17 08:21; Start 06/04/17 at 08:00; Stop 06/04/17 at 09:01 ; Status DC Amiodarone HCl 450 mg/Dextrose 250 ml @ 33.33 mls/ hr Q7H31M IV Last administered on 06/07/17 09:08; Start 06/04/17 at 07:46; Stop 06/07/17 at 09:15 ; Status DC Prednisone (predniSONE LIQ) 10 mg BID PO Last administered on 06/06/17 08:49; Start 06/04/17 at 09:00 Potassium Chloride 100 ml @ 50 mls/hr Q2H IV Last administered on 06/04/17 17 :20; Start 06/04/17 at 09:00; Stop 06/04/17 at 12:59; Status DC Midazolam HCl (Versed Inj) 5 mg ONCE ONCE IM ; Start 06/04/17 at 14:45; Stop at 14:54; Status DC Enoxaparin Sodium (Lovenox Inj) 110 mg Q12H SQ Last administered on 06/10/17 02:50; Start 06/05/17 at 14:00 A/P Assessment and Plan Status post open lap, right colectomy with 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 - Currently on famotidine 20 mg IV twice a day - On metoclopramide 10 mg IV every 8 hours - NGT removed. Tolerating liquids. - Ileostomy and colostomy in place. -surgery following. A. fib with RVR, improved Dyslipidemia Hypertension, well-controlled now. - Atrial fib RVR resolved, off amiodarone drip. - 2-D ECHO with EF 60-65%. - No previous history of atrial fibrillation. - Continue metoprolol 25 mg PO q8h. - On simvastatin 10mg PO daily at home. Resume when clinically indicated. - Continue Lasix 40 IV daily. Continued positive fluid balance. Will monitor. Acute on chronic hypoxemic respiratory failure, resolving. Left upper lobe/middle lobe pulmonary embolism End-stage severe emphysema - FEV1 1.30, FVC 2.34, minimal response to dilators 05/11 PFTs - Albuterol/ipratropium aerosols every 6 hours with albuterol hours is every 2 hours. Dyspnea - Continue acapella and albuterol/ipratropium aerosols every 6 hours - continue subq Lovenox- will switch to oral anticoagulation when ok with surgery and pulmonary. Chronic prednisone use Hyperglycemia - Sliding scale insulin Accu-Cheks every 6 hours to maintain euglycemia/low regimen Novolog. Cover as needed. - Refusing prednisone. Will follow. Normocytic anemia History thrombocytopenia currently normal - Monitor CBC. - Previously on heparin drip for PE, off now. Hyponatremia, improving. DVT prophylaxis: SCDs/Lovenox. Layne Evangelista MD Jun 10, 2017 13:35
--- NOTE | 2017-06-10 15:54 | HHI.PR ---
Subjective Remarks 76 YOWM with COPD PE Mild sob, feels weak appetite poor, on TPN On Lovenox Appetite improving Objective Vital Signs Vital Signs Date Time Temp Pulse Resp B/P (MAP) Pulse Ox O2 Delivery O2 Flow Rate FiO2 06/10/17 12:00 97.5 77 20 102/55 (71) 96 06/10/17 08:00 98.3 72 20 99/56 (70) 94 06/10/17 04:00 98.0 70 18 107/55 (72) 95 06/10/17 04:00 Nasal Cannula 2.00 06/10/17 00:00 98.1 71 20 105/58 (74) 95 06/10/17 00:00 Nasal Cannula 2.00 06/09/17 20:00 69 06/09/17 20:00 98.3 71 20 107/52 (70) 96 06/09/17 20:00 Nasal Cannula 2.00 06/09/17 16:00 99.1 64 26 120/59 (79) 96 06/09/17 16:00 64 I/O 06/09/17 06/09/17 06/09/17 06/10/17 06/10/17 06/10/17 07:00 15:00 23:00 07:00 15:00 23:00 Intake Total 1729 ml 2010.2 ml 1586 ml 1219 ml Output Total 770 ml 1710 ml 750 ml Balance 959 ml 2010.2 ml -124 ml 469 ml Intake Oral 300 ml 400 ml IV Total 2010.2 ml 1186 ml 1219 ml TPN/PPN 1298 ml Lipid 131 ml Output Urine Total 450 ml 1450 ml 750 ml Stool Total 300 ml 250 ml Drainage Total 20 ml 10 ml Result Diagram: 06/10/1751906/10/1720 Objective Remarks GENERAL: WBWN WM,NAD SKIN: Warm and dry. HEAD: Normocephalic. EYES: No scleral icterus. No injection or drainage. NECK: Supple, trachea midline. No JVD or lymphadenopathy. CARDIOVASCULAR: Regular rate and rhythm without murmurs, gallops, or rubs. RESPIRATORY: Breath sounds equal bilaterally. No accessory muscle use. GASTROINTESTINAL: Abdomen soft, non-tender, nondistended. MUSCULOSKELETAL: No cyanosis, or edema. BACK: Nontender without obvious deformity. No CVA tenderness. A/P Assessment and Plan VDRF, s/p extubation. S/P Emergent resection of Colon Pulm Embolism COPD HTN Pleural Plaques PLAN: Wean 02 to keep sat >92% Encourage PO Lovenox 110 mg sq q 12 hrs Aerosol Janak Styles MD Jun 10, 2017 15:54
[2017-06-10] MEDS: FAT EMULSION 20% INJ 250 ML (@10 mls/hr) IV SCH (21:11)
[2017-06-11] VITALS (8 sets, daily range): BP systolic 108–130; BP diastolic 53–68; PULSE 74–85; RESP 19–21; TEMP 97.4–98.3; O2SAT 92–97
[2017-06-11] MEDS: METOCLOPRAMIDE HCL 10 MG/2 ML VIAL IV PUSH SCH ×4 (00:17→23:24)
[2017-06-11] MEDS ORDERED: ACETAMINOPHEN/HYDROcodone 325 MG/5 MG TAB PO ONE (00:45)
[2017-06-11] MEDS: CLINIMIX E 4.25/5 2000 mL- >42 mls/hr IV SCH ×6 (00:54→20:26)
[2017-06-11] MEDS: ENOXAPARIN SODIUM 120 MG/0.8 ML SYRINGE SQ SCH ×2 (00:54→12:42)
[2017-06-11] MEDS: INSULIN ASPART SUPPLEMENTAL SCALE SQ SCH ×4 (01:30→19:30)
[2017-06-11] MEDS: METOPROLOL TARTRATE 25 MG TAB PO SCH ×3 (04:52→20:26)
[2017-06-11] MEDS: FAMOTIDINE 20 MG/2 ML VIAL IV PUSH SCH ×2 (04:52→17:49)
[2017-06-11] MEDS: FUROSEMIDE 40 MG/4 ML VIAL IV PUSH SCH (09:00)
--- NOTE | 2017-06-11 11:47 | HHI.PR ---
Subjective Remarks in no acute distress. afebrile. no abdominal pain, nausea or vomiting. Objective Vitals Vital Signs Date Time Temp Pulse Resp B/P (MAP) Pulse Ox O2 Delivery O2 Flow Rate FiO2 06/11/17 09:59 96 Nasal Cannula 2.00 06/11/17 04:00 98.3 74 21 110/67 (81) 96 06/11/17 00:00 98.0 77 19 130/55 (80) 95 06/11/17 00:00 Nasal Cannula 2.00 06/10/17 20:00 79 06/10/17 20:00 97.4 82 17 116/55 (75) 95 06/10/17 19:55 Nasal Cannula 2.00 06/10/17 16:00 97.0 72 18 110/53 (72) 98 06/10/17 12:00 97.5 77 20 102/55 (71) 96 I/O 06/10/17 06/10/17 06/10/17 06/11/17 06/11/17 06/11/17 07:00 15:00 23:00 07:00 15:00 23:00 Intake Total 1219 ml 2092 ml 1479 ml Output Total 1150 ml 2000 ml 950 ml Balance 69 ml 92 ml 529 ml Intake Oral 720 ml 320 ml IV Total 1219 ml 1372 ml 1159 ml Output Urine Total 750 ml 1800 ml 950 ml Stool Total 400 ml 200 ml # Bowel Movements 0 Result Diagram: 06/10/17 0520 06/10/17 0520 Imaging Last Impressions Chest X-Ray 06/04/17 0000 Signed Impressions: Service Date/Time: Sunday, June 04, 2017 15:44 - CONCLUSION: 1. Satisfactory placement of left subclavian central venous catheter. 2. No evidence pneumothorax. 3. Clearing basilar airspace disease. Philip Gardner MD Abdomen/Pelvis CT 05/26/17 0000 Signed Impressions: Service Date/Time: Friday, May 26, 2017 17:15 - CONCLUSION: Free intraperitoneal air probably from an upper abdominal source. Generalized ileus. Bryson Magaña MD FACR Abdomen X-Ray 05/25/17 0000 Signed Impressions: Service Date/Time: April 11:14 - CONCLUSION: Mildly gas distended colon. Otherwise, unremarkable exam. Anirudh Em Jr., MD Lower Extremity Ultrasound 05/18/17 0000 Signed Impressions: Service Date/Time: April 22:06 - CONCLUSION: Normal examination. Willi Robison MD CT Angiography 05/18/17 0000 Signed Impressions: Service Date/Time: April 18:05 - CONCLUSION: 1. Examination quality is degraded by severe respiratory motion artifact. However , there are filling defects identified within the left upper lobe and right middle lobe pulmonary arteries characteristic of PE. 2. Severe emphysema with trace left pleural effusion and left lower lobe atelectasis versus consolidation. 3. There are bilateral calcified pleural plaques indicative of prior asbestos exposure. Dario Mendez MD Objective Remarks GENERAL: This is a well-nourished, well-developed patient, in no apparent distress. CARDIOVASCULAR: Regular rate and regular rhythm without murmurs, gallops, or rubs. RESPIRATORY: Clear to auscultation. Breath sounds equal bilaterally. No wheezes , rales, or rhonchi. GASTROINTESTINAL: Abdomen soft, non-tender, nondistended. colostomy in place. MUSCULOSKELETAL: Extremities without clubbing, cyanosis, or edema. NEURO: Alert & Oriented x4 to person, place, time, situation. Moves all ext x4 Medications and IVs Current Medications Sodium Chloride (NS Flush) 2 ml UNSCH PRN IVF FLUSH AFTER USING IV ACCESS; Start 05/18/17 at 16:00; Status Cancel Methylprednisolone Sodium Succinate (SoluMEDROL INJ) 125 mg ONCE ONCE IV PUSH Last administered on 05/18/17 17:47; Start 05/18/17 at 17:30; Stop 05/18/17 at 17:31; Status DC Albuterol/ Ipratropium (Duoneb Neb) 1 ampule Q15M INH Last administered on 05/18 17:42; Start 05/18/17 at 17:30; Stop 05/18/17 at 18:01; Status DC Aspirin (Aspirin Chew) 162 mg ONCE ONCE CHEW Last administered on 05/18/17 17 :48; Start 05/18/17 at 17:30; Stop 05/18/17 at 17:31; Status DC Iohexol (Omnipaque 350 Inj) 75 ml STK-MED ONCE IVCONTRAST Last administered on 05/18/17 15:49; Start 05/18/17 at 15:49; Stop 05/18/17 at 18:08; Status DC Enoxaparin Sodium (Lovenox Inj) 130 mg ONCE ONCE SQ Last administered on 18:44; Start 05/18/17 at 18:45; Stop 05/18/17 at 18:46; Status DC Sodium Chloride (NS Flush) 2 ml UNSCH PRN IV FLUSH FLUSH AFTER USING IV ACCESS ; Start 05/18/17 at 20:00 Sodium Chloride (NS Flush) 2 ml BID IV FLUSH Last administered on 06/10/17 21: 11; Start 05/18/17 at 21:00 Naloxone HCl (Narcan Inj) 0.4 mg UNSCH PRN IV SEE LABEL COMMENTS; Start at 20:00; Stop 05/25/17 at 10:31; Status DC Enoxaparin Sodium (Lovenox Inj) 120 mg Q12H SQ Last administered on 05/19/17 10:19; Start 05/19/17 at 09:00; Stop 05/19/17 at 10:39; Status DC Albuterol/ Ipratropium (Duoneb Neb) 1 ampule Q6HR NEB NEB Last administered on 05/22/17 20:18; Start 05/18/17 at 22:00; Stop 05/22/17 at 21:59; Status DC Albuterol/ Ipratropium (Duoneb Neb) 1 ampule Q2HR NEB PRN NEB wheezing Last administered on 06/04/17 21:47; Start 05/18/17 at 20:00 Methylprednisolone Sodium Succinate (SoluMEDROL INJ) 40 mg Q6HR IV PUSH Last administered on 05/20/17 05:14; Start 05/19/17 at 00:00; Stop 05/20/17 at 09:41 ; Status DC Pantoprazole Sodium (Protonix) 40 mg DAILY PO Last administered on 05/27/17 10: 01; Start 05/19/17 at 09:00; Stop 05/27/17 at 13:44; Status DC Levofloxacin/ Dextrose 150 ml @ 100 mls/hr Q24H IV Last administered on 22:28; Start 05/18/17 at 22:00; Stop 05/21/17 at 09:06; Status DC Apixaban (Eliquis) 10 mg BID PO Last administered on 05/26/17 08:30; Start at 21:00; Stop 05/26/17 at 09:01; Status DC Apixaban (Eliquis) 5 mg BID PO Last administered on 05/26/17 21:29; Start at 21:00; Stop 05/27/17 at 13:44; Status DC Methylprednisolone Sodium Succinate (SoluMEDROL INJ) 40 mg Q8HR IV PUSH Last administered on 05/21/17 05:58; Start 05/20/17 at 14:00; Stop 05/21/17 at 09:03 ; Status DC Methylprednisolone Sodium Succinate (SoluMEDROL INJ) 40 mg Q12HR IV PUSH Last administered on 05/24/17 08:52; Start 05/21/17 at 18:00; Stop 05/24/17 at 19:32 ; Status DC Levofloxacin (Levaquin) 750 mg Q24H PO Last administered on 05/26/17 21:28; Start 05/21/17 at 22:00; Stop 05/27/17 at 13:42; Status DC Prednisone (Deltasone) 10 mg BID PO Last administered on 05/26/17 21:28; Start 05/24/17 at 21:00; Stop 05/27/17 at 13:44; Status DC Prednisone (Deltasone) 20 mg BID PO ; Start 05/24/17 at 21:00; Stop 05/24/17 at 21:00; Status DC Bisacodyl (Dulcolax Ec) 5 mg ONCE ONCE PO Last administered on 05/24/17 21:58 ; Start 05/24/17 at 21:45; Stop 05/24/17 at 21:46; Status DC Naloxone HCl (Narcan Inj) 0.4 mg UNSCH PRN IV SEE LABEL COMMENTS; Start at 10:30 Senna/Docusate Sodium (Faith-Colace) 1 tab BID PO Last administered on 05/26/17 21:00; Start 05/25/17 at 21:00; Stop 05/27/17 at 13:44; Status DC Magnesium Hydroxide (Milk Of Magnesia Liq) 30 ml Q12H PRN PO MILD - MODERATE CONSTIPATION; Start 05/25/17 at 10:30 Sennosides (Senokot) 17.2 mg Q12H PRN PO MODERATE - SEVERE CONSTIPATION Last administered on 05/25/17 13:55; Start 05/25/17 at 10:30; Stop 05/27/17 at 13:44 ; Status DC Bisacodyl (Dulcolax Supp) 10 mg DAILY PRN RECTAL SEVERE CONSITIPATION; Start at 10:30; Stop 06/01/17 at 13:26; Status DC Lactulose (Lactulose Liq) 30 ml DAILY PRN PO SEVERE CONSITIPATION Last administered on 05/25/17 13:55; Start 05/25/17 at 10:30; Stop 05/27/17 at 13:44 ; Status DC Sodium Biphosphate/ Sodium Phosphate (Fleets Enema (Adult)) 133 ml ONCE ONCE RECTAL ; Start 05/26/17 at 12:15; Stop 05/26/17 at 12:44; Status DC Lactulose (Lactulose Liq) 30 ml ONCE ONCE PO Last administered on 05/26/17 12: 49; Start 05/26/17 at 13:00; Stop 05/26/17 at 13:01; Status DC Lactulose (Lactulose Liq) 30 ml QID PO Last administered on 05/26/17 21:29; Start 05/26/17 at 18:00; Stop 05/27/17 at 13:44; Status DC Diatrizoate Meglum/ Diatrizoate Sod ( Gastroview Liq) 18 ml ONCE ONCE PO Last administered on 05/26/17 13:00; Start 05/26/17 at 13:00; Stop 05/26/17 at 13: 01; Status DC Bupivacaine HCl/ Epinephrine Bitart (Sensorcaine-Epi 0.5% 50 ml Inj) 50 ml STK- MED ONCE .ROUTE ; Start 05/27/17 at 13:23; Stop 05/27/17 at 13:24; Status DC Thrombin (Thrombin Top Soln) 5,000 units STK-MED ONCE .ROUTE ; Start 05/27/17 at 13:23; Stop 05/27/17 at 13:24; Status DC Gelatin (Gelfoam 100 Top) 1 foam STK-MED ONCE .ROUTE ; Start 05/27/17 at 13:23; Stop 05/27/17 at 13:24; Status DC Heparin Sodium (Porcine) (Heparin Inj) 10,000 units STK-MED ONCE .ROUTE ; Start 05/27/17 at 13:24; Stop 05/27/17 at 13:25; Status DC Piperacillin Sod/ Tazobactam Sod 100 ml @ 200 mls/hr Q8H IV Last administered on 05/27/17 14:45; Start 05/27/17 at 14:00; Stop 05/27/17 at 17:19; Status DC Lactated Ringer's 1,000 ml @ 30 mls/hr Q24H PRN IV SEE LABEL COMMENTS; Start at 13:45; Stop 05/30/17 at 13:44; Status DC Sodium Chloride 500 ml @ 30 mls/hr [id number] PRN IV SEE LABEL COMMENTS; Start 05/27/17 at 13:45; Stop 05/30/17 at 13:44; Status DC Metoprolol Tartrate (Lopressor) 25 mg GUEST REQUEST RUNNER PRN PO SEE LABEL COMMENTS; Start 05/27/17 at 13:45; Stop 05/30/17 at 13:44; Status DC Povidone Iodine (Betadine 5% Antisepsis Kit) 1 applic GUEST REQUEST RUNNER PRN EACH NARE SEE LABEL COMMENTS; Start 05/27/17 at 13:45; Stop 05/30/17 at 13:44; Status DC Chlorhexidine Gluconate (Chlorhexidine 2% Cloth) 3 pack GUEST REQUEST RUNNER PRN TOPICAL SEE LABEL COMMENTS; Start 05/27/17 at 13:45; Stop 05/30/17 at 13:44; Status DC Insulin Human Regular (NovoLIN R INJ) See Protocol Table ... GUEST REQUEST RUNNER PRN SQ SEE PROTOCOL TABLE; Start 05/27/17 at 13:45; Stop 05/28/17 at 13:34; Status DC Famotidine (Pepcid Inj) 20 mg Q12H IV PUSH Last administered on 06/11/17 04:52 ; Start 05/27/17 at 16:00 Methylprednisolone Sodium Succinate (SoluMEDROL INJ) 40 mg Q8HR IV PUSH Last administered on 05/28/17 06:07; Start 05/27/17 at 15:00; Stop 05/28/17 at 10:06; Status DC Lactated Ringer's 1,000 ml @ 999 mls/hr BOLUS ONCE IV Last administered on 14:00; Start 05/27/17 at 14:00; Stop 05/27/17 at 15:00; Status DC Sodium Chloride 1,000 ml @ 100 mls/hr Q10H IV Last administered on 05/31/17 01 :05; Start 05/27/17 at 14:00; Stop 05/31/17 at 11:57; Status DC Albumin Human (Albumin 25% Inj) 50 gm STK-MED ONCE IV ; Start 05/27/17 at 15:03; Stop 05/27/17 at 15:04; Status DC Piperacillin Sod/ Tazobactam Sod 100 ml @ 200 mls/hr GUEST REQUEST RUNNER IV ; Start at 15:15; Stop 05/30/17 at 15:14; Status DC Metronidazole 100 ml @ As Directed STK-MED ONCE IV ; Start 05/27/17 at 15:38; Stop 05/27/17 at 15:39; Status DC Chlorhexidine Gluconate (Peridex 0.12% Liq) 15 ml BID@08,20 MT Last administered on 06/05/17 08:00; Start 05/27/17 at 20:00 Propofol 100 ml @ 3.663 mls/ hr TITRATE PRN IV SEDATION Last administered on 11:10; Start 05/27/17 at 17:00; Stop 06/01/17 at 13:04; Status DC Fentanyl Citrate (fentaNYL INJ) 100 mcg Q2H PRN IV PUSH Pain, any amount; Start 05/27/17 at 16:45; Stop 06/07/17 at 09:15; Status DC Fentanyl Citrate 250 ml @ 5 mls/hr TITRATE PRN IV SEDATION Last administered on 05/30/17 11:10; Start 05/27/17 at 17:00; Stop 06/01/17 at 13:26; Status DC Diltiazem HCl 125 mg/Sodium Chloride 125 ml @ 5 mls/hr TITRATE PRN IV Tachycardia Last administered on 05/31/17 18:07; Start 05/27/17 at 17:00; Stop at 08:45; Status DC Metoprolol Tartrate (Lopressor Inj) 5 mg Q6H IV PUSH ; Start 05/27/17 at 17:00; Stop 05/27/17 at 17:19; Status DC Piperacillin Sod/ Tazobactam Sod 50 ml @ 100 mls/hr Q6HR IV Last administered on 06/07/17 05:27; Start 05/27/17 at 18:00; Stop 06/07/17 at 09:15; Status DC Metoprolol Tartrate (Lopressor Inj) 5 mg Q6H PRN IV PUSH Pulse > 110 Last administered on 06/06/17 14:34; Start 05/27/17 at 23:00 Metoprolol Tartrate (Lopressor) 25 mg Q8HR PO Last administered on 05/28/17 06: 08; Start 05/27/17 at 17:15; Stop 05/28/17 at 10:06; Status DC Albuterol/ Ipratropium (Duoneb Neb) 1 ampule Q6HR NEB NEB Last administered on 05/31/17 08:32; Start 05/27/17 at 17:15; Stop 05/31/17 at 11:52; Status DC Midazolam HCl (Versed Inj) 2 mg STK-MED ONCE .ROUTE ; Start 05/27/17 at 17:45; Stop 05/27/17 at 17:46; Status DC Fentanyl Citrate (fentaNYL INJ) 200 mcg STK-MED ONCE .ROUTE ; Start 05/27/17 at 17:46; Stop 05/27/17 at 17:47; Status DC Lactated Ringer's 1,000 ml @ 999 mls/hr BOLUS ONCE IV Last administered on 20:00; Start 05/27/17 at 20:00; Stop 05/27/17 at 21:00; Status DC Methylprednisolone Sodium Succinate (SoluMEDROL INJ) 40 mg Q12HR IV PUSH Last administered on 06/02/17 08:35; Start 05/28/17 at 21:00; Stop 06/02/17 at 16:17; Status DC Metoprolol Tartrate (Lopressor) 12.5 mg Q8HR PO Last administered on 06/02/17 13:36; Start 05/28/17 at 14:00; Stop 06/02/17 at 16:17; Status DC Amiodarone HCl 150 mg/Dextrose 103 ml @ 100 mls/hr Q1H2M ONCE IV Last administered on 05/28/17 10:53; Start 05/28/17 at 10:15; Stop 05/28/17 at 11:16; Status DC Amiodarone HCl 900 mg/Dextrose 500 ml @ 33 mls/hr [id number] IV ; Start 05/28/17 at 10:09; Stop 05/28/17 at 10:13; Status DC Enoxaparin Sodium (Lovenox Inj) 40 mg Q24H SQ Last administered on 05/28/17 12: 35; Start 05/28/17 at 12:00; Stop 05/29/17 at 10:03; Status DC Metoclopramide HCl (Reglan Liq) 10 mg Q8HR PO Last administered on 05/30/17 05 :49; Start 05/28/17 at 14:00; Stop 05/30/17 at 07:50; Status DC Miscellaneous (Pill Splitter) 1 ea UNSCH PRN OTHER SEE LABEL COMMENTS; Start at 10:15 Amiodarone HCl 450 mg/Dextrose 250 ml @ 33.33 mls/ hr Q7H31M IV Last administered on 06/02/17 03:00; Start 05/28/17 at 10:15; Stop 06/02/17 at 08:45; Status DC Dextrose (D50w (Vial) Inj) 50 ml UNSCH PRN IV HYPOGLYCEMIA-SEE COMMENTS; Start 05/28/17 at 13:30 Glucagon (Glucagon Inj) 1 mg UNSCH PRN OTHER HYPOGLYCEMIA-SEE COMMENTS; Start 05/28/17 at 13:30 Insulin Aspart (NovoLOG SUPPLEMENTAL SCALE) 1 Q6H SQ Last administered on 21:29; Start 05/28/17 at 13:30 Heparin Sodium (Porcine) (Heparin Inj) 10,000 units ONCE ONCE IV ; Start at 10:15; Stop 05/29/17 at 10:16; Status DC Heparin Sodium/ Dextrose 250 ml @ 22.644 mls/ hr TITRATE PRN IV Coagulation management Last administered on 06/05/17 06:16; Start 05/29/17 at 10:15; Stop at 09:15; Status DC Metoclopramide HCl (Reglan Inj) 10 mg Q8H IV PUSH Last administered on 00:17; Start 05/30/17 at 08:00 Albuterol/ Ipratropium (Duoneb Neb) 1 ampule Q6HR NEB NEB Last administered on 06/04/17 15:43; Start 05/31/17 at 16:00; Stop 06/04/17 at 15:59; Status DC Potassium Chloride 100 ml @ 100 mls/hr Q1H IV Last administered on 05/31/17 18 :08; Start 05/31/17 at 14:00; Stop 05/31/17 at 15:29; Status DC Lactated Ringer's 1,000 ml @ 100 mls/hr Q10H IV Last administered on 06/02/17 05:00; Start 05/31/17 at 13:00; Stop 06/02/17 at 08:45; Status DC Potassium Chloride 100 ml @ 100 mls/hr Q1H IV ; Start 05/31/17 at 16:30; Stop at 18:29; Status DC Acetaminophen (Ofirmev 1000 Mg/ 100 ml Inj) 1,000 mg Q8HR PRN IV FEVER; Start 06/01/17 at 14:00 Multivitamins 10 ml/Folic Acid 1 mg/Amino Acids/ Electrolytes/ Dextrose 2,010.2 ml @ 100 mls/ hr Q20H7M IV Last administered on 06/11/17 00:54; Start at 20:00 Fat Emulsion Intravenous 250 ml @ 10 mls/hr Q24H IV Last administered on 21:11; Start 06/01/17 at 20:00 Furosemide (Lasix Inj) 60 mg ONCE ONCE IV PUSH Last administered on 06/02/17 09:43; Start 06/02/17 at 08:45; Stop 06/02/17 at 08:47; Status DC Metoprolol Tartrate (Lopressor) 25 mg Q8HR PO Last administered on 06/11/17 04 :52; Start 06/02/17 at 22:00 Furosemide (Lasix Inj) 40 mg DAILY IV PUSH Last administered on 06/10/17 09:28 ; Start 06/03/17 at 11:00 Potassium Chloride 100 ml @ 50 mls/hr Q2H IV Last administered on 06/03/17 17: 30; Start 06/03/17 at 11:30; Stop 06/03/17 at 15:29; Status DC Amiodarone HCl 150 mg/Dextrose 103 ml @ 100 mls/hr Q1H2M ONCE IV Last administered on 06/04/17 08:21; Start 06/04/17 at 08:00; Stop 06/04/17 at 09:01 ; Status DC Amiodarone HCl 450 mg/Dextrose 250 ml @ 33.33 mls/ hr Q7H31M IV Last administered on 06/07/17 09:08; Start 06/04/17 at 07:46; Stop 06/07/17 at 09:15 ; Status DC Prednisone (predniSONE LIQ) 10 mg BID PO Last administered on 06/06/17 08:49; Start 06/04/17 at 09:00; Status Future Hold Potassium Chloride 100 ml @ 50 mls/hr Q2H IV Last administered on 06/04/17 17 :20; Start 06/04/17 at 09:00; Stop 06/04/17 at 12:59; Status DC Midazolam HCl (Versed Inj) 5 mg ONCE ONCE IM ; Start 06/04/17 at 14:45; Stop at 14:54; Status DC Enoxaparin Sodium (Lovenox Inj) 110 mg Q12H SQ Last administered on 06/11/17 00:54; Start 06/05/17 at 14:00 Acetaminophen/ Hydrocodone Bitart (Opp 5-325 Mg) 1 tab ONCE ONCE PO Last administered on 06/11/17 00:53; Start 06/11/17 at 00:45; Stop 06/11/17 at 00:46 ; Status DC A/P Assessment and Plan Status post open lap, right colectomy with 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 - Currently on famotidine 20 mg IV twice a day - On metoclopramide 10 mg IV every 8 hours - NGT removed. Tolerating liquids. - Ileostomy and colostomy in place. -surgery following. A. fib with RVR, improved Dyslipidemia Hypertension, well-controlled now. - Atrial fib RVR resolved, off amiodarone drip. - 2-D ECHO with EF 60-65%. - No previous history of atrial fibrillation. - Continue metoprolol 25 mg PO q8h. - On simvastatin 10mg PO daily at home. Resume when clinically indicated. - Continue Lasix 40 IV daily. Continued positive fluid balance. Will monitor. Acute on chronic hypoxemic respiratory failure, resolved. Left upper lobe/middle lobe pulmonary embolism End-stage severe emphysema - FEV1 1.30, FVC 2.34, minimal response to dilators 05/11 PFTs - Albuterol/ipratropium aerosols every 6 hours with albuterol hours is every 2 hours. Dyspnea - Continue acapella and albuterol/ipratropium aerosols every 6 hours - continue subq Lovenox- will switch to oral anticoagulation when ok with surgery and pulmonary. Chronic prednisone use Hyperglycemia - Sliding scale insulin Accu-Cheks every 6 hours to maintain euglycemia/low regimen Novolog. Cover as needed. - Refusing prednisone. Will follow. Normocytic anemia History thrombocytopenia currently normal - Monitor CBC. - Previously on heparin drip for PE, off now. Hyponatremia, improving. DVT prophylaxis: SCDs/Lovenox. Layne Evangelista MD Jun 11, 2017 11:47
--- NOTE | 2017-06-11 16:10 | HHI.PR ---
Subjective Remarks 76 YOWM with COPD PE Mild sob, feels weak appetite poor, on TPN On Lovenox Appetite improving Feels better Objective Vital Signs Vital Signs Date Time Temp Pulse Resp B/P (MAP) Pulse Ox O2 Delivery O2 Flow Rate FiO2 06/11/17 09:59 96 Nasal Cannula 2.00 06/11/17 08:00 96 Nasal Cannula 2.00 35 06/11/17 08:00 76 06/11/17 04:00 98.3 74 21 110/67 (81) 96 06/11/17 00:00 98.0 77 19 130/55 (80) 95 06/11/17 00:00 Nasal Cannula 2.00 06/10/17 20:00 79 06/10/17 20:00 97.4 82 17 116/55 (75) 95 06/10/17 19:55 Nasal Cannula 2.00 I/O 06/10/17 06/10/17 06/10/17 06/11/17 06/11/17 06/11/17 07:00 15:00 23:00 07:00 15:00 23:00 Intake Total 1219 ml 2092 ml 1479 ml Output Total 1150 ml 2000 ml 950 ml Balance 69 ml 92 ml 529 ml Intake Oral 720 ml 320 ml IV Total 1219 ml 1372 ml 1159 ml Output Urine Total 750 ml 1800 ml 950 ml Stool Total 400 ml 200 ml # Bowel Movements 0 Result Diagram: 06/10/1751906/[id number]/17519 Objective Remarks GENERAL: WBWN WM,NAD SKIN: Warm and dry. HEAD: Normocephalic. EYES: No scleral icterus. No injection or drainage. NECK: Supple, trachea midline. No JVD or lymphadenopathy. CARDIOVASCULAR: Regular rate and rhythm without murmurs, gallops, or rubs. RESPIRATORY: Breath sounds equal bilaterally. No accessory muscle use. GASTROINTESTINAL: Abdomen soft, non-tender, nondistended. MUSCULOSKELETAL: No cyanosis, or edema. BACK: Nontender without obvious deformity. No CVA tenderness. A/P Assessment and Plan VDRF, s/p extubation. S/P Emergent resection of Colon Pulm Embolism COPD HTN Pleural Plaques PLAN: Wean 02 to keep sat >92% Encourage PO Lovenox 110 mg sq q 12 hrs Aerosol nebs TPN Janak Mclaughlin MD Jun 11, 2017 16:10
[2017-06-11] MEDS: SODIUM CHLORIDE 0.9% FLUSH 10 ML FLUSH IV FLUSH SCH ×2 (17:49→19:49)
[2017-06-11] MEDS: FAT EMULSION 20% INJ 250 ML (@10 mls/hr) IV SCH (19:48)
[2017-06-11] MEDS: CHLORHEXIDINE 0.12% (ORAL KIT) 15 ML CUP MT SCH (20:00)
--- NOTE | 2017-06-11 23:28 | HHI.PR ---
Subjective Subjective Notes no acute issues, tolerating full diet, Objective Vitals/I&O Vital Signs Date Time Temp Pulse Resp B/P (MAP) Pulse Ox O2 Delivery O2 Flow Rate FiO2 06/11/17 21:30 Nasal Cannula 2.00 06/11/17 20:00 85 06/11/17 20:00 97.4 20 118/58 (78) 97 06/11/17 08:00 35 Radiology Last Impressions Chest X-Ray 06/03/17 0000 Signed Impressions: Service Date/Time: Saturday, June 03, 2017 11:04 - CONCLUSION: Stable chest x-ray with bibasilar airspace opacity. Dario Mendez MD Abdomen/Pelvis CT 05/26/17 0000 Signed Impressions: Service Date/Time: Friday, May 26, 2017 17:15 - CONCLUSION: Free intraperitoneal air probably from an upper abdominal source. Generalized ileus. Bryson Magaña MD FACR Abdomen X-Ray 05/25/17 0000 Signed Impressions: Service Date/Time: April 11:14 - CONCLUSION: Mildly gas distended colon. Otherwise, unremarkable exam. Anirudh Em Jr., MD Lower Extremity Ultrasound 05/18/17 0000 Signed Impressions: Service Date/Time: , May 18, 2017 22:06 - CONCLUSION: Normal examination. Willi Robison MD CT Angiography 05/18/17 0000 Signed Impressions: Service Date/Time: April 18:05 - CONCLUSION: 1. Examination quality is degraded by severe respiratory motion artifact. However , there are filling defects identified within the left upper lobe and right middle lobe pulmonary arteries characteristic of PE. 2. Severe emphysema with trace left pleural effusion and left lower lobe atelectasis versus consolidation. 3. There are bilateral calcified pleural plaques indicative of prior asbestos exposure. Dario Mendez MD Abdomen: Other (ileostomy dark, colostomy pink both with liquid in bag) A/P Assessment and Plan 76 year old male [id number] ex lap; RIGHT hemicolectomy with end ileostomy and mucus fistula for ischemia -Advance soft diet -On NC -Continue subq heparin -Monitor Hmg -Continue TPN -PT -Continue to monitor WBC -Wound Vac to midline incision Roland Solo MD Jun 11, 2017 23:28
[2017-06-12] MEDS: INSULIN ASPART SUPPLEMENTAL SCALE SQ SCH ×4 (01:30→19:30)
[2017-06-12] MEDS: ENOXAPARIN SODIUM 120 MG/0.8 ML SYRINGE SQ SCH ×2 (02:03→14:01)
[2017-06-12 04:00] VITALS: BP 114/55; PULSE 81; RESP 20; TEMP 97.3; O2SAT 91
[2017-06-12] MEDS: METOPROLOL TARTRATE 25 MG TAB PO SCH ×3 (05:12→21:25)
[2017-06-12] MEDS: FAMOTIDINE 20 MG/2 ML VIAL IV PUSH SCH ×2 (05:12→17:09)
[2017-06-12 08:00] VITALS: BP 124/61; PULSE 81; RESP 20; TEMP 98.1; O2SAT 91
[2017-06-12] MEDS: CHLORHEXIDINE 0.12% (ORAL KIT) 15 ML CUP MT SCH ×2 (08:00→20:00)
[2017-06-12] MEDS: METOCLOPRAMIDE HCL 10 MG/2 ML VIAL IV PUSH SCH ×3 (09:18→23:30)
[2017-06-12] MEDS: FUROSEMIDE 40 MG/4 ML VIAL IV PUSH SCH (09:19)
[2017-06-12] MEDS: SODIUM CHLORIDE 0.9% FLUSH 10 ML FLUSH IV FLUSH SCH ×2 (09:19→21:25)
--- NOTE | 2017-06-12 10:07 | HHI.PR ---
Subjective Remarks resting comfortably with no distress. denies abdominal pain or sob. no new complaints. Objective Vitals Vital Signs Date Time Temp Pulse Resp B/P (MAP) Pulse Ox O2 Delivery O2 Flow Rate FiO2 06/12/17 08:00 98.1 81 20 124/61 (82) 91 06/12/17 04:00 Nasal Cannula 2.00 06/12/17 04:00 97.3 81 20 114/55 (74) 91 06/12/17 00:00 Nasal Cannula 2.00 06/11/17 23:36 98.1 78 20 113/68 (83) 92 06/11/17 21:30 Nasal Cannula 2.00 06/11/17 20:00 85 06/11/17 20:00 97.4 83 20 118/58 (78) 97 06/11/17 16:00 97.5 80 20 120/57 (78) 95 06/11/17 12:00 97.7 82 20 120/56 (77) 94 I/O 06/11/17 06/11/17 06/11/17 06/12/17 06/12/17 06/12/17 07:00 15:00 23:00 07:00 15:00 23:00 Intake Total 1479 ml 2357 ml 1104 ml Output Total 950 ml 1950 ml 1125 ml Balance 529 ml 407 ml -21 ml Intake Oral 320 ml 960 ml IV Total 1159 ml 1397 ml 1104 ml Output Urine Total 950 ml 1600 ml 900 ml Stool Total 350 ml 225 ml # Bowel Movements 0 Result Diagram: 06/10/17 0520 06/10/17 0520 Imaging Last Impressions Chest X-Ray 06/04/17 0000 Signed Impressions: Service Date/Time: Sunday, June 04, 2017 15:44 - CONCLUSION: 1. Satisfactory placement of left subclavian central venous catheter. 2. No evidence pneumothorax. 3. Clearing basilar airspace disease. Philip Gardner MD Abdomen/Pelvis CT 05/26/17 0000 Signed Impressions: Service Date/Time: Friday, May 26, 2017 17:15 - CONCLUSION: Free intraperitoneal air probably from an upper abdominal source. Generalized ileus. Bryson Magaña MD FACR Abdomen X-Ray 05/25/17 0000 Signed Impressions: Service Date/Time: April 11:14 - CONCLUSION: Mildly gas distended colon. Otherwise, unremarkable exam. Anirudh Em Jr., MD Lower Extremity Ultrasound 05/18/17 0000 Signed Impressions: Service Date/Time: April 22:06 - CONCLUSION: Normal examination. Willi Robison MD CT Angiography 05/18/17 0000 Signed Impressions: Service Date/Time: April 18:05 - CONCLUSION: 1. Examination quality is degraded by severe respiratory motion artifact. However , there are filling defects identified within the left upper lobe and right middle lobe pulmonary arteries characteristic of PE. 2. Severe emphysema with trace left pleural effusion and left lower lobe atelectasis versus consolidation. 3. There are bilateral calcified pleural plaques indicative of prior asbestos exposure. Dario Mendez MD Objective Remarks GENERAL: This is a well-nourished, well-developed patient, in no apparent distress. CARDIOVASCULAR: Regular rate and regular rhythm without murmurs, gallops, or rubs. RESPIRATORY: Clear to auscultation. Breath sounds equal bilaterally. No wheezes , rales, or rhonchi. GASTROINTESTINAL: Abdomen soft, non-tender, nondistended. colostomy in place. MUSCULOSKELETAL: Extremities without clubbing, cyanosis, or edema. NEURO: Alert & Oriented x4 to person, place, time, situation. Moves all ext x4 Medications and IVs Current Medications Sodium Chloride (NS Flush) 2 ml UNSCH PRN IVF FLUSH AFTER USING IV ACCESS; Start 05/18/17 at 16:00; Status Cancel Methylprednisolone Sodium Succinate (SoluMEDROL INJ) 125 mg ONCE ONCE IV PUSH Last administered on 05/18/17 17:47; Start 05/18/17 at 17:30; Stop 05/18/17 at 17:31; Status DC Albuterol/ Ipratropium (Duoneb Neb) 1 ampule Q15M INH Last administered on 05/18 17:42; Start 05/18/17 at 17:30; Stop 05/18/17 at 18:01; Status DC Aspirin (Aspirin Chew) 162 mg ONCE ONCE CHEW Last administered on 05/18/17 17 :48; Start 05/18/17 at 17:30; Stop 05/18/17 at 17:31; Status DC Iohexol (Omnipaque 350 Inj) 75 ml STK-MED ONCE IVCONTRAST Last administered on 05/18/17 15:49; Start 05/18/17 at 15:49; Stop 05/18/17 at 18:08; Status DC Enoxaparin Sodium (Lovenox Inj) 130 mg ONCE ONCE SQ Last administered on 18:44; Start 05/18/17 at 18:45; Stop 05/18/17 at 18:46; Status DC Sodium Chloride (NS Flush) 2 ml UNSCH PRN IV FLUSH FLUSH AFTER USING IV ACCESS ; Start 05/18/17 at 20:00 Sodium Chloride (NS Flush) 2 ml BID IV FLUSH Last administered on 06/12/17 09: 19; Start 05/18/17 at 21:00 Naloxone HCl (Narcan Inj) 0.4 mg UNSCH PRN IV SEE LABEL COMMENTS; Start at 20:00; Stop 05/25/17 at 10:31; Status DC Enoxaparin Sodium (Lovenox Inj) 120 mg Q12H SQ Last administered on 05/19/17 10:19; Start 05/19/17 at 09:00; Stop 05/19/17 at 10:39; Status DC Albuterol/ Ipratropium (Duoneb Neb) 1 ampule Q6HR NEB NEB Last administered on 05/22/17 20:18; Start 05/18/17 at 22:00; Stop 05/22/17 at 21:59; Status DC Albuterol/ Ipratropium (Duoneb Neb) 1 ampule Q2HR NEB PRN NEB wheezing Last administered on 06/04/17 21:47; Start 05/18/17 at 20:00 Methylprednisolone Sodium Succinate (SoluMEDROL INJ) 40 mg Q6HR IV PUSH Last administered on 05/20/17 05:14; Start 05/19/17 at 00:00; Stop 05/20/17 at 09:41 ; Status DC Pantoprazole Sodium (Protonix) 40 mg DAILY PO Last administered on 05/27/17 10: 01; Start 05/19/17 at 09:00; Stop 05/27/17 at 13:44; Status DC Levofloxacin/ Dextrose 150 ml @ 100 mls/hr Q24H IV Last administered on 22:28; Start 05/18/17 at 22:00; Stop 05/21/17 at 09:06; Status DC Apixaban (Eliquis) 10 mg BID PO Last administered on 05/26/17 08:30; Start at 21:00; Stop 05/26/17 at 09:01; Status DC Apixaban (Eliquis) 5 mg BID PO Last administered on 05/26/17 21:29; Start at 21:00; Stop 05/27/17 at 13:44; Status DC Methylprednisolone Sodium Succinate (SoluMEDROL INJ) 40 mg Q8HR IV PUSH Last administered on 05/21/17 05:58; Start 05/20/17 at 14:00; Stop 05/21/17 at 09:03 ; Status DC Methylprednisolone Sodium Succinate (SoluMEDROL INJ) 40 mg Q12HR IV PUSH Last administered on 05/24/17 08:52; Start 05/21/17 at 18:00; Stop 05/24/17 at 19:32 ; Status DC Levofloxacin (Levaquin) 750 mg Q24H PO Last administered on 05/26/17 21:28; Start 05/21/17 at 22:00; Stop 05/27/17 at 13:42; Status DC Prednisone (Deltasone) 10 mg BID PO Last administered on 05/26/17 21:28; Start 05/24/17 at 21:00; Stop 05/27/17 at 13:44; Status DC Prednisone (Deltasone) 20 mg BID PO ; Start 05/24/17 at 21:00; Stop 05/24/17 at 21:00; Status DC Bisacodyl (Dulcolax Ec) 5 mg ONCE ONCE PO Last administered on 05/24/17 21:58 ; Start 05/24/17 at 21:45; Stop 05/24/17 at 21:46; Status DC Naloxone HCl (Narcan Inj) 0.4 mg UNSCH PRN IV SEE LABEL COMMENTS; Start at 10:30 Senna/Docusate Sodium (Faith-Colace) 1 tab BID PO Last administered on 05/26/17 21:00; Start 05/25/17 at 21:00; Stop 05/27/17 at 13:44; Status DC Magnesium Hydroxide (Milk Of Magnesia Liq) 30 ml Q12H PRN PO MILD - MODERATE CONSTIPATION; Start 05/25/17 at 10:30 Sennosides (Senokot) 17.2 mg Q12H PRN PO MODERATE - SEVERE CONSTIPATION Last administered on 05/25/17 13:55; Start 05/25/17 at 10:30; Stop 05/27/17 at 13:44 ; Status DC Bisacodyl (Dulcolax Supp) 10 mg DAILY PRN RECTAL SEVERE CONSITIPATION; Start at 10:30; Stop 06/01/17 at 13:26; Status DC Lactulose (Lactulose Liq) 30 ml DAILY PRN PO SEVERE CONSITIPATION Last administered on 05/25/17 13:55; Start 05/25/17 at 10:30; Stop 05/27/17 at 13:44 ; Status DC Sodium Biphosphate/ Sodium Phosphate (Fleets Enema (Adult)) 133 ml ONCE ONCE RECTAL ; Start 05/26/17 at 12:15; Stop 05/26/17 at 12:44; Status DC Lactulose (Lactulose Liq) 30 ml ONCE ONCE PO Last administered on 05/26/17 12: 49; Start 05/26/17 at 13:00; Stop 05/26/17 at 13:01; Status DC Lactulose (Lactulose Liq) 30 ml QID PO Last administered on 05/26/17 21:29; Start 05/26/17 at 18:00; Stop 05/27/17 at 13:44; Status DC Diatrizoate Meglum/ Diatrizoate Sod ( Gastroview Liq) 18 ml ONCE ONCE PO Last administered on 05/26/17 13:00; Start 05/26/17 at 13:00; Stop 05/26/17 at 13: 01; Status DC Bupivacaine HCl/ Epinephrine Bitart (Sensorcaine-Epi 0.5% 50 ml Inj) 50 ml STK- MED ONCE .ROUTE ; Start 05/27/17 at 13:23; Stop 05/27/17 at 13:24; Status DC Thrombin (Thrombin Top Soln) 5,000 units STK-MED ONCE .ROUTE ; Start 05/27/17 at 13:23; Stop 05/27/17 at 13:24; Status DC Gelatin (Gelfoam 100 Top) 1 foam STK-MED ONCE .ROUTE ; Start 05/27/17 at 13:23; Stop 05/27/17 at 13:24; Status DC Heparin Sodium (Porcine) (Heparin Inj) 10,000 units STK-MED ONCE .ROUTE ; Start 05/27/17 at 13:24; Stop 05/27/17 at 13:25; Status DC Piperacillin Sod/ Tazobactam Sod 100 ml @ 200 mls/hr Q8H IV Last administered on 05/27/17 14:45; Start 05/27/17 at 14:00; Stop 05/27/17 at 17:19; Status DC Lactated Ringer's 1,000 ml @ 30 mls/hr Q24H PRN IV SEE LABEL COMMENTS; Start at 13:45; Stop 05/30/17 at 13:44; Status DC Sodium Chloride 500 ml @ 30 mls/hr [id number] PRN IV SEE LABEL COMMENTS; Start 05/27/17 at 13:45; Stop 05/30/17 at 13:44; Status DC Metoprolol Tartrate (Lopressor) 25 mg ROLL COVERER PRN PO SEE LABEL COMMENTS; Start 05/27/17 at 13:45; Stop 05/30/17 at 13:44; Status DC Povidone Iodine (Betadine 5% Antisepsis Kit) 1 applic ROLL COVERER PRN EACH NARE SEE LABEL COMMENTS; Start 05/27/17 at 13:45; Stop 05/30/17 at 13:44; Status DC Chlorhexidine Gluconate (Chlorhexidine 2% Cloth) 3 pack ROLL COVERER PRN TOPICAL SEE LABEL COMMENTS; Start 05/27/17 at 13:45; Stop 05/30/17 at 13:44; Status DC Insulin Human Regular (NovoLIN R INJ) See Protocol Table ... ROLL COVERER PRN SQ SEE PROTOCOL TABLE; Start 05/27/17 at 13:45; Stop 05/28/17 at 13:34; Status DC Famotidine (Pepcid Inj) 20 mg Q12H IV PUSH Last administered on 06/12/17 05:12 ; Start 05/27/17 at 16:00 Methylprednisolone Sodium Succinate (SoluMEDROL INJ) 40 mg Q8HR IV PUSH Last administered on 05/28/17 06:07; Start 05/27/17 at 15:00; Stop 05/28/17 at 10:06; Status DC Lactated Ringer's 1,000 ml @ 999 mls/hr BOLUS ONCE IV Last administered on 14:00; Start 05/27/17 at 14:00; Stop 05/27/17 at 15:00; Status DC Sodium Chloride 1,000 ml @ 100 mls/hr Q10H IV Last administered on 05/31/17 01 :05; Start 05/27/17 at 14:00; Stop 05/31/17 at 11:57; Status DC Albumin Human (Albumin 25% Inj) 50 gm STK-MED ONCE IV ; Start 05/27/17 at 15:03; Stop 05/27/17 at 15:04; Status DC Piperacillin Sod/ Tazobactam Sod 100 ml @ 200 mls/hr ROLL COVERER IV ; Start at 15:15; Stop 05/30/17 at 15:14; Status DC Metronidazole 100 ml @ As Directed STK-MED ONCE IV ; Start 05/27/17 at 15:38; Stop 05/27/17 at 15:39; Status DC Chlorhexidine Gluconate (Peridex 0.12% Liq) 15 ml BID@08,20 MT Last administered on 06/12/17 08:00; Start 05/27/17 at 20:00 Propofol 100 ml @ 3.663 mls/ hr TITRATE PRN IV SEDATION Last administered on 11:10; Start 05/27/17 at 17:00; Stop 06/01/17 at 13:04; Status DC Fentanyl Citrate (fentaNYL INJ) 100 mcg Q2H PRN IV PUSH Pain, any amount; Start 05/27/17 at 16:45; Stop 06/07/17 at 09:15; Status DC Fentanyl Citrate 250 ml @ 5 mls/hr TITRATE PRN IV SEDATION Last administered on 05/30/17 11:10; Start 05/27/17 at 17:00; Stop 06/01/17 at 13:26; Status DC Diltiazem HCl 125 mg/Sodium Chloride 125 ml @ 5 mls/hr TITRATE PRN IV Tachycardia Last administered on 05/31/17 18:07; Start 05/27/17 at 17:00; Stop at 08:45; Status DC Metoprolol Tartrate (Lopressor Inj) 5 mg Q6H IV PUSH ; Start 05/27/17 at 17:00; Stop 05/27/17 at 17:19; Status DC Piperacillin Sod/ Tazobactam Sod 50 ml @ 100 mls/hr Q6HR IV Last administered on 06/07/17 05:27; Start 05/27/17 at 18:00; Stop 06/07/17 at 09:15; Status DC Metoprolol Tartrate (Lopressor Inj) 5 mg Q6H PRN IV PUSH Pulse > 110 Last administered on 06/06/17 14:34; Start 05/27/17 at 23:00 Metoprolol Tartrate (Lopressor) 25 mg Q8HR PO Last administered on 05/28/17 06: 08; Start 05/27/17 at 17:15; Stop 05/28/17 at 10:06; Status DC Albuterol/ Ipratropium (Duoneb Neb) 1 ampule Q6HR NEB NEB Last administered on 05/31/17 08:32; Start 05/27/17 at 17:15; Stop 05/31/17 at 11:52; Status DC Midazolam HCl (Versed Inj) 2 mg STK-MED ONCE .ROUTE ; Start 05/27/17 at 17:45; Stop 05/27/17 at 17:46; Status DC Fentanyl Citrate (fentaNYL INJ) 200 mcg STK-MED ONCE .ROUTE ; Start 05/27/17 at 17:46; Stop 05/27/17 at 17:47; Status DC Lactated Ringer's 1,000 ml @ 999 mls/hr BOLUS ONCE IV Last administered on 20:00; Start 05/27/17 at 20:00; Stop 05/27/17 at 21:00; Status DC Methylprednisolone Sodium Succinate (SoluMEDROL INJ) 40 mg Q12HR IV PUSH Last administered on 06/02/17 08:35; Start 05/28/17 at 21:00; Stop 06/02/17 at 16:17; Status DC Metoprolol Tartrate (Lopressor) 12.5 mg Q8HR PO Last administered on 06/02/17 13:36; Start 05/28/17 at 14:00; Stop 06/02/17 at 16:17; Status DC Amiodarone HCl 150 mg/Dextrose 103 ml @ 100 mls/hr Q1H2M ONCE IV Last administered on 05/28/17 10:53; Start 05/28/17 at 10:15; Stop 05/28/17 at 11:16; Status DC Amiodarone HCl 900 mg/Dextrose 500 ml @ 33 mls/hr [id number] IV ; Start 05/28/17 at 10:09; Stop 05/28/17 at 10:13; Status DC Enoxaparin Sodium (Lovenox Inj) 40 mg Q24H SQ Last administered on 05/28/17 12: 35; Start 05/28/17 at 12:00; Stop 05/29/17 at 10:03; Status DC Metoclopramide HCl (Reglan Liq) 10 mg Q8HR PO Last administered on 05/30/17 05 :49; Start 05/28/17 at 14:00; Stop 05/30/17 at 07:50; Status DC Miscellaneous (Pill Splitter) 1 ea UNSCH PRN OTHER SEE LABEL COMMENTS; Start at 10:15 Amiodarone HCl 450 mg/Dextrose 250 ml @ 33.33 mls/ hr Q7H31M IV Last administered on 06/02/17 03:00; Start 05/28/17 at 10:15; Stop 06/02/17 at 08:45; Status DC Dextrose (D50w (Vial) Inj) 50 ml UNSCH PRN IV HYPOGLYCEMIA-SEE COMMENTS; Start 05/28/17 at 13:30 Glucagon (Glucagon Inj) 1 mg UNSCH PRN OTHER HYPOGLYCEMIA-SEE COMMENTS; Start 05/28/17 at 13:30 Insulin Aspart (NovoLOG SUPPLEMENTAL SCALE) 1 Q6H SQ Last administered on 21:29; Start 05/28/17 at 13:30 Heparin Sodium (Porcine) (Heparin Inj) 10,000 units ONCE ONCE IV ; Start at 10:15; Stop 05/29/17 at 10:16; Status DC Heparin Sodium/ Dextrose 250 ml @ 22.644 mls/ hr TITRATE PRN IV Coagulation management Last administered on 06/05/17 06:16; Start 05/29/17 at 10:15; Stop at 09:15; Status DC Metoclopramide HCl (Reglan Inj) 10 mg Q8H IV PUSH Last administered on 09:18; Start 05/30/17 at 08:00 Albuterol/ Ipratropium (Duoneb Neb) 1 ampule Q6HR NEB NEB Last administered on 06/04/17 15:43; Start 05/31/17 at 16:00; Stop 06/04/17 at 15:59; Status DC Potassium Chloride 100 ml @ 100 mls/hr Q1H IV Last administered on 05/31/17 18 :08; Start 05/31/17 at 14:00; Stop 05/31/17 at 15:29; Status DC Lactated Ringer's 1,000 ml @ 100 mls/hr Q10H IV Last administered on 06/02/17 05:00; Start 05/31/17 at 13:00; Stop 06/02/17 at 08:45; Status DC Potassium Chloride 100 ml @ 100 mls/hr Q1H IV ; Start 05/31/17 at 16:30; Stop at 18:29; Status DC Acetaminophen (Ofirmev 1000 Mg/ 100 ml Inj) 1,000 mg Q8HR PRN IV FEVER; Start 06/01/17 at 14:00 Multivitamins 10 ml/Folic Acid 1 mg/Amino Acids/ Electrolytes/ Dextrose 2,010.2 ml @ 100 mls/ hr Q20H7M IV Last administered on 06/11/17 20:26; Start at 20:00 Fat Emulsion Intravenous 250 ml @ 10 mls/hr Q24H IV Last administered on 19:48; Start 06/01/17 at 20:00 Furosemide (Lasix Inj) 60 mg ONCE ONCE IV PUSH Last administered on 06/02/17 09:43; Start 06/02/17 at 08:45; Stop 06/02/17 at 08:47; Status DC Metoprolol Tartrate (Lopressor) 25 mg Q8HR PO Last administered on 06/12/17 05 :12; Start 06/02/17 at 22:00 Furosemide (Lasix Inj) 40 mg DAILY IV PUSH Last administered on 06/12/17 09:19 ; Start 06/03/17 at 11:00 Potassium Chloride 100 ml @ 50 mls/hr Q2H IV Last administered on 06/03/17 17: 30; Start 06/03/17 at 11:30; Stop 06/03/17 at 15:29; Status DC Amiodarone HCl 150 mg/Dextrose 103 ml @ 100 mls/hr Q1H2M ONCE IV Last administered on 06/04/17 08:21; Start 06/04/17 at 08:00; Stop 06/04/17 at 09:01 ; Status DC Amiodarone HCl 450 mg/Dextrose 250 ml @ 33.33 mls/ hr Q7H31M IV Last administered on 06/07/17 09:08; Start 06/04/17 at 07:46; Stop 06/07/17 at 09:15 ; Status DC Prednisone (predniSONE LIQ) 10 mg BID PO Last administered on 06/06/17 08:49; Start 06/04/17 at 09:00; Status Future Hold Potassium Chloride 100 ml @ 50 mls/hr Q2H IV Last administered on 06/04/17 17 :20; Start 06/04/17 at 09:00; Stop 06/04/17 at 12:59; Status DC Midazolam HCl (Versed Inj) 5 mg ONCE ONCE IM ; Start 06/04/17 at 14:45; Stop at 14:54; Status DC Enoxaparin Sodium (Lovenox Inj) 110 mg Q12H SQ Last administered on 06/12/17 02:03; Start 06/05/17 at 14:00 Acetaminophen/ Hydrocodone Bitart ([place] 5-325 Mg) 1 tab ONCE ONCE PO Last administered on 06/11/17 00:53; Start 06/11/17 at 00:45; Stop 06/11/17 at 00:46 ; Status DC A/P Assessment and Plan Status post open lap, right colectomy with 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 - Ileostomy and colostomy in place. -management per surgery A. fib with RVR, improved Dyslipidemia Hypertension, well-controlled now. - Atrial fib RVR resolved. - 2-D ECHO with EF 60-65%. - No previous history of atrial fibrillation. - Continue metoprolol 25 mg PO q8h. - On simvastatin 10mg PO daily at home. Resume when clinically indicated. - Continue Lasix 40 IV daily. Continued positive fluid balance. Will monitor. Acute on chronic hypoxemic respiratory failure, resolved. Left upper lobe/middle lobe pulmonary embolism End-stage severe emphysema - FEV1 1.30, FVC 2.34, minimal response to dilators 05/11 PFTs - Albuterol/ipratropium aerosols every 6 hours with albuterol hours is every 2 hours. Dyspnea - Continue acapella and albuterol/ipratropium aerosols every 6 hours - continue subq Lovenox- will switch to oral anticoagulation when ok with surgery and pulmonary. Chronic prednisone use Hyperglycemia - Sliding scale insulin Accu-Cheks every 6 hours to maintain euglycemia/low regimen Novolog. Cover as needed. - Refusing prednisone. Will follow. Normocytic anemia History thrombocytopenia currently normal - Monitor CBC. - Previously on heparin drip for PE, off now. Hyponatremia, improving. DVT prophylaxis: SCDs/Lovenox. Layne Evangelista MD Jun 12, 2017 10:07
[2017-06-12 12:00] VITALS: BP 126/63; PULSE 85; RESP 20; TEMP 98.3; O2SAT 92
[2017-06-12 16:00] VITALS: BP 118/72; PULSE 80; RESP 20; TEMP 98; O2SAT 91
[2017-06-12] MEDS: FAT EMULSION 20% INJ 250 ML (@10 mls/hr) IV SCH (17:07)
[2017-06-12] MEDS: CLINIMIX E 4.25/5 2000 mL- >42 mls/hr IV SCH ×3 (17:08)
--- NOTE | 2017-06-12 19:39 | HHI.PR ---
Subjective Remarks 76 YOWM with COPD PE Mild sob, feels weak appetite poor, on TPN On Lovenox Appetite improving Feels better Still feels weak at BS Objective Vital Signs Vital Signs Date Time Temp Pulse Resp B/P (MAP) Pulse Ox O2 Delivery O2 Flow Rate FiO2 06/12/17 16:00 98.0 80 20 118/72 (87) 91 06/12/17 12:00 98.3 85 20 126/63 (84) 92 06/12/17 08:00 96 Nasal Cannula 2.00 35 06/12/17 08:00 98.1 81 20 124/61 (82) 91 06/12/17 04:00 Nasal Cannula 2.00 06/12/17 04:00 97.3 81 20 114/55 (74) 91 06/12/17 00:00 Nasal Cannula 2.00 06/11/17 23:36 98.1 78 20 113/68 (83) 92 06/11/17 21:30 Nasal Cannula 2.00 06/11/17 20:00 85 06/11/17 20:00 97.4 83 20 118/58 (78) 97 I/O 06/11/17 06/11/17 06/11/17 06/12/17 06/12/17 06/12/17 07:00 15:00 23:00 07:00 15:00 23:00 Intake Total 1479 ml 2357 ml 1104 ml Output Total 950 ml 1950 ml 1125 ml 2250 ml 300 ml Balance 529 ml 407 ml -21 ml -2250 ml -300 ml Intake Oral 320 ml 960 ml IV Total 1159 ml 1397 ml 1104 ml Output Urine Total 950 ml 1600 ml 900 ml 2000 ml Stool Total 350 ml 225 ml 250 ml 300 ml # Voids 1 # Bowel Movements 0 Result Diagram: 06/10/1751906/10/17 0520 Objective Remarks GENERAL: WBWN WM,NAD SKIN: Warm and dry. HEAD: Normocephalic. EYES: No scleral icterus. No injection or drainage. NECK: Supple, trachea midline. No JVD or lymphadenopathy. CARDIOVASCULAR: Regular rate and rhythm without murmurs, gallops, or rubs. RESPIRATORY: Breath sounds equal bilaterally. No accessory muscle use. GASTROINTESTINAL: Abdomen soft, non-tender, nondistended. MUSCULOSKELETAL: No cyanosis, or edema. BACK: Nontender without obvious deformity. No CVA tenderness. A/P Assessment and Plan VDRF, s/p extubation. S/P Emergent resection of Colon Pulm Embolism COPD HTN Pleural Plaques PLAN: Wean 02 to keep sat >92% Encourage PO Lovenox 110 mg sq q 12 hrs Aerosol nebs TPN Janak Mclaughlin MD Jun 12, 2017 19:39
[2017-06-12 20:00] VITALS: BP 140/60; PULSE 84; RESP 16; TEMP 98; O2SAT 95
[2017-06-12 20:04] VITALS: PULSE 88
[2017-06-13] VITALS (11 sets, daily range): BP systolic 99–119; BP diastolic 55–68; PULSE 75–117; RESP 18–20; TEMP 97–97.9; O2SAT 92–97
[2017-06-13] MEDS: INSULIN ASPART SUPPLEMENTAL SCALE SQ SCH ×4 (00:49→19:30)
[2017-06-13] MEDS: ENOXAPARIN SODIUM 120 MG/0.8 ML SYRINGE SQ SCH ×2 (01:00→13:03)
[2017-06-13] MEDS: FAMOTIDINE 20 MG/2 ML VIAL IV PUSH SCH ×2 (03:59→16:59)
[2017-06-13] MEDS: METOPROLOL TARTRATE 25 MG TAB PO SCH ×3 (05:55→20:27)
[2017-06-13 07:02] LABS: AUTOMATED NEUTROPHIL # 4.9 TH/MM3 (1.8-7.7); BASOPHIL # 0.1 TH/MM3 (0-0.2); EOSINOPHIL # 0.2 TH/MM3 (0-0.4); EOSINOPHIL % 3.4 % (0.0-4.0); HEMO FLAGS DIFF FINAL; LYMPHOCYTE # 0.7 TH/MM3 (1.0-4.8); MEAN CELL VOLUME 88.9 FL (80.0-100.0); MEAN CORPUSCULAR HEMOGLOBIN 30.8 PG (27.0-34.0); MEAN CORPUSCULAR HGB CONC 34.7 % (32.0-36.0); MONO % 7.9 % (0.0-8.0); NEUT % 76.7 % (16.0-70.0); PLATELET COUNT 191 TH/MM3 (150-450); RED BLOOD COUNT 2.81 MIL/MM3 (4.50-5.90); RED CELL DISTRIBUTION WIDTH 15.8 % (11.6-17.2); WHITE BLOOD COUNT 6.3 TH/MM3 (4.0-11.0)
[2017-06-13 07:14] LABS: BICARBONATE 28.3 MEQ/L (21.0-32.0); POTASSIUM 3.7 MEQ/L (3.5-5.1)
[2017-06-13] MEDS: CHLORHEXIDINE 0.12% (ORAL KIT) 15 ML CUP MT SCH ×2 (08:00→20:00)
[2017-06-13] MEDS: METOCLOPRAMIDE HCL 10 MG/2 ML VIAL IV PUSH SCH ×3 (08:45→23:47)
[2017-06-13] MEDS: FUROSEMIDE 40 MG/4 ML VIAL IV PUSH SCH (08:45)
[2017-06-13] MEDS: SODIUM CHLORIDE 0.9% FLUSH 10 ML FLUSH IV FLUSH SCH ×2 (08:45→20:27)
--- NOTE | 2017-06-13 10:26 | HHI.PR ---
Subjective Remarks in no acute distress. denies pain. no fever. no new complaints. Objective Vitals Vital Signs Date Time Temp Pulse Resp B/P (MAP) Pulse Ox O2 Delivery O2 Flow Rate FiO2 06/13/17 08:45 Nasal Cannula 2.00 06/13/17 08:00 97.9 76 18 112/68 (83) 92 06/13/17 04:00 Nasal Cannula 2.00 06/13/17 04:00 97.8 82 20 112/56 (74) 94 06/13/17 00:00 97.7 85 19 117/55 (75) 93 06/13/17 00:00 Nasal Cannula 2.00 06/12/17 23:24 Nasal Cannula 2.00 06/12/17 20:04 88 06/12/17 20:00 98.0 84 16 140/60 (86) 95 06/12/17 20:00 Nasal Cannula 2.00 06/12/17 16:00 98.0 80 20 118/72 (87) 91 06/12/17 12:00 98.3 85 20 126/63 (84) 92 I/O 06/12/17 06/12/17 06/12/17 06/13/17 06/13/17 06/13/17 07:00 15:00 23:00 07:00 15:00 23:00 Intake Total 1104 ml 120 ml 1552 ml Output Total 1125 ml 2250 ml 400 ml 100 ml Balance -21 ml -2250 ml -280 ml 1452 ml Intake Oral 120 ml 120 ml IV Total 1104 ml 1432 ml Output Urine Total 900 ml 2000 ml Stool Total 225 ml 250 ml 400 ml 100 ml # Voids 1 2 Result Diagram: 06/13/17 0644 06/13/17 0644 Imaging Last Impressions Chest X-Ray 06/04/17 0000 Signed Impressions: Service Date/Time: Sunday, June 04, 2017 15:44 - CONCLUSION: 1. Satisfactory placement of left subclavian central venous catheter. 2. No evidence pneumothorax. 3. Clearing basilar airspace disease. Philip Gardner MD Abdomen/Pelvis CT 05/26/17 0000 Signed Impressions: Service Date/Time: Friday, May 26, 2017 17:15 - CONCLUSION: Free intraperitoneal air probably from an upper abdominal source. Generalized ileus. Bryson Magaña MD FACR Abdomen X-Ray 05/25/17 0000 Signed Impressions: Service Date/Time: April 11:14 - CONCLUSION: Mildly gas distended colon. Otherwise, unremarkable exam. Anirudh Em Jr., MD Lower Extremity Ultrasound 05/18/17 0000 Signed Impressions: Service Date/Time: April 22:06 - CONCLUSION: Normal examination. Willi Robison MD CT Angiography 05/18/17 0000 Signed Impressions: Service Date/Time: April 18:05 - CONCLUSION: 1. Examination quality is degraded by severe respiratory motion artifact. However , there are filling defects identified within the left upper lobe and right middle lobe pulmonary arteries characteristic of PE. 2. Severe emphysema with trace left pleural effusion and left lower lobe atelectasis versus consolidation. 3. There are bilateral calcified pleural plaques indicative of prior asbestos exposure. Dario Mendez MD Objective Remarks GENERAL: This is a well-nourished, well-developed patient, in no apparent distress. CARDIOVASCULAR: Regular rate and regular rhythm without murmurs, gallops, or rubs. RESPIRATORY: Clear to auscultation. Breath sounds equal bilaterally. No wheezes , rales, or rhonchi. GASTROINTESTINAL: Abdomen soft, non-tender, nondistended. colostomy in place. MUSCULOSKELETAL: Extremities without clubbing, cyanosis, or edema. NEURO: Alert & Oriented x4 to person, place, time, situation. Moves all ext x4 Medications and IVs Current Medications Sodium Chloride (NS Flush) 2 ml UNSCH PRN IVF FLUSH AFTER USING IV ACCESS; Start 05/18/17 at 16:00; Status Cancel Methylprednisolone Sodium Succinate (SoluMEDROL INJ) 125 mg ONCE ONCE IV PUSH Last administered on 05/18/17 17:47; Start 05/18/17 at 17:30; Stop 05/18/17 at 17:31; Status DC Albuterol/ Ipratropium (Duoneb Neb) 1 ampule Q15M INH Last administered on 05/18 17:42; Start 05/18/17 at 17:30; Stop 05/18/17 at 18:01; Status DC Aspirin (Aspirin Chew) 162 mg ONCE ONCE CHEW Last administered on 05/18/17 17 :48; Start 05/18/17 at 17:30; Stop 05/18/17 at 17:31; Status DC Iohexol (Omnipaque 350 Inj) 75 ml STK-MED ONCE IVCONTRAST Last administered on 05/18/17 15:49; Start 05/18/17 at 15:49; Stop 05/18/17 at 18:08; Status DC Enoxaparin Sodium (Lovenox Inj) 130 mg ONCE ONCE SQ Last administered on 18:44; Start 05/18/17 at 18:45; Stop 05/18/17 at 18:46; Status DC Sodium Chloride (NS Flush) 2 ml UNSCH PRN IV FLUSH FLUSH AFTER USING IV ACCESS ; Start 05/18/17 at 20:00 Sodium Chloride (NS Flush) 2 ml BID IV FLUSH Last administered on 06/13/17 08: 45; Start 05/18/17 at 21:00 Naloxone HCl (Narcan Inj) 0.4 mg UNSCH PRN IV SEE LABEL COMMENTS; Start at 20:00; Stop 05/25/17 at 10:31; Status DC Enoxaparin Sodium (Lovenox Inj) 120 mg Q12H SQ Last administered on 05/19/17 10:19; Start 05/19/17 at 09:00; Stop 05/19/17 at 10:39; Status DC Albuterol/ Ipratropium (Duoneb Neb) 1 ampule Q6HR NEB NEB Last administered on 05/22/17 20:18; Start 05/18/17 at 22:00; Stop 05/22/17 at 21:59; Status DC Albuterol/ Ipratropium (Duoneb Neb) 1 ampule Q2HR NEB PRN NEB wheezing Last administered on 06/04/17 21:47; Start 05/18/17 at 20:00 Methylprednisolone Sodium Succinate (SoluMEDROL INJ) 40 mg Q6HR IV PUSH Last administered on 05/20/17 05:14; Start 05/19/17 at 00:00; Stop 05/20/17 at 09:41 ; Status DC Pantoprazole Sodium (Protonix) 40 mg DAILY PO Last administered on 05/27/17 10: 01; Start 05/19/17 at 09:00; Stop 05/27/17 at 13:44; Status DC Levofloxacin/ Dextrose 150 ml @ 100 mls/hr Q24H IV Last administered on 22:28; Start 05/18/17 at 22:00; Stop 05/21/17 at 09:06; Status DC Apixaban (Eliquis) 10 mg BID PO Last administered on 05/26/17 08:30; Start at 21:00; Stop 05/26/17 at 09:01; Status DC Apixaban (Eliquis) 5 mg BID PO Last administered on 05/26/17 21:29; Start at 21:00; Stop 05/27/17 at 13:44; Status DC Methylprednisolone Sodium Succinate (SoluMEDROL INJ) 40 mg Q8HR IV PUSH Last administered on 05/21/17 05:58; Start 05/20/17 at 14:00; Stop 05/21/17 at 09:03 ; Status DC Methylprednisolone Sodium Succinate (SoluMEDROL INJ) 40 mg Q12HR IV PUSH Last administered on 05/24/17 08:52; Start 05/21/17 at 18:00; Stop 05/24/17 at 19:32 ; Status DC Levofloxacin (Levaquin) 750 mg Q24H PO Last administered on 05/26/17 21:28; Start 05/21/17 at 22:00; Stop 05/27/17 at 13:42; Status DC Prednisone (Deltasone) 10 mg BID PO Last administered on 05/26/17 21:28; Start 05/24/17 at 21:00; Stop 05/27/17 at 13:44; Status DC Prednisone (Deltasone) 20 mg BID PO ; Start 05/24/17 at 21:00; Stop 05/24/17 at 21:00; Status DC Bisacodyl (Dulcolax Ec) 5 mg ONCE ONCE PO Last administered on 05/24/17 21:58 ; Start 05/24/17 at 21:45; Stop 05/24/17 at 21:46; Status DC Naloxone HCl (Narcan Inj) 0.4 mg UNSCH PRN IV SEE LABEL COMMENTS; Start at 10:30 Senna/Docusate Sodium (Faith-Colace) 1 tab BID PO Last administered on 05/26/17 21:00; Start 05/25/17 at 21:00; Stop 05/27/17 at 13:44; Status DC Magnesium Hydroxide (Milk Of Magnesia Liq) 30 ml Q12H PRN PO MILD - MODERATE CONSTIPATION; Start 05/25/17 at 10:30 Sennosides (Senokot) 17.2 mg Q12H PRN PO MODERATE - SEVERE CONSTIPATION Last administered on 05/25/17 13:55; Start 05/25/17 at 10:30; Stop 05/27/17 at 13:44 ; Status DC Bisacodyl (Dulcolax Supp) 10 mg DAILY PRN RECTAL SEVERE CONSITIPATION; Start at 10:30; Stop 06/01/17 at 13:26; Status DC Lactulose (Lactulose Liq) 30 ml DAILY PRN PO SEVERE CONSITIPATION Last administered on 05/25/17 13:55; Start 05/25/17 at 10:30; Stop 05/27/17 at 13:44 ; Status DC Sodium Biphosphate/ Sodium Phosphate (Fleets Enema (Adult)) 133 ml ONCE ONCE RECTAL ; Start 05/26/17 at 12:15; Stop 05/26/17 at 12:44; Status DC Lactulose (Lactulose Liq) 30 ml ONCE ONCE PO Last administered on 05/26/17 12: 49; Start 05/26/17 at 13:00; Stop 05/26/17 at 13:01; Status DC Lactulose (Lactulose Liq) 30 ml QID PO Last administered on 05/26/17 21:29; Start 05/26/17 at 18:00; Stop 05/27/17 at 13:44; Status DC Diatrizoate Meglum/ Diatrizoate Sod ( Gastroview Liq) 18 ml ONCE ONCE PO Last administered on 05/26/17 13:00; Start 05/26/17 at 13:00; Stop 05/26/17 at 13: 01; Status DC Bupivacaine HCl/ Epinephrine Bitart (Sensorcaine-Epi 0.5% 50 ml Inj) 50 ml STK- MED ONCE .ROUTE ; Start 05/27/17 at 13:23; Stop 05/27/17 at 13:24; Status DC Thrombin (Thrombin Top Soln) 5,000 units STK-MED ONCE .ROUTE ; Start 05/27/17 at 13:23; Stop 05/27/17 at 13:24; Status DC Gelatin (Gelfoam 100 Top) 1 foam STK-MED ONCE .ROUTE ; Start 05/27/17 at 13:23; Stop 05/27/17 at 13:24; Status DC Heparin Sodium (Porcine) (Heparin Inj) 10,000 units STK-MED ONCE .ROUTE ; Start 05/27/17 at 13:24; Stop 05/27/17 at 13:25; Status DC Piperacillin Sod/ Tazobactam Sod 100 ml @ 200 mls/hr Q8H IV Last administered on 05/27/17 14:45; Start 05/27/17 at 14:00; Stop 05/27/17 at 17:19; Status DC Lactated Ringer's 1,000 ml @ 30 mls/hr Q24H PRN IV SEE LABEL COMMENTS; Start at 13:45; Stop 05/30/17 at 13:44; Status DC Sodium Chloride 500 ml @ 30 mls/hr [id number] PRN IV SEE LABEL COMMENTS; Start 05/27/17 at 13:45; Stop 05/30/17 at 13:44; Status DC Metoprolol Tartrate (Lopressor) 25 mg FIELD ORGANIZER PRN PO SEE LABEL COMMENTS; Start 05/27/17 at 13:45; Stop 05/30/17 at 13:44; Status DC Povidone Iodine (Betadine 5% Antisepsis Kit) 1 applic FIELD ORGANIZER PRN EACH NARE SEE LABEL COMMENTS; Start 05/27/17 at 13:45; Stop 05/30/17 at 13:44; Status DC Chlorhexidine Gluconate (Chlorhexidine 2% Cloth) 3 pack FIELD ORGANIZER PRN TOPICAL SEE LABEL COMMENTS; Start 05/27/17 at 13:45; Stop 05/30/17 at 13:44; Status DC Insulin Human Regular (NovoLIN R INJ) See Protocol Table ... FIELD ORGANIZER PRN SQ SEE PROTOCOL TABLE; Start 05/27/17 at 13:45; Stop 05/28/17 at 13:34; Status DC Famotidine (Pepcid Inj) 20 mg Q12H IV PUSH Last administered on 06/13/17t 03:59 ; Start 05/27/17 at 16:00 Methylprednisolone Sodium Succinate (SoluMEDROL INJ) 40 mg Q8HR IV PUSH Last administered on 05/28/17 06:07; Start 05/27/17 at 15:00; Stop 05/28/17 at 10:06; Status DC Lactated Ringer's 1,000 ml @ 999 mls/hr BOLUS ONCE IV Last administered on 14:00; Start 05/27/17 at 14:00; Stop 05/27/17 at 15:00; Status DC Sodium Chloride 1,000 ml @ 100 mls/hr Q10H IV Last administered on 05/31/17 01 :05; Start 05/27/17 at 14:00; Stop 05/31/17 at 11:57; Status DC Albumin Human (Albumin 25% Inj) 50 gm STK-MED ONCE IV ; Start 05/27/17 at 15:03; Stop 05/27/17 at 15:04; Status DC Piperacillin Sod/ Tazobactam Sod 100 ml @ 200 mls/hr FIELD ORGANIZER IV ; Start at 15:15; Stop 05/30/17 at 15:14; Status DC Metronidazole 100 ml @ As Directed STK-MED ONCE IV ; Start 05/27/17 at 15:38; Stop 05/27/17 at 15:39; Status DC Chlorhexidine Gluconate (Peridex 0.12% Liq) 15 ml BID@08,20 MT Last administered on 06/12/17 08:00; Start 05/27/17 at 20:00 Propofol 100 ml @ 3.663 mls/ hr TITRATE PRN IV SEDATION Last administered on 11:10; Start 05/27/17 at 17:00; Stop 06/01/17 at 13:04; Status DC Fentanyl Citrate (fentaNYL INJ) 100 mcg Q2H PRN IV PUSH Pain, any amount; Start 05/27/17 at 16:45; Stop 06/07/17 at 09:15; Status DC Fentanyl Citrate 250 ml @ 5 mls/hr TITRATE PRN IV SEDATION Last administered on 05/30/17 11:10; Start 05/27/17 at 17:00; Stop 06/01/17 at 13:26; Status DC Diltiazem HCl 125 mg/Sodium Chloride 125 ml @ 5 mls/hr TITRATE PRN IV Tachycardia Last administered on 05/31/17 18:07; Start 05/27/17 at 17:00; Stop at 08:45; Status DC Metoprolol Tartrate (Lopressor Inj) 5 mg Q6H IV PUSH ; Start 05/27/17 at 17:00; Stop 05/27/17 at 17:19; Status DC Piperacillin Sod/ Tazobactam Sod 50 ml @ 100 mls/hr Q6HR IV Last administered on 06/07/17 05:27; Start 05/27/17 at 18:00; Stop 06/07/17 at 09:15; Status DC Metoprolol Tartrate (Lopressor Inj) 5 mg Q6H PRN IV PUSH Pulse > 110 Last administered on 06/06/17 14:34; Start 05/27/17 at 23:00 Metoprolol Tartrate (Lopressor) 25 mg Q8HR PO Last administered on 05/28/17 06: 08; Start 05/27/17 at 17:15; Stop 05/28/17 at 10:06; Status DC Albuterol/ Ipratropium (Duoneb Neb) 1 ampule Q6HR NEB NEB Last administered on 05/31/17 08:32; Start 05/27/17 at 17:15; Stop 05/31/17 at 11:52; Status DC Midazolam HCl (Versed Inj) 2 mg STK-MED ONCE .ROUTE ; Start 05/27/17 at 17:45; Stop 05/27/17 at 17:46; Status DC Fentanyl Citrate (fentaNYL INJ) 200 mcg STK-MED ONCE .ROUTE ; Start 05/27/17 at 17:46; Stop 05/27/17 at 17:47; Status DC Lactated Ringer's 1,000 ml @ 999 mls/hr BOLUS ONCE IV Last administered on 20:00; Start 05/27/17 at 20:00; Stop 05/27/17 at 21:00; Status DC Methylprednisolone Sodium Succinate (SoluMEDROL INJ) 40 mg Q12HR IV PUSH Last administered on 06/02/17 08:35; Start 05/28/17 at 21:00; Stop 06/02/17 at 16:17; Status DC Metoprolol Tartrate (Lopressor) 12.5 mg Q8HR PO Last administered on 06/02/17 13:36; Start 05/28/17 at 14:00; Stop 06/02/17 at 16:17; Status DC Amiodarone HCl 150 mg/Dextrose 103 ml @ 100 mls/hr Q1H2M ONCE IV Last administered on 05/28/17 10:53; Start 05/28/17 at 10:15; Stop 05/28/17 at 11:16; Status DC Amiodarone HCl 900 mg/Dextrose 500 ml @ 33 mls/hr [id number] IV ; Start 05/28/17 at 10:09; Stop 05/28/17 at 10:13; Status DC Enoxaparin Sodium (Lovenox Inj) 40 mg Q24H SQ Last administered on 05/28/17 12: 35; Start 05/28/17 at 12:00; Stop 05/29/17 at 10:03; Status DC Metoclopramide HCl (Reglan Liq) 10 mg Q8HR PO Last administered on 05/30/17 05 :49; Start 05/28/17 at 14:00; Stop 05/30/17 at 07:50; Status DC Miscellaneous (Pill Splitter) 1 ea UNSCH PRN OTHER SEE LABEL COMMENTS; Start at 10:15 Amiodarone HCl 450 mg/Dextrose 250 ml @ 33.33 mls/ hr Q7H31M IV Last administered on 06/02/17 03:00; Start 05/28/17 at 10:15; Stop 06/02/17 at 08:45; Status DC Dextrose (D50w (Vial) Inj) 50 ml UNSCH PRN IV HYPOGLYCEMIA-SEE COMMENTS; Start 05/28/17 at 13:30 Glucagon (Glucagon Inj) 1 mg UNSCH PRN OTHER HYPOGLYCEMIA-SEE COMMENTS; Start 05/28/17 at 13:30 Insulin Aspart (NovoLOG SUPPLEMENTAL SCALE) 1 Q6H SQ Last administered on 21:29; Start 05/28/17 at 13:30 Heparin Sodium (Porcine) (Heparin Inj) 10,000 units ONCE ONCE IV ; Start at 10:15; Stop 05/29/17 at 10:16; Status DC Heparin Sodium/ Dextrose 250 ml @ 22.644 mls/ hr TITRATE PRN IV Coagulation management Last administered on 06/05/17 06:16; Start 05/29/17 at 10:15; Stop at 09:15; Status DC Metoclopramide HCl (Reglan Inj) 10 mg Q8H IV PUSH Last administered on 08:45; Start 05/30/17 at 08:00 Albuterol/ Ipratropium (Duoneb Neb) 1 ampule Q6HR NEB NEB Last administered on 06/04/17 15:43; Start 05/31/17 at 16:00; Stop 06/04/17 at 15:59; Status DC Potassium Chloride 100 ml @ 100 mls/hr Q1H IV Last administered on 05/31/17 18 :08; Start 05/31/17 at 14:00; Stop 05/31/17 at 15:29; Status DC Lactated Ringer's 1,000 ml @ 100 mls/hr Q10H IV Last administered on 06/02/17 05:00; Start 05/31/17 at 13:00; Stop 06/02/17 at 08:45; Status DC Potassium Chloride 100 ml @ 100 mls/hr Q1H IV ; Start 05/31/17 at 16:30; Stop at 18:29; Status DC Acetaminophen (Ofirmev 1000 Mg/ 100 ml Inj) 1,000 mg Q8HR PRN IV FEVER; Start 06/01/17 at 14:00 Multivitamins 10 ml/Folic Acid 1 mg/Amino Acids/ Electrolytes/ Dextrose 2,010.2 ml @ 100 mls/ hr Q20H7M IV Last administered on 06/12/17 17:08; Start at 20:00 Fat Emulsion Intravenous 250 ml @ 10 mls/hr Q24H IV Last administered on 17:07; Start 06/01/17 at 20:00 Furosemide (Lasix Inj) 60 mg ONCE ONCE IV PUSH Last administered on 06/02/17 09:43; Start 06/02/17 at 08:45; Stop 06/02/17 at 08:47; Status DC Metoprolol Tartrate (Lopressor) 25 mg Q8HR PO Last administered on 06/13/17 05 :55; Start 06/02/17 at 22:00 Furosemide (Lasix Inj) 40 mg DAILY IV PUSH Last administered on 06/13/17 08:45 ; Start 06/03/17 at 11:00 Potassium Chloride 100 ml @ 50 mls/hr Q2H IV Last administered on 06/03/17 17: 30; Start 06/03/17 at 11:30; Stop 06/03/17 at 15:29; Status DC Amiodarone HCl 150 mg/Dextrose 103 ml @ 100 mls/hr Q1H2M ONCE IV Last administered on 06/04/17 08:21; Start 06/04/17 at 08:00; Stop 06/04/17 at 09:01 ; Status DC Amiodarone HCl 450 mg/Dextrose 250 ml @ 33.33 mls/ hr Q7H31M IV Last administered on 06/07/17 09:08; Start 06/04/17 at 07:46; Stop 06/07/17 at 09:15 ; Status DC Prednisone (predniSONE LIQ) 10 mg BID PO Last administered on 06/06/17 08:49; Start 06/04/17 at 09:00; Status Future Hold Potassium Chloride 100 ml @ 50 mls/hr Q2H IV Last administered on 06/04/17 17 :20; Start 06/04/17 at 09:00; Stop 06/04/17 at 12:59; Status DC Midazolam HCl (Versed Inj) 5 mg ONCE ONCE IM ; Start 06/04/17 at 14:45; Stop at 14:54; Status DC Enoxaparin Sodium (Lovenox Inj) 110 mg Q12H SQ Last administered on 06/13/17 01:00; Start 06/05/17 at 14:00 Acetaminophen/ Hydrocodone Bitart ([place] 5-325 Mg) 1 tab ONCE ONCE PO Last administered on 06/11/17 00:53; Start 06/11/17 at 00:45; Stop 06/11/17 at 00:46 ; Status DC A/P Assessment and Plan A/P Status post open lap, right colectomy with 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 -management per surgery A. fib with RVR, improved Dyslipidemia Hypertension, well-controlled now. - Atrial fib RVR resolved. - 2-D ECHO with EF 60-65%. - No previous history of atrial fibrillation. - Continue metoprolol 25 mg PO q8h. - On simvastatin 10mg PO daily at home. Resume upon discharge. - Continue Lasix 40 IV daily. Will monitor. Acute on chronic hypoxemic respiratory failure, resolved. Left upper lobe/middle lobe pulmonary embolism End-stage severe emphysema - FEV1 1.30, FVC 2.34, minimal response to dilators 05/11 PFTs - Albuterol/ipratropium aerosols every 6 hours with albuterol hours is every 2 hours. Dyspnea - Continue acapella and albuterol/ipratropium aerosols every 6 hours - continue subq Lovenox- will switch to oral anticoagulation when ok with surgery and pulmonary. Chronic prednisone use Hyperglycemia - Sliding scale insulin. Cover as needed. - Refusing prednisone. Will follow. Normocytic anemia History thrombocytopenia currently normal - Monitor CBC. - Previously on heparin drip for PE, off now. Hyponatremia, improving. DVT prophylaxis: SCDs/Lovenox. Discharge Planning dc planning to rehab when cleared by surgery and pulmonary. Layne Evangelista MD Jun 13, 2017 10:26
--- NOTE | 2017-06-13 11:28 | HHI.PR ---
Subjective Subjective Notes Appetite okay Likes Boost shakes No abdominal pain Objective Vitals/I&O Vital Signs Date Time Temp Pulse Resp B/P (MAP) Pulse Ox O2 Delivery O2 Flow Rate FiO2 06/13/17 08:45 Nasal Cannula 2.00 06/13/17 08:40 75 06/13/17 08:00 97.9 18 112/68 (83) 92 06/12/17 08:00 35 Labs Laboratory Tests Test 06/13/17 06:44 White Blood Count 6.3 Red Blood Count 2.81 Hemoglobin 8.7 Hematocrit 25.0 Mean Corpuscular Volume 88.9 Mean Corpuscular Hemoglobin 30.8 Mean Corpuscular Hemoglobin Concent 34.7 Red Cell Distribution Width 15.8 Platelet Count 191 Mean Platelet Volume 8.3 Neutrophils (%) (Auto) 76.7 Lymphocytes (%) (Auto) 11.0 Monocytes (%) (Auto) 7.9 Eosinophils (%) (Auto) 3.4 Basophils (%) (Auto) 1.0 Neutrophils # (Auto) 4.9 Lymphocytes # (Auto) 0.7 Monocytes # (Auto) 0.5 Eosinophils # (Auto) 0.2 Basophils # (Auto) 0.1 CBC Comment DIFF FINAL Differential Comment Blood Urea Nitrogen 17 Creatinine 0.73 Random Glucose 120 Calcium Level 8.1 Sodium Level 132 Potassium Level 3.7 Chloride Level 98 Carbon Dioxide Level 28.3 Anion Gap 6 Estimat Glomerular Filtration Rate 105 Radiology Last Impressions Chest X-Ray 06/03/17 0000 Signed Impressions: Service Date/Time: Saturday, June 03, 2017 11:04 - CONCLUSION: Stable chest x-ray with bibasilar airspace opacity. Dario Mendez MD Abdomen/Pelvis CT 05/26/17 0000 Signed Impressions: Service Date/Time: Friday, May 26, 2017 17:15 - CONCLUSION: Free intraperitoneal air probably from an upper abdominal source. Generalized ileus. Bryson Magaña MD FACR Abdomen X-Ray 05/25/17 0000 Signed Impressions: Service Date/Time: April 11:14 - CONCLUSION: Mildly gas distended colon. Otherwise, unremarkable exam. Anirudh Em Jr., MD Lower Extremity Ultrasound 05/18/17 0000 Signed Impressions: Service Date/Time: April 22:06 - CONCLUSION: Normal examination. Willi Robison MD CT Angiography 05/18/17 0000 Signed Impressions: Service Date/Time: , May 18, 2017 18:05 - CONCLUSION: 1. Examination quality is degraded by severe respiratory motion artifact. However , there are filling defects identified within the left upper lobe and right middle lobe pulmonary arteries characteristic of PE. 2. Severe emphysema with trace left pleural effusion and left lower lobe atelectasis versus consolidation. 3. There are bilateral calcified pleural plaques indicative of prior asbestos exposure. Dario Mendez MD Cardiovascular: Regular Lungs: Clear Abdomen: Other (midline wound vac in place with good seal; ileostomy with liquid stool and full of gas (notified RN Louisa); MF with SS drainage; abd soft ; non tender ) Extremities: No edema A/P Assessment and Plan 76 year old male POD17 ex lap; RIGHT hemicolectomy with end ileostomy and mucus fistula for ischemia -Regular diet + Ensure/Boost shakes -On NC -Monitor Hmg -Reduce rate of TPN in half today; plan to DC tomorrow -PT -Continue to monitor WBC -Wound Vac to midline incision MWF -CM consult for rehab Attending Statement The exam, history, and the medical decision-making described in the above note were completed with the assistance of the mid-level provider. I reviewed and agree with the findings presented. I attest that I had a [id number] encounter with the patient on the same day, and personally performed and documented my assessment and findings in the medical record. Abdominal exam: soft, non-tender on exam, ostomy viable/good output doing well with PT, needs placement Jessie Velázquez Jun 13, 2017 11:28 Leon Pemberton MD Jun 27, 2017 23:53
[2017-06-13] MEDS: CLINIMIX E 4.25/5 2000 mL- >42 mls/hr IV SCH ×3 (13:03)
--- NOTE | 2017-06-13 14:24 | PD.WCN.NOT ---
Wound Consult Description: Midline abdomen Communicated with: YAZAN Jasso Patient Physical Therapy Recommendation: Change Wound VAC to midline abdomen as ordered Monday with wound VAC settings @ 125mmHg low continuous suction. Intact collection bag to left upper quadrant mucus fistula with cut to fit 4" appliance. Changed ileostomy appliance to right lower quadrant using 2 3/4" appliance. Additional Information: *Late Entry* Patient seen earlier today for Ileostomy and mucus fistula assessment. Ostomy Type: Ileostomy (right lower quadrant), Other (Mucus fistula noted to left upper abdomen) Surgeon: Leon Pemberton MD Complete: Education materials ([employer] kit left at bedside) Educated patient on: Ileostomy Mucus Fistula Output Taking off appliance Cleansing peristomal skin Measuring stoma for appliance selection Applying new barrier and pouch Closing the end of the pouch to avoid leaks Additional information Right lower quadrant ileostomy is functioning with dark green liquid effluent noted in pouch prior to removal. There is mild odor noted with effluent. Flush stoma measures 1 3/4 and is oval, yellow/brown with sloughing, soft, moist, lumen in center, mucocutaneous junction is noted to be from 6-12 o' clock with 2 sutures holding in in place at 9 and 11 o'clock. Appliance was changed by life underwriter today using a 2 3/4" appliance. Left upper abdomen mucus fistula is pink, oval, moist, moderately protruding, lumen in center, functioning with pink liquid and mucus and measuring 2". Appliance will need to be changed tomorrow using a cut to fit 4" wafer. Francine Mcadams [facility] Jun 13, 2017 14:24
--- NOTE | 2017-06-13 18:06 | HHI.PR ---
Subjective Remarks 76 YOWM with COPD PE Mild sob, feels weak appetite poor, on TPN On Lovenox Appetite improving Feels better Still feels weak Objective Vital Signs Vital Signs Date Time Temp Pulse Resp B/P (MAP) Pulse Ox O2 Delivery O2 Flow Rate FiO2 06/13/17 17:43 94 Nasal Cannula 2.00 06/13/17 16:00 Nasal Cannula 2.00 06/13/17 16:00 97.0 104 20 104/56 (72) 97 06/13/17 12:00 Nasal Cannula 2.00 06/13/17 12:00 97.3 117 20 119/58 (78) 94 06/13/17 11:42 93 Nasal Cannula 2.00 06/13/17 08:45 Nasal Cannula 2.00 06/13/17 08:40 75 06/13/17 08:00 97.9 76 18 112/68 (83) 92 06/13/17 04:00 Nasal Cannula 2.00 06/13/17 04:00 97.8 82 20 112/56 (74) 94 06/13/17 00:00 97.7 85 19 117/55 (75) 93 06/13/17 00:00 Nasal Cannula 2.00 06/12/17 23:24 Nasal Cannula 2.00 06/12/17 20:04 88 06/12/17 20:00 98.0 84 16 140/60 (86) 95 06/12/17 20:00 Nasal Cannula 2.00 I/O 06/12/17 06/12/17 06/12/17 06/13/17 06/13/17 06/13/17 07:00 15:00 23:00 07:00 15:00 23:00 Intake Total 1104 ml 120 ml 1552 ml 791 ml Output Total 1125 ml 2250 ml 400 ml 100 ml Balance -21 ml -2250 ml -280 ml 1452 ml 791 ml Intake Oral 120 ml 120 ml IV Total 1104 ml 1432 ml 791 ml Output Urine Total 900 ml 2000 ml Stool Total 225 ml 250 ml 400 ml 100 ml # Voids 1 2 Result Diagram: 06/13/1744 06/13/17 0644 Objective Remarks GENERAL: WBWN WM,NAD SKIN: Warm and dry. HEAD: Normocephalic. EYES: No scleral icterus. No injection or drainage. NECK: Supple, trachea midline. No JVD or lymphadenopathy. CARDIOVASCULAR: Regular rate and rhythm without murmurs, gallops, or rubs. RESPIRATORY: Breath sounds equal bilaterally. No accessory muscle use. GASTROINTESTINAL: Abdomen soft, non-tender, nondistended. MUSCULOSKELETAL: No cyanosis, or edema. BACK: Nontender without obvious deformity. No CVA tenderness. A/P Assessment and Plan VDRF, s/p extubation. S/P Emergent resection of Colon Pulm Embolism COPD HTN Pleural Plaques PLAN: Wean 02 to keep sat >92% Encourage PO Lovenox 110 mg sq q 12 hrs Aerosol nebs TPN DC plans for rehab Janak Mclaughlin MD Jun 13, 2017 18:06
[2017-06-13] MEDS: FAT EMULSION 20% INJ 250 ML (@10 mls/hr) IV SCH (20:24)
[2017-06-14] VITALS (8 sets, daily range): BP systolic 98–135; BP diastolic 56–87; PULSE 73–114; RESP 18; TEMP 97.6–98.5; O2SAT 93–95
[2017-06-14] MEDS: INSULIN ASPART SUPPLEMENTAL SCALE SQ SCH ×4 (00:25→19:30)
[2017-06-14] MEDS: ENOXAPARIN SODIUM 120 MG/0.8 ML SYRINGE SQ SCH ×2 (02:23→15:06)
[2017-06-14] MEDS: FAMOTIDINE 20 MG/2 ML VIAL IV PUSH SCH ×2 (04:20→15:07)
[2017-06-14] MEDS: METOPROLOL TARTRATE 25 MG TAB PO SCH ×3 (06:09→23:10)
[2017-06-14] MEDS: CHLORHEXIDINE 0.12% (ORAL KIT) 15 ML CUP MT SCH ×2 (08:00→20:00)
[2017-06-14] MEDS: METOCLOPRAMIDE HCL 10 MG/2 ML VIAL IV PUSH SCH ×3 (08:38→23:10)
[2017-06-14] MEDS: SODIUM CHLORIDE 0.9% FLUSH 10 ML FLUSH IV FLUSH SCH ×2 (08:39→21:06)
[2017-06-14] MEDS: FUROSEMIDE 40 MG/4 ML VIAL IV PUSH SCH (08:48)
--- NOTE | 2017-06-14 11:11 | PD.WCN.NOT ---
Wound Consult Description: Midline abdomen Ileostomy Colostomy Communicated with: Patient Louisa,RN Recommendation: Change Wound VAC to midline abdomen as ordered Monday with wound VAC settings @ 125mmHg low continuous suction. Intact collection bag to left upper quadrant mucus fistula with cut to fit 4" appliance. Intact ileostomy appliance to right lower quadrant with 2 3/4" appliance. Additional Information: Patient seen on for ileostomy assessment with wound VAC change today. Ostomy Type: Ileostomy (right lower quadrant), Other (Mucus fistula noted to left upper abdomen) Surgeon: Leon Pemberton MD Complete: Education materials ([employer] kit left at bedside) Educated patient on: Appliances intact with functioning stomas. Francine Mcadams [facility] Jun 14, 2017 11:11
--- NOTE | 2017-06-14 12:05 | HHI.PR ---
Subjective Remarks resting comfortably with no distress. denies pain. no new complaints. Objective Vitals Vital Signs Date Time Temp Pulse Resp B/P (MAP) Pulse Ox O2 Delivery O2 Flow Rate FiO2 06/14/17 09:03 95 2.00 06/14/17 08:00 110 06/14/17 08:00 97.7 95 18 98/58 (71) 94 06/14/17 05:20 97.7 114 18 114/87 (96) 94 06/14/17 04:00 Nasal Cannula 2.00 06/14/17 00:00 Nasal Cannula 2.00 06/13/17 23:23 97.6 107 18 109/56 (73) 92 06/13/17 20:00 Nasal Cannula 2.00 06/13/17 20:00 103 06/13/17 19:55 97.3 104 18 99/55 (70) 93 06/13/17 17:43 94 Nasal Cannula 2.00 06/13/17 16:00 Nasal Cannula 2.00 06/13/17 16:00 97.0 104 20 104/56 (72) 97 I/O 06/13/17 06/13/17 06/13/17 06/14/17 06/14/17 06/14/17 07:00 15:00 23:00 07:00 15:00 23:00 Intake Total 1552 ml 791 ml 720 ml 960 ml Output Total 100 ml 2225 ml 750 ml Balance 1452 ml 791 ml -1505 ml 210 ml Intake Oral 120 ml 720 ml 960 ml IV Total 1432 ml 791 ml Output Urine Total 1825 ml 750 ml Stool Total 100 ml 400 ml # Voids 2 # Bowel Movements 0 Result Diagram: 06/13/17 0644 06/13/17 0644 Imaging Last Impressions Chest X-Ray 06/04/17 0000 Signed Impressions: Service Date/Time: Sunday, June 04, 2017 15:44 - CONCLUSION: 1. Satisfactory placement of left subclavian central venous catheter. 2. No evidence pneumothorax. 3. Clearing basilar airspace disease. Philip Gardner MD Abdomen/Pelvis CT 05/26/17 0000 Signed Impressions: Service Date/Time: Friday, May 26, 2017 17:15 - CONCLUSION: Free intraperitoneal air probably from an upper abdominal source. Generalized ileus. Bryson Magaña MD FACR Abdomen X-Ray 05/25/17 0000 Signed Impressions: Service Date/Time: April 11:14 - CONCLUSION: Mildly gas distended colon. Otherwise, unremarkable exam. Anirudh Em Jr., MD Lower Extremity Ultrasound 05/18/17 0000 Signed Impressions: Service Date/Time: April 22:06 - CONCLUSION: Normal examination. Willi Robison MD CT Angiography 05/18/17 0000 Signed Impressions: Service Date/Time: April 18:05 - CONCLUSION: 1. Examination quality is degraded by severe respiratory motion artifact. However , there are filling defects identified within the left upper lobe and right middle lobe pulmonary arteries characteristic of PE. 2. Severe emphysema with trace left pleural effusion and left lower lobe atelectasis versus consolidation. 3. There are bilateral calcified pleural plaques indicative of prior asbestos exposure. Dario Mendez MD Objective Remarks GENERAL: This is a well-nourished, well-developed patient, in no apparent distress. CARDIOVASCULAR: Regular rate and regular rhythm without murmurs, gallops, or rubs. RESPIRATORY: Clear to auscultation. Breath sounds equal bilaterally. No wheezes , rales, or rhonchi. GASTROINTESTINAL: Abdomen soft, non-tender, nondistended. colostomy in place. MUSCULOSKELETAL: Extremities without clubbing, cyanosis, or edema. NEURO: Alert & Oriented x4 to person, place, time, situation. Moves all ext x4 Medications and IVs Current Medications Sodium Chloride (NS Flush) 2 ml UNSCH PRN IVF FLUSH AFTER USING IV ACCESS; Start 05/18/17 at 16:00; Status Cancel Methylprednisolone Sodium Succinate (SoluMEDROL INJ) 125 mg ONCE ONCE IV PUSH Last administered on 05/18/17 17:47; Start 05/18/17 at 17:30; Stop 05/18/17 at 17:31; Status DC Albuterol/ Ipratropium (Duoneb Neb) 1 ampule Q15M INH Last administered on 05/18 17:42; Start 05/18/17 at 17:30; Stop 05/18/17 at 18:01; Status DC Aspirin (Aspirin Chew) 162 mg ONCE ONCE CHEW Last administered on 05/18/17 17 :48; Start 05/18/17 at 17:30; Stop 05/18/17 at 17:31; Status DC Iohexol (Omnipaque 350 Inj) 75 ml STK-MED ONCE IVCONTRAST Last administered on 05/18/17 15:49; Start 05/18/17 at 15:49; Stop 05/18/17 at 18:08; Status DC Enoxaparin Sodium (Lovenox Inj) 130 mg ONCE ONCE SQ Last administered on 18:44; Start 05/18/17 at 18:45; Stop 05/18/17 at 18:46; Status DC Sodium Chloride (NS Flush) 2 ml UNSCH PRN IV FLUSH FLUSH AFTER USING IV ACCESS Last administered on 06/14/17 08:39; Start 05/18/17 at 20:00 Sodium Chloride (NS Flush) 2 ml BID IV FLUSH Last administered on 06/14/17 08: 39; Start 05/18/17 at 21:00 Naloxone HCl (Narcan Inj) 0.4 mg UNSCH PRN IV SEE LABEL COMMENTS; Start at 20:00; Stop 05/25/17 at 10:31; Status DC Enoxaparin Sodium (Lovenox Inj) 120 mg Q12H SQ Last administered on 05/19/17 10:19; Start 05/19/17 at 09:00; Stop 05/19/17 at 10:39; Status DC Albuterol/ Ipratropium (Duoneb Neb) 1 ampule Q6HR NEB NEB Last administered on 05/22/17 20:18; Start 05/18/17 at 22:00; Stop 05/22/17 at 21:59; Status DC Albuterol/ Ipratropium (Duoneb Neb) 1 ampule Q2HR NEB PRN NEB wheezing Last administered on 06/04/17 21:47; Start 05/18/17 at 20:00 Methylprednisolone Sodium Succinate (SoluMEDROL INJ) 40 mg Q6HR IV PUSH Last administered on 05/20/17 05:14; Start 05/19/17 at 00:00; Stop 05/20/17 at 09:41 ; Status DC Pantoprazole Sodium (Protonix) 40 mg DAILY PO Last administered on 05/27/17 10: 01; Start 05/19/17 at 09:00; Stop 05/27/17 at 13:44; Status DC Levofloxacin/ Dextrose 150 ml @ 100 mls/hr Q24H IV Last administered on 22:28; Start 05/18/17 at 22:00; Stop 05/21/17 at 09:06; Status DC Apixaban (Eliquis) 10 mg BID PO Last administered on 05/26/17 08:30; Start at 21:00; Stop 05/26/17 at 09:01; Status DC Apixaban (Eliquis) 5 mg BID PO Last administered on 05/26/17 21:29; Start at 21:00; Stop 05/27/17 at 13:44; Status DC Methylprednisolone Sodium Succinate (SoluMEDROL INJ) 40 mg Q8HR IV PUSH Last administered on 05/21/17 05:58; Start 05/20/17 at 14:00; Stop 05/21/17 at 09:03 ; Status DC Methylprednisolone Sodium Succinate (SoluMEDROL INJ) 40 mg Q12HR IV PUSH Last administered on 05/24/17 08:52; Start 05/21/17 at 18:00; Stop 05/24/17 at 19:32 ; Status DC Levofloxacin (Levaquin) 750 mg Q24H PO Last administered on 05/26/17 21:28; Start 05/21/17 at 22:00; Stop 05/27/17 at 13:42; Status DC Prednisone (Deltasone) 10 mg BID PO Last administered on 05/26/17 21:28; Start 05/24/17 at 21:00; Stop 05/27/17 at 13:44; Status DC Prednisone (Deltasone) 20 mg BID PO ; Start 05/24/17 at 21:00; Stop 05/24/17 at 21:00; Status DC Bisacodyl (Dulcolax Ec) 5 mg ONCE ONCE PO Last administered on 05/24/17 21:58 ; Start 05/24/17 at 21:45; Stop 05/24/17 at 21:46; Status DC Naloxone HCl (Narcan Inj) 0.4 mg UNSCH PRN IV SEE LABEL COMMENTS; Start at 10:30 Senna/Docusate Sodium (Faith-Colace) 1 tab BID PO Last administered on 05/26/17 21:00; Start 05/25/17 at 21:00; Stop 05/27/17 at 13:44; Status DC Magnesium Hydroxide (Milk Of Magnesia Liq) 30 ml Q12H PRN PO MILD - MODERATE CONSTIPATION; Start 05/25/17 at 10:30 Sennosides (Senokot) 17.2 mg Q12H PRN PO MODERATE - SEVERE CONSTIPATION Last administered on 05/25/17 13:55; Start 05/25/17 at 10:30; Stop 05/27/17 at 13:44 ; Status DC Bisacodyl (Dulcolax Supp) 10 mg DAILY PRN RECTAL SEVERE CONSITIPATION; Start at 10:30; Stop 06/01/17 at 13:26; Status DC Lactulose (Lactulose Liq) 30 ml DAILY PRN PO SEVERE CONSITIPATION Last administered on 05/25/17 13:55; Start 05/25/17 at 10:30; Stop 05/27/17 at 13:44 ; Status DC Sodium Biphosphate/ Sodium Phosphate (Fleets Enema (Adult)) 133 ml ONCE ONCE RECTAL ; Start 05/26/17 at 12:15; Stop 05/26/17 at 12:44; Status DC Lactulose (Lactulose Liq) 30 ml ONCE ONCE PO Last administered on 05/26/17 12: 49; Start 05/26/17 at 13:00; Stop 05/26/17 at 13:01; Status DC Lactulose (Lactulose Liq) 30 ml QID PO Last administered on 05/26/17 21:29; Start 05/26/17 at 18:00; Stop 05/27/17 at 13:44; Status DC Diatrizoate Meglum/ Diatrizoate Sod ( Gastroview Liq) 18 ml ONCE ONCE PO Last administered on 05/26/17 13:00; Start 05/26/17 at 13:00; Stop 05/26/17 at 13: 01; Status DC Bupivacaine HCl/ Epinephrine Bitart (Sensorcaine-Epi 0.5% 50 ml Inj) 50 ml STK- MED ONCE .ROUTE ; Start 05/27/17 at 13:23; Stop 05/27/17 at 13:24; Status DC Thrombin (Thrombin Top Soln) 5,000 units STK-MED ONCE .ROUTE ; Start 05/27/17 at 13:23; Stop 05/27/17 at 13:24; Status DC Gelatin (Gelfoam 100 Top) 1 foam STK-MED ONCE .ROUTE ; Start 05/27/17 at 13:23; Stop 05/27/17 at 13:24; Status DC Heparin Sodium (Porcine) (Heparin Inj) 10,000 units STK-MED ONCE .ROUTE ; Start 05/27/17 at 13:24; Stop 05/27/17 at 13:25; Status DC Piperacillin Sod/ Tazobactam Sod 100 ml @ 200 mls/hr Q8H IV Last administered on 05/27/17t 14:45; Start 05/27/17 at 14:00; Stop 05/27/17 at 17:19; Status DC Lactated Ringer's 1,000 ml @ 30 mls/hr Q24H PRN IV SEE LABEL COMMENTS; Start at 13:45; Stop 05/30/17 at 13:44; Status DC Sodium Chloride 500 ml @ 30 mls/hr [id number] PRN IV SEE LABEL COMMENTS; Start 05/27/17 at 13:45; Stop 05/30/17 at 13:44; Status DC Metoprolol Tartrate (Lopressor) 25 mg MOTOR POOL DRIVER PRN PO SEE LABEL COMMENTS; Start 05/27/17 at 13:45; Stop 05/30/17 at 13:44; Status DC Povidone Iodine (Betadine 5% Antisepsis Kit) 1 applic MOTOR POOL DRIVER PRN EACH NARE SEE LABEL COMMENTS; Start 05/27/17 at 13:45; Stop 05/30/17 at 13:44; Status DC Chlorhexidine Gluconate (Chlorhexidine 2% Cloth) 3 pack MOTOR POOL DRIVER PRN TOPICAL SEE LABEL COMMENTS; Start 05/27/17 at 13:45; Stop 05/30/17 at 13:44; Status DC Insulin Human Regular (NovoLIN R INJ) See Protocol Table ... MOTOR POOL DRIVER PRN SQ SEE PROTOCOL TABLE; Start 05/27/17 at 13:45; Stop 05/28/17 at 13:34; Status DC Famotidine (Pepcid Inj) 20 mg Q12H IV PUSH Last administered on 06/14/17 04:20 ; Start 05/27/17 at 16:00 Methylprednisolone Sodium Succinate (SoluMEDROL INJ) 40 mg Q8HR IV PUSH Last administered on 05/28/17 06:07; Start 05/27/17 at 15:00; Stop 05/28/17 at 10:06; Status DC Lactated Ringer's 1,000 ml @ 999 mls/hr BOLUS ONCE IV Last administered on 14:00; Start 05/27/17 at 14:00; Stop 05/27/17 at 15:00; Status DC Sodium Chloride 1,000 ml @ 100 mls/hr Q10H IV Last administered on 05/31/17 01 :05; Start 05/27/17 at 14:00; Stop 05/31/17 at 11:57; Status DC Albumin Human (Albumin 25% Inj) 50 gm STK-MED ONCE IV ; Start 05/27/17 at 15:03; Stop 05/27/17 at 15:04; Status DC Piperacillin Sod/ Tazobactam Sod 100 ml @ 200 mls/hr MOTOR POOL DRIVER IV ; Start at 15:15; Stop 05/30/17 at 15:14; Status DC Metronidazole 100 ml @ As Directed STK-MED ONCE IV ; Start 05/27/17 at 15:38; Stop 05/27/17 at 15:39; Status DC Chlorhexidine Gluconate (Peridex 0.12% Liq) 15 ml BID@08,20 MT Last administered on 06/12/17 08:00; Start 05/27/17 at 20:00 Propofol 100 ml @ 3.663 mls/ hr TITRATE PRN IV SEDATION Last administered on 11:10; Start 05/27/17 at 17:00; Stop 06/01/17 at 13:04; Status DC Fentanyl Citrate (fentaNYL INJ) 100 mcg Q2H PRN IV PUSH Pain, any amount; Start 05/27/17 at 16:45; Stop 06/07/17 at 09:15; Status DC Fentanyl Citrate 250 ml @ 5 mls/hr TITRATE PRN IV SEDATION Last administered on 05/30/17 11:10; Start 05/27/17 at 17:00; Stop 06/01/17 at 13:26; Status DC Diltiazem HCl 125 mg/Sodium Chloride 125 ml @ 5 mls/hr TITRATE PRN IV Tachycardia Last administered on 05/31/17 18:07; Start 05/27/17 at 17:00; Stop at 08:45; Status DC Metoprolol Tartrate (Lopressor Inj) 5 mg Q6H IV PUSH ; Start 05/27/17 at 17:00; Stop 05/27/17 at 17:19; Status DC Piperacillin Sod/ Tazobactam Sod 50 ml @ 100 mls/hr Q6HR IV Last administered on 06/07/17 05:27; Start 05/27/17 at 18:00; Stop 06/07/17 at 09:15; Status DC Metoprolol Tartrate (Lopressor Inj) 5 mg Q6H PRN IV PUSH Pulse > 110 Last administered on 06/06/17 14:34; Start 05/27/17 at 23:00 Metoprolol Tartrate (Lopressor) 25 mg Q8HR PO Last administered on 05/28/17 06: 08; Start 05/27/17 at 17:15; Stop 05/28/17 at 10:06; Status DC Albuterol/ Ipratropium (Duoneb Neb) 1 ampule Q6HR NEB NEB Last administered on 05/31/17 08:32; Start 05/27/17 at 17:15; Stop 05/31/17 at 11:52; Status DC Midazolam HCl (Versed Inj) 2 mg STK-MED ONCE .ROUTE ; Start 05/27/17 at 17:45; Stop 05/27/17 at 17:46; Status DC Fentanyl Citrate (fentaNYL INJ) 200 mcg STK-MED ONCE .ROUTE ; Start 05/27/17 at 17:46; Stop 05/27/17 at 17:47; Status DC Lactated Ringer's 1,000 ml @ 999 mls/hr BOLUS ONCE IV Last administered on 20:00; Start 05/27/17 at 20:00; Stop 05/27/17 at 21:00; Status DC Methylprednisolone Sodium Succinate (SoluMEDROL INJ) 40 mg Q12HR IV PUSH Last administered on 06/02/17 08:35; Start 05/28/17 at 21:00; Stop 06/02/17 at 16:17; Status DC Metoprolol Tartrate (Lopressor) 12.5 mg Q8HR PO Last administered on 06/02/17 13:36; Start 05/28/17 at 14:00; Stop 06/02/17 at 16:17; Status DC Amiodarone HCl 150 mg/Dextrose 103 ml @ 100 mls/hr Q1H2M ONCE IV Last administered on 05/28/17 10:53; Start 05/28/17 at 10:15; Stop 05/28/17 at 11:16; Status DC Amiodarone HCl 900 mg/Dextrose 500 ml @ 33 mls/hr [id number] IV ; Start 05/28/17 at 10:09; Stop 05/28/17 at 10:13; Status DC Enoxaparin Sodium (Lovenox Inj) 40 mg Q24H SQ Last administered on 05/28/17 12: 35; Start 05/28/17 at 12:00; Stop 05/29/17 at 10:03; Status DC Metoclopramide HCl (Reglan Liq) 10 mg Q8HR PO Last administered on 05/30/17 05 :49; Start 05/28/17 at 14:00; Stop 05/30/17 at 07:50; Status DC Miscellaneous (Pill Splitter) 1 ea UNSCH PRN OTHER SEE LABEL COMMENTS; Start at 10:15 Amiodarone HCl 450 mg/Dextrose 250 ml @ 33.33 mls/ hr Q7H31M IV Last administered on 06/02/17 03:00; Start 05/28/17 at 10:15; Stop 06/02/17 at 08:45; Status DC Dextrose (D50w (Vial) Inj) 50 ml UNSCH PRN IV HYPOGLYCEMIA-SEE COMMENTS; Start 05/28/17 at 13:30 Glucagon (Glucagon Inj) 1 mg UNSCH PRN OTHER HYPOGLYCEMIA-SEE COMMENTS; Start 05/28/17 at 13:30 Insulin Aspart (NovoLOG SUPPLEMENTAL SCALE) 1 Q6H SQ Last administered on 21:29; Start 05/28/17 at 13:30 Heparin Sodium (Porcine) (Heparin Inj) 10,000 units ONCE ONCE IV ; Start at 10:15; Stop 05/29/17 at 10:16; Status DC Heparin Sodium/ Dextrose 250 ml @ 22.644 mls/ hr TITRATE PRN IV Coagulation management Last administered on 06/05/17 06:16; Start 05/29/17 at 10:15; Stop at 09:15; Status DC Metoclopramide HCl (Reglan Inj) 10 mg Q8H IV PUSH Last administered on 08:38; Start 05/30/17 at 08:00 Albuterol/ Ipratropium (Duoneb Neb) 1 ampule Q6HR NEB NEB Last administered on 06/04/17 15:43; Start 05/31/17 at 16:00; Stop 06/04/17 at 15:59; Status DC Potassium Chloride 100 ml @ 100 mls/hr Q1H IV Last administered on 05/31/17 18 :08; Start 05/31/17 at 14:00; Stop 05/31/17 at 15:29; Status DC Lactated Ringer's 1,000 ml @ 100 mls/hr Q10H IV Last administered on 06/02/17 05:00; Start 05/31/17 at 13:00; Stop 06/02/17 at 08:45; Status DC Potassium Chloride 100 ml @ 100 mls/hr Q1H IV ; Start 05/31/17 at 16:30; Stop at 18:29; Status DC Acetaminophen (Ofirmev 1000 Mg/ 100 ml Inj) 1,000 mg Q8HR PRN IV FEVER; Start 06/01/17 at 14:00 Multivitamins 10 ml/Folic Acid 1 mg/Amino Acids/ Electrolytes/ Dextrose 2,010.2 ml @ 50 mls/hr Q24H IV Last administered on 06/13/17 13:03; Start 06/01/17 at 20:00; Stop 06/14/17 at 09:03; Status DC Fat Emulsion Intravenous 250 ml @ 10 mls/hr Q24H IV Last administered on 20:24; Start 06/01/17 at 20:00; Stop 06/14/17 at 09:03; Status DC Furosemide (Lasix Inj) 60 mg ONCE ONCE IV PUSH Last administered on 06/02/17 09:43; Start 06/02/17 at 08:45; Stop 06/02/17 at 08:47; Status DC Metoprolol Tartrate (Lopressor) 25 mg Q8HR PO Last administered on 06/14/17 06 :09; Start 06/02/17 at 22:00 Furosemide (Lasix Inj) 40 mg DAILY IV PUSH Last administered on 06/14/17 08:48 ; Start 06/03/17 at 11:00 Potassium Chloride 100 ml @ 50 mls/hr Q2H IV Last administered on 06/03/17 17: 30; Start 06/03/17 at 11:30; Stop 06/03/17 at 15:29; Status DC Amiodarone HCl 150 mg/Dextrose 103 ml @ 100 mls/hr Q1H2M ONCE IV Last administered on 06/04/17 08:21; Start 06/04/17 at 08:00; Stop 06/04/17 at 09:01 ; Status DC Amiodarone HCl 450 mg/Dextrose 250 ml @ 33.33 mls/ hr Q7H31M IV Last administered on 06/07/17 09:08; Start 06/04/17 at 07:46; Stop 06/07/17 at 09:15 ; Status DC Prednisone (predniSONE LIQ) 10 mg BID PO Last administered on 06/06/17 08:49; Start 06/04/17 at 09:00; Status Future Hold Potassium Chloride 100 ml @ 50 mls/hr Q2H IV Last administered on 06/04/17 17 :20; Start 06/04/17 at 09:00; Stop 06/04/17 at 12:59; Status DC Midazolam HCl (Versed Inj) 5 mg ONCE ONCE IM ; Start 06/04/17 at 14:45; Stop at 14:54; Status DC Enoxaparin Sodium (Lovenox Inj) 110 mg Q12H SQ Last administered on 06/14/17 02:23; Start 06/05/17 at 14:00 Acetaminophen/ Hydrocodone Bitart ([place] 5-325 Mg) 1 tab ONCE ONCE PO Last administered on 06/11/17 00:53; Start 06/11/17 at 00:45; Stop 06/11/17 at 00:46 ; Status DC Multivitamins 10 ml/Folic Acid 1 mg/Amino Acids/ Electrolytes/ Dextrose 1,010.2 ml @ 42 mls/hr Q24H IV ; Start 06/14/17 at 20:00; Stop 06/14/17 at 20:00; Status DC A/P Assessment and Plan A/P Status post open lap, right colectomy with 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 -management per surgery A. fib with RVR, improved Dyslipidemia Hypertension, well-controlled now. - Atrial fib RVR resolved. - 2-D ECHO with EF 60-65%. - No previous history of atrial fibrillation. - Continue metoprolol 25 mg PO q8h. - On simvastatin 10mg PO daily at home. Resume upon discharge. - Continue Lasix 40 IV daily. Will monitor. -on subq Lovenox Acute on chronic hypoxemic respiratory failure, resolved. Left upper lobe/middle lobe pulmonary embolism End-stage severe emphysema - FEV1 1.30, FVC 2.34, minimal response to dilators 05/11 PFTs - Albuterol/ipratropium aerosols every 6 hours with albuterol hours is every 2 hours. Dyspnea - Continue acapella and albuterol/ipratropium aerosols every 6 hours - continue subq Lovenox- will switch to oral anticoagulation soon-( d/w the surgery) Chronic prednisone use Hyperglycemia - Sliding scale insulin. Cover as needed. - Refusing prednisone. Will follow. Normocytic anemia History thrombocytopenia currently normal - Monitor CBC. - Previously on heparin drip for PE, off now. Hyponatremia, improving. DVT prophylaxis: SCDs/Lovenox. Discharge Planning dc to rehab- likely on Monday- when cleared by consultants. Layne Evangelista MD Jun 14, 2017 12:05
--- NOTE | 2017-06-14 13:15 | HHI.PR ---
Subjective Subjective Notes Resting in bed Pain controlled Worried about not being able to walk Objective Vitals/I&O Vital Signs Date Time Temp Pulse Resp B/P (MAP) Pulse Ox O2 Delivery O2 Flow Rate FiO2 06/14/17 09:03 95 2.00 06/14/17 08:00 110 06/14/17 08:00 97.7 18 98/58 (71) 06/14/17 04:00 Nasal Cannula 06/12/17 08:00 35 Radiology Last Impressions Chest X-Ray 06/03/17 0000 Signed Impressions: Service Date/Time: Saturday, June 03, 2017 11:04 - CONCLUSION: Stable chest x-ray with bibasilar airspace opacity. Dario Mendez MD Abdomen/Pelvis CT 05/26/17 0000 Signed Impressions: Service Date/Time: Friday, May 26, 2017 17:15 - CONCLUSION: Free intraperitoneal air probably from an upper abdominal source. Generalized ileus. Bryson Magaña MD FACR Abdomen X-Ray 05/25/17 0000 Signed Impressions: Service Date/Time: April 11:14 - CONCLUSION: Mildly gas distended colon. Otherwise, unremarkable exam. Anirudh Em Jr., MD Lower Extremity Ultrasound 05/18/17 0000 Signed Impressions: Service Date/Time: April 22:06 - CONCLUSION: Normal examination. Willi Robison MD CT Angiography 05/18/17 0000 Signed Impressions: Service Date/Time: April 18:05 - CONCLUSION: 1. Examination quality is degraded by severe respiratory motion artifact. However , there are filling defects identified within the left upper lobe and right middle lobe pulmonary arteries characteristic of PE. 2. Severe emphysema with trace left pleural effusion and left lower lobe atelectasis versus consolidation. 3. There are bilateral calcified pleural plaques indicative of prior asbestos exposure. Dario Mendez MD Cardiovascular: Regular Lungs: Clear Abdomen: Other (Wound vac in place with good seal; MF with serous fluid; ileostomy in place with liquid stool in bag; stoma dark ) Extremities: Other (mild generalized edema ) A/P Assessment and Plan 76 year old male [id number] ex lap; RIGHT hemicolectomy with end ileostomy and mucus fistula for ischemia -Regular diet + Ensure/Boost shakes -Okay for to bring food from home -On NC -Monitor Hmg -Once currently TPN supply complete----DC TPN; DC lipids -PT -Continue to monitor WBC -Wound Vac to midline incision MWF -CM consult for rehab Attending Statement The exam, history, and the medical decision-making described in the above note were completed with the assistance of the mid-level provider. I reviewed and agree with the findings presented. I attest that I had a [id number] encounter with the patient on the same day, and personally performed and documented my assessment and findings in the medical record. Abdominal exam: soft, non-tender on exam, ostomy ok continues to improve Dc planning Jessie Velázquez Jun 14, 2017 13:14 Leon Pemberton MD Jun 27, 2017 23:55
--- NOTE | 2017-06-14 15:30 | PD.WCN.NOT ---
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 Changed collection bag to left upper quadrant mucus fistula with cut to fit 4" appliance. Intact ileostomy appliance to right lower quadrant with 2 3/4" appliance. Additional Information: Patient seen on for wound VAC dressing change and mucus fistula appliance change Neg Pressure Wound Therapy Wound Location Wound Location: Midline abdomen Wound Description Wound bed appearance: ~100% granulation tissue Moderate sanguinous active drainage Open wound margins Periwound appearance: Unremarkable Settings Suction: 125 mmHg, Continuous Intensity: Low Other Information: Windowpaned, Mushroomed Foam type: Black Number of pieces: 2 (2 pieces used in total, one in wound bed and 1 for mushroomed sensitrac pad placement) Additonal Information 1 piece black foam removed from patient midline abdomen to reveal ~100% granulation tissue noted in vascular wound bed with moderate sanguinous active drainage noted near wound margin @ 7 o'clock. VENESSA Merlos contacted for a telephone order of a one time application of surgicel to wound bed for bleeding. Wound was cleansed with NS and gauze. Periwound was unremarkable and prepped using Cavilon barrier film. 1 piece black foam was cut in a cinnamon roll fashion and placed into wound bed and secured with VAC drape. A mushroomed piece of black foam was applied to sensi trac pad and applied over hole in VAC drape for foam to foam contact for suction. Machine turned on with settings @ 125mmHg low continuous suction without leaks noted. Minimal bright red sanguinous drainage noted to canister, machine was stopped, Vac drape removed, surgicel obtained and applied to wound bed and then reinforced dressing with VAC drape. Machine turned on with previous settings and working properly without leaks and without sanguinous drainage. YAZAN Jasso present during most of dressing change and notified of findings and wound care. Ostomy Type: Ileostomy (right lower quadrant), Other (Mucus fistula noted to left upper abdomen) Surgeon: Leon Pemberton MD Complete: Education materials ([employer] kit left at bedside) Educated patient on: Measuring mucus fistula Knowing when to change the barrier Output and appearance of mucus fistula Peristomal skin care How to open and close pouch Additional information Barrier removed from mucus fistula using adhesive removal wipes. Peristomal skin was unremarkable and cleansed with water and gauze and allowed to air dry. Barrier was cut to fit fistula size of 2" after measuring with template. Stomahesive was used from 10 o'clock to 3 o'clock on the peristomal skin with barrier application. Pouch was then applied to flange and patient held hand over the area to create a warmth for the polymers to activate. Patient closed the end of the pouch. Ileostomy was visualized on the right side abdomen functioning with effluent noted to pouch upon entering room with flatus almost pulling appliance off of patient. The pouch was opened at the top to allow for air to escape and the pouch was later emptied. Ileostomy is sloughing with pink moist tissue noted underneath. Francine Mcadams [facility] Jun 14, 2017 15:25
--- NOTE | 2017-06-14 18:58 | HHI.PR ---
Subjective Remarks 76 YOWM with COPD PE Mild sob, feels weak appetite poor, on TPN On Lovenox Appetite improving Feels better Worked with PT Objective Vital Signs Vital Signs Date Time Temp Pulse Resp B/P (MAP) Pulse Ox O2 Delivery O2 Flow Rate FiO2 06/14/17 17:39 95 Nasal Cannula 2.00 06/14/17 16:00 97.6 84 18 121/58 (79) 95 06/14/17 12:00 97.8 73 18 110/56 (74) 93 06/14/17 09:03 95 2.00 06/14/17 08:00 110 06/14/17 08:00 97.7 95 18 98/58 (71) 94 06/14/17 07:15 Nasal Cannula 2.00 06/14/17 05:20 97.7 114 18 114/87 (96) 94 06/14/17 04:00 Nasal Cannula 2.00 06/14/17 00:00 Nasal Cannula 2.00 06/13/17 23:23 97.6 107 18 109/56 (73) 92 06/13/17 20:00 Nasal Cannula 2.00 06/13/17 20:00 103 06/13/17 19:55 97.3 104 18 99/55 (70) 93 I/O 06/13/17 06/13/17 06/13/17 06/14/17 06/14/17 06/14/17 07:00 15:00 23:00 07:00 15:00 23:00 Intake Total 1552 ml 791 ml 720 ml 960 ml 960 ml Output Total 100 ml 2225 ml 750 ml 1800 ml Balance 1452 ml 791 ml -1505 ml 210 ml -840 ml Intake Oral 120 ml 720 ml 960 ml 960 ml IV Total 1432 ml 791 ml Output Urine Total 1825 ml 750 ml 1400 ml Stool Total 100 ml 400 ml 400 ml # Voids 2 # Bowel Movements 0 Result Diagram: 06/13/1764306/13/17643 Objective Remarks GENERAL: WBWN WM,NAD SKIN: Warm and dry. HEAD: Normocephalic. EYES: No scleral icterus. No injection or drainage. NECK: Supple, trachea midline. No JVD or lymphadenopathy. CARDIOVASCULAR: Regular rate and rhythm without murmurs, gallops, or rubs. RESPIRATORY: Breath sounds equal bilaterally. No accessory muscle use. GASTROINTESTINAL: Abdomen soft, non-tender, nondistended. MUSCULOSKELETAL: No cyanosis, or edema. BACK: Nontender without obvious deformity. No CVA tenderness. A/P Assessment and Plan VDRF, s/p extubation. S/P Emergent resection of Colon Pulm Embolism COPD HTN Pleural Plaques PLAN: Wean 02 to keep sat >92% Encourage PO Lovenox 110 mg sq q 12 hrs Aerosol nebs TPN DW pt and his . Janak Mclaughlin MD Jun 14, 2017 18:58
[2017-06-14] MEDS ORDERED: CLINIMIX E 4.25/5 1000 mL- </= 42 mls/hr IV SCH ×3 (20:00)
[2017-06-15] VITALS (10 sets, daily range): BP systolic 100–109; BP diastolic 52–59; PULSE 76–92; RESP 18; TEMP 97.2–98.3; O2SAT 92–98
[2017-06-15] MEDS: INSULIN ASPART SUPPLEMENTAL SCALE SQ SCH ×5 (01:30→20:55)
[2017-06-15] MEDS: ENOXAPARIN SODIUM 120 MG/0.8 ML SYRINGE SQ SCH (03:46)
[2017-06-15] MEDS: FAMOTIDINE 20 MG/2 ML VIAL IV PUSH SCH ×2 (03:46→16:00)
[2017-06-15] MEDS: METOPROLOL TARTRATE 25 MG TAB PO SCH ×3 (06:42→20:57)
[2017-06-15] MEDS: CHLORHEXIDINE 0.12% (ORAL KIT) 15 ML CUP MT SCH ×2 (08:00→20:00)
[2017-06-15] MEDS: SODIUM CHLORIDE 0.9% FLUSH 10 ML FLUSH IV FLUSH SCH ×2 (08:16→20:58)
[2017-06-15] MEDS: FUROSEMIDE 40 MG/4 ML VIAL IV PUSH SCH (08:16)
[2017-06-15] MEDS: METOCLOPRAMIDE HCL 10 MG/2 ML VIAL IV PUSH SCH ×2 (08:16→16:01)
--- NOTE | 2017-06-15 09:51 | HHI.PR ---
Subjective Remarks resting comfortably with no distress. denies pain. no fever. no new complaints. d/w the RN. Objective Vitals Vital Signs Date Time Temp Pulse Resp B/P (MAP) Pulse Ox O2 Delivery O2 Flow Rate FiO2 06/15/17 08:00 97.8 83 18 102/52 (69) 94 06/15/17 04:18 97.2 82 18 100/56 (71) 93 06/14/17 23:54 97.6 86 18 121/56 (77) 93 06/14/17 20:36 Nasal Cannula 2.00 06/14/17 19:40 98.5 103 18 135/62 (86) 95 06/14/17 17:39 95 Nasal Cannula 2.00 06/14/17 16:00 97.6 84 18 121/58 (79) 95 06/14/17 12:00 97.8 73 18 110/56 (74) 93 I/O 06/14/17 06/14/17 06/14/17 06/15/17 06/15/17 06/15/17 07:00 15:00 23:00 07:00 15:00 23:00 Intake Total 960 ml 1210 ml 2179 ml Output Total 750 ml 1900 ml 950 ml Balance 210 ml -690 ml 1229 ml Intake Oral 960 ml 960 ml 960 ml IV Total 250 ml 1219 ml Output Urine Total 750 ml 1400 ml 550 ml Stool Total 400 ml 400 ml Drainage Total 100 ml # Bowel Movements 0 0 Result Diagram: 06/13/17 0644 06/13/17 0644 Imaging Last Impressions Chest X-Ray 06/04/17 0000 Signed Impressions: Service Date/Time: Sunday, June 04, 2017 15:44 - CONCLUSION: 1. Satisfactory placement of left subclavian central venous catheter. 2. No evidence pneumothorax. 3. Clearing basilar airspace disease. Philip Gardner MD Abdomen/Pelvis CT 05/26/17 0000 Signed Impressions: Service Date/Time: Friday, May 26, 2017 17:15 - CONCLUSION: Free intraperitoneal air probably from an upper abdominal source. Generalized ileus. Bryson Magaña MD FACR Abdomen X-Ray 05/25/17 0000 Signed Impressions: Service Date/Time: April 11:14 - CONCLUSION: Mildly gas distended colon. Otherwise, unremarkable exam. Anirudh Em Jr., MD Lower Extremity Ultrasound 05/18/17 0000 Signed Impressions: Service Date/Time: April 22:06 - CONCLUSION: Normal examination. Willi Robison MD CT Angiography 05/18/17 0000 Signed Impressions: Service Date/Time: April 18:05 - CONCLUSION: 1. Examination quality is degraded by severe respiratory motion artifact. However , there are filling defects identified within the left upper lobe and right middle lobe pulmonary arteries characteristic of PE. 2. Severe emphysema with trace left pleural effusion and left lower lobe atelectasis versus consolidation. 3. There are bilateral calcified pleural plaques indicative of prior asbestos exposure. Dario Mendez MD Objective Remarks GENERAL: This is a well-nourished, well-developed patient, in no apparent distress. CARDIOVASCULAR: Regular rate and regular rhythm without murmurs, gallops, or rubs. RESPIRATORY: Clear to auscultation. Breath sounds equal bilaterally. No wheezes , rales, or rhonchi. GASTROINTESTINAL: Abdomen soft, non-tender, nondistended. colostomy in place. MUSCULOSKELETAL: Extremities without clubbing, cyanosis, or edema. NEURO: Alert & Oriented x4 to person, place, time, situation. Moves all ext x4 Medications and IVs Current Medications Sodium Chloride (NS Flush) 2 ml UNSCH PRN IVF FLUSH AFTER USING IV ACCESS; Start 05/18/17 at 16:00; Status Cancel Methylprednisolone Sodium Succinate (SoluMEDROL INJ) 125 mg ONCE ONCE IV PUSH Last administered on 05/18/17 17:47; Start 05/18/17 at 17:30; Stop 05/18/17 at 17:31; Status DC Albuterol/ Ipratropium (Duoneb Neb) 1 ampule Q15M INH Last administered on 05/18 17:42; Start 05/18/17 at 17:30; Stop 05/18/17 at 18:01; Status DC Aspirin (Aspirin Chew) 162 mg ONCE ONCE CHEW Last administered on 05/18/17 17 :48; Start 05/18/17 at 17:30; Stop 05/18/17 at 17:31; Status DC Iohexol (Omnipaque 350 Inj) 75 ml STK-MED ONCE IVCONTRAST Last administered on 05/18/17 15:49; Start 05/18/17 at 15:49; Stop 05/18/17 at 18:08; Status DC Enoxaparin Sodium (Lovenox Inj) 130 mg ONCE ONCE SQ Last administered on 18:44; Start 05/18/17 at 18:45; Stop 05/18/17 at 18:46; Status DC Sodium Chloride (NS Flush) 2 ml UNSCH PRN IV FLUSH FLUSH AFTER USING IV ACCESS Last administered on 06/14/17 08:39; Start 05/18/17 at 20:00 Sodium Chloride (NS Flush) 2 ml BID IV FLUSH Last administered on 06/15/17 08: 16; Start 05/18/17 at 21:00 Naloxone HCl (Narcan Inj) 0.4 mg UNSCH PRN IV SEE LABEL COMMENTS; Start at 20:00; Stop 05/25/17 at 10:31; Status DC Enoxaparin Sodium (Lovenox Inj) 120 mg Q12H SQ Last administered on 05/19/17 10:19; Start 05/19/17 at 09:00; Stop 05/19/17 at 10:39; Status DC Albuterol/ Ipratropium (Duoneb Neb) 1 ampule Q6HR NEB NEB Last administered on 05/22/17 20:18; Start 05/18/17 at 22:00; Stop 05/22/17 at 21:59; Status DC Albuterol/ Ipratropium (Duoneb Neb) 1 ampule Q2HR NEB PRN NEB wheezing Last administered on 06/04/17 21:47; Start 05/18/17 at 20:00 Methylprednisolone Sodium Succinate (SoluMEDROL INJ) 40 mg Q6HR IV PUSH Last administered on 05/20/17 05:14; Start 05/19/17 at 00:00; Stop 05/20/17 at 09:41 ; Status DC Pantoprazole Sodium (Protonix) 40 mg DAILY PO Last administered on 05/27/17 10: 01; Start 05/19/17 at 09:00; Stop 05/27/17 at 13:44; Status DC Levofloxacin/ Dextrose 150 ml @ 100 mls/hr Q24H IV Last administered on 22:28; Start 05/18/17 at 22:00; Stop 05/21/17 at 09:06; Status DC Apixaban (Eliquis) 10 mg BID PO Last administered on 05/26/17 08:30; Start at 21:00; Stop 05/26/17 at 09:01; Status DC Apixaban (Eliquis) 5 mg BID PO Last administered on 05/26/17 21:29; Start at 21:00; Stop 05/27/17 at 13:44; Status DC Methylprednisolone Sodium Succinate (SoluMEDROL INJ) 40 mg Q8HR IV PUSH Last administered on 05/21/17 05:58; Start 05/20/17 at 14:00; Stop 05/21/17 at 09:03 ; Status DC Methylprednisolone Sodium Succinate (SoluMEDROL INJ) 40 mg Q12HR IV PUSH Last administered on 05/24/17 08:52; Start 05/21/17 at 18:00; Stop 05/24/17 at 19:32 ; Status DC Levofloxacin (Levaquin) 750 mg Q24H PO Last administered on 05/26/17 21:28; Start 05/21/17 at 22:00; Stop 05/27/17 at 13:42; Status DC Prednisone (Deltasone) 10 mg BID PO Last administered on 05/26/17 21:28; Start 05/24/17 at 21:00; Stop 05/27/17 at 13:44; Status DC Prednisone (Deltasone) 20 mg BID PO ; Start 05/24/17 at 21:00; Stop 05/24/17 at 21:00; Status DC Bisacodyl (Dulcolax Ec) 5 mg ONCE ONCE PO Last administered on 05/24/17 21:58 ; Start 05/24/17 at 21:45; Stop 05/24/17 at 21:46; Status DC Naloxone HCl (Narcan Inj) 0.4 mg UNSCH PRN IV SEE LABEL COMMENTS; Start at 10:30 Senna/Docusate Sodium (Faith-Colace) 1 tab BID PO Last administered on 05/26/17 21:00; Start 05/25/17 at 21:00; Stop 05/27/17 at 13:44; Status DC Magnesium Hydroxide (Milk Of Magnesia Liq) 30 ml Q12H PRN PO MILD - MODERATE CONSTIPATION; Start 05/25/17 at 10:30 Sennosides (Senokot) 17.2 mg Q12H PRN PO MODERATE - SEVERE CONSTIPATION Last administered on 05/25/17 13:55; Start 05/25/17 at 10:30; Stop 05/27/17 at 13:44 ; Status DC Bisacodyl (Dulcolax Supp) 10 mg DAILY PRN RECTAL SEVERE CONSITIPATION; Start at 10:30; Stop 06/01/17 at 13:26; Status DC Lactulose (Lactulose Liq) 30 ml DAILY PRN PO SEVERE CONSITIPATION Last administered on 05/25/17 13:55; Start 05/25/17 at 10:30; Stop 05/27/17 at 13:44 ; Status DC Sodium Biphosphate/ Sodium Phosphate (Fleets Enema (Adult)) 133 ml ONCE ONCE RECTAL ; Start 05/26/17 at 12:15; Stop 05/26/17 at 12:44; Status DC Lactulose (Lactulose Liq) 30 ml ONCE ONCE PO Last administered on 05/26/17 12: 49; Start 05/26/17 at 13:00; Stop 05/26/17 at 13:01; Status DC Lactulose (Lactulose Liq) 30 ml QID PO Last administered on 05/26/17 21:29; Start 05/26/17 at 18:00; Stop 05/27/17 at 13:44; Status DC Diatrizoate Meglum/ Diatrizoate Sod ( Gastroview Liq) 18 ml ONCE ONCE PO Last administered on 05/26/17 13:00; Start 05/26/17 at 13:00; Stop 05/26/17 at 13: 01; Status DC Bupivacaine HCl/ Epinephrine Bitart (Sensorcaine-Epi 0.5% 50 ml Inj) 50 ml STK- MED ONCE .ROUTE ; Start 05/27/17 at 13:23; Stop 05/27/17 at 13:24; Status DC Thrombin (Thrombin Top Soln) 5,000 units STK-MED ONCE .ROUTE ; Start 05/27/17 at 13:23; Stop 05/27/17 at 13:24; Status DC Gelatin (Gelfoam 100 Top) 1 foam STK-MED ONCE .ROUTE ; Start 05/27/17 at 13:23; Stop 05/27/17 at 13:24; Status DC Heparin Sodium (Porcine) (Heparin Inj) 10,000 units STK-MED ONCE .ROUTE ; Start 05/27/17 at 13:24; Stop 05/27/17 at 13:25; Status DC Piperacillin Sod/ Tazobactam Sod 100 ml @ 200 mls/hr Q8H IV Last administered on 05/27/17 14:45; Start 05/27/17 at 14:00; Stop 05/27/17 at 17:19; Status DC Lactated Ringer's 1,000 ml @ 30 mls/hr Q24H PRN IV SEE LABEL COMMENTS; Start at 13:45; Stop 05/30/17 at 13:44; Status DC Sodium Chloride 500 ml @ 30 mls/hr [id number] PRN IV SEE LABEL COMMENTS; Start 05/27/17 at 13:45; Stop 05/30/17 at 13:44; Status DC Metoprolol Tartrate (Lopressor) 25 mg CREAM RIPENER PRN PO SEE LABEL COMMENTS; Start 05/27/17 at 13:45; Stop 05/30/17 at 13:44; Status DC Povidone Iodine (Betadine 5% Antisepsis Kit) 1 applic CREAM RIPENER PRN EACH NARE SEE LABEL COMMENTS; Start 05/27/17 at 13:45; Stop 05/30/17 at 13:44; Status DC Chlorhexidine Gluconate (Chlorhexidine 2% Cloth) 3 pack CREAM RIPENER PRN TOPICAL SEE LABEL COMMENTS; Start 05/27/17 at 13:45; Stop 05/30/17 at 13:44; Status DC Insulin Human Regular (NovoLIN R INJ) See Protocol Table ... CREAM RIPENER PRN SQ SEE PROTOCOL TABLE; Start 05/27/17 at 13:45; Stop 05/28/17 at 13:34; Status DC Famotidine (Pepcid Inj) 20 mg Q12H IV PUSH Last administered on 06/15/17 03:46 ; Start 05/27/17 at 16:00 Methylprednisolone Sodium Succinate (SoluMEDROL INJ) 40 mg Q8HR IV PUSH Last administered on 05/28/17 06:07; Start 05/27/17 at 15:00; Stop 05/28/17 at 10:06; Status DC Lactated Ringer's 1,000 ml @ 999 mls/hr BOLUS ONCE IV Last administered on 14:00; Start 05/27/17 at 14:00; Stop 05/27/17 at 15:00; Status DC Sodium Chloride 1,000 ml @ 100 mls/hr Q10H IV Last administered on 05/31/17 01 :05; Start 05/27/17 at 14:00; Stop 05/31/17 at 11:57; Status DC Albumin Human (Albumin 25% Inj) 50 gm STK-MED ONCE IV ; Start 05/27/17 at 15:03; Stop 05/27/17 at 15:04; Status DC Piperacillin Sod/ Tazobactam Sod 100 ml @ 200 mls/hr CREAM RIPENER IV ; Start at 15:15; Stop 05/30/17 at 15:14; Status DC Metronidazole 100 ml @ As Directed STK-MED ONCE IV ; Start 05/27/17 at 15:38; Stop 05/27/17 at 15:39; Status DC Chlorhexidine Gluconate (Peridex 0.12% Liq) 15 ml BID@08,20 MT Last administered on 06/12/17 08:00; Start 05/27/17 at 20:00 Propofol 100 ml @ 3.663 mls/ hr TITRATE PRN IV SEDATION Last administered on 11:10; Start 05/27/17 at 17:00; Stop 06/01/17 at 13:04; Status DC Fentanyl Citrate (fentaNYL INJ) 100 mcg Q2H PRN IV PUSH Pain, any amount; Start 05/27/17 at 16:45; Stop 06/07/17 at 09:15; Status DC Fentanyl Citrate 250 ml @ 5 mls/hr TITRATE PRN IV SEDATION Last administered on 05/30/17 11:10; Start 05/27/17 at 17:00; Stop 06/01/17 at 13:26; Status DC Diltiazem HCl 125 mg/Sodium Chloride 125 ml @ 5 mls/hr TITRATE PRN IV Tachycardia Last administered on 05/31/17 18:07; Start 05/27/17 at 17:00; Stop at 08:45; Status DC Metoprolol Tartrate (Lopressor Inj) 5 mg Q6H IV PUSH ; Start 05/27/17 at 17:00; Stop 05/27/17 at 17:19; Status DC Piperacillin Sod/ Tazobactam Sod 50 ml @ 100 mls/hr Q6HR IV Last administered on 06/07/17 05:27; Start 05/27/17 at 18:00; Stop 06/07/17 at 09:15; Status DC Metoprolol Tartrate (Lopressor Inj) 5 mg Q6H PRN IV PUSH Pulse > 110 Last administered on 06/06/17 14:34; Start 05/27/17 at 23:00 Metoprolol Tartrate (Lopressor) 25 mg Q8HR PO Last administered on 05/28/17 06: 08; Start 05/27/17 at 17:15; Stop 05/28/17 at 10:06; Status DC Albuterol/ Ipratropium (Duoneb Neb) 1 ampule Q6HR NEB NEB Last administered on 05/31/17 08:32; Start 05/27/17 at 17:15; Stop 05/31/17 at 11:52; Status DC Midazolam HCl (Versed Inj) 2 mg STK-MED ONCE .ROUTE ; Start 05/27/17 at 17:45; Stop 05/27/17 at 17:46; Status DC Fentanyl Citrate (fentaNYL INJ) 200 mcg STK-MED ONCE .ROUTE ; Start 05/27/17 at 17:46; Stop 05/27/17 at 17:47; Status DC Lactated Ringer's 1,000 ml @ 999 mls/hr BOLUS ONCE IV Last administered on 20:00; Start 05/27/17 at 20:00; Stop 05/27/17 at 21:00; Status DC Methylprednisolone Sodium Succinate (SoluMEDROL INJ) 40 mg Q12HR IV PUSH Last administered on 06/02/17 08:35; Start 05/28/17 at 21:00; Stop 06/02/17 at 16:17; Status DC Metoprolol Tartrate (Lopressor) 12.5 mg Q8HR PO Last administered on 06/02/17 13:36; Start 05/28/17 at 14:00; Stop 06/02/17 at 16:17; Status DC Amiodarone HCl 150 mg/Dextrose 103 ml @ 100 mls/hr Q1H2M ONCE IV Last administered on 05/28/17 10:53; Start 05/28/17 at 10:15; Stop 05/28/17 at 11:16; Status DC Amiodarone HCl 900 mg/Dextrose 500 ml @ 33 mls/hr [id number] IV ; Start 05/28/17 at 10:09; Stop 05/28/17 at 10:13; Status DC Enoxaparin Sodium (Lovenox Inj) 40 mg Q24H SQ Last administered on 05/28/17 12: 35; Start 05/28/17 at 12:00; Stop 05/29/17 at 10:03; Status DC Metoclopramide HCl (Reglan Liq) 10 mg Q8HR PO Last administered on 05/30/17 05 :49; Start 05/28/17 at 14:00; Stop 05/30/17 at 07:50; Status DC Miscellaneous (Pill Splitter) 1 ea UNSCH PRN OTHER SEE LABEL COMMENTS; Start at 10:15 Amiodarone HCl 450 mg/Dextrose 250 ml @ 33.33 mls/ hr Q7H31M IV Last administered on 06/02/17 03:00; Start 05/28/17 at 10:15; Stop 06/02/17 at 08:45; Status DC Dextrose (D50w (Vial) Inj) 50 ml UNSCH PRN IV HYPOGLYCEMIA-SEE COMMENTS; Start 05/28/17 at 13:30 Glucagon (Glucagon Inj) 1 mg UNSCH PRN OTHER HYPOGLYCEMIA-SEE COMMENTS; Start 05/28/17 at 13:30 Insulin Aspart (NovoLOG SUPPLEMENTAL SCALE) 1 Q6H SQ Last administered on 13:06; Start 05/28/17 at 13:30 Heparin Sodium (Porcine) (Heparin Inj) 10,000 units ONCE ONCE IV ; Start at 10:15; Stop 05/29/17 at 10:16; Status DC Heparin Sodium/ Dextrose 250 ml @ 22.644 mls/ hr TITRATE PRN IV Coagulation management Last administered on 06/05/17 06:16; Start 05/29/17 at 10:15; Stop at 09:15; Status DC Metoclopramide HCl (Reglan Inj) 10 mg Q8H IV PUSH Last administered on 08:16; Start 05/30/17 at 08:00 Albuterol/ Ipratropium (Duoneb Neb) 1 ampule Q6HR NEB NEB Last administered on 06/04/17 15:43; Start 05/31/17 at 16:00; Stop 06/04/17 at 15:59; Status DC Potassium Chloride 100 ml @ 100 mls/hr Q1H IV Last administered on 05/31/17 18 :08; Start 05/31/17 at 14:00; Stop 05/31/17 at 15:29; Status DC Lactated Ringer's 1,000 ml @ 100 mls/hr Q10H IV Last administered on 06/02/17 05:00; Start 05/31/17 at 13:00; Stop 06/02/17 at 08:45; Status DC Potassium Chloride 100 ml @ 100 mls/hr Q1H IV ; Start 05/31/17 at 16:30; Stop at 18:29; Status DC Acetaminophen (Ofirmev 1000 Mg/ 100 ml Inj) 1,000 mg Q8HR PRN IV FEVER; Start 06/01/17 at 14:00 Multivitamins 10 ml/Folic Acid 1 mg/Amino Acids/ Electrolytes/ Dextrose 2,010.2 ml @ 50 mls/hr Q24H IV Last administered on 06/13/17 13:03; Start 06/01/17 at 20:00; Stop 06/14/17 at 09:03; Status DC Fat Emulsion Intravenous 250 ml @ 10 mls/hr Q24H IV Last administered on 20:24; Start 06/01/17 at 20:00; Stop 06/14/17 at 09:03; Status DC Furosemide (Lasix Inj) 60 mg ONCE ONCE IV PUSH Last administered on 06/02/17 09:43; Start 06/02/17 at 08:45; Stop 06/02/17 at 08:47; Status DC Metoprolol Tartrate (Lopressor) 25 mg Q8HR PO Last administered on 06/15/17 06 :42; Start 06/02/17 at 22:00 Furosemide (Lasix Inj) 40 mg DAILY IV PUSH Last administered on 06/15/17 08:16 ; Start 06/03/17 at 11:00 Potassium Chloride 100 ml @ 50 mls/hr Q2H IV Last administered on 06/03/17 17: 30; Start 06/03/17 at 11:30; Stop 06/03/17 at 15:29; Status DC Amiodarone HCl 150 mg/Dextrose 103 ml @ 100 mls/hr Q1H2M ONCE IV Last administered on 06/04/17 08:21; Start 06/04/17 at 08:00; Stop 06/04/17 at 09:01 ; Status DC Amiodarone HCl 450 mg/Dextrose 250 ml @ 33.33 mls/ hr Q7H31M IV Last administered on 06/07/17 09:08; Start 06/04/17 at 07:46; Stop 06/07/17 at 09:15 ; Status DC Prednisone (predniSONE LIQ) 10 mg BID PO Last administered on 06/06/17 08:49; Start 06/04/17 at 09:00; Status Future Hold Potassium Chloride 100 ml @ 50 mls/hr Q2H IV Last administered on 06/04/17 17 :20; Start 06/04/17 at 09:00; Stop 06/04/17 at 12:59; Status DC Midazolam HCl (Versed Inj) 5 mg ONCE ONCE IM ; Start 06/04/17 at 14:45; Stop at 14:54; Status DC Enoxaparin Sodium (Lovenox Inj) 110 mg Q12H SQ Last administered on 06/15/17 03:46; Start 06/05/17 at 14:00 Acetaminophen/ Hydrocodone Bitart ([place] 5-325 Mg) 1 tab ONCE ONCE PO Last administered on 06/11/17 00:53; Start 06/11/17 at 00:45; Stop 06/11/17 at 00:46 ; Status DC Multivitamins 10 ml/Folic Acid 1 mg/Amino Acids/ Electrolytes/ Dextrose 1,010.2 ml @ 42 mls/hr Q24H IV ; Start 06/14/17 at 20:00; Stop 06/14/17 at 20:00; Status DC A/P Assessment and Plan A/P Status post open lap, right colectomy with 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 -management per surgery A. fib with RVR, improved Dyslipidemia Hypertension, well-controlled now. - Atrial fib RVR resolved. - 2-D ECHO with EF 60-65%. - No previous history of atrial fibrillation. - Continue metoprolol 25 mg PO q8h. - On simvastatin 10mg PO daily at home. Resume upon discharge. - Continue Lasix 40 IV daily. Will monitor. -on subq Lovenox; will switch to Xarelto Acute on chronic hypoxemic respiratory failure, resolved. Left upper lobe/middle lobe pulmonary embolism End-stage severe emphysema - FEV1 1.30, FVC 2.34, minimal response to dilators 05/11 PFTs - Albuterol/ipratropium aerosols every 6 hours with albuterol hours is every 2 hours. Dyspnea - Continue acapella and albuterol/ipratropium aerosols every 6 hours - continue subq Lovenox- will switch to oral anticoagulation today. Chronic prednisone use Hyperglycemia - Sliding scale insulin. Cover as needed. - Refusing prednisone. Will follow. Normocytic anemia History thrombocytopenia currently normal - Monitor CBC. Hyponatremia, improving. DVT prophylaxis: SCDs/Lovenox. dc central line. Discharge Planning dc to rehab- likely on Monday- when cleared by consultants. Layne Evangelista MD Jun 15, 2017 09:51
--- NOTE | 2017-06-15 12:41 | PD.WCN.NOT ---
Wound Consult Description: Right ileostomy Communicated with: Patient Recommendation: Change Wound VAC to midline abdomen as ordered Monday with wound VAC settings @ 125mmHg low continuous suction. Intact collection bag to left upper quadrant mucus fistula using cut to fit 4" appliance. Changed ileostomy appliance to right lower quadrant with 2 3/4" appliance. Additional Information: Patient seen on for Ostomy assessment and appliance change of ileostomy. Mucus fistula appliance intact with pink moist stoma functioning with mucus and pink liquid effluent noted to pouch. Ileostomy appears to be sloughing off with yellow loosely adherent necrotic tissue noted. Mucocutaneous junction is noted with separation from 6-12 o'clock and held in place with 2 sutures. There is ~30% pink tissue noted to the recessed oval stoma that is functioning with liquid effluent and soft green stool noted. Appliance was removed using adhesive remover wipes. Peristomal skin is noted to be unremarkable was cleansed with water and washcloths only and allowed to air dry. Barrier used is 2 3/4" with stomahesive paste used around edges for seal. Pouch was placed over barrier and patient closed the end and folded it up into the pouch. Ostomy Type: Ileostomy (right lower quadrant), Other (Mucus fistula noted to left upper abdomen) Surgeon: Leon Pemberton MD Complete: Education materials ([employer] kit left at bedside) Educated patient on: Measuring ileostomy Knowing when to change the barrier Output and appearance of ileostomy Peristomal skin care How to open and close pouch When to empty pouch of effluent Francine Mcadams [facility] Jun 15, 2017 12:41
--- NOTE | 2017-06-15 15:27 | HHI.PR ---
Subjective Subjective Notes Resting in bed No issues overnight TPN and central line out Objective Vitals/I&O Vital Signs Date Time Temp Pulse Resp B/P (MAP) Pulse Ox O2 Delivery O2 Flow Rate FiO2 06/15/17 12:00 97.3 87 18 109/59 (76) 93 06/15/17 10:00 Nasal Cannula 2.00 06/12/17 08:00 35 Radiology Last Impressions Chest X-Ray 06/03/17 0000 Signed Impressions: Service Date/Time: Saturday, June 03, 2017 11:04 - CONCLUSION: Stable chest x-ray with bibasilar airspace opacity. Dario Mendez MD Abdomen/Pelvis CT 05/26/17 0000 Signed Impressions: Service Date/Time: Friday, May 26, 2017 17:15 - CONCLUSION: Free intraperitoneal air probably from an upper abdominal source. Generalized ileus. Bryson Magaña MD FACR Abdomen X-Ray 05/25/17 0000 Signed Impressions: Service Date/Time: April 11:14 - CONCLUSION: Mildly gas distended colon. Otherwise, unremarkable exam. Anirudh Em Jr., MD Lower Extremity Ultrasound 05/18/17 0000 Signed Impressions: Service Date/Time: April 22:06 - CONCLUSION: Normal examination. Willi Robison MD CT Angiography 05/18/17 0000 Signed Impressions: Service Date/Time: April 18:05 - CONCLUSION: 1. Examination quality is degraded by severe respiratory motion artifact. However , there are filling defects identified within the left upper lobe and right middle lobe pulmonary arteries characteristic of PE. 2. Severe emphysema with trace left pleural effusion and left lower lobe atelectasis versus consolidation. 3. There are bilateral calcified pleural plaques indicative of prior asbestos exposure. Dario Mendez MD Cardiovascular: Regular Lungs: Clear Abdomen: Other (midline incision with Wound Vac in place---good seal; ileostomy ---stoma sloughing off; MF with serous fluid; no tenderness ) Extremities: No edema A/P Assessment and Plan 76 year old male POD19 ex lap; RIGHT hemicolectomy with end ileostomy and mucus fistula for ischemia -Regular diet + Ensure/Boost shakes -Okay for to bring food from home -On NC -Monitor Hmg -PT -Wound Vac to midline incision MWF -CM consult for rehab -Plan for DC tomorrow -GS clear for DC Jessie Velázquez Jun 15, 2017 15:27
--- NOTE | 2017-06-15 17:08 | HHI.PR ---
Subjective Remarks 76 YOWM with COPD PE Mild sob, feels weak On Lovenox Appetite improving Feels better Worked with PT TPN dc'd Objective Vital Signs Vital Signs Date Time Temp Pulse Resp B/P (MAP) Pulse Ox O2 Delivery O2 Flow Rate FiO2 06/15/17 16:00 97.6 92 18 109/59 (76) 92 06/15/17 12:00 97.3 87 18 109/59 (76) 93 06/15/17 10:00 98 Nasal Cannula 2.00 06/15/17 08:06 Nasal Cannula 2.00 06/15/17 08:06 76 06/15/17 08:00 97.8 83 18 102/52 (69) 94 06/15/17 04:18 97.2 82 18 100/56 (71) 93 06/14/17 23:54 97.6 86 18 121/56 (77) 93 06/14/17 20:36 Nasal Cannula 2.00 06/14/17 19:40 98.5 103 18 135/62 (86) 95 06/14/17 17:39 95 Nasal Cannula 2.00 I/O 06/14/17 06/14/17 06/14/17 06/15/17 06/15/17 06/15/17 07:00 15:00 23:00 07:00 15:00 23:00 Intake Total 960 ml 1210 ml 2179 ml Output Total 750 ml 1900 ml 950 ml Balance 210 ml -690 ml 1229 ml Intake Oral 960 ml 960 ml 960 ml IV Total 250 ml 1219 ml Output Urine Total 750 ml 1400 ml 550 ml Stool Total 400 ml 400 ml Drainage Total 100 ml # Bowel Movements 0 0 Result Diagram: 06/13/1764306/13/17643 Objective Remarks GENERAL: WBWN WM,NAD SKIN: Warm and dry. HEAD: Normocephalic. EYES: No scleral icterus. No injection or drainage. NECK: Supple, trachea midline. No JVD or lymphadenopathy. CARDIOVASCULAR: Regular rate and rhythm without murmurs, gallops, or rubs. RESPIRATORY: Breath sounds equal bilaterally. No accessory muscle use. GASTROINTESTINAL: Abdomen soft, non-tender, nondistended. MUSCULOSKELETAL: No cyanosis, or edema. BACK: Nontender without obvious deformity. No CVA tenderness. A/P Assessment and Plan VDRF, s/p extubation. S/P Emergent resection of Colon Pulm Embolism COPD HTN Pleural Plaques PLAN: Wean 02 to keep sat >92% Encourage PO Lovenox 110 mg sq q 12 hrs Aerosol nebs DW pt and his . Janak Mclaughlin MD Jun 15, 2017 17:08
[2017-06-15] MEDS: RIVAROXABAN 15 MG TAB PO SCH (20:54)
[2017-06-16] MEDS: METOCLOPRAMIDE HCL 10 MG/2 ML VIAL IV PUSH SCH ×2 (00:43→09:07)
[2017-06-16 04:45] VITALS: BP 100/65; PULSE 80; RESP 18; TEMP 97.2; O2SAT 92
[2017-06-16] MEDS: METOPROLOL TARTRATE 25 MG TAB PO SCH ×2 (06:18→13:40)
[2017-06-16] MEDS: FAMOTIDINE 20 MG/2 ML VIAL IV PUSH SCH (06:18)
[2017-06-16 08:00] VITALS: BP 117/59; PULSE 81; RESP 19; TEMP 97.5; O2SAT 95
[2017-06-16] MEDS: CHLORHEXIDINE 0.12% (ORAL KIT) 15 ML CUP MT SCH (08:00)
[2017-06-16] MEDS: INSULIN ASPART SUPPLEMENTAL SCALE SQ SCH ×2 (08:00→11:51)
[2017-06-16 08:30] VITALS: O2SAT 93
[2017-06-16] MEDS: FUROSEMIDE 40 MG/4 ML VIAL IV PUSH SCH (09:07)
[2017-06-16] MEDS: RIVAROXABAN 15 MG TAB PO SCH (09:07)
[2017-06-16] MEDS: SODIUM CHLORIDE 0.9% FLUSH 10 ML FLUSH IV FLUSH SCH (09:08)
--- NOTE | 2017-06-16 11:02 | HHI.PR ---
Subjective Remarks overall doing fine. on two liters of oxygen via N/C. denies pain and afebrile. no new complaints. Objective Vitals Vital Signs Date Time Temp Pulse Resp B/P (MAP) Pulse Ox O2 Delivery O2 Flow Rate FiO2 06/16/17 09:02 Nasal Cannula 2.00 06/16/17 08:00 97.5 81 19 117/59 (78) 95 06/16/17 04:45 97.2 80 18 100/65 (77) 92 06/15/17 23:32 97.3 88 18 108/56 (73) 93 06/15/17 20:33 98.3 87 18 106/55 (72) 94 06/15/17 20:00 Nasal Cannula 2.00 06/15/17 20:00 88 06/15/17 17:39 92 Nasal Cannula 2.00 06/15/17 16:00 97.6 92 18 109/59 (76) 92 06/15/17 12:00 97.3 87 18 109/59 (76) 93 I/O 06/15/17 06/15/17 06/15/17 06/16/17 06/16/17 06/16/17 07:00 15:00 23:00 07:00 15:00 23:00 Intake Total 2179 ml 120 ml Output Total 950 ml 1000 ml Balance 1229 ml -880 ml Intake Oral 960 ml 120 ml IV Total 1219 ml Output Urine Total 550 ml 400 ml Stool Total 400 ml 600 ml # Bowel Movements 0 0 Result Diagram: 06/13/17 0644 06/13/17 0644 Imaging Last Impressions Chest X-Ray 06/04/17 0000 Signed Impressions: Service Date/Time: Sunday, June 04, 2017 15:44 - CONCLUSION: 1. Satisfactory placement of left subclavian central venous catheter. 2. No evidence pneumothorax. 3. Clearing basilar airspace disease. Philip Gardner MD Abdomen/Pelvis CT 05/26/17 0000 Signed Impressions: Service Date/Time: Friday, May 26, 2017 17:15 - CONCLUSION: Free intraperitoneal air probably from an upper abdominal source. Generalized ileus. Bryson Magaña MD FACR Abdomen X-Ray 05/25/17 0000 Signed Impressions: Service Date/Time: April 11:14 - CONCLUSION: Mildly gas distended colon. Otherwise, unremarkable exam. Anirudh Em Jr., MD Lower Extremity Ultrasound 05/18/17 0000 Signed Impressions: Service Date/Time: April 22:06 - CONCLUSION: Normal examination. Willi Robison MD CT Angiography 05/18/17 0000 Signed Impressions: Service Date/Time: April 18:05 - CONCLUSION: 1. Examination quality is degraded by severe respiratory motion artifact. However , there are filling defects identified within the left upper lobe and right middle lobe pulmonary arteries characteristic of PE. 2. Severe emphysema with trace left pleural effusion and left lower lobe atelectasis versus consolidation. 3. There are bilateral calcified pleural plaques indicative of prior asbestos exposure. Dario Mendez MD Objective Remarks GENERAL: This is a well-nourished, well-developed patient, in no apparent distress. CARDIOVASCULAR: Regular rate and regular rhythm without murmurs, gallops, or rubs. RESPIRATORY: Clear to auscultation. Breath sounds equal bilaterally. No wheezes , rales, or rhonchi. GASTROINTESTINAL: Abdomen soft, non-tender, nondistended. colostomy in place. MUSCULOSKELETAL: Extremities without clubbing, cyanosis, or edema. NEURO: Alert & Oriented x4 to person, place, time, situation. Moves all ext x4 Medications and IVs Current Medications Sodium Chloride (NS Flush) 2 ml UNSCH PRN IVF FLUSH AFTER USING IV ACCESS; Start 05/18/17 at 16:00; Status Cancel Methylprednisolone Sodium Succinate (SoluMEDROL INJ) 125 mg ONCE ONCE IV PUSH Last administered on 05/18/17 17:47; Start 05/18/17 at 17:30; Stop 05/18/17 at 17:31; Status DC Albuterol/ Ipratropium (Duoneb Neb) 1 ampule Q15M INH Last administered on 05/18 17:42; Start 05/18/17 at 17:30; Stop 05/18/17 at 18:01; Status DC Aspirin (Aspirin Chew) 162 mg ONCE ONCE CHEW Last administered on 05/18/17 17 :48; Start 05/18/17 at 17:30; Stop 05/18/17 at 17:31; Status DC Iohexol (Omnipaque 350 Inj) 75 ml STK-MED ONCE IVCONTRAST Last administered on 05/18/17 15:49; Start 05/18/17 at 15:49; Stop 05/18/17 at 18:08; Status DC Enoxaparin Sodium (Lovenox Inj) 130 mg ONCE ONCE SQ Last administered on 18:44; Start 05/18/17 at 18:45; Stop 05/18/17 at 18:46; Status DC Sodium Chloride (NS Flush) 2 ml UNSCH PRN IV FLUSH FLUSH AFTER USING IV ACCESS Last administered on 06/14/17 08:39; Start 05/18/17 at 20:00 Sodium Chloride (NS Flush) 2 ml BID IV FLUSH Last administered on 06/16/17 09: 08; Start 05/18/17 at 21:00 Naloxone HCl (Narcan Inj) 0.4 mg UNSCH PRN IV SEE LABEL COMMENTS; Start at 20:00; Stop 05/25/17 at 10:31; Status DC Enoxaparin Sodium (Lovenox Inj) 120 mg Q12H SQ Last administered on 05/19/17 10:19; Start 05/19/17 at 09:00; Stop 05/19/17 at 10:39; Status DC Albuterol/ Ipratropium (Duoneb Neb) 1 ampule Q6HR NEB NEB Last administered on 05/22/17 20:18; Start 05/18/17 at 22:00; Stop 05/22/17 at 21:59; Status DC Albuterol/ Ipratropium (Duoneb Neb) 1 ampule Q2HR NEB PRN NEB wheezing Last administered on 06/04/17 21:47; Start 05/18/17 at 20:00 Methylprednisolone Sodium Succinate (SoluMEDROL INJ) 40 mg Q6HR IV PUSH Last administered on 05/20/17 05:14; Start 05/19/17 at 00:00; Stop 05/20/17 at 09:41 ; Status DC Pantoprazole Sodium (Protonix) 40 mg DAILY PO Last administered on 05/27/17 10: 01; Start 05/19/17 at 09:00; Stop 05/27/17 at 13:44; Status DC Levofloxacin/ Dextrose 150 ml @ 100 mls/hr Q24H IV Last administered on 22:28; Start 05/18/17 at 22:00; Stop 05/21/17 at 09:06; Status DC Apixaban (Eliquis) 10 mg BID PO Last administered on 05/26/17 08:30; Start at 21:00; Stop 05/26/17 at 09:01; Status DC Apixaban (Eliquis) 5 mg BID PO Last administered on 05/26/17 21:29; Start at 21:00; Stop 05/27/17 at 13:44; Status DC Methylprednisolone Sodium Succinate (SoluMEDROL INJ) 40 mg Q8HR IV PUSH Last administered on 05/21/17 05:58; Start 05/20/17 at 14:00; Stop 05/21/17 at 09:03 ; Status DC Methylprednisolone Sodium Succinate (SoluMEDROL INJ) 40 mg Q12HR IV PUSH Last administered on 05/24/17 08:52; Start 05/21/17 at 18:00; Stop 05/24/17 at 19:32 ; Status DC Levofloxacin (Levaquin) 750 mg Q24H PO Last administered on 05/26/17 21:28; Start 05/21/17 at 22:00; Stop 05/27/17 at 13:42; Status DC Prednisone (Deltasone) 10 mg BID PO Last administered on 05/26/17 21:28; Start 05/24/17 at 21:00; Stop 05/27/17 at 13:44; Status DC Prednisone (Deltasone) 20 mg BID PO ; Start 05/24/17 at 21:00; Stop 05/24/17 at 21:00; Status DC Bisacodyl (Dulcolax Ec) 5 mg ONCE ONCE PO Last administered on 05/24/17 21:58 ; Start 05/24/17 at 21:45; Stop 05/24/17 at 21:46; Status DC Naloxone HCl (Narcan Inj) 0.4 mg UNSCH PRN IV SEE LABEL COMMENTS; Start at 10:30 Senna/Docusate Sodium (Faith-Colace) 1 tab BID PO Last administered on 05/26/17 21:00; Start 05/25/17 at 21:00; Stop 05/27/17 at 13:44; Status DC Magnesium Hydroxide (Milk Of Magnesia Liq) 30 ml Q12H PRN PO MILD - MODERATE CONSTIPATION; Start 05/25/17 at 10:30 Sennosides (Senokot) 17.2 mg Q12H PRN PO MODERATE - SEVERE CONSTIPATION Last administered on 05/25/17 13:55; Start 05/25/17 at 10:30; Stop 05/27/17 at 13:44 ; Status DC Bisacodyl (Dulcolax Supp) 10 mg DAILY PRN RECTAL SEVERE CONSITIPATION; Start at 10:30; Stop 06/01/17 at 13:26; Status DC Lactulose (Lactulose Liq) 30 ml DAILY PRN PO SEVERE CONSITIPATION Last administered on 05/25/17 13:55; Start 05/25/17 at 10:30; Stop 05/27/17 at 13:44 ; Status DC Sodium Biphosphate/ Sodium Phosphate (Fleets Enema (Adult)) 133 ml ONCE ONCE RECTAL ; Start 05/26/17 at 12:15; Stop 05/26/17 at 12:44; Status DC Lactulose (Lactulose Liq) 30 ml ONCE ONCE PO Last administered on 05/26/17 12: 49; Start 05/26/17 at 13:00; Stop 05/26/17 at 13:01; Status DC Lactulose (Lactulose Liq) 30 ml QID PO Last administered on 05/26/17 21:29; Start 05/26/17 at 18:00; Stop 05/27/17 at 13:44; Status DC Diatrizoate Meglum/ Diatrizoate Sod ( Gastroview Liq) 18 ml ONCE ONCE PO Last administered on 05/26/17 13:00; Start 05/26/17 at 13:00; Stop 05/26/17 at 13: 01; Status DC Bupivacaine HCl/ Epinephrine Bitart (Sensorcaine-Epi 0.5% 50 ml Inj) 50 ml STK- MED ONCE .ROUTE ; Start 05/27/17 at 13:23; Stop 05/27/17 at 13:24; Status DC Thrombin (Thrombin Top Soln) 5,000 units STK-MED ONCE .ROUTE ; Start 05/27/17 at 13:23; Stop 05/27/17 at 13:24; Status DC Gelatin (Gelfoam 100 Top) 1 foam STK-MED ONCE .ROUTE ; Start 05/27/17 at 13:23; Stop 05/27/17 at 13:24; Status DC Heparin Sodium (Porcine) (Heparin Inj) 10,000 units STK-MED ONCE .ROUTE ; Start 05/27/17 at 13:24; Stop 05/27/17 at 13:25; Status DC Piperacillin Sod/ Tazobactam Sod 100 ml @ 200 mls/hr Q8H IV Last administered on 05/27/17t 14:45; Start 05/27/17 at 14:00; Stop 05/27/17 at 17:19; Status DC Lactated Ringer's 1,000 ml @ 30 mls/hr Q24H PRN IV SEE LABEL COMMENTS; Start at 13:45; Stop 05/30/17 at 13:44; Status DC Sodium Chloride 500 ml @ 30 mls/hr [id number] PRN IV SEE LABEL COMMENTS; Start 05/27/17 at 13:45; Stop 05/30/17 at 13:44; Status DC Metoprolol Tartrate (Lopressor) 25 mg RECEIVABLE EXECUTIVE PRN PO SEE LABEL COMMENTS; Start 05/27/17 at 13:45; Stop 05/30/17 at 13:44; Status DC Povidone Iodine (Betadine 5% Antisepsis Kit) 1 applic RECEIVABLE EXECUTIVE PRN EACH NARE SEE LABEL COMMENTS; Start 05/27/17 at 13:45; Stop 05/30/17 at 13:44; Status DC Chlorhexidine Gluconate (Chlorhexidine 2% Cloth) 3 pack RECEIVABLE EXECUTIVE PRN TOPICAL SEE LABEL COMMENTS; Start 05/27/17 at 13:45; Stop 05/30/17 at 13:44; Status DC Insulin Human Regular (NovoLIN R INJ) See Protocol Table ... RECEIVABLE EXECUTIVE PRN SQ SEE PROTOCOL TABLE; Start 05/27/17 at 13:45; Stop 05/28/17 at 13:34; Status DC Famotidine (Pepcid Inj) 20 mg Q12H IV PUSH Last administered on 06/16/17t 06:18 ; Start 05/27/17 at 16:00 Methylprednisolone Sodium Succinate (SoluMEDROL INJ) 40 mg Q8HR IV PUSH Last administered on 05/28/17 06:07; Start 05/27/17 at 15:00; Stop 05/28/17 at 10:06; Status DC Lactated Ringer's 1,000 ml @ 999 mls/hr BOLUS ONCE IV Last administered on 14:00; Start 05/27/17 at 14:00; Stop 05/27/17 at 15:00; Status DC Sodium Chloride 1,000 ml @ 100 mls/hr Q10H IV Last administered on 05/31/17 01 :05; Start 05/27/17 at 14:00; Stop 05/31/17 at 11:57; Status DC Albumin Human (Albumin 25% Inj) 50 gm STK-MED ONCE IV ; Start 05/27/17 at 15:03; Stop 05/27/17 at 15:04; Status DC Piperacillin Sod/ Tazobactam Sod 100 ml @ 200 mls/hr RECEIVABLE EXECUTIVE IV ; Start at 15:15; Stop 05/30/17 at 15:14; Status DC Metronidazole 100 ml @ As Directed STK-MED ONCE IV ; Start 05/27/17 at 15:38; Stop 05/27/17 at 15:39; Status DC Chlorhexidine Gluconate (Peridex 0.12% Liq) 15 ml BID@08,20 MT Last administered on 06/12/17 08:00; Start 05/27/17 at 20:00 Propofol 100 ml @ 3.663 mls/ hr TITRATE PRN IV SEDATION Last administered on 11:10; Start 05/27/17 at 17:00; Stop 06/01/17 at 13:04; Status DC Fentanyl Citrate (fentaNYL INJ) 100 mcg Q2H PRN IV PUSH Pain, any amount; Start 05/27/17 at 16:45; Stop 06/07/17 at 09:15; Status DC Fentanyl Citrate 250 ml @ 5 mls/hr TITRATE PRN IV SEDATION Last administered on 05/30/17 11:10; Start 05/27/17 at 17:00; Stop 06/01/17 at 13:26; Status DC Diltiazem HCl 125 mg/Sodium Chloride 125 ml @ 5 mls/hr TITRATE PRN IV Tachycardia Last administered on 05/31/17 18:07; Start 05/27/17 at 17:00; Stop at 08:45; Status DC Metoprolol Tartrate (Lopressor Inj) 5 mg Q6H IV PUSH ; Start 05/27/17 at 17:00; Stop 05/27/17 at 17:19; Status DC Piperacillin Sod/ Tazobactam Sod 50 ml @ 100 mls/hr Q6HR IV Last administered on 06/07/17 05:27; Start 05/27/17 at 18:00; Stop 06/07/17 at 09:15; Status DC Metoprolol Tartrate (Lopressor Inj) 5 mg Q6H PRN IV PUSH Pulse > 110 Last administered on 06/06/17 14:34; Start 05/27/17 at 23:00 Metoprolol Tartrate (Lopressor) 25 mg Q8HR PO Last administered on 05/28/17 06: 08; Start 05/27/17 at 17:15; Stop 05/28/17 at 10:06; Status DC Albuterol/ Ipratropium (Duoneb Neb) 1 ampule Q6HR NEB NEB Last administered on 05/31/17 08:32; Start 05/27/17 at 17:15; Stop 05/31/17 at 11:52; Status DC Midazolam HCl (Versed Inj) 2 mg STK-MED ONCE .ROUTE ; Start 05/27/17 at 17:45; Stop 05/27/17 at 17:46; Status DC Fentanyl Citrate (fentaNYL INJ) 200 mcg STK-MED ONCE .ROUTE ; Start 05/27/17 at 17:46; Stop 05/27/17 at 17:47; Status DC Lactated Ringer's 1,000 ml @ 999 mls/hr BOLUS ONCE IV Last administered on 20:00; Start 05/27/17 at 20:00; Stop 05/27/17 at 21:00; Status DC Methylprednisolone Sodium Succinate (SoluMEDROL INJ) 40 mg Q12HR IV PUSH Last administered on 06/02/17 08:35; Start 05/28/17 at 21:00; Stop 06/02/17 at 16:17; Status DC Metoprolol Tartrate (Lopressor) 12.5 mg Q8HR PO Last administered on 06/02/17 13:36; Start 05/28/17 at 14:00; Stop 06/02/17 at 16:17; Status DC Amiodarone HCl 150 mg/Dextrose 103 ml @ 100 mls/hr Q1H2M ONCE IV Last administered on 05/28/17 10:53; Start 05/28/17 at 10:15; Stop 05/28/17 at 11:16; Status DC Amiodarone HCl 900 mg/Dextrose 500 ml @ 33 mls/hr [id number] IV ; Start 05/28/17 at 10:09; Stop 05/28/17 at 10:13; Status DC Enoxaparin Sodium (Lovenox Inj) 40 mg Q24H SQ Last administered on 05/28/17 12: 35; Start 05/28/17 at 12:00; Stop 05/29/17 at 10:03; Status DC Metoclopramide HCl (Reglan Liq) 10 mg Q8HR PO Last administered on 05/30/17 05 :49; Start 05/28/17 at 14:00; Stop 05/30/17 at 07:50; Status DC Miscellaneous (Pill Splitter) 1 ea UNSCH PRN OTHER SEE LABEL COMMENTS; Start at 10:15 Amiodarone HCl 450 mg/Dextrose 250 ml @ 33.33 mls/ hr Q7H31M IV Last administered on 06/02/17 03:00; Start 05/28/17 at 10:15; Stop 06/02/17 at 08:45; Status DC Dextrose (D50w (Vial) Inj) 50 ml UNSCH PRN IV HYPOGLYCEMIA-SEE COMMENTS; Start 05/28/17 at 13:30 Glucagon (Glucagon Inj) 1 mg UNSCH PRN OTHER HYPOGLYCEMIA-SEE COMMENTS; Start 05/28/17 at 13:30 Insulin Aspart (NovoLOG SUPPLEMENTAL SCALE) 1 Q6H SQ Last administered on 13:06; Start 05/28/17 at 13:30; Stop 06/15/17 at 18:46; Status DC Heparin Sodium (Porcine) (Heparin Inj) 10,000 units ONCE ONCE IV ; Start at 10:15; Stop 05/29/17 at 10:16; Status DC Heparin Sodium/ Dextrose 250 ml @ 22.644 mls/ hr TITRATE PRN IV Coagulation management Last administered on 06/05/17 06:16; Start 05/29/17 at 10:15; Stop at 09:15; Status DC Metoclopramide HCl (Reglan Inj) 10 mg Q8H IV PUSH Last administered on 09:07; Start 05/30/17 at 08:00 Albuterol/ Ipratropium (Duoneb Neb) 1 ampule Q6HR NEB NEB Last administered on 06/04/17 15:43; Start 05/31/17 at 16:00; Stop 06/04/17 at 15:59; Status DC Potassium Chloride 100 ml @ 100 mls/hr Q1H IV Last administered on 05/31/17 18 :08; Start 05/31/17 at 14:00; Stop 05/31/17 at 15:29; Status DC Lactated Ringer's 1,000 ml @ 100 mls/hr Q10H IV Last administered on 06/02/17 05:00; Start 05/31/17 at 13:00; Stop 06/02/17 at 08:45; Status DC Potassium Chloride 100 ml @ 100 mls/hr Q1H IV ; Start 05/31/17 at 16:30; Stop at 18:29; Status DC Acetaminophen (Ofirmev 1000 Mg/ 100 ml Inj) 1,000 mg Q8HR PRN IV FEVER; Start 06/01/17 at 14:00 Multivitamins 10 ml/Folic Acid 1 mg/Amino Acids/ Electrolytes/ Dextrose 2,010.2 ml @ 50 mls/hr Q24H IV Last administered on 06/13/17 13:03; Start 06/01/17 at 20:00; Stop 06/14/17 at 09:03; Status DC Fat Emulsion Intravenous 250 ml @ 10 mls/hr Q24H IV Last administered on 20:24; Start 06/01/17 at 20:00; Stop 06/14/17 at 09:03; Status DC Furosemide (Lasix Inj) 60 mg ONCE ONCE IV PUSH Last administered on 06/02/17 09:43; Start 06/02/17 at 08:45; Stop 06/02/17 at 08:47; Status DC Metoprolol Tartrate (Lopressor) 25 mg Q8HR PO Last administered on 06/16/17 06 :18; Start 06/02/17 at 22:00 Furosemide (Lasix Inj) 40 mg DAILY IV PUSH Last administered on 06/16/17 09:07 ; Start 06/03/17 at 11:00 Potassium Chloride 100 ml @ 50 mls/hr Q2H IV Last administered on 06/03/17 17: 30; Start 06/03/17 at 11:30; Stop 06/03/17 at 15:29; Status DC Amiodarone HCl 150 mg/Dextrose 103 ml @ 100 mls/hr Q1H2M ONCE IV Last administered on 06/04/17 08:21; Start 06/04/17 at 08:00; Stop 06/04/17 at 09:01 ; Status DC Amiodarone HCl 450 mg/Dextrose 250 ml @ 33.33 mls/ hr Q7H31M IV Last administered on 06/07/17 09:08; Start 06/04/17 at 07:46; Stop 06/07/17 at 09:15 ; Status DC Prednisone (predniSONE LIQ) 10 mg BID PO Last administered on 06/06/17 08:49; Start 06/04/17 at 09:00; Status Future Hold Potassium Chloride 100 ml @ 50 mls/hr Q2H IV Last administered on 06/04/17 17 :20; Start 06/04/17 at 09:00; Stop 06/04/17 at 12:59; Status DC Midazolam HCl (Versed Inj) 5 mg ONCE ONCE IM ; Start 06/04/17 at 14:45; Stop at 14:54; Status DC Enoxaparin Sodium (Lovenox Inj) 110 mg Q12H SQ Last administered on 06/15/17 03:46; Start 06/05/17 at 14:00; Stop 06/15/17 at 09:55; Status DC Acetaminophen/ Hydrocodone Bitart (Gilson 5-325 Mg) 1 tab ONCE ONCE PO Last administered on 06/11/17 00:53; Start 06/11/17 at 00:45; Stop 06/11/17 at 00:46 ; Status DC Multivitamins 10 ml/Folic Acid 1 mg/Amino Acids/ Electrolytes/ Dextrose 1,010.2 ml @ 42 mls/hr Q24H IV ; Start 06/14/17 at 20:00; Stop 06/14/17 at 20:00; Status DC Rivaroxaban (Xarelto) 15 mg BID PO Last administered on 06/16/17t 09:07; Start 06/15/17 at 21:00 Insulin Aspart (NovoLOG SUPPLEMENTAL SCALE) 1 ACHS SQ ; Start 06/15/17 at 21:00 A/P Assessment and Plan A/P Status post open lap, right colectomy with 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 -cleared by surgery for discharge A. fib with RVR, improved Dyslipidemia Hypertension, well-controlled now. - Atrial fib RVR resolved. - 2-D ECHO with EF 60-65%. - No previous history of atrial fibrillation. - Continue metoprolol 25 mg PO q8h. - On simvastatin 10mg PO daily at home. Resume upon discharge. - Continue Lasix 40 IV daily. Will monitor. -switched to Xarelto Acute on chronic hypoxemic respiratory failure, resolved. Left upper lobe/middle lobe pulmonary embolism End-stage severe emphysema - FEV1 1.30, FVC 2.34, minimal response to dilators 05/11 PFTs - Albuterol/ipratropium aerosols every 6 hours with albuterol hours is every 2 hours. Dyspnea - Continue acapella and albuterol/ipratropium aerosols every 6 hours - continue Xarelto Chronic prednisone use Hyperglycemia - Sliding scale insulin. Cover as needed. - Refusing prednisone. Will follow. Normocytic anemia History thrombocytopenia currently normal - Monitor CBC. Hyponatremia, improving. DVT prophylaxis: SCDs/Lovenox. Discharge Planning dc to rehab today. see med list. f/u with pcp, surgery and pulmonary. d/w the patient. time spent 35 min. Layne Evangelista MD Jun 16, 2017 11:02
[2017-06-16] MEDS ORDERED: METO25TA3 PO (11:05)
[2017-06-16] MEDS ORDERED: XARE15TA PO ×2 (11:05→11:12)
--- NOTE | 2017-06-16 11:06 | HHI.DS ---
Discharge Summary Admission Date May 18, 2017 at 19:13 Discharge Date: Jun 16, 2017 Admitting Diagnosis pulmonary embolism (1) Acute on chronic respiratory failure with hypoxemia ICD Code: J96.21 - Acute and chronic respiratory failure with hypoxia Diagnosis: Principal (2) Pulmonary embolism ICD Code: I26.99 - Other pulmonary embolism without acute cor pulmonale Diagnosis: Principal Status: Acute (3) Ischemic necrosis of large intestine ICD Code: K55.049 - Acute infarction of large intestine, extent unspecified Diagnosis: Principal (4) COPD (chronic obstructive pulmonary disease) ICD Code: J44.9 - Chronic obstructive pulmonary disease, unspecified Diagnosis: Secondary Procedures 1. Exploratory laparotomy. 2. Open extended right hemicolectomy with end-ileostomy and mucous fistula. 3. Abdominal washout. Brief History - From Admission Written by La Leavitt, acting as scribe for Dr. Yang on 05/18/17 at 20:48. Chest pain started yesterday accompanied by diaphoresis; [facility]; [facility]. Pain worse with deep inspiration. Accompanied by shortness of breath. Extended car travel in March 22 but no more recent travel. No recent surgery. Reports using a cane for ambulation. Denies overly sedentary lifestyle. Denies fever, nausea, vomiting. He reports cough with sputum production over past few days. Denies hematochezia, hematuria, or dysuria. Had a one-time dark stool, looked black 3 days ago. He reports a history of low platelets resolved 7-9 years ago once aspirin d/c'd. Denies dizziness or syncope Has fell 6 months ago - last fall 2 - 3 weeks ago - feet got "tangled up in a rope". - Also sees Dr. Guajardo for PCP - for [employer] supplement. . CBC/BMP: 06/13/17 0644 06/13/17 0644 Imaging Last Impressions Chest X-Ray 06/04/17 0000 Signed Impressions: Service Date/Time: Sunday, June 04, 2017 15:44 - CONCLUSION: 1. Satisfactory placement of left subclavian central venous catheter. 2. No evidence pneumothorax. 3. Clearing basilar airspace disease. Philip Gardner MD Abdomen/Pelvis CT 05/26/17 0000 Signed Impressions: Service Date/Time: Friday, May 26, 2017 17:15 - CONCLUSION: Free intraperitoneal air probably from an upper abdominal source. Generalized ileus. Bryson Magaña MD FACR Abdomen X-Ray 05/25/17 0000 Signed Impressions: Service Date/Time: April 11:14 - CONCLUSION: Mildly gas distended colon. Otherwise, unremarkable exam. Anirudh Em Jr., MD Lower Extremity Ultrasound 05/18/17 0000 Signed Impressions: Service Date/Time: , May 18, 2017 22:06 - CONCLUSION: Normal examination. Willi Robison MD CT Angiography 05/18/17 0000 Signed Impressions: Service Date/Time: , May 18, 2017 18:05 - CONCLUSION: 1. Examination quality is degraded by severe respiratory motion artifact. However , there are filling defects identified within the left upper lobe and right middle lobe pulmonary arteries characteristic of PE. 2. Severe emphysema with trace left pleural effusion and left lower lobe atelectasis versus consolidation. 3. There are bilateral calcified pleural plaques indicative of prior asbestos exposure. Dario Mendez MD PE at Discharge GENERAL: This is a well-nourished, well-developed patient, in no apparent distress. CARDIOVASCULAR: Regular rate and regular rhythm without murmurs, gallops, or rubs. RESPIRATORY: Clear to auscultation. Breath sounds equal bilaterally. No wheezes , rales, or rhonchi. GASTROINTESTINAL: Abdomen soft, non-tender, nondistended. colostomy in place. MUSCULOSKELETAL: Extremities without clubbing, cyanosis, or edema. NEURO: Alert & Oriented x4 to person, place, time, situation. Moves all ext x4 Transfer Summary Transferred from [facility] to [facility] 05/27 for abdominal pain and severe SOB. Required right colectomy same day. Difficulty getting extubated due to severe emphysema. Now off vent for 3 days and breathing comfortably. Sustained pulmonary embolus prior to surgery and is on lovenox bid. Abdominal wound to VAC dressing. Ileostomy right side is dusky and surgery service is aware. Mucus fistula on right is good. On PN because he still vomits frequently, acts like persistent ileus. Hospital Course Status post open lap, right colectomy with 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 -cleared by surgery for discharge A. fib with RVR, improved Dyslipidemia Hypertension, well-controlled now. - Atrial fib RVR resolved. - 2-D ECHO with EF 60-65%. - No previous history of atrial fibrillation. - Continue metoprolol 25 mg PO q8h. - On simvastatin 10mg PO daily at home. Resume upon discharge. - Continue Lasix 40 IV daily. Will monitor. -switched to Xarelto Acute on chronic hypoxemic respiratory failure, resolved. Left upper lobe/middle lobe pulmonary embolism End-stage severe emphysema - FEV1 1.30, FVC 2.34, minimal response to dilators 05/11 PFTs - Albuterol/ipratropium aerosols every 6 hours with albuterol hours is every 2 hours. Dyspnea - Continue acapella and albuterol/ipratropium aerosols every 6 hours - continue Xarelto Chronic prednisone use Hyperglycemia - Sliding scale insulin. Cover as needed. - Refusing prednisone. Will follow. Normocytic anemia History thrombocytopenia currently normal - Monitor CBC. Hyponatremia, improving. DVT prophylaxis: SCDs/Lovenox. Pt Condition on Discharge: Fair Discharge Disposition: Discharge to SNF Discharge Time: > 30 minutes Discharge Instructions DIET: Follow Instructions for: Heart Healthy Diet Activities you can perform: Regular-No Restrictions Follow up Referrals: PCP Follow-up Pulmonology Surgical - 2 Weeks with Leon Pemberton MD New Medications: Oxygen (O2) (Oxygen (O2)) Device LITER LOU.CANULA CONTINUOUS for Prevent Hypoxemia, #2 Oxygen Concentrator Portable Gaseous 2 L/min via Nasal Canula Continuous For 99 months Metoprolol Tartrate (Metoprolol Tartrate) 25 Mg Tab 25 MG PO Q8HR for a-fib for 30 Days, TAB 0 Refills Rivaroxaban (Xarelto) 15 Mg Tab 15 MG PO BID for lung clot for 30 Days, #60 TAB 0 Refills 15 mg po twice daily for 20 days with food then 20 mg po once daily with food. Continued Medications: Hydrochlorothiazide (Hydrochlorothiazide) 25 Mg Tab 25 MG PO EVERY OTHER DAY, #30 TAB 0 Refills Ipratropium-Albuterol Inh (Combivent Respimat Inh) 20-100 Residential/Act Aero 2 PUFF INH QID PRN for DYSPNEA, #1 INHALER 0 Refills Simvastatin (Simvastatin) 20 Mg Tab 10 MG PO HS for Cholesterol Management, #30 TAB 0 Refills Discontinued Medications: Metoprolol Tartrate (Metoprolol Tartrate) 25 Mg Tab 25 MG PO HS, #30 TAB 0 Refills Layne Evangelista MD Jun 16, 2017 11:06
--- NOTE | 2017-06-16 11:42 | HHI.PR ---
Subjective Remarks 76 YOWM with COPD PE Mild sob, feels weak On Lovenox Appetite improving Feels better Objective Vital Signs Vital Signs Date Time Temp Pulse Resp B/P (MAP) Pulse Ox O2 Delivery O2 Flow Rate FiO2 06/16/17 09:02 Nasal Cannula 2.00 06/16/17 08:00 97.5 81 19 117/59 (78) 95 06/16/17 04:45 97.2 80 18 100/65 (77) 92 06/15/17 23:32 97.3 88 18 108/56 (73) 93 06/15/17 20:33 98.3 87 18 106/55 (72) 94 06/15/17 20:00 Nasal Cannula 2.00 06/15/17 20:00 88 06/15/17 17:39 92 Nasal Cannula 2.00 06/15/17 16:00 97.6 92 18 109/59 (76) 92 06/15/17 12:00 97.3 87 18 109/59 (76) 93 I/O 06/15/17 06/15/17 06/15/17 06/16/17 06/16/17 06/16/17 07:00 15:00 23:00 07:00 15:00 23:00 Intake Total 2179 ml 120 ml Output Total 950 ml 1000 ml Balance 1229 ml -880 ml Intake Oral 960 ml 120 ml IV Total 1219 ml Output Urine Total 550 ml 400 ml Stool Total 400 ml 600 ml # Bowel Movements 0 0 Result Diagram: 06/13/1744 06/13/17 0644 Objective Remarks GENERAL: WBWN WM,NAD SKIN: Warm and dry. HEAD: Normocephalic. EYES: No scleral icterus. No injection or drainage. NECK: Supple, trachea midline. No JVD or lymphadenopathy. CARDIOVASCULAR: Regular rate and rhythm without murmurs, gallops, or rubs. RESPIRATORY: Breath sounds equal bilaterally. No accessory muscle use. GASTROINTESTINAL: Abdomen soft, non-tender, nondistended. MUSCULOSKELETAL: No cyanosis, or edema. BACK: Nontender without obvious deformity. No CVA tenderness. A/P Assessment and Plan VDRF, s/p extubation. S/P Emergent resection of Colon Pulm Embolism COPD HTN Pleural Plaques PLAN: Wean 02 to keep sat >92% Encourage PO Aerosol nebs Started xarelto DC plans for Rufus Mcmanus Will FU in office Janak Mclaughlin MD Jun 16, 2017 11:42
[2017-06-16 12:00] VITALS: BP 111/58; PULSE 89; RESP 19; TEMP 97.3; O2SAT 95
--- NOTE | 2017-06-16 14:44 | PD.WCN.NOT ---
Wound Consult Description: Right ileostomy Left sided upper abdomen mucus fistula Midline wound with VAC Communicated with: Beto Mccarthy RN Patient Case Management Recommendation: Change Wound VAC to midline abdomen as ordered Monday with wound VAC settings @ 125mmHg low continuous suction. Intact collection bag to left upper quadrant mucus fistula with cut to fit 4" appliance. Intact ileostomy appliance to right lower quadrant with 2 3/4" appliance. Additional Information: Patient seen on for ostomy assessment and wound VAC management. Informed via patient that he is being discharged today to rehab. Spoke with case management and YAZAN Mccarthy regarding discharge and was informed that supplies needed to be ordered for ileostomy and mucus fistula. Wound VAC will be removed today prior to discharge and patient will be sent with a moist to dry dressing to the midline surgical wound and then the wound VAC will be placed at the rehab facility. Neg Pressure Wound Therapy Wound Location Wound Location: Midline wound VAC is in place and working properly without leaks at this time. Settings Suction: 125 mmHg, Continuous Intensity: Low Other Information: Windowpaned, Mushroomed Foam type: Black Number of pieces: 2 (2 pieces used in total, one in wound bed and 1 for mushroomed sensitrac pad placement) Ostomy Type: Ileostomy (right lower quadrant), Other (Mucus fistula noted to left upper abdomen) Surgeon: Leon Pemberton MD Date of Surgery: May 27, 2017 Complete: Education materials (ConvaTec kit left at bedside), Rx (2 scripts left on chart; Size 2 3/4" for mucus fistula and Size 2 1/4" for ileostomy), Other (3 kits ordered in size 4" cut to fit for mucus fistula and 3 kits ordered in size 2 3/4" moldable for mucus fistula. 3 kits ordered for 2 1/4" for ileostomy for patient to take with him at discharge.) Educated patient on: Plan for discharge with removal of wound VAC and application of moist to dry gauze dressing for transport to rehab where they will remove the dressing, measure and document wound, and then reapply wound VAC there at their facility. Both appliances on ileostomy and mucus fistula intact. Supplies will be ordered for patient to go with to rehab. Script for supplies left on chart. Additional information Ileostomy visualized on right lower quadrant, appliance intact without leaks, stoma is functioning with effluent noted in pouch, stoma is flush and still sloughing with adherent yellow/green necrotic tissue noted with red and pink tissue showing through. Surgery is aware. Mucus fistula is noted to be pink, moist, functioning with mucus and pink tinged clear liquid coming from lumen noted to center of stoma. Appliance is intact without leaks. Francine Mcadams [facility] Jun 16, 2017 14:44
[2017-06-16 16:00] VITALS: BP 119/58; PULSE 87; RESP 19; TEMP 97.2; O2SAT 95
== END 2017-06-16 16:23 | DRG 981 ==
LOC: NEPE 15:48 → NEDA 19:13 → N06A 21:45 → N03B 05-27 17:10 → N04B 06-09 18:51
PROVIDERS: ADMIT Internal Medicine; ATTEND Internal Medicine
PROC: 0D1B0Z4 Bypass Ileum to Cutaneous, Open Approach (ICD-10-PCS; 2017-05-27)
PROC: 0DTF0ZZ Resection of Right Large Intestine, Open Approach (ICD-10-PCS; principal; 2017-05-27 13:57)
PROC: 05H633Z Insertion of Infusion Device into Left Subclavian Vein, Percutaneous Approach (ICD-10-PCS; 2017-06-04)
DX: I26.99 Other pulmonary embolism without acute cor pulmonale (principal); J18.9 Pneumonia, unspecified organism; K63.1 Perforation of intestine (nontraumatic); J96.21 Acute and chronic respiratory failure with hypoxia; K65.9 Peritonitis, unspecified; E87.0 Hyperosmolality and hypernatremia; N17.9 Acute kidney failure, unspecified; I48.0 Paroxysmal atrial fibrillation; J44.0 Chronic obstructive pulmonary disease with (acute) lower respiratory infection; K56.7 Ileus, unspecified; K55.049 Acute infarction of large intestine, extent unspecified; E87.1 Hypo-osmolality and hyponatremia; E86.0 Dehydration; D64.9 Anemia, unspecified; E78.5 Hyperlipidemia, unspecified; E87.6 Hypokalemia; J92.9 Pleural plaque without asbestos; R73.9 Hyperglycemia, unspecified; J98.01 Acute bronchospasm; K21.9 Gastro-esophageal reflux disease without esophagitis; Z87.891 Personal history of nicotine dependence; Z79.52 Long term (current) use of systemic steroids
CPT/HCPCS: 36556; 71010; 71275; 74000; 74176; 80048; 80053; 82550; 82805; 82948; 83605; 83615; 83735; 83880; 84100; 84132; 84134; 84155; 84443; 84484; 85007; 85025; 85027; 85610; 85730; 86850; 86900; 86901; 86920; 88307; 88309; 93005; 93306; 93970; 94002; 94003; 94060; 94150; 94620; 94640; 94664; 94667; 94668; 96372; 96374; J0282; J1644; J1650; J1815; J1940; J1956; J2250; J2370; J2543; J2765; J2920; J2930; J3010; J3480; J7030; J7060; J7120; J7512; P9047; Q9963; Q9967

== ENCOUNTER 2017-08-16 16:37 | Observation (INO) | payer MEDICARE, OTHER ==
[~2017-08-16] VITALS: Ht 180.3 cm; Wt 245.0 kg
[~2017-08-16 16:37] MED LIST changes: -HYDR-2768 PO; +HYDR25TA5 PO; -IBUP600T26 PO; +IPRAAER INH; -METO25 PO; +METO25TA3 PO; +OXYGENDME NAS.CANULA; +SIMV20TA PO; +XARE15TA PO; -ZOCO40TA PO
[2017-08-16] MEDS ORDERED: ASPI81CH6 CHEW (16:53)
[2017-08-16] MEDS ORDERED: METO1TAB42 PO (16:53)
[2017-08-16 17:08] VITALS: BP 120/74; PULSE 97; RESP 18; TEMP 98.1; O2SAT 94
--- NOTE | 2017-08-16 17:16 | PD ---
HPI Chief Complaint: Fall Time Seen by Provider: 17:01 Travel History International Travel<30 days: No Contact w/Intl Traveler<30days: No Traveled to known affect area: No History of Present Illness HPI 76-year-old male who is admitted to the hospital in April of this year with a diagnosis of pulmonary embolism with a hospital course complicated by ischemic bowel requiring surgery with ileostomy and colostomy, recently discharged from rehabilitation facility, no longer on anticoagulants, here for evaluation of left knee pain after falling directly onto his knee while stepping down one stair. Patient reports that he fell solely onto his left knee and denies any other injuries. He states he is unable to ambulate because of the pain. Pain is mild to moderate, constant, worse with movements and weightbearing. He denies head injury or LOC. No head neck or back pain. PFSH Past Medical History Arthritis: Yes Asthma: No Autoimmune Disease: No Blood Disorders: No Anxiety: No Depression: No Heart Rhythm Problems: No Cancer: No Cardiovascular Problems: Yes (HTN) High Cholesterol: Yes Chemotherapy: No Chest Pain: Yes Congestive Heart Failure: No COPD: Yes Cerebrovascular Accident: No Diabetes: No Diminished Hearing: No Endocrine: No GERD: Yes Glaucoma: No Genitourinary: No Headaches: No Hepatitis: No Hiatal Hernia: No Hypertension: Yes Immune Disorder: No Kidney Stones: No Musculoskeletal: Yes Neurologic: No Psychiatric: No Reproductive: No Respiratory: Yes (COPD, HOME O2) Migraines: No Myocardial Infarction: No Radiation Therapy: No Renal Failure: No Seizures: No Sickle Cell Disease: No Sleep Apnea: No Thyroid Disease: No Ulcer: No Past Surgical History Abdominal Surgery: Yes (APPENDECTOMY) AICD: No Appendectomy: Yes (1957) Arteriovenous Shunt: No Cardiac Surgery: No Cholecystectomy: No Ear Surgery: No Endocrine Surgery: No Eye Surgery: No Genitourinary Surgery: No Gynecologic Surgery: No Insulin Pump: No Joint Replacement: No Oral Surgery: No Pacemaker: No Thoracic Surgery: No Other Surgery: Yes (appendicitis 1957) Social History Alcohol Use: No Tobacco Use: No Substance Use: No Allergies-Medications (Allergen,Severity, Reaction): Coded Allergies: No Known Allergies (Verified Adverse Reaction, Unknown, 08/16/17) PATIENT STATES CHICKEN MAKES HIM NAUSEOUS Reported Meds & Prescriptions Reported Meds & Active Scripts Active Oxygen (O2) Device Liter LOU.CANULA CONTINUOUS Oxygen Concentrator Portable Gaseous 2 L/min via Nasal Canula Continuous For 99 months Reported Aspirin Low Dose (Aspirin) 81 Mg Chew 81 Mg CHEW DAILY Metoprolol Succinate ER 24 HR (Metoprolol Succinate) 25 Mg Tab 25 Mg PO DAILY Combivent Respimat Inh (Ipratropium-Albuterol Inh) 20-100 Residential/Act Aero 2 Puff INH QID PRN Simvastatin 20 Mg Tab 10 Mg PO HS Review of Systems Except as stated in HPI: all other systems reviewed are Neg Physical Exam Narrative GENERAL: Well-developed, well-nourished, comfortable, no apparent distress. SKIN: Focused skin assessment warm/dry. HEAD: Atraumatic. Normocephalic. EYES: Pupils equal and round. No scleral icterus. No injection or drainage. ENT: No nasal bleeding or discharge. Mucous membranes pink and moist. NECK: Trachea midline. No JVD. No midline cervical spine step-off or tenderness. CARDIOVASCULAR: Regular rate and rhythm. RESPIRATORY: No accessory muscle use. Clear to auscultation. Breath sounds equal bilaterally. GASTROINTESTINAL: Abdomen soft, non-tender, nondistended. Ileostomy and colostomy bag with a dressing that is clean, dry, intact over a vertical wound. MUSCULOSKELETAL: Left anterior knee without obvious deformity with mild diffuse tenderness with limited range of motion secondary to pain. The rest of his joints and extremities are without deformity, without tenderness, with normal range of motion. All compartments in the left lower extremity are supple. NEUROLOGICAL: Awake and alert. No obvious cranial nerve deficits. Motor grossly within normal limits. Normal speech. PSYCHIATRIC: Appropriate mood and affect; insight and judgment normal. Data Data Last Documented VS Vital Signs Date Time Temp Pulse Resp B/P (MAP) Pulse Ox O2 Delivery O2 Flow Rate FiO2 08/16/17 19:24 97 18 135/76 (95) 96 Nasal Cannula 2.00 08/16/17 17:08 98.1 Orders Orders Knee, Complete (4vws) (08/16/17 ) Basic Metabolic Panel (Bmp) (08/16/17 18:22) Complete Blood Count With Diff (08/16/17 18:22) Iv Access Insert/Monitor (08/16/17 18:22) Ecg Monitoring (08/16/17 18:22) Oximetry (08/16/17 18:22) Sodium Chloride 0.9% Flush (Ns Flush) (08/16/17 18:30) Labs Laboratory Tests Test 08/16/17 18:55 White Blood Count 13.4 TH/MM3 Red Blood Count 4.32 MIL/MM3 Hemoglobin 12.3 GM/DL Hematocrit 36.8 % Mean Corpuscular Volume 85.2 FL Mean Corpuscular Hemoglobin 28.5 PG Mean Corpuscular Hemoglobin Concent 33.4 % Red Cell Distribution Width 18.2 % Platelet Count 328 TH/MM3 Mean Platelet Volume 7.6 FL Neutrophils (%) (Auto) 76.5 % Lymphocytes (%) (Auto) 12.8 % Monocytes (%) (Auto) 8.7 % Eosinophils (%) (Auto) 1.3 % Basophils (%) (Auto) 0.7 % Neutrophils # (Auto) 10.3 TH/MM3 Lymphocytes # (Auto) 1.7 TH/MM3 Monocytes # (Auto) 1.2 TH/MM3 Eosinophils # (Auto) 0.2 TH/MM3 Basophils # (Auto) 0.1 TH/MM3 CBC Comment DIFF FINAL Differential Comment Blood Urea Nitrogen 11 MG/DL Creatinine 0.70 MG/DL Random Glucose 112 MG/DL Calcium Level 8.9 MG/DL Sodium Level 133 MEQ/L Potassium Level 4.0 MEQ/L Chloride Level 101 MEQ/L Carbon Dioxide Level 25.8 MEQ/L Anion Gap 6 MEQ/L Estimat Glomerular Filtration Rate 110 ML/MIN MDM Medical Decision Making Medical Screen Exam Complete: Yes Emergency Medical Condition: Yes Medical Record Reviewed: Yes Differential Diagnosis left knee fracture versus contusion Narrative Course Left knee x-ray shows no acute bony injury. The patient and the patient's family were made aware of x-ray findings. The patient is complaining of worsening weakness since being discharged from rehabilitation a month ago. He states he is unable to walk because of this weakness. His is unable to care for him at home and states that he fell to the ground because she could not hold him up. Basic labs will be drawn, and the patient will likely be admitted for rehab placement. Initial vital signs show heart rate 97, blood pressure 120/74, pulse ox 94% on room air, oral temp of 98.1 from high. CBC: WBC 13.4, hemoglobin 12.3, hematocrit 36.8, platelets 328, neutrophils 76.5 %. BMP is unremarkable. I discussed the case with our mattress spring encaser, and they say that they are unable to place the patient directly into a alf from the emergency department. The patient has been having increasing weakness and is unable to ambulate because of weakness. He is further unable to ambulate because of his left knee contusion. He is very overweight, and his who takes care of him at home is petite. She is unable to transfer him in and out of his wheelchair. Because of this the patient is not safe to discharge home, and likely requires rehabilitation placement. He'll be admitted for further treatment and evaluation. Case discussed with hospitalist Dr. Robles who will admit the patient to her service. Diagnosis Primary Impression: Fall Qualified Codes: W19.XXXA - Unspecified fall, initial encounter Additional Impressions: Contusion of left knee Qualified Codes: S80.02XA - Contusion of left knee, initial encounter Unsteady gait Generalized weakness Admitting Information Admitting Physician Requests: Observation Freddy Mathew MD Aug 16, 2017 17:16
--- NOTE | 2017-08-16 18:10 | RADRPT ---
EXAM DATE/TIME: 08/16/2017 17:57 [facility] COMPARISON: KNEE LEFT LTD (1 OR 2VWS), November 18, 2015, 14:08. INDICATIONS : Left knee pain post fall. MEDICAL HISTORY : Chronic obstructive pulmonary disease. Cardiovascular disease. SURGICAL HISTORY : None. ENCOUNTER: Initial ACUITY: 1 day PAIN SCORE: 5/10 LOCATION: Left knee. FINDINGS: Four view examination of the left knee demonstrates no evidence of fracture or dislocation. Bony min eralization is normal. The articular surfaces are intact. The suprapatellar soft tissues have a nor mal configuration. CONCLUSION: No evidence of recent bony injury. Anirudh Chavarria MD on August 16, 2017 at 18:07 Board Certified Radiologist. This report was verified electronically.
[2017-08-16] MEDS ORDERED: SODIUM CHLORIDE 0.9% FLUSH 10 ML FLUSH IV FLUSH PRN ×2 (18:30→21:30)
[2017-08-16 18:46] VITALS: BP 144/68; PULSE 95; RESP 24; O2SAT 98
[2017-08-16 19:11] LABS: AUTOMATED NEUTROPHIL # 10.3 TH/MM3 (1.8-7.7); BASOPHIL # 0.1 TH/MM3 (0-0.2); BASOPHIL % 0.7 % (0.0-2.0); EOSINOPHIL # 0.2 TH/MM3 (0-0.4); EOSINOPHIL % 1.3 % (0.0-4.0); HEMATOCRIT 36.8 % (39.0-51.0); HEMO FLAGS DIFF FINAL; LYMPH % 12.8 % (9.0-44.0); LYMPHOCYTE # 1.7 TH/MM3 (1.0-4.8); MEAN CELL VOLUME 85.2 FL (80.0-100.0); MEAN CORPUSCULAR HEMOGLOBIN 28.5 PG (27.0-34.0); MEAN CORPUSCULAR HGB CONC 33.4 % (32.0-36.0); MONO % 8.7 % (0.0-8.0); NEUT % 76.5 % (16.0-70.0); PLATELET COUNT 328 TH/MM3 (150-450); RED BLOOD COUNT 4.32 MIL/MM3 (4.50-5.90); RED CELL DISTRIBUTION WIDTH 18.2 % (11.6-17.2); WHITE BLOOD COUNT 13.4 TH/MM3 (4.0-11.0)
[2017-08-16 19:24] VITALS: BP 135/76; PULSE 97; RESP 18; O2SAT 96
[2017-08-16 19:27] LABS: BICARBONATE 25.8 MEQ/L (21.0-32.0)
[2017-08-16] MEDS ORDERED: NALOXONE HCL 0.4 MG/ML AMP IV PUSH PRN (21:30)
[2017-08-16] MEDS ORDERED: ONDANSETRON HCL 4 MG/2 ML VIAL IVP PRN (21:30)
[2017-08-16] MEDS ORDERED: RESP: ALBUTEROL 2.5 MG/IPRATROPIUM 0.5 MG NEB (PRN) NEB (21:30)
[2017-08-16] MEDS ORDERED: SENNOSIDES 8.6 MG TAB PO PRN (21:30)
[2017-08-16] MEDS: ATORVASTATIN 20 MG TAB PO SCH (21:30)
[2017-08-16] MEDS ORDERED: LACTULOSE SYRUP 20 GM/30 ML CUP PO PRN (21:30)
[2017-08-16] MEDS ORDERED: ACETAMINOPHEN 325 MG TAB PO PRN (21:30)
[2017-08-16] MEDS ORDERED: MAGNESIUM HYDROXIDE SUSP 30 ML CUP PO PRN (21:30)
[2017-08-16] MEDS ORDERED: BISACODYL 10 MG SUPP RECTAL PRN (21:30)
[2017-08-16 21:59] VITALS: BP 136/80; PULSE 96; RESP 20; O2SAT 97
--- NOTE | 2017-08-16 22:02 | HHI.HP ---
[facility] Service [facility] Primary Care Physician [facility] Admission Diagnosis Fall, Left knee contusion, unsteady gait Diagnoses: (1) Unsteady gait Diagnosis: Principal (2) Fall Diagnosis: Principal (3) COPD (chronic obstructive pulmonary disease) Chief Complaint: I fell. Travel History International Travel<30 Days: No Contact w/Intl Traveler <30 Da: No Traveled to Known Affected Are: No History of Present Illness Mr. Weldon is 76 yo with history of Pulmonary embolism that led to hospitalization at [facility] this summer. Shortly after his admission he developed abdominal pain and it was determined he had a bowel perforation and underwent surgery and received a colostomy. He remained in [facility] until the middle of May and was sent to a local rehab facility. he was there for approximately a month and was discharged late June. He received some home health/PT services but pt stated he did not walk that much. He reported he has been living in a hotel and due to construction did not get out of bed and walk as he had planned. He comes to [facility] on 08/16/17 subsequent to a fall. Mr. Weldon stated he has was using his walker when "my legs just gave out from underneath me." Pt stated when he fell "I landed on my left leg up underneath me." He said he could not stand and EMS was called. He denied head strike, loss of consciousness, or significant skin injury due to the fall. He stated he has been well and not noticed an acute decline in his lower leg strength. He did report having recently noticed rapid heart beats and palpitations. He stated he saw his PCP last week and was placed on Metoprolol "extended release" and an aspirin for " my irregular heart beat." Pt denied fever, Nausea, vomiting, diarrhea, change in colostomy output, lower extremity numbness/tingling. Review of Systems Constitutional: DENIES: Diaphoretic episodes, Fatigue, Dizziness, Change in appetite Endocrine: DENIES: Heat/cold intolerance, Polyphagia Eyes: DENIES: Blurred vision, Double Vision Ears, nose, mouth, throat: DENIES: Vertigo, Throat pain Respiratory: COMPLAINS OF: Shortness of breath (associated with COPD which he said is stable.), DENIES: Apneas, Cough, Wheezing Cardiovascular: COMPLAINS OF: Palpitations, DENIES: Syncope, Dyspnea on Exertion Gastrointestinal: DENIES: Black stools, Constipation, Diarrhea, Nausea, Vomiting Genitourinary: DENIES: Urinary incontinence (Pt states he uses a urinal several times a day.), Urgency, Hematuria, Dysuria Musculoskeletal: DENIES: Muscle aches, Stiffness Integumentary: COMPLAINS OF: Abnormal pigmentation (Right lower extremity discoloration "from a fall I took years ago at work." No recent changes.), DENIES: Rash Hematologic/lymphatic: DENIES: Bruising, Lymphadenopathy Immunologic/allergic: DENIES: Eczema, Urticaria Neurologic: DENIES: Headache, Seizures Psychiatric: DENIES: Anxiety, Confusion Past Family Social History Past Medical History Pulmonary embolism Bowel perforation Hypertension Hyperlipidemia COPD Past Surgical History Bowel resection Colostomy Reported Medications Reported Meds & Active Scripts Active Oxygen (O2) Device Liter LOU.CANULA CONTINUOUS Oxygen Concentrator Portable Gaseous 2 L/min via Nasal Canula Continuous For 99 months Reported Aspirin Low Dose (Aspirin) 81 Mg Chew 81 Mg CHEW DAILY Metoprolol Succinate ER 24 HR (Metoprolol Succinate) 25 Mg Tab 25 Mg PO DAILY Combivent Respimat Inh (Ipratropium-Albuterol Inh) 20-100 Fci/Act Aero 2 Puff INH QID PRN Simvastatin 20 Mg Tab 10 Mg PO HS Allergies: Coded Allergies: No Known Allergies (Verified Allergy, Unknown, 08/16/17) PATIENT STATES CHICKEN MAKES HIM NAUSEOUS Active Ordered Medications Current Medications Medications (Trade) Dose Ordered Sig/Maya Route Start Time Stop Time Status Last Admin (NS Flush) 2 ml UNSCH PRN IV FLUSH 08/16/17 21:30 (NS Flush) 2 ml BID IV FLUSH 08/17/17 09:00 (Tylenol) 650 mg Q4H PRN PO 08/16/17 21:30 (Zofran Inj) 4 mg Q6H PRN IVP 08/16/17 21:30 (Lovenox Inj) 40 mg Q24H SQ 08/16/17 21:30 (Narcan Inj) 0.4 mg UNSCH PRN IV PUSH 08/16/17 21:30 (Faith-Colace) 1 tab BID PO 08/17/17 09:00 (Milk Of Magnesia Liq) 30 ml Q12H PRN PO 08/16/17 21:30 (Senokot) 17.2 mg Q12H PRN PO 08/16/17 21:30 (Dulcolax Supp) 10 mg DAILY PRN RECTAL 08/16/17 21:30 (Lactulose Liq) 30 ml DAILY PRN PO 08/16/17 21:30 (Lac-Hydrin 12% Lotion) 1 applic BID TOPICAL 08/16/17 21:30 (Toprol Xl) 25 mg DAILY PO 08/17/17 09:00 UNV (Duoneb Neb) 1 ampule Q6HR NEB PRN NEB 08/16/17 21:30 UNV Family History Mother "at age 96". Reportedly during her life she had breast cancer. No other family history of cancer reported. Father of old age and lived to be "90". Reported to have had emphysema. Family history of diabetes and cardiac disease was specifically denied. Social History Pt is . He reported having smoked "for a while" but has not smoked in over "20 to 30 years." Heaviest use was reported in his last year of smoking when he smoked 2- 3 ppd. Pt stated he used to drink beer on an occasional basis; denied use of "hard liquor". Stated "gin makes me sick." Pt denied history of illicit/recreational drug use. Pt is . Pt stated he worked for over 20 years at [employer] "and there was always this fine dust in the air there." Physical Exam Vital Signs Vital Signs Date Time Temp Pulse Resp B/P (MAP) Pulse Ox O2 Delivery O2 Flow Rate FiO2 08/16/17 19:24 97 18 135/76 (95) 96 Nasal Cannula 2.00 08/16/17 18:46 95 24 144/68 (93) 98 Nasal Cannula 2.00 08/16/17 17:08 98.1 97 18 120/74 (89) 94 Physical Exam GENERAL: This is a well-nourished, well-developed patient, in no apparent distress. SKIN: No rashes or lesions. Skin discoloration noted along right tibia. Cool and dry with xeroderma noted on both lower extremities. Abdomen evidenced colostomy RUQ and midline/LUQ. HEAD: Atraumatic. Normocephalic. EYES: Pupils equal round and reactive. Extraocular motions intact. No scleral icterus. No injection or drainage. Slight bilateral nystagmus noted. ENT: Nose without bleeding or purulent drainage. Airway patent. NECK: Trachea midline. No lymphadenopathy. Supple and nontender. CARDIOVASCULAR: Regular rate and irregular rhythm without murmurs, gallops, or rubs. RESPIRATORY: Clear to auscultation. Breath sounds equal bilaterally. No wheezes , rales, or rhonchi. GASTROINTESTINAL: Abdomen soft, non-tender, nondistended. No hepato- splenomegaly or guarding. Colostomy and ileostomy, as above. MUSCULOSKELETAL: Extremities without clubbing, cyanosis, or edema. NEUROLOGICAL: Awake and alert. Cranial nerves II through XII intact. Motor and sensory grossly within normal limits. Five out of 5 muscle strength in upper extremities, 2/5 for lower extremities. Speech was clear and fluent. Laboratory Laboratory Tests Test 08/16/17 18:55 White Blood Count 13.4 Red Blood Count 4.32 Hemoglobin 12.3 Hematocrit 36.8 Mean Corpuscular Volume 85.2 Mean Corpuscular Hemoglobin 28.5 Mean Corpuscular Hemoglobin Concent 33.4 Red Cell Distribution Width 18.2 Platelet Count 328 Mean Platelet Volume 7.6 Neutrophils (%) (Auto) 76.5 Lymphocytes (%) (Auto) 12.8 Monocytes (%) (Auto) 8.7 Eosinophils (%) (Auto) 1.3 Basophils (%) (Auto) 0.7 Neutrophils # (Auto) 10.3 Lymphocytes # (Auto) 1.7 Monocytes # (Auto) 1.2 Eosinophils # (Auto) 0.2 Basophils # (Auto) 0.1 CBC Comment DIFF FINAL Differential Comment Blood Urea Nitrogen 11 Creatinine 0.70 Random Glucose 112 Calcium Level 8.9 Sodium Level 133 Potassium Level 4.0 Chloride Level 101 Carbon Dioxide Level 25.8 Anion Gap 6 Estimat Glomerular Filtration Rate 110 Result Diagram: 08/16/17185408/16/171854 Imaging Last Impressions Knee X-Ray 08/16/17 0000 Signed Impressions: Service Date/Time: Wednesday, August 16, 2017 17:57 - CONCLUSION: No evidence of recent bony injury. MD Jack Hurtado VTE Risk Assessment Caprini VTE Risk Assessment: Mod/High Risk (score >= 2) Caprini Risk Assessment Model Point Value = 1 Point Value = 2 Point Value = 3 Point Value = 5 Age 41-60 Minor surgery BMI > 25 kg/m2 Swollen legs Varicose veins or History of unexplained or recurrent spontaneous Oral contraceptives or hormone replacement Sepsis (< 1 month) Serious lung disease, including pneumonia (< 1 month) Abnormal pulmonary function Acute myocardial infarction Congestive heart failure (< 1 month) History of inflammatory bowel disease Medical patient at bed rest Age 61-74 Arthroscopic surgery Major open surgery (> 45 min) Laparoscopic surgery (> 45 min) Malignancy Confined to bed (> 72 hours) Immobilizing plaster cast Central venous access Age >= 75 History of VTE Family history of VTE Factor V Leiden Prothrombin [id number] Lupus anticoagulant Anticardiolipin antibodies Elevated serum homocysteine Heparin-induced thrombocytopenia Other congenital or acquired thrombophilia Stroke (< 1 month) Elective arthroplasty Hip, pelvis, or leg fracture Acute spinal cord injury (< 1 month) Prophylaxis Regimen Total Risk Factor Score Risk Level Prophylaxis Regimen 0-1 Low Early ambulation 2 Moderate Order ONE of the following: *Sequential Compression Device (SCD) *Heparin 5000 units SQ BID 3-4 Higher Order ONE of the following medications: *Heparin 5000 units SQ TID *Enoxaparin/Lovenox 40 mg SQ daily (WT < 150 kg, CrCl > 30 mL/min) *Enoxaparin/Lovenox 30 mg SQ daily (WT < 150 kg, CrCl > 10-29 mL/min) *Enoxaparin/Lovenox 30 mg SQ BID (WT < 150 kg, CrCl > 30 mL/min) AND/OR *Sequential Compression Device (SCD) 5 or more Highest Order ONE of the following medications: *Heparin 5000 units SQ TID (Preferred with Epidurals) *Enoxaparin/Lovenox 40 mg SQ daily (WT < 150 kg, CrCl > 30 mL/min) *Enoxaparin/Lovenox 30 mg SQ daily (WT < 150 kg, CrCl > 10-29 mL/min) *Enoxaparin/Lovenox 30 mg SQ BID (WT < 150 kg, CrCl > 30 mL/min) AND *Sequential Compression Device (SCD) Assessment and Plan Problem List: (1) Hypertension ICD Code: I10 - Essential (primary) hypertension Status: Chronic (2) Arrhythmia ICD Code: I49.9 - Cardiac arrhythmia, unspecified Status: Acute (3) Hyperlipidemia ICD Code: E78.5 - Hyperlipidemia, unspecified Status: Chronic (4) COPD (chronic obstructive pulmonary disease) ICD Code: J44.9 - Chronic obstructive pulmonary disease, unspecified Status: Chronic (5) Fall ICD Code: W19.XXXA - Unspecified fall, initial encounter Status: Acute (6) Unsteady gait ICD Code: R26.81 - Unsteadiness on feet Status: Acute (7) Generalized weakness ICD Code: R53.1 - Weakness Status: Acute Assessment and Plan Mr. Weldon is 76 yo with history of Pulmonary embolism that led to hospitalization at [facility] this summer. Shortly after his admission he developed abdominal pain and it was determined he had a bowel perforation and underwent surgery and received a colostomy. He remained in [facility] until the middle of May and was sent to a local rehab facility. He was there for approximately a month and was discharged late June. He received some home health/PT services but pt stated he did not walk that much. He reported he has been living in a hotel and due to construction did not get out of bed and walk as he had planned. He comes to [facility] on 08/16/17 subsequent to a fall. Mr. Weldon stated he has was using his walker when "my legs just gave out from underneath me." He stated he has been well and not noticed an acute decline in his lower leg strength. He did report having recently noticed rapid heart beats and palpitations. He stated he saw his PCP last week and was placed on Metoprolol "extended release" and an aspirin for "my irregular heart beat." Fall Debility -PT Consulted -CM consulted -Xray of left leg negative for fracture -Check am labs Hypertension Arrhythmia -Telemtetry -Continue Metoprolol ER 25 mg po daily Hyperlipidemia -Continue stating therapy. COPD -Stable -Duoneb q 4 hrs PRN wheezing/Short of breath Diet -Regular Code Status Full code Discussed Condition With Pt, his wfie (at bedside) and Dr. Robles. Problem Qualifiers (1) Fall: Qualified Codes: W19.XXXA - Unspecified fall, initial encounter (2) COPD (chronic obstructive pulmonary disease): Qualified Codes: J44.9 - Chronic obstructive pulmonary disease, unspecified (3) Hypertension: Qualified Codes: I10 - Essential (primary) hypertension (4) Arrhythmia: Qualified Codes: I48.0 - Paroxysmal atrial fibrillation (5) Hyperlipidemia: Qualified Codes: E78.5 - Hyperlipidemia, unspecified Jabari Medina Jr. Aug 16, 2017 22:02
[2017-08-16] MEDS: ENOXAPARIN SODIUM 40 MG/0.4 ML SYRINGE SQ SCH (23:01)
[2017-08-16 23:42] VITALS: BP 111/62; PULSE 84; RESP 20; TEMP 99.3; O2SAT 97
[2017-08-17] VITALS (10 sets, daily range): BP systolic 116–130; BP diastolic 61–75; PULSE 80–90; RESP 18–22; TEMP 97.1–98; O2SAT 94–98
[2017-08-17 04:29] LABS: AUTOMATED NEUTROPHIL # 6.6 TH/MM3 (1.8-7.7); BASOPHIL # 0.1 TH/MM3 (0-0.2); BASOPHIL % 0.9 % (0.0-2.0); EOSINOPHIL # 0.3 TH/MM3 (0-0.4); EOSINOPHIL % 3.3 % (0.0-4.0); HEMATOCRIT 38.3 % (39.0-51.0); HEMO FLAGS DIFF FINAL; LYMPH % 21.5 % (9.0-44.0); LYMPHOCYTE # 2.2 TH/MM3 (1.0-4.8); MEAN CELL VOLUME 84.4 FL (80.0-100.0); MEAN CORPUSCULAR HEMOGLOBIN 28.1 PG (27.0-34.0); MEAN CORPUSCULAR HGB CONC 33.3 % (32.0-36.0); MONO % 8.9 % (0.0-8.0); NEUT % 65.4 % (16.0-70.0); PLATELET COUNT 304 TH/MM3 (150-450); RED BLOOD COUNT 4.54 MIL/MM3 (4.50-5.90); RED CELL DISTRIBUTION WIDTH 18.2 % (11.6-17.2); WHITE BLOOD COUNT 10.1 TH/MM3 (4.0-11.0)
[2017-08-17 04:51] LABS: ANION GAP 10 MEQ/L (5-15); BICARBONATE 24.3 MEQ/L (21.0-32.0); BLOOD UREA NITROGEN 10 MG/DL (7-18); CHLORIDE 102 MEQ/L (98-107); GLOMERULAR FILTRATION RATE 122 ML/MIN (>89); POTASSIUM 3.5 MEQ/L (3.5-5.1); SODIUM (NA) 136 MEQ/L (136-145)
[2017-08-17 04:52] LABS: TRANSFERRIN IRON PROFILE 164 MG/DL (200-360)
[2017-08-17] MEDS: SODIUM CHLORIDE 0.9% FLUSH 10 ML FLUSH IV FLUSH SCH ×2 (09:00→21:23)
[2017-08-17] MEDS: LACTIC ACID (AMMONIUM LACTATE) 12% LOTION 225 GM BTL TOPICAL SCH ×2 (09:00→21:23)
[2017-08-17] MEDS: DOCUSATE SODIUM 50 MG/SENNA 8.6 MG TAB PO SCH ×2 (09:00→21:00)
[2017-08-17] MEDS: METOPROLOL SUCCINATE 25 MG EXTENDED RELEASE TAB PO SCH (10:07)
[2017-08-17 10:19] LABS: MAGNESIUM 1.7 MG/DL (1.5-2.5)
--- NOTE | 2017-08-17 14:01 | HHI.PR ---
Subjective Remarks Patient reported no abdominal pain but he feels very weak, afebrile No chest anal short of breath Objective Vitals Vital Signs Date Time Temp Pulse Resp B/P (MAP) Pulse Ox O2 Delivery O2 Flow Rate FiO2 08/17/17 11:53 97.9 80 18 120/62 (81) 96 08/17/17 08:15 98.0 89 18 118/61 (80) 96 08/17/17 08:10 98 Nasal Cannula 2.00 08/17/17 06:16 90 08/17/17 04:08 97.1 89 21 117/64 (81) 95 08/16/17 23:42 99.3 84 20 111/62 (78) 97 08/16/17 22:18 Nasal Cannula 2.00 08/16/17 21:59 96 20 136/80 (98) 97 Nasal Cannula 2.00 08/16/17 19:24 97 18 135/76 (95) 96 Nasal Cannula 2.00 08/16/17 18:46 95 24 144/68 (93) 98 Nasal Cannula 2.00 08/16/17 17:08 98.1 97 18 120/74 (89) 94 I/O 08/16/17 08/16/17 08/16/17 08/17/17 08/17/17 08/17/17 07:00 15:00 23:00 07:00 15:00 23:00 Output Total 440 ml Balance -440 ml Output Urine Total 200 ml Stool Total 240 ml # Voids 1 Result Diagram: 08/17/17 0353 08/17/17 0353 Objective Remarks GENERAL: Frail 76 years old patient, in no apparent distress. SKIN: No rashes, warm and dry HEAD: Atraumatic. Normocephalic. EYES: Pupils equal round and reactive. Extraocular motions intact. No scleral icterus. ENT: Nose without bleeding, or drainage, Airway patent. NECK: Trachea midline. Supple CARDIOVASCULAR: Regular rate and rhythm without murmurs, gallops, or rubs. RESPIRATORY: Fair air entry bilaterally. No wheezes, rales, or rhonchi. GASTROINTESTINAL: Abdomen soft, non-tender, nondistended. Positive bowel sounds MUSCULOSKELETAL: Extremities without clubbing, cyanosis, +1 edema. Pedal pulses appreciated NEUROLOGICAL: Awake and alert. Moves all extremity. Normal speech.no focal neurological deficit A/P Problem List: (1) Hypertension ICD Code: I10 - Essential (primary) hypertension Status: Chronic (2) Arrhythmia ICD Code: I49.9 - Cardiac arrhythmia, unspecified Status: Acute (3) Hyperlipidemia ICD Code: E78.5 - Hyperlipidemia, unspecified Status: Chronic (4) COPD (chronic obstructive pulmonary disease) ICD Code: J44.9 - Chronic obstructive pulmonary disease, unspecified Status: Chronic (5) Fall ICD Code: W19.XXXA - Unspecified fall, initial encounter Status: Acute (6) Unsteady gait ICD Code: R26.81 - Unsteadiness on feet Status: Acute (7) Generalized weakness ICD Code: R53.1 - Weakness Status: Acute Assessment and Plan 08/17: Awaiting PT evaluation, family caseworker for placement, resume aspirin A/P: Mr. Weldon is 76 yo with history of Pulmonary embolism that led to hospitalization at [facility] [place] this summer. Shortly after his admission he developed abdominal pain and it was determined he had a bowel perforation and underwent surgery and received a colostomy. He remained in [facility] until the middle of May and was sent to a local rehab facility. He was there for approximately a month and was discharged late June. He received some home health/PT services but pt stated he did not walk that much. He reported he has been living in a hotel and due to construction did not get out of bed and walk as he had planned. He comes to [facility] [facility] on 08/16/17 subsequent to a fall. Mr. Weldon stated he has was using his walker when "my legs just gave out from underneath me." He stated he has been well and not noticed an acute decline in his lower leg strength. He did report having recently noticed rapid heart beats and palpitations. He stated he saw his PCP last week and was placed on Metoprolol "extended release" and an aspirin for "my irregular heart beat." Fall Debility -Awaiting PT evaluation -CM consulted -Xray of left leg negative for fracture Hypertension Arrhythmia -Telemtetry -Continue Metoprolol ER 25 mg po daily Hyperlipidemia -Continue stating therapy. COPD -Stable -Duoneb q 4 hrs PRN wheezing/Short of breath Diet -Regular Problem Qualifiers (1) Hypertension: Qualified Codes: I10 - Essential (primary) hypertension (2) Arrhythmia: Qualified Codes: I48.0 - Paroxysmal atrial fibrillation (3) Hyperlipidemia: Qualified Codes: E78.5 - Hyperlipidemia, unspecified (4) COPD (chronic obstructive pulmonary disease): Qualified Codes: J44.9 - Chronic obstructive pulmonary disease, unspecified (5) Fall: Qualified Codes: W19.XXXA - Unspecified fall, initial encounter Nilda Mead MD Aug 17, 2017 14:01
[2017-08-17] MEDS: PRAVASTATIN SOD 20 MG TAB PO SCH (21:22)
[2017-08-17] MEDS: ENOXAPARIN SODIUM 40 MG/0.4 ML SYRINGE SQ SCH (21:22)
[2017-08-17] MEDS: ATORVASTATIN 20 MG TAB PO SCH (21:22)
[2017-08-18] VITALS (12 sets, daily range): BP systolic 102–119; BP diastolic 61–74; PULSE 83–92; RESP 17–20; TEMP 97.4–98.8; O2SAT 92–97
[2017-08-18 06:08] LABS: BLOOD, URINE NEG (NEG); CALCIUM OXALATE CRYSTALS,URINE FEW /hpf; COMMENT (UR) CULT NOT INDICATED; CULTURE IF INDICATED CULT NOT INDICATED; GLUCOSE,URINE NEG (NEG); HYALINE CAST, URINE 4 /lpf (RARE); KETONE, URINE NEG (NEG); MUCUS URINE FEW /lpf (OCC); NITRITE,URINE NEG (NEG); PH, URINE 5.5 (5.0-8.5); SQUAMOUS EPITHELIAL CELL URINE <1 /hpf (0-5); URINE COLOR YELLOW (YELLW/STRAW)
[2017-08-18] MEDS: METOPROLOL SUCCINATE 25 MG EXTENDED RELEASE TAB PO SCH (08:48)
[2017-08-18] MEDS: DOCUSATE SODIUM 50 MG/SENNA 8.6 MG TAB PO SCH ×2 (08:48→20:27)
[2017-08-18] MEDS: ASPIRIN 81 MG CHEW TAB CHEW SCH (08:48)
[2017-08-18] MEDS: SODIUM CHLORIDE 0.9% FLUSH 10 ML FLUSH IV FLUSH SCH ×2 (08:48→20:26)
--- NOTE | 2017-08-18 12:42 | HHI.PR ---
Subjective Remarks Patient complaint of bleeding from 2 wounds on his abdomen, I discussed with the surgeon who came graciously and saw the patient recommending Vaseline base dressing No chest pain or short of breath Objective Vitals Vital Signs Date Time Temp Pulse Resp B/P (MAP) Pulse Ox O2 Delivery O2 Flow Rate FiO2 08/18/17 11:42 97.4 87 20 102/63 (76) 96 08/18/17 07:27 97.9 87 18 118/63 (81) 95 08/18/17 07:12 92 Nasal Cannula 3.00 08/18/17 04:22 92 08/18/17 03:50 98.7 90 17 115/74 (88) 93 08/18/17 00:56 83 08/17/17 23:46 97.5 83 18 130/75 (93) 95 08/17/17 20:25 96 Nasal Cannula 3.00 08/17/17 19:31 97.4 85 18 116/65 (82) 96 08/17/17 16:34 97.4 82 22 121/62 (81) 94 I/O 08/17/17 08/17/17 08/17/17 08/18/17 08/18/17 08/18/17 07:00 15:00 23:00 07:00 15:00 23:00 Intake Total 200 ml Output Total 440 ml 400 ml 1150 ml Balance -440 ml -400 ml -950 ml Intake Oral 200 ml Output Urine Total 200 ml 400 ml 900 ml Stool Total 240 ml 250 ml # Voids 1 # Bowel Movements 2 Result Diagram: 08/17/17 0353 08/17/17 0353 Objective Remarks GENERAL: Frail 76 years old patient, in no apparent distress. SKIN: No rashes, warm and dry HEAD: Atraumatic. Normocephalic. EYES: Pupils equal round and reactive. Extraocular motions intact. No scleral icterus. ENT: Nose without bleeding, or drainage, Airway patent. NECK: Trachea midline. Supple CARDIOVASCULAR: Regular rate and rhythm without murmurs, gallops, or rubs. RESPIRATORY: Fair air entry bilaterally. No wheezes, rales, or rhonchi. GASTROINTESTINAL: Abdomen soft, non-tender, nondistended. Positive bowel sounds MUSCULOSKELETAL: Extremities without clubbing, cyanosis, +1 edema. Pedal pulses appreciated NEUROLOGICAL: Awake and alert. Moves all extremity. Normal speech.no focal neurological deficit A/P Problem List: (1) Hypertension ICD Code: I10 - Essential (primary) hypertension Status: Chronic (2) Arrhythmia ICD Code: I49.9 - Cardiac arrhythmia, unspecified Status: Acute (3) Hyperlipidemia ICD Code: E78.5 - Hyperlipidemia, unspecified Status: Chronic (4) COPD (chronic obstructive pulmonary disease) ICD Code: J44.9 - Chronic obstructive pulmonary disease, unspecified Status: Chronic (5) Fall ICD Code: W19.XXXA - Unspecified fall, initial encounter Status: Acute (6) Unsteady gait ICD Code: R26.81 - Unsteadiness on feet Status: Acute (7) Generalized weakness ICD Code: R53.1 - Weakness Status: Acute Assessment and Plan 08/18: PT evaluation recommend rehabilitation, increased TSH will check free T4 me need to increase his armour A/P: Mr. Weldon is 76 yo with history of Pulmonary embolism that led to [place] [facility] [place]. Shortly after his admission he developed abdominal pain and it was determined he had a bowel perforation and underwent surgery and received a colostomy. He remained in [facility] until the middle of May and was sent to a local rehab facility. He was there for approximately a month and was discharged late June. He received some home health/PT services but pt stated he did not walk that much. He reported he has been living in a hotel and due to construction did not get out of bed and walk as he had planned. He comes to [facility] on 08/16/17 subsequent to a fall. Mr. Weldon stated he has was using his walker when "my legs just gave out from underneath me." He stated he has been well and not noticed an acute decline in his lower leg strength. He did report having recently noticed rapid heart beats and palpitations. He stated he saw his PCP last week and was placed on Metoprolol "extended release" and an aspirin for "my irregular heart beat." Fall Debility -Awaiting PT evaluation -CM consulted -Xray of left leg negative for fracture Hypertension Arrhythmia -Telemtetry -Continue Metoprolol ER 25 mg po daily Hyperlipidemia -Continue stating therapy. COPD -Stable -Duoneb q 4 hrs PRN wheezing/Short of breath Diet -Regular Discharge Planning To rehabilitation when arrangement is done Problem Qualifiers (1) Hypertension: Qualified Codes: I10 - Essential (primary) hypertension (2) Arrhythmia: Qualified Codes: I48.0 - Paroxysmal atrial fibrillation (3) Hyperlipidemia: Qualified Codes: E78.5 - Hyperlipidemia, unspecified (4) COPD (chronic obstructive pulmonary disease): Qualified Codes: J44.9 - Chronic obstructive pulmonary disease, unspecified (5) Fall: Qualified Codes: W19.XXXA - Unspecified fall, initial encounter Nilda Mead MD Aug 18, 2017 12:42
[2017-08-18] MEDS: ENOXAPARIN SODIUM 40 MG/0.4 ML SYRINGE SQ SCH (20:25)
[2017-08-18] MEDS: PRAVASTATIN SOD 20 MG TAB PO SCH (20:25)
[2017-08-18] MEDS: ATORVASTATIN 20 MG TAB PO SCH (20:26)
[2017-08-18] MEDS: LACTIC ACID (AMMONIUM LACTATE) 12% LOTION 225 GM BTL TOPICAL SCH (20:26)
[2017-08-19] VITALS (13 sets, daily range): BP systolic 103–141; BP diastolic 58–99; PULSE 80–95; RESP 18–20; TEMP 97.4–98.7; O2SAT 95–97
[2017-08-19] MEDS: DOCUSATE SODIUM 50 MG/SENNA 8.6 MG TAB PO SCH ×3 (09:00→21:00)
[2017-08-19] MEDS: METOPROLOL SUCCINATE 25 MG EXTENDED RELEASE TAB PO SCH (10:18)
[2017-08-19] MEDS: SODIUM CHLORIDE 0.9% FLUSH 10 ML FLUSH IV FLUSH SCH ×2 (10:18→21:54)
[2017-08-19] MEDS: ASPIRIN 81 MG CHEW TAB CHEW SCH (10:18)
[2017-08-19] MEDS: LACTIC ACID (AMMONIUM LACTATE) 12% LOTION 225 GM BTL TOPICAL SCH ×2 (10:19→21:47)
[2017-08-19] MEDS ORDERED: ERGOCALCIFEROL (VIT D2) 50,000 UNIT CAP PO ONE (12:30)
--- NOTE | 2017-08-19 15:05 | HHI.PR ---
Subjective Remarks Patient says he is feeling all right. Reports some discomfort in his left knee yesterday which has resolved. Denies any chest pain or shortness of breath. Denies any nausea or vomiting. Objective Vital Signs Date Time Temp Pulse Resp B/P (MAP) Pulse Ox O2 Delivery O2 Flow Rate FiO2 08/19/17 12:00 98.1 86 18 111/66 (81) 96 08/19/17 10:31 95 08/19/17 07:56 97.5 88 20 128/73 (91) 95 08/19/17 06:14 87 08/19/17 04:42 98.4 90 18 139/60 (86) 97 08/19/17 00:19 86 08/19/17 00:17 98.4 88 18 141/99 (113) 95 08/18/17 21:02 91 08/18/17 19:34 98.8 91 18 119/65 (83) 97 08/18/17 19:33 96 Nasal Cannula 3.00 08/18/17 15:34 97.4 84 20 117/61 (79) 97 08/18/17 15:16 83 I/O 08/18/17 08/18/17 08/18/17 08/19/17 08/19/17 08/19/17 07:00 15:00 23:00 07:00 15:00 23:00 Intake Total 200 ml 480 ml 750 ml Output Total 1150 ml 500 ml 900 ml Balance -950 ml -20 ml -150 ml Intake Oral 200 ml 480 ml 750 ml Output Urine Total 900 ml 500 ml Stool Total 250 ml 500 ml 400 ml # Voids 3 Result Diagram: 08/17/17 0353 08/17/17 0353 Objective Remarks GENERAL: Sitting up in bed. Appears comfortable. SKIN: Warm and dry. HEAD: Normocephalic. EYES: No scleral icterus. No injection or drainage. NECK: Supple, trachea midline. No JVD or lymphadenopathy. CARDIOVASCULAR: Regular rate and rhythm without murmurs, gallops, or rubs. RESPIRATORY: Breath sounds equal bilaterally. No accessory muscle use. GASTROINTESTINAL: Abdomen soft, non-tender, nondistended. MUSCULOSKELETAL: No cyanosis, or edema. BACK: Nontender without obvious deformity. No CVA tenderness. A/P Assessment and Plan 08/19: PT evaluation recommend rehabilitation. TSH within a total treatment limits. Vitamin D extremely low. Starting replacement for hypovitaminosis D, suspected osteomalacia. A/P: Mr. Weldon is 76 yo with history of Pulmonary embolism that led to hospitalization at [facility] [place]. Shortly after his admission he developed abdominal pain and it was determined he had a bowel perforation and underwent surgery and received a colostomy. He remained in [facility] until the middle of May and was sent to a local rehab facility. He was there for approximately a month and was discharged late June. He received some home health/PT services but pt stated he did not walk that much. He reported he has been living in a hotel and due to construction did not get out of bed and walk as he had planned. He comes to [facility] on 08/16/17 subsequent to a fall. Mr. Weldon stated he has was using his walker when "my legs just gave out from underneath me." He stated he has been well and not noticed an acute decline in his lower leg strength. He did report having recently noticed rapid heart beats and palpitations. He stated he saw his PCP last week and was placed on Metoprolol "extended release" and an aspirin for "my irregular heart beat." //Fall //Debility -Awaiting PT evaluation -CM consulted -Xray of left leg negative for fracture = Appreciate PT assistance. Patient with severe vitamin D deficiency could be contributing to weakness. //Hypovitaminosis D. //Suspected osteomalacia -Patient's complaints of leg weakness suspicious for osteomalacia - Vitamin D level 7. We will start supplementation. //Hypertension //Arrhythmia -Telemtetry -Continue Metoprolol ER 25 mg po daily //Hyperlipidemia -Continue stating therapy. //COPD -Stable -Duoneb q 4 hrs PRN wheezing/Short of breath //Hypothyroidism. TSH 4.1 acceptable. Continue home armor thyroid. Diet -Regular Discharge Planning PT recommends rehabilitation. Appreciate case management assistance. Vinayak Bhagat MD Aug 19, 2017 15:05
[2017-08-19] MEDS ORDERED: OPTH EACH EYE PRN (19:00)
[2017-08-19] MEDS ORDERED: HYPROMELLOSE 2.5% EACH EYE PRN (19:00)
[2017-08-19] MEDS: ENOXAPARIN SODIUM 40 MG/0.4 ML SYRINGE SQ SCH (21:46)
[2017-08-19] MEDS: PRAVASTATIN SOD 20 MG TAB PO SCH (21:48)
[2017-08-19] MEDS: ATORVASTATIN 20 MG TAB PO SCH (21:55)
[2017-08-20] VITALS (11 sets, daily range): BP systolic 102–126; BP diastolic 66–75; PULSE 76–87; RESP 16–20; TEMP 97.3–98.7; O2SAT 93–97
[2017-08-20 04:13] LABS: AUTOMATED NEUTROPHIL # 4.9 TH/MM3 (1.8-7.7); BASOPHIL # 0.1 TH/MM3 (0-0.2); BASOPHIL % 1.1 % (0.0-2.0); EOSINOPHIL # 0.5 TH/MM3 (0-0.4); EOSINOPHIL % 5.9 % (0.0-4.0); HEMATOCRIT 35.4 % (39.0-51.0); HEMO FLAGS DIFF FINAL; LYMPH % 27.4 % (9.0-44.0); LYMPHOCYTE # 2.4 TH/MM3 (1.0-4.8); MEAN CELL VOLUME 84.1 FL (80.0-100.0); MEAN CORPUSCULAR HEMOGLOBIN 28.2 PG (27.0-34.0); MEAN CORPUSCULAR HGB CONC 33.5 % (32.0-36.0); MONO % 9.6 % (0.0-8.0); PLATELET COUNT 327 TH/MM3 (150-450); RED BLOOD COUNT 4.22 MIL/MM3 (4.50-5.90); RED CELL DISTRIBUTION WIDTH 17.6 % (11.6-17.2); WHITE BLOOD COUNT 8.8 TH/MM3 (4.0-11.0)
[2017-08-20 04:30] LABS: BICARBONATE 24.3 MEQ/L (21.0-32.0); MAGNESIUM 1.8 MG/DL (1.5-2.5); POTASSIUM 3.4 MEQ/L (3.5-5.1)
[2017-08-20 04:40] LABS: PROTHROMBIN TIME - PATIENT 11.4 SEC (9.8-11.6)
[2017-08-20] MEDS ORDERED: POTASSIUM CHLORIDE 10 MEQ CONTROLLED RELEASE TAB PO ONE (07:45)
[2017-08-20] MEDS: DOCUSATE SODIUM 50 MG/SENNA 8.6 MG TAB PO SCH ×2 (09:00→21:00)
[2017-08-20] MEDS: METOPROLOL SUCCINATE 25 MG EXTENDED RELEASE TAB PO SCH (09:17)
[2017-08-20] MEDS: CHOLECALCIFEROL (VIT D3) 1000 UNIT TAB PO SCH (09:17)
[2017-08-20] MEDS: ASPIRIN 81 MG CHEW TAB CHEW SCH (09:17)
[2017-08-20] MEDS: SODIUM CHLORIDE 0.9% FLUSH 10 ML FLUSH IV FLUSH SCH ×2 (09:18→21:58)
[2017-08-20] MEDS: LACTIC ACID (AMMONIUM LACTATE) 12% LOTION 225 GM BTL TOPICAL SCH ×2 (09:18→21:57)
--- NOTE | 2017-08-20 10:42 | HHI.PR ---
Subjective Remarks Says he is feeling well. Eyes no longer dry with eyedrops. Denies any chest pain or shortness of breath. Objective Vital Signs Date Time Temp Pulse Resp B/P (MAP) Pulse Ox O2 Delivery O2 Flow Rate FiO2 08/20/17 08:45 3.00 08/20/17 08:38 98.0 83 16 126/66 (86) 95 08/20/17 04:00 80 08/20/17 03:46 98.7 85 18 111/75 (87) 95 08/20/17 00:15 87 08/19/17 23:39 98.0 87 18 121/65 (83) 96 08/19/17 20:20 84 08/19/17 19:31 98.7 86 18 122/70 (87) 97 08/19/17 19:30 97 Nasal Cannula 3.00 08/19/17 15:38 84 08/19/17 15:34 97.4 80 20 103/58 (73) 97 08/19/17 12:00 98.1 86 18 111/66 (81) 96 I/O 08/19/17 08/19/17 08/19/17 08/20/17 08/20/17 08/20/17 07:00 15:00 23:00 07:00 15:00 23:00 Intake Total 750 ml Output Total 900 ml Balance -150 ml Intake Oral 750 ml Output Urine Total 500 ml Stool Total 400 ml # Voids 2 Result Diagram: 08/20/17 03408/20/17 0340 Objective Remarks GENERAL: Sitting up in bed. Appears comfortable. SKIN: Warm and dry. HEAD: Normocephalic. EYES: No scleral icterus. No injection or drainage. NECK: Supple, trachea midline. No JVD or lymphadenopathy. CARDIOVASCULAR: Regular rate and rhythm without murmurs, gallops, or rubs. RESPIRATORY: Breath sounds equal bilaterally. No accessory muscle use. GASTROINTESTINAL: Abdomen soft, non-tender, nondistended. Colostomy with no leakage or surrounding erythema. Dressing clean dry and intact. MUSCULOSKELETAL: No cyanosis, or edema. BACK: Nontender without obvious deformity. No CVA tenderness. A/P Assessment and Plan 07/20: Patient continues to work with PT. Continue vitamin D replacement, expect improvement in strength. hypokalemia 3.4. Replaced. Monitor. 08/19: PT evaluation recommend rehabilitation. TSH within a total treatment limits. Vitamin D extremely low. Starting replacement for hypovitaminosis D, suspected osteomalacia. A/P: Mr. Weldon is 76 yo with history of Pulmonary embolism that led to hospitalization at [facility] [place] Shortly after his admission he developed abdominal pain and it was determined he had a bowel perforation and underwent surgery and received a colostomy. He remained in [facility] [place] until the middle of May and was sent to a local rehab facility. He was there for approximately a month and was discharged late June. He received some home health/PT services but pt stated he did not walk that much. He reported he has been living in a hotel and due to construction did not get out of bed and walk as he had planned. He comes to [facility] [place] on 08/16/17 subsequent to a fall. Mr. Weldon stated he has was using his walker when "my legs just gave out from underneath me." He stated he has been well and not noticed an acute decline in his lower leg strength. He did report having recently noticed rapid heart beats and palpitations. He stated he saw his PCP last week and was placed on Metoprolol "extended release" and an aspirin for "my irregular heart beat." //Fall //Debility -Awaiting PT evaluation -CM consulted -Xray of left leg negative for fracture = Appreciate PT assistance. Patient with severe vitamin D deficiency could be contributing to weakness. //Hypovitaminosis D. //Suspected osteomalacia -Patient's complaints of leg weakness suspicious for osteomalacia - Vitamin D level 7. We will start supplementation. //Hypertension //Arrhythmia -Telemtetry -Continue Metoprolol ER 25 mg po daily //Hyperlipidemia -Continue stating therapy. //COPD -Stable -Duoneb q 4 hrs PRN wheezing/Short of breath //Hypothyroidism. TSH 4.1 acceptable. Continue home armor thyroid. Diet -Regular Discharge Planning PT recommends rehabilitation. Appreciate case management assistance. Vinayak Bhagat MD Aug 20, 2017 10:42
[2017-08-20] MEDS: PRAVASTATIN SOD 20 MG TAB PO SCH (21:57)
[2017-08-20] MEDS: ENOXAPARIN SODIUM 40 MG/0.4 ML SYRINGE SQ SCH (21:57)
[2017-08-20] MEDS: ATORVASTATIN 20 MG TAB PO SCH (21:58)
[2017-08-21] VITALS (10 sets, daily range): BP systolic 119–139; BP diastolic 59–74; PULSE 85–93; RESP 18–20; TEMP 95.1–98; O2SAT 91–94
[2017-08-21] MEDS: CHOLECALCIFEROL (VIT D3) 1000 UNIT TAB PO SCH (08:29)
[2017-08-21] MEDS: ASPIRIN 81 MG CHEW TAB CHEW SCH (08:30)
[2017-08-21] MEDS: DOCUSATE SODIUM 50 MG/SENNA 8.6 MG TAB PO SCH ×2 (08:30→21:00)
[2017-08-21] MEDS: METOPROLOL SUCCINATE 25 MG EXTENDED RELEASE TAB PO SCH (08:30)
[2017-08-21] MEDS: SODIUM CHLORIDE 0.9% FLUSH 10 ML FLUSH IV FLUSH SCH ×2 (08:30→22:15)
[2017-08-21] MEDS: LACTIC ACID (AMMONIUM LACTATE) 12% LOTION 225 GM BTL TOPICAL SCH ×2 (08:31→22:19)
--- NOTE | 2017-08-21 10:16 | HHI.PR ---
Subjective Remarks Follow up for weakness/falls. The patient reports continued generalized weakness and inability to ambulate independently. He continues to report his left knee feeling sore. He agrees he likely needs to go to rehab. He states he is also due for a dressing change at his abdominal wall wound. He denies any other medical complaints at this time. Objective Vitals Vital Signs Date Time Temp Pulse Resp B/P (MAP) Pulse Ox O2 Delivery O2 Flow Rate FiO2 08/21/17 08:37 94 Nasal Cannula 2.00 08/21/17 08:21 96.7 87 18 119/68 (85) 91 08/21/17 07:16 92 08/21/17 05:08 98.0 93 18 119/65 (83) 93 08/20/17 23:27 98.0 84 18 120/66 (84) 95 08/20/17 20:17 97 Nasal Cannula 2.00 08/20/17 19:54 98.4 82 18 117/66 (83) 93 08/20/17 16:30 97.9 80 20 102/73 (83) 96 08/20/17 15:57 76 08/20/17 11:50 97.3 83 18 114/74 (87) 95 Result Diagram: 08/20/17 0340 08/20/17 0340 Imaging Last Impressions Knee X-Ray 08/16/17 0000 Signed Impressions: Service Date/Time: Monday, August 16, 2017 17:57 - CONCLUSION: No evidence of recent bony injury. Anirudh Chavarria MD Objective Remarks GENERAL: Well-nourished, well-developed pleasant elderly male patient in [facility]. SKIN: Warm and dry. No rash. HEENT: Normocephalic. Atraumatic. Pupils equal and round. Mucous membranes pink and moist. CARDIOVASCULAR: Regular rate and rhythm. S1, S2 noted. No murmur appreciated. RESPIRATORY: No accessory muscle use. Clear to auscultation. Breath sounds equal bilaterally. GASTROINTESTINAL: Abdomen soft, non-tender, nondistended. Normoactive bowel sounds x4. RLQ colostomy in place; no surrounding erythema. Mid abdominal wound covered with dressing, CDI. MUSCULOSKELETAL: No obvious deformities. Extremities without clubbing, cyanosis , or edema. NEUROLOGICAL: Awake and alert. No obvious cranial nerve deficits. Moving all extremities spontaneously however with generalized weakness. Normal speech. PSYCHIATRIC: Appropriate mood and affect; insight and judgment normal. Medications and IVs Current Medications Medications (Trade) Dose Ordered Sig/Maya Route Start Time Stop Time Status Last Admin (NS Flush) 2 ml UNSCH PRN IV FLUSH 08/16/17 21:30 (NS Flush) 2 ml BID IV FLUSH 08/17/17 09:00 08/21/17 08:30 (Tylenol) 650 mg Q4H PRN PO 08/16/17 21:30 (Zofran Inj) 4 mg Q6H PRN IVP 08/16/17 21:30 (Lovenox Inj) 40 mg Q24H SQ 08/16/17 21:30 08/20/17 21:57 (Narcan Inj) 0.4 mg UNSCH PRN IV PUSH 08/16/17 21:30 (Faith-Colace) 1 tab BID PO 08/17/17 09:00 (Milk Of Magnesia Liq) 30 ml Q12H PRN PO 08/16/17 21:30 (Senokot) 17.2 mg Q12H PRN PO 08/16/17 21:30 (Dulcolax Supp) 10 mg DAILY PRN RECTAL 08/16/17 21:30 (Lactulose Liq) 30 ml DAILY PRN PO 08/16/17 21:30 (Lac-Hydrin 12% Lotion) 1 applic BID TOPICAL 08/16/17 21:30 08/21/17 08:31 (Toprol Xl) 25 mg DAILY PO 08/17/17 09:00 08/21/17 08:30 (Duoneb Neb) 1 ampule Q6HR NEB PRN NEB 08/16/17 21:30 (Lipitor) 20 mg HS PO 08/16/17 21:30 08/20/17 21:58 (Aspirin Chew) 81 mg DAILY CHEW 08/18/17 09:00 08/21/17 08:30 (Pravachol) 20 mg HS PO 08/17/17 21:00 08/20/17 21:57 (Vitamin D3) 2,000 units DAILY PO 08/20/17 09:00 08/21/17 08:29 (Goniosol 2.5% Opth Soln) 1 drop Q4H PRN EACH EYE 08/19/17 19:00 08/20/17 09:18 A/P Problem List: (1) Hypertension ICD Code: I10 - Essential (primary) hypertension Status: Chronic (2) Arrhythmia ICD Code: I49.9 - Cardiac arrhythmia, unspecified Status: Acute (3) Hyperlipidemia ICD Code: E78.5 - Hyperlipidemia, unspecified Status: Chronic (4) COPD (chronic obstructive pulmonary disease) ICD Code: J44.9 - Chronic obstructive pulmonary disease, unspecified Status: Chronic (5) Fall ICD Code: W19.XXXA - Unspecified fall, initial encounter Status: Acute (6) Unsteady gait ICD Code: R26.81 - Unsteadiness on feet Status: Acute (7) Generalized weakness ICD Code: R53.1 - Weakness Status: Acute Assessment and Plan 76-year-old male with hx of Pulmonary Embolism, bowel perforation s/p bowel resection and colostomy, HTN, HLD, COPD, presents with generalized weakness, deconditioning, and fall. The patient was recently admitted in May 2017, diagnosed with PE and then bowel perforation, underwent emergent bowel resection and colostomy; discharged to [facility] rehab in May, then discharged home in late June. However he has been mostly house bound because of construction going on at his apartment. He now presents on 08/16 with fall, generalized lower extremity weakness. He did report having recently noticed rapid heart beats and palpitations. He stated he saw his PCP last week and was placed on Metoprolol "extended release" and an aspirin for "my irregular heart beat." Fall, Deconditioning: inability to ambulate. Suspect multifactorial with recent extensive hospitalization, deconditioning. -Left Knee Xray images reviewed, no acute findings -patient with severe vitamin D deficiency, suspect contributing to weakness -Consulted PT, recommends rehab placement -Case management consulted Hypovitaminosis D, Suspected osteomalacia -Patient's complaints of leg weakness suspicious for osteomalacia -Vitamin D level 7. Started on supplementation. Hypertension, Arrhythmia -Monitor on telemtetry -Continue Metoprolol ER 25 mg po daily Hyperlipidemia: chronic -Continue statin therapy. COPD: chronic, stable, does not appear to be in exacerbation -Continue Duonebs q 4 hrs PRN wheezing/Short of breath Pulmonary Embolism: diagnosed on CTA 05/18, records reviewed. Patient was started on Xarelto at discharge in May, however patient states he hasn't been taking this since he was at rehab back in June. -discussed with Dr. Bhagat, will restart anticoagulation with Xarelto 15mg bid [id number], then 20mg daily -patient educated on continuing anticoagulation after discharge DVT Prophylaxis: Xarelto Problem Qualifiers (1) Hypertension: Qualified Codes: I10 - Essential (primary) hypertension (2) Arrhythmia: Qualified Codes: I48.0 - Paroxysmal atrial fibrillation (3) Hyperlipidemia: Qualified Codes: E78.5 - Hyperlipidemia, unspecified (4) COPD (chronic obstructive pulmonary disease): Qualified Codes: J44.9 - Chronic obstructive pulmonary disease, unspecified (5) Fall: Qualified Codes: W19.XXXA - Unspecified fall, initial encounter Janette Mclain PA-C Aug 21, 2017 10:16 am
[2017-08-21] MEDS: PRAVASTATIN SOD 20 MG TAB PO SCH (22:14)
[2017-08-21] MEDS: ATORVASTATIN 20 MG TAB PO SCH (22:14)
[2017-08-21] MEDS: RIVAROXABAN 15 MG TAB PO SCH (22:15)
[2017-08-22] VITALS (7 sets, daily range): BP systolic 109–126; BP diastolic 61–73; PULSE 80–88; RESP 18–21; TEMP 97.4–98.3; O2SAT 92–95
[2017-08-22] MEDS: DOCUSATE SODIUM 50 MG/SENNA 8.6 MG TAB PO SCH (09:00)
[2017-08-22] MEDS: LACTIC ACID (AMMONIUM LACTATE) 12% LOTION 225 GM BTL TOPICAL SCH (09:01)
[2017-08-22] MEDS: RIVAROXABAN 15 MG TAB PO SCH (09:01)
[2017-08-22] MEDS: SODIUM CHLORIDE 0.9% FLUSH 10 ML FLUSH IV FLUSH SCH (09:02)
[2017-08-22] MEDS: METOPROLOL SUCCINATE 25 MG EXTENDED RELEASE TAB PO SCH (09:02)
[2017-08-22] MEDS: CHOLECALCIFEROL (VIT D3) 1000 UNIT TAB PO SCH (09:02)
--- NOTE | 2017-08-22 10:33 | HHI.DS ---
Discharge Summary Admission Date Aug 16, 2017 at 8:02 pm Discharge Date: Aug 22, 2017 Admitting Diagnosis Fall, Left knee contusion, unsteady gait (1) Hypertension ICD Code: I10 - Essential (primary) hypertension Status: Chronic (2) Arrhythmia ICD Code: I49.9 - Cardiac arrhythmia, unspecified Status: Acute (3) Hyperlipidemia ICD Code: E78.5 - Hyperlipidemia, unspecified Status: Chronic (4) COPD (chronic obstructive pulmonary disease) ICD Code: J44.9 - Chronic obstructive pulmonary disease, unspecified Status: Chronic (5) Fall ICD Code: W19.XXXA - Unspecified fall, initial encounter Status: Acute (6) Unsteady gait ICD Code: R26.81 - Unsteadiness on feet Status: Acute (7) Generalized weakness ICD Code: R53.1 - Weakness Status: Acute Procedures None. Brief History - From Admission Mr. Weldon is 76 yo with history of Pulmonary embolism that led to hospitalization at [facility] [place] this summer. Shortly after his admission he developed abdominal pain and it was determined he had a bowel perforation and underwent surgery and received a colostomy. He remained in [facility] until the middle of May and was sent to a local rehab facility. he was there for approximately a month and was discharged late June. He received some home health/PT services but pt stated he did not walk that much. He reported he has been living in a hotel and due to construction did not get out of bed and walk as he had planned. He comes to [facility] on 08/16/17 subsequent to a fall. Mr. Weldon stated he has was using his walker when "my legs just gave out from underneath me." Pt stated when he fell "I landed on my left leg up underneath me." He said he could not stand and EMS was called. He denied head strike, loss of consciousness, or significant skin injury due to the fall. He stated he has been well and not noticed an acute decline in his lower leg strength. He did report having recently noticed rapid heart beats and palpitations. He stated he saw his PCP last week and was placed on Metoprolol "extended release" and an aspirin for " my irregular heart beat." Pt denied fever, Nausea, vomiting, diarrhea, change in colostomy output, lower extremity numbness/tingling. CBC/BMP: 08/20/17 0340 08/20/17 0340 Significant Findings Laboratory Tests Test 08/20/17 03:40 Red Blood Count 4.22 MIL/MM3 (4.50-5.90) Hemoglobin 11.9 GM/DL (13.0-17.0) Hematocrit 35.4 % (39.0-51.0) Red Cell Distribution Width 17.6 % (11.6-17.2) Monocytes (%) (Auto) 9.6 % (0.0-8.0) Eosinophils (%) (Auto) 5.9 % (0.0-4.0) Eosinophils # (Auto) 0.5 TH/MM3 (0-0.4) Blood Urea Nitrogen 6 MG/DL (7-18) Albumin 2.5 GM/DL (3.4-5.0) Sodium Level 135 MEQ/L (136-145) Potassium Level 3.4 MEQ/L (3.5-5.1) Imaging Last Impressions Knee X-Ray 08/16/17 0000 Signed Impressions: Service Date/Time: Wednesday, August 16, 2017 17:57 - CONCLUSION: No evidence of recent bony injury. Anirudh Chavarria MD PE at Discharge GENERAL: Well-nourished, well-developed pleasant elderly male patient in [facility]. SKIN: Warm and dry. No rash. HEENT: Normocephalic. Atraumatic. Pupils equal and round. Mucous membranes pink and moist. CARDIOVASCULAR: Regular rate and rhythm. S1, S2 noted. No murmur appreciated. RESPIRATORY: No accessory muscle use. Clear to auscultation. Breath sounds equal bilaterally. GASTROINTESTINAL: Abdomen soft, non-tender, nondistended. Normoactive bowel sounds x4. RLQ colostomy in place; no surrounding erythema. Mid abdominal wound covered with dressing, CDI. MUSCULOSKELETAL: No obvious deformities. Extremities without clubbing, cyanosis , or edema. NEUROLOGICAL: Awake and alert. No obvious cranial nerve deficits. Moving all extremities spontaneously however with generalized weakness. Normal speech. PSYCHIATRIC: Appropriate mood and affect; insight and judgment normal. Pt update on day of discharge Follow up for fall, weakness. The patient reports feeling better today, he states he does not feel as weak as he did when he first came to the hospital. He still has some left knee discomfort, also improving. He wants to go home. Hospital Course 76-year-old male with hx of Pulmonary Embolism, bowel perforation s/p bowel resection and colostomy, HTN, HLD, COPD, presents with generalized weakness, deconditioning, and fall. The patient was recently admitted in May 2017, diagnosed with PE and then bowel perforation, underwent emergent bowel resection and colostomy; discharged to [facility] rehab in May, then discharged home in late June. However he has been mostly house bound because of construction going on at his apartment. He now presents on 08/16 with fall, generalized lower extremity weakness. He did report having recently noticed rapid heart beats and palpitations. He stated he saw his PCP last week and was placed on Metoprolol "extended release" and an aspirin for "my irregular heart beat." Fall, Deconditioning: inability to ambulate. Suspect multifactorial with recent extensive hospitalization, deconditioning. Left Knee Xray images reviewed, no acute findings. Patient with severe vitamin D deficiency, suspect contributing to weakness. Consulted PT, recommends rehab placement. Case management consulted , patient unable to go to rehab due to insurance restraints. Patient wants to go home with [facility]. Explained to the patient that it may not be safe for him to return home given his recent fall and difficulty ambulating however he still wants to go home. He states he doesn't plan to get out of bed without assistance of [facility] nurse or physical therapist. He states he plans to use a urinal and he does not need to use commode because he has colostomy. I also explained importance of frequent position changes to avoid pressure ulcers, patient verbalized understanding. Pulmonary Embolism: diagnosed on CTA 05/18, records reviewed. Patient was started on Xarelto at discharge in May, however patient states he hasn't been taking this since he was at rehab back in June. The patient states he was just told by a rehab nurse one day that it would be his last dose but he was never told by a physician that his xarelto was being discontinued. Discussed with Dr. Bhagat, restarted anticoagulation with Xarelto 15mg bid [id number], then 20mg daily. Patient educated on continuing anticoagulation after discharge. Patient also educated on his risk of bleeding if he were to fall, patient verbalizes understanding. Hypovitaminosis D, Suspected osteomalacia. Patient's complaints of leg weakness suspicious for osteomalacia. Vitamin D level 7. Started on supplementation. Hypertension, Arrhythmia. Monitor on telemetry. Continued Metoprolol ER 25 mg po daily. Hyperlipidemia: chronic. Continued statin therapy. COPD: chronic, stable, does not appear to be in exacerbation. Continued Duonebs q 4 hrs PRN wheezing/sob. DVT Prophylaxis: Xarelto Pt Condition on Discharge: Stable Discharge Disposition: Disch w/ Home Health Serv Discharge Time: > 30 minutes Discharge Instructions DIET: Follow Instructions for: Heart Healthy Diet Activities you can perform: Regular-No Restrictions Follow up Referrals: [facility] New Medications: Rivaroxaban (Xarelto) 20 Mg Tab 20 MG PO DAILY for pulmonary embolism, #30 TAB 3 Refills Start after completing starter pack of 15mg twice a day x21 days. Cholecalciferol (Gnp Vitamin D3 Extra Stre) 1,000 Unit Tab 2000 UNITS PO DAILY for vitamin D deficiency, #60 TAB 11 Refills Rivaroxaban (Xarelto) 15 Mg Tab 15 MG PO BID for pulmonary embolism, #40 TAB Take 15mg twice a day for 3weeks (already started in hospital, need to complete 20 more days) Then take 20mg once daily for at least 3 months or until instructed by physician to stop. Continued Medications: Ipratropium-Albuterol Inh (Combivent Respimat Inh) 20-100 Jail/Act Aero 2 PUFF INH QID PRN for DYSPNEA, #1 INHALER 0 Refills Metoprolol Succinate ER 24 HR (Metoprolol Succinate ER 24 HR) 25 Mg Tab 25 MG PO DAILY, #30 TAB 0 Refills Oxygen (O2) (Oxygen (O2)) Device LITER LOU.CANULA CONTINUOUS for Prevent Hypoxemia, #2 Oxygen Concentrator Portable Gaseous 2 L/min via Nasal Canula Continuous For 99 months Simvastatin (Simvastatin) 20 Mg Tab 10 MG PO HS for Cholesterol Management, #30 TAB 0 Refills Discontinued Medications: Aspirin (Aspirin Low Dose) 81 Mg Chew 81 MG CHEW DAILY, TAB 0 Refills Janette Mclain PA-C Aug 22, 2017 10:33
[2017-08-22] MEDS ORDERED: XARE20TA PO (10:37)
[2017-08-22] MEDS ORDERED: XARE15TA PO (10:37)
[2017-08-22] MEDS ORDERED: CHOL1000 PO (10:38)
--- NOTE | 2017-08-22 10:44 | HHI.FF ---
Face to Face Verification Diagnosis: (1) Pulmonary embolism (2) Fall (3) Unsteady gait (4) Contusion of left knee (5) Generalized weakness (6) Acute on chronic respiratory failure with hypoxemia (7) Hyperlipidemia (8) Hypertension (9) COPD (chronic obstructive pulmonary disease) (10) Arrhythmia Physical Therapy Order: Evaluate and Treat, Improve ambulation, Strength and gait training Occupational Therapy Order: Evaluate and Treat, Improve ADL Home Health Nursing Order: Medical education Signs/symptoms of disease process Wound care and dressing changes (needs abdominal wound dressing changes every Mon/Wed/Fri as previous.) Home Health Aide Order: To Assist In: Bathing and personal care, radiographer cardiac catheterization and meal prep I have seen patient Dean Weldon on 08/22/17. My clinical findings support the need for the requested home health care services because: Ltd mobility - disease progression Patient has SOB Deconditioned w/ increased weakness Limited ability to care for self High risk of falls I certify that my clinical findings support that this patient is homebound because: Post-op weakness Hx COPD- exertion dyspnea/weakness Unsteady gait/balance Unsafe to leave home unassisted Unable to use public transportation Janette Mclain PA-C Aug 22, 2017 10:44 am
== END 2017-08-22 13:54 | disposition home or self-care (01) ==
LOC: NEPD 16:37 → NEDA 20:02 → NEPFCDU 22:44
PROVIDERS: ADMIT Internal Medicine; ATTEND Internal Medicine
DX: S80.02XA Contusion of left knee, initial encounter (principal); I10 Essential (primary) hypertension; I49.9 Cardiac arrhythmia, unspecified; R07.9 Chest pain, unspecified; E78.00 Pure hypercholesterolemia, unspecified; K21.9 Gastro-esophageal reflux disease without esophagitis; J44.9 Chronic obstructive pulmonary disease, unspecified; R53.1 Weakness; E87.6 Hypokalemia; E03.9 Hypothyroidism, unspecified; E55.9 Vitamin D deficiency, unspecified; R00.2 Palpitations; R00.0 Tachycardia, unspecified; Y93.01 Activity, walking, marching and hiking; W10.8XXA Fall (on) (from) other stairs and steps, initial encounter; Z86.711 Personal history of pulmonary embolism; Z93.3 Colostomy status
CPT/HCPCS: 73564; 80048; 80069; 81001; 82306; 82607; 82728; 83540; 83550; 83735; 84100; 84439; 84443; 85025; 85610; 96372; 97162; 97530; 99285; G0378; G8987; G8988; J1650